=== PATIENT | male | born 1935 | race Caucasian/White ===

== ENCOUNTER 2019-05-07 11:00 | Outpatient (RCR) | payer SELFPAY | END 2019-06-06 00:01 | LOC: CR 11:00 | PROVIDERS: Family Provider Family Medicine; Referring Provider Internal Medicine Cardiovascular Disease; Visit Provider Internal Medicine Cardiovascular Disease | DX: Z98.61 Coronary angioplasty status (principal) ==

== ENCOUNTER 2019-06-14 11:20 | Outpatient (RCR) | payer SELFPAY | END 2019-07-07 23:59 | disposition home or self-care (01) | LOC: CR 11:20 | PROVIDERS: Family Provider Family Medicine; PCP Family Medicine; Referring Provider Internal Medicine Cardiovascular Disease; Visit Provider Internal Medicine Cardiovascular Disease | DX: Z95.5 Presence of coronary angioplasty implant and graft (principal) ==

== ENCOUNTER 2019-06-20 14:39 | Outpatient (CLI) | payer MEDICARE, OTHER, SELFPAY ==
--- NOTE | 2019-06-20 15:00 | USCV_ITS ---
Rigo Dejesus Age: 83 Gender: M : 1935 Exam Date: 06/20/2019 15:02 Ordering Phys: Johnna Estrada MD ([email or web address]) Technologist: Jamel Preston [place] [facility] [place]: BP: 130 / 65 HR: 72 Rhythm: Sinus Technical Quality: Fair MEASUREMENTS (Male / Female) Normal Values 2D ECHO LVOT Diameter 2.0 cm LA Diameter 3.8 cm LA Width 3.8 cm LA Height 4.8 cm RA Width 4.0 cm RA Height 4.4 cm Aorta at Sinotubular Diameter 2.5 cm M-MODE LV Diastolic Diameter MM 4.6 cm 4.2 - 5.9 / 3.9 - 5.3 cm LV Systolic Diameter MM 2.5 cm LV Ejection Fraction MM Teich 77.6 % IVS Diastolic Thickness MM 1.2 cm 0.6 - 1.0 / 0.6 - 0.9 cm IVS Systolic Thickness MM 1.2 cm LVPW Diastolic Thickness MM 1.4 cm 0.6 - 1.0 / 0.6 - 0.9 cm LVPW Systolic Thickness MM 1.6 cm RV Diastolic Diameter MM 1.4 cm Aortic Annulus Diameter 3.7 cm LA Ao Ratio MM 1.0 MV E Point Septal Separation 1.3 cm DOPPLER AV Peak Velocity 313.0 cm/s LVOT Peak Velocity 97.0 cm/s AV Area Cont Eq vti 0.9 cm squared AV Area Cont Eq pk 1.0 cm squared MV Area PHT 5.0 cm squared Mitral E to A Ratio 1.1 MV E' Velocity 7.0 cm/s Mitral E to MV E' Ratio 14.8 Mitral E to LV E' Lateral Ratio 16.5 Mitral E to LV E' Septal Ratio 13.5 TR Peak Velocity 249.0 cm/s TR Peak Gradient 24.9 mmHg TV Peak E Velocity 92.0 cm/s Right Atrial Pressure 3.0 mmHg Pulmonary Artery Systolic Pressu 27.8 mmHg FINDINGS Left Ventricle Normal left ventricular cavity size. Normal left ventricular systolic function. No regional wall motion abnormalities. Left ventricular ejection fraction is estimated at 65 %. Grade I/IV diastolic dysfunction (abnormal relaxation filling pattern), normal to mildly elevated filling pressures. Right Ventricle The right ventricle is normal in size and function. Right Atrium The right atrium is normal in size. Left Atrium The left atrium is normal in size. Mitral Valve Moderately thickened mitral valve. No mitral valve stenosis. Mild mitral valve regurgitation. Aortic Valve Severe aortic valve calcification. Moderate aortic valve stenosis, mean gradient 21 mmHg, SEVEN 0.91 cm squared. No aortic valve regurgitation. Tricuspid Valve Structurally normal tricuspid valve without significant stenosis or regurgitation. Pulmonary artery systolic pressure is normal. Pulmonic Valve Structurally normal pulmonic valve without significant stenosis. There is no pulmonic regurgitation. Pericardium Normal pericardium without effusion. Aorta Normal ascending aorta dimension. CONCLUSIONS 1-Normal left ventricular cavity size. Normal left ventricular systolic function. No regional wall motion abnormalities. Left ventricular ejection fraction is estimated at 65 %. Grade I/IV diastolic dysfunction (abnormal relaxation filling pattern), normal to mildly elevated filling pressures. 2-Severe aortic valve calcification. Moderate aortic valve stenosis, mean gradient 21 mmHg, SEVEN 0.91 cm squared. No aortic valve regurgitation. 3-Moderately thickened mitral valve. No mitral valve stenosis. Mild mitral valve regurgitation. 4-There is no pericardial effusion. 5-Pulmonary artery systolic pressure is within normal limits. 6-Right atrial pressure is around 5 mm of mercury. 7-when compared to the prior echocardiogram dated 01/29/2014 there is a moderate to severe aortic stenosis now calculated aortic valve area is 0.94 cm squared with mean gradient across the aortic valve is 21 mmHg. Johnna Estrada MD (Electronically Signed) Final Date: 20 June 2019 17:37 S
== END 2019-06-20 14:40 | disposition home or self-care (01) ==
PROVIDERS: Family Provider Family Medicine; PCP Family Medicine; Visit Provider Internal Medicine Cardiovascular Disease
DX: I35.0 Nonrheumatic aortic (valve) stenosis (principal)
CPT/HCPCS: 93306

== ENCOUNTER 2019-08-07 12:41 | Outpatient (RCR) | payer SELFPAY | END 2019-09-05 23:59 | disposition home or self-care (01) | LOC: CR 12:41 | PROVIDERS: Family Provider Family Medicine; PCP Family Medicine; Referring Provider Internal Medicine Cardiovascular Disease; Visit Provider Internal Medicine Cardiovascular Disease | DX: Z95.5 Presence of coronary angioplasty implant and graft (principal) ==

== ENCOUNTER 2019-11-06 14:13 | Outpatient (RCR) | payer SELFPAY | END 2019-12-05 23:59 | disposition home or self-care (01) | LOC: CR 14:13 | PROVIDERS: Family Provider Family Medicine; PCP Family Medicine; Referring Provider Internal Medicine Cardiovascular Disease; Visit Provider Internal Medicine Cardiovascular Disease | DX: Z95.5 Presence of coronary angioplasty implant and graft (principal) ==

== ENCOUNTER 2019-12-06 | Outpatient (RCR) | payer SELFPAY | END 2020-01-05 23:00 | disposition home or self-care (01) | LOC: CR | PROVIDERS: Family Provider Family Medicine; PCP Family Medicine; Referring Provider Internal Medicine Cardiovascular Disease; Visit Provider Internal Medicine Cardiovascular Disease | DX: Z95.5 Presence of coronary angioplasty implant and graft (principal) ==

== ENCOUNTER 2020-01-09 13:17 | Outpatient (RCR) | payer SELFPAY | END 2020-02-05 23:59 | disposition home or self-care (01) | LOC: CR 13:17 | PROVIDERS: Family Provider Family Medicine; PCP Family Medicine; Referring Provider Internal Medicine Cardiovascular Disease; Visit Provider Internal Medicine Cardiovascular Disease | DX: Z95.5 Presence of coronary angioplasty implant and graft (principal) ==

== ENCOUNTER 2020-02-06 14:36 | Outpatient (RCR) | payer SELFPAY | END 2020-03-06 23:59 | disposition home or self-care (01) | LOC: CR 14:36 | PROVIDERS: Family Provider Family Medicine; PCP Family Medicine; Referring Provider Internal Medicine Cardiovascular Disease; Visit Provider Internal Medicine Cardiovascular Disease | DX: Z95.5 Presence of coronary angioplasty implant and graft (principal) ==

== ENCOUNTER 2020-03-08 10:40 | Outpatient (RCR) | payer SELFPAY | END 2020-04-06 23:59 | disposition home or self-care (01) | LOC: CR 10:40 | PROVIDERS: Family Provider Family Medicine; PCP Family Medicine; Referring Provider Internal Medicine Cardiovascular Disease; Visit Provider Internal Medicine Cardiovascular Disease | DX: Z95.5 Presence of coronary angioplasty implant and graft (principal) ==

== ENCOUNTER 2020-04-07 15:04 | Outpatient (RCR) | payer SELFPAY | END 2020-05-06 23:59 | disposition home or self-care (01) | LOC: CR 15:04 | PROVIDERS: Family Provider Family Medicine; PCP Family Medicine; Referring Provider Internal Medicine Cardiovascular Disease; Visit Provider Internal Medicine Cardiovascular Disease | DX: Z95.5 Presence of coronary angioplasty implant and graft (principal) ==

== ENCOUNTER 2020-05-09 11:17 | Outpatient (RCR) | payer SELFPAY | END 2020-06-06 23:59 | disposition home or self-care (01) | LOC: CR 11:17 | PROVIDERS: Family Provider Family Medicine; PCP Family Medicine; Referring Provider Internal Medicine Cardiovascular Disease; Visit Provider Internal Medicine Cardiovascular Disease | DX: Z95.5 Presence of coronary angioplasty implant and graft (principal) ==

== ENCOUNTER 2020-05-28 09:29 | Outpatient (CLI) | payer MEDICARE, OTHER, SELFPAY ==
[2020-05-28 10:21] LABS: Basophils # 0.1 10^3/uL (0.0-0.1); Basophils % 0.8 %; Eosinophils # 0.5 10^3/uL (0.0-0.8); Eosinophils % 4.8 %; Hematocrit 27.4 % (42.0-52.0); Hemoglobin 8.3 g/dL (11.7-16.6); Lymphocytes # 1.6 10^3/uL (0.8-4.8); Lymphocytes % 15.8 %; Mean Corpuscular HGB Conc 30.3 g/dL (30.0-36.0); Mean Corpuscular Hemoglobin 29.6 pg (28.0-34.0); Mean Corpuscular Volume 97.9 fL (80-94); Mean Platelet Volume 10.2 fL (7.4-10.4); Monocytes # 1.1 10^3/uL (0.2-0.9); Monocytes % 10.5 %; Neutrophils # 6.92 10^3/uL (1.8-7.7); Neutrophils % 66.8 %; Nucleated Red Blood Cells % 0 %; Platelet Count 306 10^3/cmm (130-400); Red Cell Distribution Width 14.7 % (12.1-15.1); White Blood Count 10.4 10^3/uL (4.0-10.0)
[2020-05-28 10:33] LABS: Alanine Aminotransferase 9 U/L (0-41); Albumin Level 3.7 g/dL (3.5-5.2); Alkaline Phosphatase 83 IU/L (40-130); Anion Gap 13.6 (5-19); Aspartate Amino Transferase 11 U/L (0-40); Blood Urea Nitrogen 47 mg/dL (8-23); Calcium 8.8 mg/dL (8.5-10.5); Carbon Dioxide 28 mmol/L (22-29); Chloride 99 mmol/L (98-107); Glucose 162 mg/dL (65-115); Osmolality Calculated 298 mOsm/kg (285-295); Potassium 4.6 mmol/L (3.5-5.1); Sodium 136 mmol/L (136-145); Total Bilirubin 0.2 mg/dL (0.15-1.2); Total Protein 6.7 g/dL (6.6-8.7)
[2020-05-28 13:57] LABS: Immunoglobulin IGA 310 mg/dL (70-400); Immunoglobulin IGG 1122 mg/dL (700-1600); Immunoglobulin IGM 52 mg/dL (40-230)
== END 2020-05-28 09:30 | disposition home or self-care (01) ==
PROVIDERS: PCP Family Medicine; Visit Provider Internal Medicine Critical Care Medicine
DX: J47.9 Bronchiectasis, uncomplicated (principal)
CPT/HCPCS: 36415; 80053; 82784; 85025; 87015; 87070; 87116; 87205; 87206; 87801

== ENCOUNTER 2020-06-07 13:09 | Outpatient (RCR) | payer SELFPAY | END 2020-07-07 23:59 | disposition home or self-care (01) | LOC: CR 13:09 | PROVIDERS: Family Provider Family Medicine; PCP Family Medicine; Referring Provider Internal Medicine Cardiovascular Disease; Visit Provider Internal Medicine Cardiovascular Disease | DX: Z95.5 Presence of coronary angioplasty implant and graft (principal) ==

== ENCOUNTER 2020-06-14 08:23 | Outpatient (CLI) | payer MEDICARE, OTHER, SELFPAY ==
--- NOTE | 2020-06-14 08:33 | USCV_ITS ---
Rigo Dejesus Age: 84 Gender: M : 1935 Exam Date: 06/14/2020 09:19 Ordering Phys: Johnna Estrada MD ([email or web address]) Technologist: Ashley Grove Exam Location: [facility] – [place] Indication: BP: 120 / 68 HR: 65 Rhythm: Sinus Technical Quality: Adequate MEASUREMENTS (Male / Female) Normal Values 2D ECHO LV Diastolic Diameter PLAX 5.0 cm 4.2 - 5.9 / 3.9 - 5.3 cm LV Systolic Diameter PLAX 2.7 cm LV Chamber Size 4.6 cm IVS Diastolic Thickness 1.6 cm 0.6 - 1.0 / 0.6 - 0.9 cm IVS Systolic Thickness 1.5 cm LVPW Diastolic Thickness 1.1 cm 0.6 - 1.0 / 0.6 - 0.9 cm LVPW Systolic Thickness 1.5 cm RV Chamber Size 3.3 cm LVOT Diameter 2.1 cm LV Ejection Fraction 2D Teich 76.2 % LV Ejection Fraction MOD 2C 72.2 % LV Ejection Fraction 2C AL 72.5 % LA Diameter 3.7 cm LA Width 3.2 cm LA Height 3.9 cm RA Width 4.1 cm RA Height 4.5 cm Aorta at Sinotubular Diameter 3.4 cm M-MODE LV Diastolic Diameter MM 6.1 cm 4.2 - 5.9 / 3.9 - 5.3 cm LV Systolic Diameter MM 4.2 cm LV Ejection Fraction MM Teich 58.3 % IVS Diastolic Thickness MM 1.0 cm 0.6 - 1.0 / 0.6 - 0.9 cm IVS Systolic Thickness MM 1.4 cm LVPW Diastolic Thickness MM 1.2 cm 0.6 - 1.0 / 0.6 - 0.9 cm LVPW Systolic Thickness MM 1.2 cm RV Diastolic Diameter MM 1.1 cm Aortic Annulus Diameter 3.3 cm LA Ao Ratio MM 1.3 MV E Point Septal Separation 0.5 cm DOPPLER AV Peak Velocity 351.0 cm/s LVOT Peak Velocity 93.0 cm/s AV Area Cont Eq vti 0.8 cm squared AV Area Cont Eq pk 0.9 cm squared MV Area PHT 4.0 cm squared Mitral E to A Ratio 0.8 MV E' Velocity 53.0 cm/s Mitral E to MV E' Ratio 13.1 Mitral E to LV E' Lateral Ratio 14.3 Mitral E to LV E' Septal Ratio 12.3 TR Peak Velocity 191.9 cm/s TR Peak Gradient 14.7 mmHg TR Mean Velocity 140.0 cm/s TR Mean Gradient 8.8 mmHg TR Velocity Time Integral 54.3 cm TV Peak E Velocity 68.0 cm/s Right Atrial Pressure 3.0 mmHg Pulmonary Artery Systolic Pressu 17.7 mmHg FINDINGS Left Ventricle Normal left ventricular cavity size. Increased left ventricular wall thickness. Moderate concentric left ventricular hypertrophy. Normal left ventricular systolic function. Left ventricular ejection fraction is estimated at 65 %. No diagnostic regional wall motion abnormality. Normal diastolic function. Right Ventricle Normal right ventricular size and systolic function. Right ventricular systolic pressure 17.7 mmHg. Right Atrium Normal right atrial size. Left Atrium Mildly increased left atrial size. Mitral Valve Moderate mitral annular calcification. Structurally normal mitral valve. No mitral valve stenosis. Trace to mild mitral valve regurgitation. Aortic Valve Markedly thickened and calcified calcified aortic valve. Possibly moderate aortic valve stenosis, peak velocity 3.5 m/s, peak gradient 49 mmHg, mean gradient 26 mmHg, SEVEN 0.82 cm squared. Dimensionless valve index of 0.27. Tricuspid Valve Structurally normal tricuspid valve. Trace tricuspid valve regurgitation. Pulmonic Valve Pulmonic valve not well visualized. Pericardium No pericardial effusion. Aorta Aorta not well visualized. CONCLUSIONS 1. Normal left ventricular cavity size and systolic function. Moderate concentric left ventricular hypertrophy. Left ventricular ejection fraction is estimated at 65 %. No diagnostic regional wall motion abnormality. Normal diastolic function. 2. Normal right ventricular size and systolic function. 3. Mildly increased left atrial size. 4. Possibly moderate aortic valve stenosis, peak velocity 3.5 m/s, peak gradient 49 mmHg, mean gradient 26 mmHg, SEVEN 0.82 cm squared. Dimensionless valve index of 0.27. 5. Normal pulmonary artery pressure. 6. When compared to previous echocardiogram dated 06/20/2019, mean gradient through aortic valve has increased but remains in moderate range. Katherine Dior MD (Electronically Signed) Final Date: 21 June 2020 14:56 S
== END 2020-06-14 08:24 | disposition home or self-care (01) ==
PROVIDERS: PCP Family Medicine; Visit Provider Internal Medicine Cardiovascular Disease
DX: I35.0 Nonrheumatic aortic (valve) stenosis (principal); R06.02 Shortness of breath
CPT/HCPCS: 93306

== ENCOUNTER 2020-07-09 10:41 | Outpatient (RCR) | payer SELFPAY | END 2020-08-04 23:59 | disposition home or self-care (01) | LOC: CR 10:41 | PROVIDERS: Family Provider Family Medicine; PCP Family Medicine; Referring Provider Internal Medicine Cardiovascular Disease; Visit Provider Internal Medicine Cardiovascular Disease | DX: Z95.5 Presence of coronary angioplasty implant and graft (principal) ==

== ENCOUNTER 2020-08-05 10:39 | Outpatient (RCR) | payer SELFPAY | END 2020-09-04 23:59 | disposition home or self-care (01) | LOC: CR 10:39 | PROVIDERS: PCP Family Medicine; Referring Provider Internal Medicine Cardiovascular Disease; Visit Provider Internal Medicine Cardiovascular Disease | DX: Z95.5 Presence of coronary angioplasty implant and graft (principal) ==

== ENCOUNTER 2020-08-28 09:47 | Outpatient (CLI) | payer MEDICARE, OTHER, SELFPAY ==
--- NOTE | 2020-08-28 10:15 | CT_ITS ---
WS: [id number] HIGH-RESOLUTION CHEST CT TECHNIQUE: Noncontrast high-resolution CT of the chest with coronal and sagittal reformatted images. Inspiratory, expiratory, and prone imaging CLINICAL INFORMATION: Shortness of breath COMPARISON: CT 3 14,019 DLP: 1215.[address] scans at [facility] use at least one of these dose optimization techniques: automat ed exposure control; mA and/or kV adjustment per patient size (includes targeted exams where dose is matched to clinical indication); or iterative reconstruction. FINDINGS: Again seen are moderate chronic emphysematous changes with hyperinflation. Bronchiectasis with patchy opacities in the right middle lobe and both lower lobes. No acute pulmonary infiltrates. No consolid ation or pleural fluid. High-resolution images demonstrate slight tree-in-bud nodularity in both lowe r lobes likely inflammatory. Vascular calcification including coronary. No significant air trapping on the expiratory imaging. Mil d thoracic kyphosis. Hypertrophic changes and ankylosis thoracic spine. No acute appearing compressio n fractures. Partially visualized renal cortical atrophy. Adrenal glands are normal. Splenic artery calcification. Normal GE junction. CT/CT chest wo con [id number] IMPRESSION: 1. Moderate chronic emphysematous changes with hyperinflation similar to previ ous. 2. Bibasilar subsegmental atelectasis with bronchiectasis is similar in appear ance to the prior examination. 3. Bronchiectasis within the lingula and right middle lobe is unchanged. No baldwin bpleural honeycombing. 4. Slight tree-in-bud nodularity in both lower lobes likely inflammatory. 5. No mediastinal or hilar lymphadenopathy. No axillary lymphadenopathy. 6. Vascular calcification including coronary. 7. No other significant changes from previous.
== END 2020-08-28 09:48 | disposition home or self-care (01) ==
LOC: RADWPI 09:53
PROVIDERS: PCP Family Medicine; Visit Provider Internal Medicine Critical Care Medicine
DX: R06.02 Shortness of breath (principal); I25.10 Atherosclerotic heart disease of native coronary artery without angina pectoris; R91.8 Other nonspecific abnormal finding of lung field; J47.9 Bronchiectasis, uncomplicated; J98.11 Atelectasis
CPT/HCPCS: 71250

== ENCOUNTER 2020-09-05 14:34 | Outpatient (RCR) | payer SELFPAY | END 2020-10-04 23:59 | disposition home or self-care (01) | LOC: CR 14:34 | PROVIDERS: PCP Family Medicine; Referring Provider Internal Medicine Cardiovascular Disease; Visit Provider Internal Medicine Cardiovascular Disease | DX: Z95.5 Presence of coronary angioplasty implant and graft (principal) ==

== ENCOUNTER 2020-10-07 10:44 | Outpatient (RCR) | payer SELFPAY | END 2020-11-04 23:59 | disposition home or self-care (01) | LOC: CR 10:44 | PROVIDERS: PCP Family Medicine; Referring Provider Internal Medicine Cardiovascular Disease; Visit Provider Internal Medicine Cardiovascular Disease | DX: Z95.5 Presence of coronary angioplasty implant and graft (principal) ==

== ENCOUNTER 2020-11-05 14:21 | Outpatient (RCR) | payer SELFPAY | END 2020-12-04 23:59 | disposition home or self-care (01) | LOC: CR 14:21 | PROVIDERS: PCP Family Medicine; Referring Provider Internal Medicine Cardiovascular Disease; Visit Provider Internal Medicine Cardiovascular Disease | DX: Z95.5 Presence of coronary angioplasty implant and graft (principal) ==

== ENCOUNTER 2020-12-05 14:02 | Outpatient (RCR) | payer SELFPAY | END 2021-01-04 23:59 | disposition home or self-care (01) | LOC: CR 14:02 | PROVIDERS: PCP Family Medicine; Referring Provider Internal Medicine Cardiovascular Disease; Visit Provider Internal Medicine Cardiovascular Disease | DX: Z95.5 Presence of coronary angioplasty implant and graft (principal) ==

== ENCOUNTER 2021-01-06 14:38 | Outpatient (RCR) | payer SELFPAY | END 2021-02-04 23:59 | disposition home or self-care (01) | LOC: CR 14:38 | PROVIDERS: PCP Family Medicine; Referring Provider Internal Medicine Cardiovascular Disease; Visit Provider Internal Medicine Cardiovascular Disease | DX: Z95.5 Presence of coronary angioplasty implant and graft (principal) ==

== ENCOUNTER 2021-01-29 03:30 | Inpatient (IN) | payer MEDICARE, OTHER, SELFPAY ==
[2021-01-29] VITALS (8 sets, daily range): BP systolic 128–164; BP diastolic 77–78; PULSE 91–107; RESP 22–32; TEMP 36; O2SAT 74–100; BMI 22.8
--- NOTE | 2021-01-29 03:53 | XRR_ITS ---
PROCEDURE INFORMATION: Exam: XR Chest Exam date and time: 01/29/2021 3:53 AM Age: 85 years old Clinical indication: Cough and shortness of breath; Prior surgery; Surgery type: Coronary stents; Patient HX: Cough, SOB, and congestion. TECHNIQUE: Imaging protocol: XR of the chest. Views: 1 view. COMPARISON: CT chest con [id number] 08/28/2020 10:12 AM FINDINGS: Lungs: No definite CHF/pulmonary edema. Prominent right lower lung opacities, compatible with pneumonia. Please correlate clinically. There are less prominent, relatively mild left lower lung opacities. Pleural spaces: No visible pneumothorax. There may be a small amount of right pleural fluid. Heart/Mediastinum: Heart size is within normal limits. Bones/joints: No significant acute finding. XR/XR chest 1V portable [id number] IMPRESSION: 1. Findings compatible with bilateral lower lung pneumonia, more prominent on the right. 2. Suspect a small right pleural effusion. 3. Other findings discussed above.
--- NOTE | 2021-01-29 03:54 | ECG_ITS ---
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1935 Requested By: Enoc Rodriguez Order Number: [id number] Reading MD: NILSA MISHRA Measurements Intervals [place] Rate: 106 P: 67 HI: 237 QRS: 46 QRSD: 93 T: 46 QT: 306 QTc: 407 Interpretive Statements SINUS TACHYCARDIA WITH FIRST DEGREE AV BLOCK WITH OCCASIONAL VENTRICULAR PREMATURE COMPLEXES NONSPECIFIC T-WAVE ABNORMALITY Compared to ECG 08/31/2018 01:05:22 T-wave abnormality now present Sinus rhythm no longer present Electronically Signed On 01-29-2021 21:08:05 CDT by NILSA MISHRA [email or web address], [email or web address] [email or web address] [id number]
--- NOTE | 2021-01-29 03:55 | W.ED.SOB ---
HPI - SOB/Dyspnea General: Chief Complaint: Shortness of Breath/Dyspnea Stated Complaint: fell few day ago hurting all over, sob Time Seen by Provider: 01/29/21 03:33 Source: patient Mode of arrival: ambulatory Limitations: no limitations History of Present Illness: HPI Narrative: 85-year-old male states he has a history of COPD states that he had a fall 10 days ago where he injured his back and chest. States he been feeling really well and then mowed yard yesterday and started having increasing shortness of breath and cough. Patient here has hypoxia and is on 4 L here currently and does not require oxygen at home. He does have wheezing and rales here that is audible as well. He denies any fever. He has no known sick contacts. Denies any vomiting. He denies any chest pain currently. Associated symptoms: Deny abdominal pain, chest pain, fever(s), nausea or vomiting Review of Systems Const: Denies: fever(s), chills, body aches or change in appetite Eyes: Denies: blurry vision or eye discomfort ENMT: Denies: throat pain or dental pain Card: Denies: chest pain Resp: Reports: dyspnea and productive cough GI: Denies: abdominal pain, nausea, vomiting or diarrhea : Denies: dysuria Musc: Denies: neck pain or back pain Skin/Breast: Denies: rash Neuro: Denies: headache(s) Psych: Denies: depression Leander/Lymph: Denies: easy bruising All/Imm: Denies: urticaria PFSH ED PFSH: Medical History Aortic stenosis Hypercholesteremia Hypertension Surgical History History of heart artery stent Social History Smoking and tobacco status: former smoker Quit status (tobacco): has quit using tobacco Year quit tobacco: 1965 - 1.5 PPD x 5 Years Second hand smoke exposure: No Smoking risk assessment/counseling performed?: No Alcohol intake: never Desire information about alcohol rehabilitation?: No Counseling given: No Desire information about substance/drug rehabilitation?: No Counseling given: No Lives independently: Yes Household members: spouse Marital status: service: Yes Current occupational status: retired History of recent travel: No Current gender identity: Male Physical Exam Const: COMMON NORMALS: patient oriented x3 GENERAL APPEARANCE: in distress and ill appearing HENMT: COMMON NORMALS: normocephalic and atraumatic HEAD & SCALP: normocephalic and atraumatic Eye: COMMON NORMALS: Equal, round and reactive pupils present and EOMs intact bilaterally PUPIL: Yes Equal, round and reactive pupils present Neck/C-Spine: COMMON NORMALS: full ROM and supple Chest: COMMONS NORMALS: normal inspection of the chest and normal palpation of entire chest wall Resp: COMMON NORMALS: No retractions and No use of accessory muscles EFFORT & INSPECTION: Yes tachypneic AUSCULTATION: rales Cardio: COMMON NORMALS: regular rate, regular rhythm and No murmurs present (Cardio) RATE: regular rate RHYTHM: regular rhythm GI: COMMON NORMALS: Normal to inspection, nondistended, normoactive bowel sounds present, Soft to palpation, non-tender and no masses PALPATION: Yes Soft to palpation Extremity: COMMON NORMALS: normal to inspection and full ROM Neuro: COMMON NORMALS: patient oriented x3, moves all extremities and no focal motor deficits Psych: COMMON NORMALS: mental status grossly normal, Normal thought process present and cooperative THOUGHT PROCESS: Normal thought process present Skin: COMMON NORMALS: no rashes or lesions noted and no wounds GENERAL SKIN EXAM: no rashes or lesions noted Course Vital Signs: Vital signs: Vital Signs Temperature 96.8 F L 01/29/21 03:38 Pulse Rate 106 H 01/29/21 03:38 Respiratory Rate 24 H 01/29/21 03:38 Blood Pressure 164/77 01/29/21 03:38 Pulse Oximetry 74 L 01/29/21 03:38 MDM - SOB/Dyspnea EKG Data^: EKG 1: Attestation: I personally reviewed and interpreted this EKG as follows: EKG Interpretation Date: 01/29/21 EKG interpretation time: 03:57 Interpretation: sinus tach hr [address] or t wave abnormalities qrs 93 qtc 368 Discharge Plan Discharge Prescriptions: No Action ipratropium-albuterol 0.5 mg-3 mg(2.5 mg base)/3 mL solution for nebulization 3 ml INHALATION Q6H PRNRF: 0 carvedilol 12.5 mg tablet 12.5 mg PO Q12H RF: 0 finasteride 5 mg tablet 5 mg PO ONCE RF: 0 [id number] Tablet 1 tab PO ONCE RF: 0 albuterol sulfate 5 mg/mL solution for nebulization 2.5 mg INHALATION Q4H PRNRF: 0 Januvia 100 mg tablet 100 mg PO ONCE RF: 0 alprazolam 0.25 mg tablet 0.25 mg PO TID PRNRF: 0 ezetimibe [Zetia] 10 mg tablet 10 mg PO ONCE RF: 0 arginine (L-arginine) 500 mg tablet 500 mg PO DAILY RF: 0 glyburide 5 mg tablet 5 mg PO DIRECTED RF: 0 vitamin B complex [B Complex-Vitamin B12] Tablet 1 tab PO ONCE RF: 0 amlodipine 5 mg tablet 5 mg PO DAILY RF: 0 cholecalciferol (vitamin D3) 1,000 unit capsule 1,000 unit PO ONCE RF: 0 Trulicity 1.5 mg/0.5 mL pen injector 1.5 mg SUBCUT ONCE RF: 0 isosorbide mononitrate 30 mg tablet extended release 24 hr 30 mg PO QAM RF: 0 aspirin [Aspirin Childrens] 81 mg tablet,chewable 81 mg PO BID RF: 0 ferrous sulfate 325 mg (65 mg iron) tablet,delayed release (DR/EC) 325 mg PO DAILY RF: 0 furosemide 40 mg tablet 40 mg PO DAILY RF: 0 ascorbic acid (vitamin C) 500 mg capsule 1,000 mg PO DAILY RF: 0 garlic 1,000 mg capsule 1,000 mg PO DAILY RF: 0 montelukast 10 mg tablet 10 mg PO DAILY RF: 0 potassium gluconate 600 mg (99 mg) tablet 600 mg PO DAILY RF: 0 magnesium oxide 400 mg magnesium capsule 400 mg PO DAILY RF: 0 budesonide-formoterol [Symbicort] 160-4.5 mcg/actuation HFA aerosol inhaler 2 puff inhalation BID RF: 0 albuterol sulfate [Ventolin HFA] 90 mcg/actuation HFA aerosol inhaler 2 puff inhalation Q6H PRNRF: 0 nitroglycerin [Nitrostat] 0.4 mg tablet, sublingual 0.4 mg sublingual Q5M PRN (Reason: chest pain) Qty: 25 RF: 3 Coding Level of Care Code 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
[2021-01-29 04:05] LABS: Basophils # 0.1 10^3/uL (0.0-0.1); Basophils % 0.5 %; Eosinophils # 0.3 10^3/uL (0.0-0.8); Eosinophils % 1.6 %; Hematocrit 29.8 % (42.0-52.0); Hemoglobin 9.2 g/dL (11.7-16.6); Lymphocytes % 5.5 %; Mean Corpuscular HGB Conc 30.9 g/dL (30.0-36.0); Mean Corpuscular Hemoglobin 28.1 pg (28.0-34.0); Mean Corpuscular Volume 91.1 fl (80-94); Mean Platelet Volume 10.5 fL (7.4-10.4); Monocytes # 1.3 10^3/uL (0.2-0.9); Monocytes % 7.5 %; Neutrophils # 14.61 10^3/uL (1.8-7.7); Neutrophils % 82.2 %; Nucleated Red Blood Cells % 0 %; Platelet Count 354 10^3/cmm (130-400); Red Blood Count 3.27 10^6/uL (4.1-5.3); Red Cell Distribution Width 16.1 % (12.1-15.1); White Blood Count 17.8 10^3/uL (4.0-10.0)
[2021-01-29 04:19] LABS: D Dimer 2.62 ug/mIFEU (0-0.59)
[2021-01-29] MEDS: dexamethasone 4 mg/mL INJ 6 MG IVP (04:21)
[2021-01-29 04:29] LABS: Troponin(5th) Baseline 65 ng/L (0-15)
[2021-01-29 04:29] LABS: SARS Covid-2 Antigen Negative (Negative)
[2021-01-29] MEDS: albuterol 8 gm MDI 2 PUFF INHALATION (04:30)
[2021-01-29] MEDS: cefTRIAXone 1,000 MG in sodium chloride 0.9% (plus) 50 ML 100 MG IV (04:33)
[2021-01-29 04:36] LABS: NT Pro B Type Natriuretic Pept 6881 pg/mL (0-450); Procalcitonin 0.23 ng/mL (0-0.5)
[2021-01-29 04:44] LABS: Lactic Sepsis W/Reflex 0.8 mmol/L (0.5-2.2)
[2021-01-29] MEDS: azithromycin 500 MG in sodium chloride 0.9% 250 ML 250 MG IV (04:50)
[2021-01-29] MEDS: FUROsemide 10 mg/mL SDV 4mL 40 MG IVP (04:50)
[2021-01-29 04:58] LABS: ABG PH Result 7.24 (7.35-7.45); Arterial Blood Gas Hematocrit 44.9 % (42-52); Base Excess ABG -3.6 mmol/L (-2.0-2.0); Blood Gas Allen Test Pos; Blood Gas Sample Site Radial, left; Blood Gas Sample Type Arterial; HCO3 ABG 24.8 mmol/L (22-26); Oxygen Device NC; PO2 ABG 61.6 mmHg (80.0-100.0)
[2021-01-29 05:03] LABS: Alanine Aminotransferase 10 U/L (0-41); Albumin Level 3.5 g/dL (3.5-5.2); Alkaline Phosphatase 87 IU/L (40-130); Anion Gap 21.1 (5-19); Aspartate Amino Transferase 13 U/L (0-40); Blood Urea Nitrogen 47 mg/dL (8-23); C Reactive Protein 50.6 mg/L (0.0-4.9); Calcium 8.6 mg/dL (8.5-10.5); Carbon Dioxide 22 mmol/L (22-29); Chloride 97 mmol/L (98-107); Globulin 3.2 g/dL (1.3-4.6); Glucose 171 mg/dL (65-115); Osmolality Calculated 298 mOsm/kg (285-295); Potassium 4.1 mmol/L (3.5-5.1); Sodium 136 mmol/L (136-145); Total Bilirubin 0.2 mg/dL (0.15-1.2); Total Protein 6.7 g/dL (6.6-8.7)
--- NOTE | 2021-01-29 05:24 | PC.NURSE ---
Pt placed on Bipap per Dr. Rodriguez due to low O2 sats while on 6L via nasal cannula
[2021-01-29 06:00] LABS: ABG PCO2 47.2 mmHg (35-45); ABG PH Result 7.33 (7.35-7.45); Arterial Blood Gas Hematocrit 26.7 % (42-52); Base Excess ABG -1.4 mmol/L (-2.0-2.0); Blood Gas Sample Site Brachial, right; Blood Gas Sample Type Arterial; HCO3 ABG 24.6 mmol/L (22-26); Oxygen Device BIPAP; PO2 ABG 76.7 mmHg (80.0-100.0)
[2021-01-29 06:46] LABS: Troponin 5 2HR 67.99 ng/L (0-15); Troponin 5 2HR Delta 2.99 ABS# (0-10)
--- NOTE | 2021-01-29 06:47 | PM.HP ---
Providers/Chief Complaint Admitting Physician: Chrystal Mitchell MD Primary Care Provider: Elizabeth Houston MD Chief Complaint: fell few day ago hurting all over, sob History of Present Illness Rigo Dejesus is a 85 year old male with COPD, worsening bronchiectasis, , Presenting with 2 days of worsening cough shortness of breath at home. Upon presentation to the ER he was noted to be hypoxic initially requiring 4 L/min of supplemental oxygen, then needing BiPAP because of hypoxic hypercapnic respiratory failure. ABG is improving after about an hour on the BiPAP. Chest x-ray showing bilateral infiltrates. Rapid Covid antigen is negative, PCR is pending. Denies any fever. Review of Systems General: Reports: 10 or more systems reviewed and unremarkable except in HPI and below Const: Denies: fever(s), chills or body aches Eyes: Denies: change in vision, blurry vision or photophobia ENMT: Reports: hoarseness; Denies: throat pain, enlarged tonsils, odynophagia or nasal congestion Card: Denies: chest pain, palpitations, irregular heart rhythm, edema, swelling of feet/ankles, lightheadedness, pre-syncope, dyspnea on exertion or orthopnea Resp: Denies: dyspnea, productive cough, non-productive cough, wheezing, stridor, pain on inspiration, change in phlegm color, hemoptysis or chest congestion GI: Denies: abdominal pain, nausea, vomiting, hematemesis, coffee ground emesis, dysphagia, heartburn, diarrhea, constipation, GI cramping, change in stool character, hematochezia or melena : Denies: flank pain, dysuria, urinary frequency, urinary urgency, urinary hesitancy or hematuria Musc: Denies: neck pain, back pain, extremity pain, joint swelling, joint warmth or deformity Neuro: Denies: headache(s), numbness in extremities, weakness in extremities, sensory changes, difficulty walking, frequent falls, dizziness, vertigo, behavioral changes, Slurred speech present or seizure-like activity Psych: Denies: anxiety, depression, suicidal ideation or homicidal ideation Endo: Denies: polyuria, polydipsia, tired all the time, cold intolerance or hot flashes Leander/Lymph: Denies: easy bruising or easy bleeding Medications/Allergies Home Medications Medication Instructions Recorded Confirmed Last Taken Type albuterol sulfate 5 mg/mL(0.5 %) 2.5 mg INHALATION Q4H PRN 06/12/19 12/25/20 Unknown History solution for nebulization alprazolam 0.25 mg tablet 0.25 mg PO TID PRN 06/12/19 12/25/20 Unknown History amlodipine 5 mg tablet 5 mg PO DAILY tab 06/12/19 12/25/20 Unknown History arginine (L-arginine) 500 mg tablet 500 mg PO DAILY tab 06/12/19 12/25/20 Unknown History carvedilol 12.5 mg tablet 12.5 mg PO Q12H 06/12/19 12/25/20 Unknown History cholecalciferol (vitamin D3) 25 1,000 unit PO ONCE 06/12/19 12/25/20 Unknown History mcg (1,000 unit) capsule dulaglutide 1.5 mg/0.5 mL 1.5 mg SUBCUT ONCE 06/12/19 12/25/20 Unknown History subcutaneous pen injector ezetimibe 10 mg tablet 10 mg PO ONCE 06/12/19 12/25/20 Unknown History finasteride 5 mg tablet 5 mg PO ONCE 06/12/19 12/25/20 Unknown History glyburide 5 mg tablet 5 mg PO DIRECTED tab 06/12/19 12/25/20 Unknown History ipratropium 0.5 mg-albuterol 3 mg 3 ml INHALATION Q6H PRN 06/12/19 12/25/20 Unknown History (2.5 mg base)/3 mL nebulization soln isosorbide mononitrate 30 mg 30 mg PO QAM 06/12/19 12/25/20 Unknown History tablet,extended release 24 hr [id number] tablet 1 tab PO ONCE 06/12/19 12/25/20 Unknown History sitagliptin 100 mg tablet 100 mg PO ONCE 06/12/19 12/25/20 Unknown History vitamin B complex 1 tab PO ONCE 06/12/19 12/25/20 Unknown History ascorbic acid (vitamin C) 500 mg 1,000 mg PO DAILY cap 05/14/20 12/25/20 Unknown History capsule aspirin 81 mg chewable tablet 81 mg PO BID tab 05/14/20 12/25/20 Unknown History ferrous sulfate 325 mg (65 mg 325 mg PO DAILY 05/14/20 12/25/20 Unknown History iron) tablet,delayed release furosemide 40 mg tablet 40 mg PO DAILY 05/14/20 12/25/20 Unknown History garlic 1,000 mg capsule 1,000 mg PO DAILY 05/14/20 12/25/20 Unknown History magnesium oxide 400 mg PO DAILY 05/14/20 12/25/20 Unknown History montelukast 10 mg tablet 10 mg PO DAILY 05/14/20 12/25/20 Unknown History potassium gluconate 600 mg (99 mg) 600 mg PO DAILY 05/14/20 12/25/20 Unknown History tablet nitroglycerin 0.4 mg sublingual 0.4 mg SUBLINGUAL Q5M PRN #25 tab 10/23/20 12/25/20 Unknown Rx tablet albuterol sulfate 90 mcg/actuation 2 puff INHALATION Q6H PRN 12/25/20 12/25/20 Unknown History aerosol inhaler budesonide-formoterol HFA 160 2 puff INHALATION BID 12/25/20 12/25/20 Unknown History mcg-4.5 mcg/actuation aerosol inhaler Allergies Allergy/AdvReac Type Severity Reaction Status Date / Time sulfamethoxazole Allergy UNKNOWN Verified 12/25/20 08:58 [From Bactrim] trimethoprim [From Bactrim] Allergy UNKNOWN Verified 12/25/20 08:58 amoxicillin AdvReac ADR-Vomitin Verified 12/25/20 08:58 g PFSH Acute PFSH: Medical History (Updated 01/29/21 @ 06:52 by Chrystal Mitchell MD) Anxiety Aortic stenosis Calcium deficiency Chronic kidney disease, stage 3 unspecified Coagulopathy Dysuria GERD (gastroesophageal reflux disease) Hx pulmonary embolism Hypercholesteremia Hypertension Mild intermittent asthma, uncomplicated Recurrent UTI Renal insufficiency Surgical History (Updated 01/29/21 @ 06:52 by Chrystal Mitchell MD) History of heart artery stent Hx of bilateral cataract extraction Hx of squamous cell carcinoma excision NASAL TIP Social History Smoking and tobacco status: former smoker Quit status (tobacco): has quit using tobacco Year quit tobacco: 1965 - 1.5 PPD x 5 Years Second hand smoke exposure: No Smoking risk assessment/counseling performed?: No Alcohol intake: never Desire information about alcohol rehabilitation?: No Counseling given: No Desire information about substance/drug rehabilitation?: No Counseling given: No Lives independently: Yes Household members: spouse Marital status: service: Yes Current occupational status: retired History of recent travel: No Current gender identity: Male Vitals/I&O/Wt Last Vital Signs Temp 96.8 F L 01/29/21 03:38 Pulse 94 01/29/21 06:09 Resp 29 H 01/29/21 06:09 BP 128/78 01/29/21 05:26 Pulse Ox 96 01/29/21 06:09 01/28/21 01/28/21 01/29/21 14:59 22:59 06:59 Intake Total 300 / 300 Balance 300 / 300 Weight last 48 hrs Weight 78.471 kg Physical Exam Narrative: EXAM NARRATIVE: GEN: Awake, alert and oriented, no acute distress , currently on Bipap CVS: S1S2 N RS: CTA B/L except crackles over RLL Abd: Soft, nt/nd , bs+ 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 Const: COMMON NORMALS: patient oriented x3, no limitations, healthy appearing, alert and well nourished HENMT: COMMON NORMALS: normocephalic and atraumatic HEAD & SCALP: normocephalic and atraumatic Eye: COMMON NORMALS: Equal, round and reactive pupils present, EOMs intact bilaterally, conjunctivae normal and no scleral icterus CONJUNCTIVA: Yes conjunctivae normal PUPIL: Yes Equal, round and reactive pupils present Neck/C-Spine: COMMON NORMALS: no JVD Resp: COMMON NORMALS: normal respiratory effort, No retractions, No use of accessory muscles, clear to auscultation bilaterally and percussion normal AUSCULTATION: clear to auscultation bilaterally PERCUSSION: percussion normal Cardio: COMMON NORMALS: no JVD, regular rate, regular rhythm, S1 normal heart sound present, S2 normal heart sound present, No gallops present (Cardio), No clicks present (Cardio), No murmurs present (Cardio), No rub (Cardio) and Peripheral pulses 2+ throughout RATE: regular rate RHYTHM: regular rhythm HEART SOUNDS: S1 normal heart sound present and S2 normal heart sound present PERIPHERAL PULSES: Peripheral pulses 2+ throughout GI: COMMON NORMALS: Normal to inspection, nondistended, normoactive bowel sounds present, Soft to palpation, non-tender, No hepatosplenomegaly present, no masses and no bruits PALPATION: Yes Soft to palpation and Yes No hepatosplenomegaly present Extremity: COMMON NORMALS: normal to inspection, full ROM, capillary refill normal, no joint enlargement, no clubbing, cyanosis or edema, no calf tenderness and no pedal edema Neuro: COMMON NORMALS: patient oriented x3, CN's II-XII intact bilaterally, moves all extremities, no focal motor deficits, no sensory deficits noted, deep tendon reflexes 2+ bilaterally and gait normal SENSORIUM/ORIENTATION: Yes alert Psych: COMMON NORMALS: mental status grossly normal, Normal thought process present, cooperative, normal affect, speech normal, activity/motor behavior normal, denies hallucinations, denies homicidal ideation and denies suicidal ideation SPEECH: Yes normal speech THOUGHT PROCESS: Normal thought process present Skin: COMMON NORMALS: no rashes or lesions noted, no wounds, turgor normal, no jaundice, no petechiae and no mottling GENERAL SKIN EXAM: no rashes or lesions noted and turgor normal Data : 01/29/21 03:50 01/29/21 03:50 Micro: Microbiology 01/29/21 04:35 Blood Culture - Preliminary Blood SPECIMEN COLLECTED 01/29/21 04:20 Blood Culture - Preliminary Blood SPECIMEN COLLECTED Attestation for Other Data: I personally reviewed and interpreted the following: Other data: Laboratory Results WBC 17.8 10^3/uL (4.0-10.0) H 01/29/21 03:50 RBC 3.27 10^6/uL (4.1-5.3) L 01/29/21 03:50 Hgb 9.2 g/dL (11.7-16.6) L 01/29/21 03:50 Hct 29.8 % (42.0-52.0) L 01/29/21 03:50 MCV 91.1 fl (80-94) 01/29/21 03:50 MCH 28.1 pg (28.0-34.0) 01/29/21 03:50 MCHC 30.9 g/dL (30.0-36.0) 01/29/21 03:50 RDW 16.1 % (12.1-15.1) H 01/29/21 03:50 Plt Count 354 10^3/cmm (130-400) 01/29/21 03:50 MPV 10.5 fL (7.4-10.4) H 01/29/21 03:50 Neut % (Auto) 82.2 % 01/29/21 03:50 Lymph % (Auto) 5.5 % 01/29/21 03:50 Coles % (Auto) 7.5 % 01/29/21 03:50 Eos % (Auto) 1.6 % 01/29/21 03:50 Baso % (Auto) 0.5 % 01/29/21 03:50 Neut # (Auto) 14.61 10^3/uL (1.8-7.7) H 01/29/21 03:50 Lymph # (Auto) 1.0 10^3/uL (0.8-4.8) 01/29/21 03:50 Coles # (Auto) 1.3 10^3/uL (0.2-0.9) H 01/29/21 03:50 Eos # (Auto) 0.3 10^3/uL (0.0-0.8) 01/29/21 03:50 Baso # (Auto) 0.1 10^3/uL (0.0-0.1) 01/29/21 03:50 Nucleated RBC % (auto) 0 % 01/29/21 03:50 Nucleated RBCs # 0.0 /100WBC 01/29/21 03:50 D-Dimer 2.62 ug/mIFEU (0-0.59) H 01/29/21 03:50 Specimen Type Arterial 01/29/21 05:45 Sample Site Brachial, right 01/29/21 05:45 ABG pH 7.33 (7.35-7.45) L 01/29/21 05:45 ABG pCO2 47.2 mmHg (35-45) H 01/29/21 05:45 ABG pO2 76.7 mmHg (80.0-100.0) L 01/29/21 05:45 ABG HCO3 24.6 mmol/L (22-26) 01/29/21 05:45 ABG Base Excess -1.4 mmol/L (-2.0-2.0) 01/29/21 05:45 Nico Test N/a 01/29/21 05:45 Hematocrit 26.7 % (42-52) L 01/29/21 05:45 O2 Delivery Device Bipap 01/29/21 05:45 O2 Liters/Min 66.0 % 01/29/21 04:45 FiO2 50.0 % 01/29/21 05:45 [employer] ID Doni 01/29/21 05:45 Sodium 136 mmol/L (136-145) 01/29/21 03:50 Potassium 4.1 mmol/L (3.5-5.1) 01/29/21 03:50 Chloride 97 mmol/L (98-107) L 01/29/21 03:50 Carbon Dioxide 22 mmol/L (22-29) 01/29/21 03:50 Anion Gap 21.1 (5-19) H 01/29/21 03:50 BUN 47 mg/dL (8-23) H 01/29/21 03:50 Creatinine 2.7 mg/dL (0.7-1.2) H 01/29/21 03:50 GFR Calculation Not Reportable 01/29/21 03:50 Glucose 171 mg/dL (65-115) H 01/29/21 03:50 Calculated Osmolality 298 mOsm/kg (285-295) H 01/29/21 03:50 Lactic Acid 0.8 mmol/L (0.5-2.2) 01/29/21 04:20 Calcium 8.6 mg/dL (8.5-10.5) 01/29/21 03:50 Total Bilirubin 0.2 mg/dL (0.15-1.2) 01/29/21 03:50 AST 13 U/L (0-40) 01/29/21 03:50 ALT 10 U/L (0-41) 01/29/21 03:50 Alkaline Phosphatase 87 IU/L (40-130) 01/29/21 03:50 Troponin T Baseline 65 ng/L (0-15) H 01/29/21 03:50 Delta Troponin T 2.99 ABS# (0-10) 01/29/21 06:03 C-Reactive Protein 50.6 mg/L (0.0-4.9) H 01/29/21 03:50 NT-Pro-B Natriuret Pep 6881 pg/mL (0-450) H 01/29/21 03:50 Total Protein 6.7 g/dL (6.6-8.7) 01/29/21 03:50 Albumin 3.5 g/dL (3.5-5.2) 01/29/21 03:50 Globulin 3.2 g/dL (1.3-4.6) 01/29/21 03:50 Procalcitonin 0.23 ng/mL (0-0.5) 01/29/21 03:50 SARS-CoV-2 Ag (Rapid) Negative (Negative) 01/29/21 04:00 Impressions Chest X-Ray 01/29/21 03:53 IMPRESSION: 1. Findings compatible with bilateral lower lung pneumonia, more prominent on the right. 2. Suspect a small right pleural effusion. 3. Other findings discussed above. A&P Assessment and plan (1) Pneumonia: Chest x-ray with bilateral infiltrates Likely to represent pneumonia, suspected small right pleural effusion. CHF may be contributing to the clinical picture. Empiric antibiotics with ceftriaxone azithromycin Sputum Gram stain and culture Urine bacterial and Legionella antigens. Lasix 40mg iv q24h , monitor I/O rapid covid negative, PCR pending Status: Acute Qualifiers: Laterality: bilateral Lung location: lower lobe of lung Pneumonia type: due to unspecified organism Qualified Code(s): J18.9 - Pneumonia, unspecified organism (2) COPD (chronic obstructive pulmonary disease): Hypercapneic hypoxic resp failure likely from COPD exacerbation methylpred 40mg iv q8h Bipap prn, keep sat 90-92% Status: Acute (3) CHF (congestive heart failure): lasix as above baseline trop 65, get EKG, awaiting 2 hr trend Status: Acute Additional A&P Information CKD, cr at baseline currently Attestations Medical Necessity Statement*: >2midnight anticipated for above care Coding Level of Care Code 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
--- NOTE | 2021-01-29 07:26 | CT_ITS ---
WS: [id number] CT CHEST WITHOUT INTRAVENOUS CONTRAST HISTORY: Hypoxia, pneumonia. Coughing and short of breath. TECHNIQUE: Contiguous 5 mm axial imaging performed on the thorax. Coronal and sagittal reformats are submitted. All CT scans at [facility] use at least one of these dose optimization techniq ues: automated exposure control; mA and/or kV adjustment per patient size (includes targeted exams wh ere dose is matched to clinical indication); or iterative reconstruction. CONTRAST: None DLP: 582.55 mGy.cm COMPARISON: 08/28/2020. Chest radiograph 01/29/2021 Lungs and central airway: Moderate pulmonary hyperexpansion. Dense areas of opacification with air br onchograms and consolidation bilaterally at the lung bases, RIGHT greater than LEFT. Additional patch y areas of groundglass and consolidation throughout the upper lobes and RIGHT middle lobe. No pneumot horax. Pleura: Small bilateral layering pleural effusions. Heart and pericardium: Mild enlargement of the heart. There is also small pericardial effusion which has increased since 08/28/2020. Mediastinum and lawrence: Numerous mediastinal and hilar lymph nodes. Lymph nodes are less than 1 cm but there are numerous lymph nodes. There is also mild thickening of the esophagus at the level of the ca scout. Vessels: Moderate atherosclerosis within the aorta. Normal size pulmonary artery. Chest wall and lower neck: No soft tissue masses. Mild diffuse soft tissue edema and anasarca. Upper abdomen: Extensive atherosclerotic changes within the splenic artery. Dense appearance of the l iver. No adrenal mass. Osseous structures: Increase in the thoracic kyphosis. Mild osteopenia. No destructive bone lesions. CT/CT chest wo con [id number] IMPRESSION: 1. Significant change in appearance of the lungs since 08/28/2020. 2. Development of dense consolidations at the lung bases and small effusions c onsistent with pneumonia. Also consider aspiration pneumonia. 3. Additional patchy areas of consolidation and groundglass attenuation throug hout the remaining lungs. Consider Covid 19, pulmonary edema and pneumonitis. 4. Mild anasarca. 5. Numerous but subcentimeter mediastinal and hilar lymph nodes. 6. Small pericardial effusion but slightly increased since 08/28/2020. 7. Mild thickening of the esophagus at the level of the corine. Esophageal maddy plasm not excluded. Endoscopy may be necessary.
[2021-01-29] MEDS: heparin 5,000 unit/mL INJ 1 mL 5000 UNIT SUBCUT (08:37)
[2021-01-29] MEDS: predniSONE 20 mg Tablet 40 MG PO (08:38)
[2021-01-29] MEDS: pantoprazole DR 40 mg Tablet PO (08:39)
[2021-01-29 08:52] LABS: Glucose Point of Care 170 mg/dL (70-110)
[2021-01-29] MEDS: ipratropium-albuterol 3 mL Neb INHALATION (09:16)
[2021-01-29] MEDS: budesonide 0.5 mg/2 mL Neb INHALATION (09:16)
--- NOTE | 2021-01-29 09:54 | ECG_ITS ---
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
[2021-01-29 11:02] LABS: Troponin 5 6HR 127.5 ng/L (0-15); Troponin 5 6HR Delta 62.5 ng/L (0-12)
--- NOTE | 2021-01-29 12:24 | PM.TDS ---
Transfer Summary Providers Date of Admission: 01/29/21 05:29 Date of Discharge: 01/29/21 Attending Provider at Admission: Chrystal Mitchell MD Attending Provider at Transfer: Johnna Kenney MD Primary Care Provider: Elizabeth Houston MD Anticipated Date of Transfer: Anticipated date of transfer: 01/29/21 Receiving Facility & Provider: Receiving Provider: [] Receiving facility: [] Diagnoses at Discharge Discharge Diagnosis (1) Pneumonia: Status: Acute Qualifiers: Laterality: bilateral Lung location: lower lobe of lung Pneumonia type: due to unspecified organism Qualified Code(s): J18.9 - Pneumonia, unspecified organism (2) COPD (chronic obstructive pulmonary disease): Status: Acute (3) CHF (congestive heart failure): Status: Acute Reason for Visit Reason for Visit: fell few day ago hurting all over, sob Hospital Course Hospital Course I was called by the ER physician that patient is being transferred to [facility] Dr. Dial came to evaluate the patient who is planning to talk with Dr. Maldonado, accepting physician at [facility]. He is being transferred before my evaluation Reason of Transfer: no hospital beds available TS Data Data Completed and Pending: Completed Studies During Hospitalization Category Date Time Status CT chest wo con 7 1250 Stat Cat Scan 01/29/21 07:26 Completed XR chest 1V brie ble [id number] Stat Exams 01/29/21 03:53 Completed Pending at discharge Category Date Time Status Bacterial Antigen Routine Lab 01/29/21 06:59 Uncollected Blood Culture Sta t Lab 01/29/21 04:35 Results C Reactive Protei n AM LABS Lab 01/30/21 04:00 Ordered Complete Blood Co unt w/Auto AM LABS Lab 01/30/21 04:00 Ordered Comprehensive Met abolic Panel AM LA BS Lab 01/30/21 04:00 Ordered Coronavirus Test [facility] ne Lab 01/29/21 04:40 Received Legionella Antige n STAT Routine Lab 01/29/21 06:59 Uncollected Labs from last 24 hours 01/29/21 01/29/21 01/29/21 10:29 08:49 06:03 WBC RBC Hgb Hct MCV MCH MCHC RDW Plt Count MPV Neut % (Auto) Lymph % (Auto) [place] % (Auto) Eos % (Auto) Baso % (Auto) Neut # (Auto) Lymph # (Auto) [place] # (Auto) Eos # (Auto) Baso # (Auto) Nucleated RBC % (a uto) Nucleated RBCs # D-Dimer Specimen Type Sample Site ABG pH ABG pCO2 ABG pO2 ABG HCO3 ABG Base Excess Nico Test Hematocrit O2 Delivery Device O2 Liters/Min FiO2 Supervisor [employer] ID Sodium Potassium Chloride Carbon Dioxide Anion Gap BUN Creatinine GFR Calculation Glucose POC Glucose 170 H Calculated Osmolal ity Lactic Acid Calcium Total Bilirubin AST ALT Alkaline Phosphata se Troponin T Baselin e Troponin T 120 Min [place] 67.99 H Delta Troponin T 2.99 Troponin T Hi Sens 6Hr 127.5 H Troponin T Hi Sens 6Hr Delta 62.5 H* C-Reactive Protein NT-Pro-B Natriuret Pep Total Protein Albumin Globulin Procalcitonin Nasal/Oral COVID-1 9 PCR SARS-CoV-2 Ag (Rap id) 01/29/21 01/29/21 01/29/21 05:45 04:45 04:40 WBC RBC Hgb Hct MCV MCH MCHC RDW Plt Count MPV Neut % (Auto) Lymph % (Auto) [place] % (Auto) Eos % (Auto) Baso % (Auto) Neut # (Auto) Lymph # (Auto) [place] # (Auto) Eos # (Auto) Baso # (Auto) Nucleated RBC % (a uto) Nucleated RBCs # D-Dimer Specimen Type Arterial Arterial Sample Site Brachial, right Radial, left ABG pH 7.33 L 7.24 L ABG pCO2 47.2 H 58.0 H ABG pO2 76.7 L 61.6 L ABG HCO3 24.6 24.8 ABG Base Excess -1.4 -3.6 L Nico Test N/a Pos Hematocrit 26.7 L 44.9 O2 Delivery Device Bipap Nc O2 Liters/Min 66.0 FiO2 50.0 44.0 Supervisor [employer] Education ID Rieri Rieri Sodium Potassium Chloride Carbon Dioxide Anion Gap BUN Creatinine GFR Calculation Glucose POC Glucose Calculated Osmolal ity Lactic Acid Calcium Total Bilirubin AST ALT Alkaline Phosphata se Troponin T Baselin e Troponin T 120 Min [place] Delta Troponin T Troponin T Hi Sens 6Hr Troponin T Hi Sens 6Hr Delta C-Reactive Protein NT-Pro-B Natriuret Pep Total Protein Albumin Globulin Procalcitonin Nasal/Oral COVID-1 9 PCR Pending SARS-CoV-2 Ag (Rap id) 01/29/21 01/29/2101/29/21 04:20 04:00 03:50 WBC RBC Hgb Hct MCV MCH MCHC RDW Plt Count MPV Neut % (Auto) Lymph % (Auto) [place] % (Auto) Eos % (Auto) Baso % (Auto) Neut # (Auto) Lymph # (Auto) [place] # (Auto) Eos # (Auto) Baso # (Auto) Nucleated RBC % (a uto) Nucleated RBCs # D-Dimer Specimen Type Sample Site ABG pH ABG pCO2 ABG pO2 ABG HCO3 ABG Base Excess Nico Test Hematocrit O2 Delivery Device O2 Liters/Min FiO2 Supervisor [employer] Education ID Sodium Potassium Chloride Carbon Dioxide Anion Gap BUN Creatinine GFR Calculation Glucose POC Glucose Calculated Osmolal ity Lactic Acid 0.8 Calcium Total Bilirubin AST ALT Alkaline Phosphata se Troponin T Baselin e 65 H Troponin T 120 Min [place] Delta Troponin T Troponin T Hi Sens 6Hr Troponin T Hi Sens 6Hr Delta C-Reactive Protein NT-Pro-B Natriuret Pep Total Protein Albumin Globulin Procalcitonin Nasal/Oral COVID-1 9 PCR SARS-CoV-2 Ag (Rap id) Negative 01/29/21 01/29/21 01/29/21 03:50 03:50 03:50 WBC 17.8 H RBC 3.27 L Hgb 9.2 L Hct 29.8 L MCV 91.1 MCH 28.1 MCHC 30.9 RDW 16.1 H Plt Count 354 MPV 10.5 H Neut % (Auto) 82.2 Lymph % (Auto) 5.5 [place] % (Auto) 7.5 Eos % (Auto) 1.6 Baso % (Auto) 0.5 Neut # (Auto) 14.61 H Lymph # (Auto) 1.0 [place] # (Auto) 1.3 H Eos # (Auto) 0.3 Baso # (Auto) 0.1 Nucleated RBC % (a uto) 0 Nucleated RBCs # 0.0 D-Dimer 2.62 H Specimen Type Sample Site ABG pH ABG pCO2 ABG pO2 ABG HCO3 ABG Base Excess Nico Test Hematocrit O2 Delivery Device O2 Liters/Min FiO2 Supervisor [employer] Education ID Sodium 136 Potassium 4.1 Chloride 97 L Carbon Dioxide 22 Anion Gap 21.1 H BUN 47 H Creatinine 2.7 H GFR Calculation Not Reportable Glucose 171 H POC Glucose Calculated Osmolal ity 298 H Lactic Acid Calcium 8.6 Total Bilirubin 0.2 AST 13 ALT 10 Alkaline Phosphata se 87 Troponin T Baselin e Troponin T 120 Min [place] Delta Troponin T Troponin T Hi Sens 6Hr Troponin T Hi Sens 6Hr Delta C-Reactive Protein 50.6 H NT-Pro-B Natriuret Pep 6881 H Total Protein 6.7 Albumin 3.5 Globulin 3.2 Procalcitonin 0.23 Nasal/Oral COVID-1 9 PCR SARS-CoV-2 Ag (Rap id) Vitals: Last Vital Signs Temp 96.8 F L 01/29/21 03:38 Pulse 102 H 01/29/21 09:16 Resp 26 H 01/29/21 09:16 BP 146/77 01/29/21 07:46 Pulse Ox 95 01/29/21 09:16 TS Medications Medications Home Medications alprazolam 0.25 mg tablet 0.125 mg PO Q6H PRN 06/12/19 [History Confirmed 01/29/21] amlodipine 5 mg tablet 5 mg PO BID tab 06/12/19 [History Confirmed 01/29/21] dulaglutide 1.5 mg/0.5 mL subcutaneous pen injector 1.5 mg SUBCUT Q7D 06/12/19 [History Confirmed 01/29/21] ezetimibe 10 mg tablet 10 mg PO QAM 06/12/19 [History Confirmed 01/29/21] finasteride 5 mg tablet 5 mg PO QPM 06/12/19 [History Confirmed 01/29/21] glyburide 5 mg tablet See Rx Instructions .ROUTE .COMPLEX tab 06/12/19 [History Confirmed 01/29/21] ipratropium 0.5 mg-albuterol 3 mg (2.5 mg base)/3 mL nebulization soln 3 ml INHALATION BID 06/12/19 [History Confirmed 01/29/21] isosorbide mononitrate 30 mg tablet,extended release 24 hr 30 mg PO QPM 06/12/19 [History Confirmed 01/29/21] sitagliptin 100 mg tablet 100 mg PO QAM 06/12/19 [History Confirmed 01/29/21] ascorbic acid (vitamin C) 500 mg capsule 1,000 mg PO QAM cap 05/14/20 [History Confirmed 01/29/21] aspirin 81 mg chewable tablet 81 mg PO BID tab 05/14/20 [History Confirmed 01/29/21] ferrous sulfate 325 mg (65 mg iron) tablet,delayed release 325 mg PO TID 05/14/20 [History Confirmed 01/29/21] garlic 1,000 mg capsule 1,000 mg PO QAM 05/14/20 [History Confirmed 01/29/21] magnesium oxide 400 mg PO QPM 05/14/20 [History Confirmed 01/29/21] montelukast 10 mg tablet 10 mg PO QPM 05/14/20 [History Confirmed 01/29/21] nitroglycerin 0.4 mg sublingual tablet 0.4 mg SUBLINGUAL Q5M PRN #25 tab 10/23/20 [Rx Confirmed 01/29/21] albuterol sulfate 90 mcg/actuation aerosol inhaler 2 puff INHALATION Q4H PRN 12/25/20 [History Confirmed 01/29/21] budesonide-formoterol HFA 160 mcg-4.5 mcg/actuation aerosol inhaler 2 puff INHALATION BID 12/25/20 [History Confirmed 01/29/21] Fish Oil 1 cap PO DAILY 01/29/21 [History Confirmed 01/29/21] budesonide 0.5 mg INHALATION BID 01/29/21 [History Confirmed 01/29/21] carvedilol 25 mg PO BID 01/29/21 [History Confirmed 01/29/21] chlorzoxazone 500 mg PO TID PRN 01/29/21 [History Confirmed 01/29/21] cholecalciferol (vitamin D3) [Vitamin D3] 125 mcg PO QAM 01/29/21 [History Confirmed 01/29/21] clonidine HCl 0.1 mg PO .IF BP OVER 165/90 01/29/21 [History Confirmed 01/29/21] cyanocobalamin (vitamin B-12) [Vitamin B-12] 5,000 mcg SUBLINGUAL DAILY 01/29/21 [History Confirmed 01/29/21] furosemide 80 mg PO QAM 01/29/21 [History Confirmed 01/29/21] [id number]-gjwsap [Centrum Silver] 1 tab PO DAILY 01/29/21 [History Confirmed 01/29/21] omeprazole 20 mg PO QAM 01/29/21 [History Confirmed 01/29/21] zinc 50 mg PO QPM 01/29/21 [History Confirmed 01/29/21] Active Medications Acetaminophen (Acetaminophen 325 Mg Tablet) 650 mg PO Q6H PRN PRN Reason: Mild/Mod Pain Or Temp >/= 101 Albuterol/Ipratropium (Ipratropium-Albuterol 3 Ml Neb) 3 ml INHALATION Q6H.RESPIRATORY HAYDEN Last Admin: 01/29/21 09:16 Dose: 3 ml Documented by: Benzonatate (Benzonatate 100 Mg Capsule) 100 mg PO TID PRN PRN Reason: COUGH Budesonide (Budesonide 0.5 Mg/2 Ml Neb) 0.5 mg INHALATION BID.RESPIRATORY HAYDEN Last Admin: 01/29/21 09:16 Dose: 0.5 mg Documented by: Dextrose (Dextrose 50% Syringe 50 Ml) 25 ml IVP ONCE PRN; Protocol PRN Reason: hypoglycemia protocol Dextrose (Dextrose 50% Syringe 50 Ml) 50 ml IVP PRN PRN; Protocol PRN Reason: hypoglycemia protocol Glucagon (Glucagon 1 Mg/Ml Inj 1 Ml) 1 mg IM ONCE PRN; Protocol PRN Reason: Adult Acute Hypoglycemia Prot. Heparin Sodium (Beef Lung) (Heparin 5,000 Unit/Ml Inj 1 Ml) 5,000 unit SUBCUT Q12H HAYDEN Last Admin: 01/29/21 08:37 Dose: 5,000 unit Documented by: Dextrose (D5w) 500 mls @ 100 mls/hr IV ONCE PRN; Protocol PRN Reason: Adult Acute Hypoglycemia Prot Ceftriaxone Sodium 1,000 mg/ (Sodium Chloride) 50 mls @ 100 mls/hr IV Q24H HAYDEN; Protocol Azithromycin 500 mg/ Sodium (Chloride) 250 mls @ 250 mls/hr IV Q24H [facility]; Protocol Stop: 02/01/21 04:59 Insulin Aspart (Insulin Aspart 100 Unit/1 Ml) 0 unit SUBCUT WM&BEDTIME [facility]; Protocol Last Admin: 01/29/21 08:53 Dose: 4 unit Documented by: Morphine Sulfate (Morphine 4 Mg/Ml Sdv 1 Ml) 2 mg IVP Q4H PRN PRN Reason: SEVERE PAIN Naloxone HCl (Naloxone 0.4 Mg/Ml Sdv) 0.1 mg IVP Q2M PRN PRN Reason: OPIATERV Ondansetron HCl (Ondansetron 2 Mg/Ml Sdv 2 Ml) 4 mg IVP Q8H PRN PRN Reason: vomiting, or N/V if npo Pantoprazole Sodium (Pantoprazole Dr 40 Mg Tablet) 40 mg PO DAILY [facility] Last Admin: 01/29/21 08:39 Dose: 40 mg Documented by: Prednisone (Prednisone 20 Mg Tablet) 40 mg PO DAILY [facility] Last Admin: 01/29/21 08:38 Dose: 40 mg Documented by: Discharge Plan Discharge Patient Disposition: Xfer Other Condition: Stable Prescriptions: Continued ipratropium-albuterol 0.5 mg-3 mg(2.5 mg base)/3 mL solution for nebulization 3 ml INHALATION BID RF: 0 finasteride 5 mg tablet 5 mg PO QPM RF: 0 Januvia 100 mg tablet 100 mg PO QAM RF: 0 alprazolam 0.25 mg tablet 0.125 mg PO Q6H PRN (Reason: Anxiety) RF: 0 ezetimibe [Zetia] 10 mg tablet 10 mg PO QAM RF: 0 glyburide 5 mg tablet See Rx Instructions .ROUTE .COMPLEX RF: 0 amlodipine 5 mg tablet 5 mg PO BID RF: 0 Trulicity 1.5 mg/0.5 mL pen injector 1.5 mg SUBCUT Q7D RF: 0 isosorbide mononitrate 30 mg tablet extended release 24 hr 30 mg PO QPM RF: 0 aspirin [Aspirin Childrens] 81 mg tablet,chewable 81 mg PO BID RF: 0 ferrous sulfate 325 mg (65 mg iron) tablet,delayed release (DR/EC) 325 mg PO TID RF: 0 ascorbic acid (vitamin C) 500 mg capsule 1,000 mg PO QAM RF: 0 garlic 1,000 mg capsule 1,000 mg PO QAM RF: 0 montelukast 10 mg tablet 10 mg PO QPM RF: 0 magnesium oxide 400 mg magnesium capsule 400 mg PO QPM RF: 0 budesonide-formoterol [Symbicort] 160-4.5 mcg/actuation HFA aerosol inhaler 2 puff inhalation BID RF: 0 albuterol sulfate [Ventolin HFA] 90 mcg/actuation HFA aerosol inhaler 2 puff inhalation Q4H PRN (Reason: Shortness Of Breath) RF: 0 nitroglycerin [Nitrostat] 0.4 mg tablet, sublingual 0.4 mg sublingual Q5M PRN (Reason: chest pain) Qty: 25 RF: 3 carvedilol 25 mg tablet 25 mg PO BID RF: 0 chlorzoxazone 500 mg Tablet 500 mg PO TID PRN (Reason: Muscle Spasm) RF: 0 furosemide 80 mg tablet 80 mg PO QAM RF: 0 omeprazole 20 mg capsule,delayed release(DR/EC) 20 mg PO QAM RF: 0 budesonide 0.5 mg/2 mL suspension for nebulization 0.5 mg inhalation BID RF: 0 zinc 50 mg Tablet 50 mg PO QPM RF: 0 Centrum Silver Tablet 1 tab PO DAILY RF: 0 Vitamin D3 125 mcg (5,000 unit) Tablet 125 mcg PO QAM RF: 0 Vitamin B-12 5,000 mcg Tablet, Sublingual 5,000 mcg SUBLINGUAL DAILY RF: 0 Fish Oil 1 cap PO DAILY RF: 0 clonidine HCl 0.1 mg Tablet 0.1 mg PO .IF BP OVER 165/90 RF: 0 Discharge Orders: Discharge Order (Routine); Ordered 01/29/21 Ordered By: Johnna Kenney Referrals: Elizabeth Houston MD [Primary Care Provider] - Transfer Attestations Time Spent in Transfer Care*: less than 30 min Quality Metrics Clinical Quality Measures: During this hospital stay, did patient experience: None Coding Level of Care Code Acute Sample Finisher for [facility] 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
[2021-01-29 15:44] LABS: Coronavirus Test Green County Detected
--- NOTE | 2021-01-29 16:51 | PC.RESP ---
PULMONARY REHAB INFORMATION SENT TO PATIENT.
== END 2021-01-29 12:25 | disposition skilled nursing facility (03) | DRG 193 ==
LOC: ER 05:30 → ER IP 05:56
PROVIDERS: Admitting Provider Student in an Organized Health Care Education/Training Program; Emergency Provider Emergency Medicine; PCP Family Medicine; Visit Provider Internal Medicine
DX: J18.9 Pneumonia, unspecified organism (principal); J96.02 Acute respiratory failure with hypercapnia; J96.01 Acute respiratory failure with hypoxia; J47.1 Bronchiectasis with (acute) exacerbation; I13.0 Hypertensive heart and chronic kidney disease with heart failure and stage 1 through stage 4 chronic kidney disease, or unspecified chronic kidney disease; I50.22 Chronic systolic (congestive) heart failure; N18.30 Chronic kidney disease, stage 3 unspecified; I35.0 Nonrheumatic aortic (valve) stenosis; K21.9 Gastro-esophageal reflux disease without esophagitis; E78.00 Pure hypercholesterolemia, unspecified; Z91.81 History of falling; Z87.891 Personal history of nicotine dependence; Z95.5 Presence of coronary angioplasty implant and graft; Z86.711 Personal history of pulmonary embolism; Z79.82 Long term (current) use of aspirin; Z87.440 Personal history of urinary (tract) infections
CPT/HCPCS: 36415; 36416; 36600; 71045; 71250; 80053; 82803; 82962; 83605; 83880; 84145; 84484; 85025; 85378; 86140; 87040; 87426; 87635; 93005; 94640; 94660; 96365; 96367; 96372; 96375; 99291; J0456; J0696; J1100; J1644; J1815; J1940; J3535; J7050; J7512; J7626

== ENCOUNTER 2021-01-31 12:40 | Inpatient (IN) | payer MEDICARE, OTHER, SELFPAY ==
[2021-01-31] VITALS (7 sets, daily range): BP systolic 110–130; BP diastolic 51–70; PULSE 61–93; RESP 18–30; TEMP 36.4–36.9; O2SAT 88–98
--- NOTE | 2021-01-31 12:52 | XR_ITS ---
WS: [id number] Exam: XR chest 1V portable [id number] Date/Time of Exam: 01/31/2021 12:52 PM Reason For Exam: COVID Comparison October 29, 2020. Increasing consolidating infiltrates in the bilateral lower lung zone since prior study. This is more severe on the right than the left. Heart size is normal. No pneumothorax. Bilateral pleural effusion s noted. The mediastinum and bony thorax are unremarkable. XR/XR chest 1V portable [id number] IMPRESSION: 1. Increasing consolidating infiltrates in the lower lung zones worse on the ri ght than the left. 2. Bibasal pleural effusions.
[2021-01-31 13:48] LABS: Alveolar-Arterial Oxygen Gradi 48.8 mmHg (5-10); Arterial Blood Gas Hematocrit 28.5 % (42-52); Blood Gas Allen Test Pos; Blood Gas Operator Identificat ED; Blood Gas Sample Site Brachial, right; Blood Gas Sample Type Arterial; Blood Gas Tidal Volume 0.45; Carboxyhemoglobin 0.8 %THgb (0.4-20.1); HCO3 ABG 25.4 mmol/L (22-26); HGB O2 Sat 93.3 % (95-100); Ionized Calcium Level - ABG 1.2 mmol/L (1.1-1.4); Methemoglobin 0.9 % (0.4-1.5); Oxygen Device BIPAP; Oxygen Saturation ABG 94.8; PO2 ABG 89.4 mmHg (80.0-100.0); Potassium Level - ABG 5.5 mmol/L (3.5-5.0); Total Hemoglobin 9.3 g/dL (14-18)
[2021-01-31 14:20] LABS: Hematocrit 30.6 % (42.0-52.0); Mean Corpuscular HGB Conc 29.4 g/dL (30.0-36.0); Mean Corpuscular Hemoglobin 28.5 pg (28.0-34.0); Mean Corpuscular Volume 96.8 fl (80-94); Mean Platelet Volume 10.1 fL (7.4-10.4); Platelet Count 334 10^3/cmm (130-400); Red Blood Count 3.16 10^6/uL (4.1-5.3); Red Cell Distribution Width 16.1 % (12.1-15.1); White Blood Count 19.3 10^3/uL (4.0-10.0)
[2021-01-31] MEDS: heparin 5,000 unit/mL INJ 1 mL 5000 UNIT SUBCUT ×2 (14:54→22:08)
[2021-01-31] MEDS: dexamethasone 10 mg/mL INJ 6 MG IVP (14:54)
[2021-01-31 14:56] LABS: Alanine Aminotransferase 12 U/L (0-41); Albumin Level 2.7 g/dL (3.5-5.2); Alkaline Phosphatase 55 IU/L (40-130); Anion Gap 20.8 (5-19); Aspartate Amino Transferase 16 U/L (0-40); Blood Urea Nitrogen 71 mg/dL (8-23); Calcium 8.5 mg/dL (8.5-10.5); Carbon Dioxide 23 mmol/L (22-29); Chloride 100 mmol/L (98-107); Glucose 158 mg/dL (65-115); Magnesium 2.2 mg/dL (1.7-2.3); Osmolality Calculated 310 mOsm/kg (285-295); Potassium 5.8 mmol/L (3.5-5.1); Sodium 138 mmol/L (136-145); Total Bilirubin 0.2 mg/dL (0.15-1.2); Total Protein 6.7 g/dL (6.6-8.7)
[2021-01-31 15:01] LABS: Procalcitonin 9.38 ng/mL (0-0.5)
[2021-01-31 15:31] LABS: Slide Review Slide Review Perform
[2021-01-31 15:33] LABS: Absolute Neutrophil 16.6 10^3/cmm (1.4-6.5); Absolute Segmented Neutrophil 14.7 10/cmm (1.6-7.1); Band Neutrophils Absolute 1.9 10^3/cmm (0.0-1.2); Lymphocytes 5 %; Lymphocytes Absolute 1.2 10^3/cmm (1.2-3.4); Monocytes Absolute 1.2 10^3/cmm (0.1-0.6); Platelet Estimate Normal (Normal); Segmented Neutrophils 76 %; Total Cells Counted 100 (0-100)
[2021-01-31 15:34] LABS: Anisocytosis Trace; Tear Drop Cells Trace
[2021-01-31 15:35] LABS: Ovalocytes Trace
[2021-01-31] MEDS: piperacillin-tazobactam 3.375 GM in sodium chloride 0.9% (plus) 50 ML IV (15:42)
--- NOTE | 2021-01-31 15:42 | ECG_ITS ---
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 Measurements Intervals Superior Rate: 88 P: 71 HI: 209 QRS: 46 QRSD: 103 T: 87 QT: 341 QTc: 413 Interpretive Statements SINUS RHYTHM NONSPECIFIC ST & T-WAVE ABNORMALITY Compared to ECG 01/29/2021 09:24:35 First degree AV block no longer present T-wave abnormality still present Electronically Signed On 01-31-2021 18:02:50 CDT by Baldomero Durant M.D. [id number]
[2021-01-31] MEDS: sodium bicarbonate 8.4% 1 mEq/mL 50mL Syr 25 MEQ IVP (15:44)
[2021-01-31 15:59] LABS: ABG PH Result 7.24 (7.35-7.45); Alveolar-Arterial Oxygen Gradi 29.4 mmHg (5-10); Arterial Blood Gas Hematocrit 29.3 % (42-52); Base Excess ABG -0.4 mmol/L (-2.0-2.0); Blood Gas Allen Test Pos; Blood Gas Sample Site Radial, left; Blood Gas Sample Type Arterial; HCO3 ABG 27.8 mmol/L (22-26); HGB O2 Sat 86.2 % (95-100); Ionized Calcium Level - ABG 1.2 mmol/L (1.1-1.4); Methemoglobin 0.4 % (0.4-1.5); Oxygen Device BIPAP; Oxygen Saturation ABG 87.4; Potassium Level - ABG 5.3 mmol/L (3.5-5.0); Total Hemoglobin 9.6 g/dL (14-18)
[2021-01-31 16:04] LABS: ABG PCO2 93.4 mmHg (35-45); ABG PH Result 7.04 (7.35-7.45)
[2021-01-31] MEDS: remdesivir 200 MG in sodium chloride 0.9% (100 ml) 100 ML 100 MG IV (16:05)
[2021-01-31] MEDS: calcium gluconate 0.1 gm/mL 10% SDV 10mL 1 GM IVP (16:05)
[2021-01-31] MEDS: dextrose 50% syringe 50 mL 25 ML IVP (16:05)
[2021-01-31] MEDS: insulin regular-human 10 UNIT in SYRINGE 1 EACH IVP (16:06)
--- NOTE | 2021-01-31 16:21 | PM.HP ---
Providers/Chief Complaint Admitting Physician: Ted Bojorquez MD Primary Care Provider: Elizabeth Houston MD Chief Complaint: Covid-19 History of Present Illness Rigo Dejesus is a 85 year old male who has history of moderate aortic valve stenosis, preserved ejection fraction heart failure, stage III chronic kidney disease follows up with nephrology, history of pulmonary embolism presented today from [facility] with chief complaint of worsening shortness of breath he was diagnosed with COVID-19. He was actually transferred from the ER because of lack of bed availability, PCR for Covid was sent at that time which returned as positive. Patient was put on BiPAP for respiratory acidosis at the outside facility, creatinine 2.7 his D-dimer was elevated for which he went for a VQ scan which was unremarkable, he was started as NSTEMI for rise in troponin. At the facility he was started on normal saline fluids for rise in creatinine. He was started on ceftriaxone and azithromycin for right lower lobe infiltrate. Sodium 141, potassium 5.2 BNP 4200, creatinine 3.4 BUN 71 glucose 177 ABG showed PCO2 around 80s, pH 7.06 Documentation reviewed from the outside facility Patient on arrival was not arousable, stat ABG showed PCO2 of 93 which improved after 2 hours being onAVAps I did increase his respiratory rate to 18, increase his FiO2 to 60% from 50% after second blood gas, his tidal volume was around 550 I started him on broad-spectrum antibiotics requested MRSA nares and nephro consult I did speak with his who was told about current clinical status, treatment plan, indication for dialysis, and potential risk of worsening, her questions were answered to her satisfaction, patient will remain full code, she is agreeable for dialysis if needed, Dr. Matos notified Review of Systems General: Reports: ROS unobtainable due to medical condition (Obtunded due to hypercapnia ) Medications/Allergies Home Medications Medication Instructions Recorded Confirmed Last Taken Type alprazolam 0.25 mg tablet 0.125 mg PO Q6H PRN 06/12/19 01/29/21 01/29/21 02:45 History amlodipine 5 mg tablet 5 mg PO BID tab 06/12/19 01/29/21 01/28/21 History dulaglutide 1.5 mg/0.5 mL 1.5 mg SUBCUT Q7D 06/12/19 01/29/21 Unknown History subcutaneous pen injector ezetimibe 10 mg tablet 10 mg PO QAM 06/12/19 01/29/21 01/28/21 History finasteride 5 mg tablet 5 mg PO QPM 06/12/19 01/29/21 01/28/21 History glyburide 5 mg tablet See Rx Instructions .ROUTE 06/12/19 01/29/21 Unknown History .COMPLEX tab ipratropium 0.5 mg-albuterol 3 mg 3 ml INHALATION BID 06/12/19 01/29/21 Unknown History (2.5 mg base)/3 mL nebulization soln isosorbide mononitrate 30 mg 30 mg PO QPM 06/12/19 01/29/21 01/28/21 History tablet,extended release 24 hr sitagliptin 100 mg tablet 100 mg PO QAM 06/12/19 01/29/21 01/28/21 History ascorbic acid (vitamin C) 500 mg 1,000 mg PO QAM cap 05/14/20 01/29/21 01/28/21 History capsule aspirin 81 mg chewable tablet 81 mg PO BID tab 05/14/20 01/29/21 01/28/21 History ferrous sulfate 325 mg (65 mg 325 mg PO TID 05/14/20 01/29/21 01/28/21 History iron) tablet,delayed release garlic 1,000 mg capsule 1,000 mg PO QAM 05/14/20 01/29/21 01/28/21 History magnesium oxide 400 mg PO QPM 05/14/20 01/29/21 01/28/21 History montelukast 10 mg tablet 10 mg PO QPM 05/14/20 01/29/21 01/28/21 History nitroglycerin 0.4 mg sublingual 0.4 mg SUBLINGUAL Q5M PRN #25 tab 10/23/20 01/29/21 Unknown Rx tablet albuterol sulfate 90 mcg/actuation 2 puff INHALATION Q4H PRN 12/25/20 01/29/21 Unknown History aerosol inhaler budesonide-formoterol HFA 160 2 puff INHALATION BID 12/25/20 01/29/21 01/28/21 History mcg-4.5 mcg/actuation aerosol inhaler Fish Oil 1 cap PO DAILY 01/29/21 01/29/21 Unknown History budesonide 0.5 mg INHALATION BID 01/29/21 01/29/21 01/28/21 History carvedilol 25 mg PO BID 01/29/21 01/29/21 01/28/21 History chlorzoxazone 500 mg PO TID PRN 01/29/21 01/29/21 01/28/21 History cholecalciferol (vitamin D3) 125 mcg PO QAM 01/29/21 01/29/21 01/28/21 History [Vitamin D3] clonidine HCl 0.1 mg PO .IF BP OVER 165/90 01/29/21 01/29/21 Unknown History cyanocobalamin (vitamin B-12) 5,000 mcg SUBLINGUAL DAILY 01/29/21 01/29/21 Unknown History [Vitamin B-12] furosemide 80 mg PO QAM 01/29/21 01/29/21 01/28/21 History zmlmtxxdwtkw-aciqhzet-rwtzio 1 tab PO DAILY 01/29/21 01/29/21 Unknown History [Centrum Silver] omeprazole 20 mg PO QAM 01/29/21 01/29/21 01/28/21 History zinc 50 mg PO QPM 01/29/21 01/29/21 01/28/21 History Allergies Allergy/AdvReac Type Severity Reaction Status Date / Time sulfamethoxazole Allergy UNKNOWN Verified 01/29/21 08:44 [From Bactrim] trimethoprim [From Bactrim] Allergy UNKNOWN Verified 01/29/21 08:44 amoxicillin AdvReac ADR-Vomitin Verified 01/29/21 08:44 g PFSH Acute PFSH: Medical History Anxiety Aortic stenosis Calcium deficiency Chronic kidney disease, stage 3 unspecified Coagulopathy Dysuria GERD (gastroesophageal reflux disease) Hx pulmonary embolism Hypercholesteremia Hypertension Mild intermittent asthma, uncomplicated Recurrent UTI Renal insufficiency Surgical History History of heart artery stent Hx of bilateral cataract extraction Hx of squamous cell carcinoma excision NASAL TIP Social History Smoking and tobacco status: former smoker Quit status (tobacco): has quit using tobacco Year quit tobacco: 1965 - 1.5 PPD x 5 Years Second hand smoke exposure: No Smoking risk assessment/counseling performed?: No Alcohol intake: never Desire information about alcohol rehabilitation?: No Counseling given: No Desire information about substance/drug rehabilitation?: No Counseling given: No Lives independently: Yes Household members: spouse Marital status: service: Yes Current occupational status: retired History of recent travel: No Current gender identity: Male Vitals/I&O/Wt Last Vital Signs Temp 98.5 F 01/31/21 16:13 Pulse 85 01/31/21 16:13 Resp 18 01/31/21 16:13 BP 110/51 01/31/21 16:13 Pulse Ox 93 01/31/21 16:13 01/31/21 01/31/21 01/31/21 06:59 14:59 22:59 Intake Total 0.1 / 0.1 Balance 0.1 / 0.1 Weight last 48 hrs Weight 79.124 kg Physical Exam Narrative: EXAM NARRATIVE: Patient is obtunded, opens his eyes to noxious stimuli however this has improved and now he is waking up to verbal command he did squeeze my fingers when I asked him to however still very lethargic and fatigued AVAPS at the bedside FiO2 increased to 60% tidal volume 550 respiratory rate 18 Looks euvolemic clinically S1, S2 systolic murmur Lower extremity trace edema Venous stasis dermatitis Abdomen soft nondistended Neuro exam limited, opening his eyes and squeezing my fingers on verbal command Data : 01/31/21 13:48 01/31/21 13:48 A&P Assessment and plan (1) Acute respiratory failure with hypoxia and hypercapnia: Status: Acute (2) COVID-19: Status: Acute (3) Aortic stenosis: Status: Acute Qualifiers: Cardiac valve disease etiology: nonrheumatic Qualified Code(s): I35.0 - Nonrheumatic aortic (valve) stenosis (4) Acute kidney injury superimposed on chronic kidney disease: Status: Acute (5) Pneumonia: Status: Acute Qualifiers: Laterality: bilateral Lung location: lower lobe of lung Pneumonia type: due to unspecified organism Qualified Code(s): J18.9 - Pneumonia, unspecified organism (6) Sepsis: Status: Acute (7) Hyperkalemia: Status: Acute Additional A&P Information Sepsis Criteria met Tachypnea RR 25 when patient was evaluated at the bedside, leukocytosis, high procalcitonin Blood pressure stable Requested lactic acid started him on broad-spectrum antibiotics, not a candidate of IV fluids because of congestive heart failure history and moderate aortic valve stenosis Currently AVAps dependent High risk for deterioration Requested sputum MRSA, blood culture CRP Acute hypoxia, hypercapnia with underlying bronchiectasis Worsening bilateral infiltrates COVID-19 Currently on AVAPS PCO2 improved would like to obtain another blood gas at 5 PM Started remdesivir and Decadron, continue multivitamins Acute on chronic kidney disease stage III Patient did get some normal saline at the outside facility I would wait on nephro recommendations Hyperkalemia with worsening creatinine Nephro consulted For hyperkalemia he was given insulin, Kayexalate, calcium gluconate, repeat BMP at 8 PM Pneumonia Worsening infiltrate right greater than left currently on broad-spectrum antibiotics cefepime and Zosyn to be renally dosed, Poor prognosis updated she gave us consent for dialysis if needed, chest compressions and intubation in case of decline in clinical status Dr. Matos also notified N.p.o., advance diet once he is more awake and alert Accu-Cheks every 6 hours Full code DVT prophylaxis Heparin Attestations Medical Necessity Statement*: Anticipating greater than 2 midnight stay in the hospital Time Spent in Patient Care: Greater than 35 minutes Coding Level of Care Code Acute Trouble Locater for g Fwd Diagnoses Acute respiratory failure with hypoxia and hypercapnia J96.01; J96.02 COVID-19 U07.1 Aortic stenosis I35.0 Cardiac valve disease etiology: nonrheumatic Acute kidney injury superimposed on chronic kidney disease N17.9; N18.9 Pneumonia J18.9 Laterality: bilateral Lung location: lower lobe of lung Pneumonia type: due to unspecified organism Sepsis A41.9 Hyperkalemia E87.5
[2021-01-31 17:06] LABS: Glucose Point of Care 273 mg/dL (70-110)
[2021-01-31 17:06] LABS: Glucose Point of Care 185 mg/dL (70-110)
--- NOTE | 2021-01-31 17:23 | PM.CONSULT ---
Providers/Reason For Consult Consulting Physician/Specialty*: Nephrology Reason for Consult*: Eval for AMBER Attending Physician: Ted Bojorquez MD Primary Care Provider: Elizabeth Houston MD History of Present Illness History of Present Illness Thank you for consultation, today at the pleasure reviewing this 85-year-old gentleman for evaluation of acute kidney injury. His symptoms started with increasing shortness of breath earlier in the week. He is known to have COPD, however, his breathing is significantly worse. He subsequently presented on 01/29, rapid Covid antigen was negative, PCR was pending it was subsequently transferred to an outside facility due to bed shortages. His PCR subsequently returned positive and he was sent back to our facility for definitive management of his Covid. He is now on BiPAP with high settings, FiO2 100% and 60 L of oxygen. Hemodynamically he is stable, no more fevers or chills noted. So far he received combination antibiotic therapy, remdesivir and dexamethasone. From my own perspective, he does have chronic kidney disease, he follows with Dr. Allison as an outpatient. He is known to have stage IV chronic kidney disease with a GFR between 17 and 20%. His creatinine is currently 3.5 mg/dL, equating to GFR 15 mL/min. His potassium is also elevated at 5.8. Barajas catheter is in place, roughly 200 mL of urine over the last 5 hours, no residual urine after the Barajas catheter was placed. No extremity edema, other features of hypervolemia. No recent exposure to potentially nephrotoxic agents including IV contrast, anti-inflammatory medication etc. As he is unable to give any history, the history is taken from his Mikki on telephone number [phone]. He is currently full code with a desire from his to provide hemodialysis therapy should it be required. Review of Systems General: Reports: ROS unobtainable due to medical condition Meds/Allergies Home Medications and Allergies Home Medications Medication Instructions Recorded Confirmed Last Taken Type alprazolam 0.25 mg tablet 0.125 mg PO Q6H PRN 06/12/19 01/29/21 01/29/21 02:45 History amlodipine 5 mg tablet 5 mg PO BID tab 06/12/19 01/29/21 01/28/21 History dulaglutide 1.5 mg/0.5 mL 1.5 mg SUBCUT Q7D 06/12/19 01/29/21 Unknown History subcutaneous pen injector ezetimibe 10 mg tablet 10 mg PO QAM 06/12/19 01/29/21 01/28/21 History finasteride 5 mg tablet 5 mg PO QPM 06/12/19 01/29/21 01/28/21 History glyburide 5 mg tablet See Rx Instructions .ROUTE 06/12/19 01/29/21 Unknown History .COMPLEX tab ipratropium 0.5 mg-albuterol 3 mg 3 ml INHALATION BID 06/12/19 01/29/21 Unknown History (2.5 mg base)/3 mL nebulization soln isosorbide mononitrate 30 mg 30 mg PO QPM 06/12/19 01/29/21 01/28/21 History tablet,extended release 24 hr sitagliptin 100 mg tablet 100 mg PO QAM 06/12/19 01/29/21 01/28/21 History ascorbic acid (vitamin C) 500 mg 1,000 mg PO QAM cap 05/14/20 01/29/21 01/28/21 History capsule aspirin 81 mg chewable tablet 81 mg PO BID tab 05/14/20 01/29/21 01/28/21 History ferrous sulfate 325 mg (65 mg 325 mg PO TID 05/14/20 01/29/21 01/28/21 History iron) tablet,delayed release garlic 1,000 mg capsule 1,000 mg PO QAM 05/14/20 01/29/21 01/28/21 History magnesium oxide 400 mg PO QPM 05/14/20 01/29/21 01/28/21 History montelukast 10 mg tablet 10 mg PO QPM 05/14/20 01/29/21 01/28/21 History nitroglycerin 0.4 mg sublingual 0.4 mg SUBLINGUAL Q5M PRN #25 tab 10/23/20 01/29/21 Unknown Rx tablet albuterol sulfate 90 mcg/actuation 2 puff INHALATION Q4H PRN 12/25/20 01/29/21 Unknown History aerosol inhaler budesonide-formoterol HFA 160 2 puff INHALATION BID 12/25/20 01/29/21 01/28/21 History mcg-4.5 mcg/actuation aerosol inhaler Fish Oil 1 cap PO DAILY 01/29/21 01/29/21 Unknown History budesonide 0.5 mg INHALATION BID 01/29/21 01/29/21 01/28/21 History carvedilol 25 mg PO BID 01/29/21 01/29/21 01/28/21 History chlorzoxazone 500 mg PO TID PRN 01/29/21 01/29/21 01/28/21 History cholecalciferol (vitamin D3) 125 mcg PO QAM 01/29/21 01/29/21 01/28/21 History [Vitamin D3] clonidine HCl 0.1 mg PO .IF BP OVER 165/90 01/29/21 01/29/21 Unknown History cyanocobalamin (vitamin B-12) 5,000 mcg SUBLINGUAL DAILY 01/29/21 01/29/21 Unknown History [Vitamin B-12] furosemide 80 mg PO QAM 01/29/21 01/29/21 01/28/21 History pgehwomnayuw-qgzskega-rjgffy 1 tab PO DAILY 01/29/21 01/29/21 Unknown History [Centrum Silver] omeprazole 20 mg PO QAM 01/29/21 01/29/21 01/28/21 History zinc 50 mg PO QPM 01/29/21 01/29/21 01/28/21 History Allergies Allergy/AdvReac Type Severity Reaction Status Date / Time sulfamethoxazole Allergy UNKNOWN Verified 01/29/21 08:44 [From Bactrim] trimethoprim [From Bactrim] Allergy UNKNOWN Verified 01/29/21 08:44 amoxicillin AdvReac ADR-Vomitin Verified 01/29/21 08:44 g Current Medications Current Medications Generic Name Dose Route Start Last Admin Trade Name Freq PRN Reason Stop Dose Admin Dexamethasone 6 mg 01/31/21 13:45 01/31/21 14:54 Dexamethasone 10 Mg/Ml Inj IVP 6 mg Q24H HAYDEN Administration Heparin Sodium (Beef Lung) 5,000 unit 01/31/21 15:00 01/31/21 14:54 Heparin 5,000 Unit/Ml Inj 1 Ml SUBCUT 5,000 unit Q8H HAYDEN Administration Piperacillin Sod/Tazobactam 50 mls @ 12.5 mls/hr 01/31/21 16:00 01/31/21 15:42 Sod 3.375 gm/ Sodium Chloride IV 12.5 mls/hr Q12H HAYDEN Administration PFSH Acute PFSH: Medical History Anxiety Aortic stenosis Calcium deficiency Chronic kidney disease, stage 3 unspecified Coagulopathy Dysuria GERD (gastroesophageal reflux disease) Hx pulmonary embolism Hypercholesteremia Hypertension Mild intermittent asthma, uncomplicated Recurrent UTI Renal insufficiency Surgical History History of heart artery stent Hx of bilateral cataract extraction Hx of squamous cell carcinoma excision NASAL TIP Social History Smoking and tobacco status: former smoker Quit status (tobacco): has quit using tobacco Year quit tobacco: 1965 - 1.5 PPD x 5 Years Second hand smoke exposure: No Smoking risk assessment/counseling performed?: No Alcohol intake: never Desire information about alcohol rehabilitation?: No Counseling given: No Desire information about substance/drug rehabilitation?: No Counseling given: No Lives independently: Yes Household members: spouse Marital status: service: Yes Current occupational status: retired History of recent travel: No Current gender identity: Male Vitals/I&O/Wt Last Vital Signs Temp 98.5 F 01/31/21 16:13 Pulse 88 01/31/21 16:57 Resp 18 01/31/21 16:13 BP 110/51 01/31/21 16:13 Pulse Ox 92 01/31/21 16:57 01/31/21 01/31/21 01/31/21 06:59 14:59 22:59 Intake Total 0.1 / 0.1 Balance 0.1 / 0.1 Weight last 48 hrs Weight 79.124 kg Physical Exam Narrative: EXAM NARRATIVE: Constitutional: On bipap, comfortable HEENT: Wet mucosa, no jvp, non icteric Lungs: Bilaterally wheeze or rales and diminished in the bases CVS: S1 S2, no murmurs Abdo: Soft, BS ok Ext 4: Minimal edema, peripheral perfusion with no cyanosis Neurological: Grossly non-focal A&P Additional A&P Information 1. 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 As always with this situation it is very challenging, we are unable to give him intravenous volume given the high risk of tipping into overt respiratory failure, at the same time, high-dose diuretics are also to be deferred given the high risk of renal failure. No acute indication for dialysis today if the potassium can be temporized however he is a very high risk of requiring this over the next 24-48 hours. On discussion with his plan she wants everything done including hemodialysis should it be required. We will do a limited evaluation to include renal sonogram, urinalysis, urine sodium, creatinine, urea, protein, TSH, CPK, uric acid. Daily renal panel Strict I's and O's Dose medication for GFR less than 15 Avoid usual nephrotoxic agents 2. Covid pneumonitis BiPAP with high flow settings, at high risk for intubation over the next 24-48 hours Currently being treated with remdesivir and dexamethasone as well as antibiotic coverage. Management per ICU and Dr. Kenney 3 hyperkalemia He is receiving temporizing therapy. We will recheck potassium levels later this afternoon to ensure they are improving. Other chemistry currently well-balanced. We will continue to follow his chemistry closely Case discussed with Mikki on telephone number [phone]. Case discussed with Dr. Kenney and bedside RN to orchestrate care. 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
[2021-01-31 17:34] LABS: ABG PH Result 7.23 (7.35-7.45); Arterial Blood Gas Hematocrit 36.3 % (42-52); Base Excess ABG -2.3 mmol/L (-2.0-2.0); Blood Gas Allen Test Pos; Blood Gas Sample Site Radial, right; Blood Gas Sample Type Arterial; HCO3 ABG 26.2 mmol/L (22-26); Oxygen Device BIPAP; PO2 ABG 64.1 mmHg (80.0-100.0)
[2021-01-31 17:38] LABS: ABG PCO2 62.7 mmHg (35-45)
[2021-01-31] MEDS: cefepime 2,000 MG in sodium chloride 0.9% (plus) 50 ML 100 MG IV (17:38)
[2021-01-31 17:48] LABS: C Reactive Protein 159.4 mg/L (0.0-4.9)
--- NOTE | 2021-01-31 18:21 | PC.RESP ---
RT Shift Note Frequent safety and respiratory rounds continue. Orders completed as indicated. Patient monitored pre and post treatments throughout shift. Patient tolerated treatments appropriately. Condition did not change. Patient and/or food products sales representative educated on respiratory treatment and medications. Patient and/or food products sales representative verbalized understanding. Will continue to monitor patient progress.
[2021-01-31 18:26] LABS: Troponin(5th) Baseline 223 ng/L (0-15)
[2021-01-31 19:05] LABS: Lactate (Lactic Acid level) 1.1 mmol/L (0.5-2.2)
[2021-01-31 19:14] LABS: Troponin 5 2HR 241.9 ng/L (0-15); Troponin 5 2HR Delta 18.9 ABS# (0-10)
[2021-01-31 19:32] LABS: Urine Creatinine 122 mg/dL (39-259); Urine Random Sodium 22 mmol/L
[2021-01-31 19:41] LABS: Urine Color Yellow (Yellow)
[2021-01-31 19:42] LABS: Bacteria Urine 2+ /hpf; Bilirubin Urine Neg (Negative); Blood Urine 2+ (Negative); Glucose Urine UA Norm (Normal); Ketones Urine Negative (Negative); Leukocyte Esterase Urine 2+ (Negative); Nitrate Urine Negative (Negative); Protein Urine 1+ (Negative); RBC Urine 0-4 /hpf (0-2); Specific Gravity, Urine 1.025 (1.005-1.030); Squamous Epithelial Cell Urine 0-4 /hpf (0-5); Urine Appearance Cloudy (CLEAR); Urobilinogen Urine Norm (Negative); WBC Urine 15-25 /hpf (0-5); pH Urine 5 (5-7)
--- NOTE | 2021-01-31 19:42 | ECG_ITS ---
[facility] Test Date: 2021-01-31 Pat Name: Rigo Dejesus Department: Room: 204 Gender: Male Health Care Sanitary Technician: : 1935 Requested By: Johnna Kenney Order Number: [id number] Juan A MD: Baldomero Durant M.D. Measurements Intervals [place] Rate: 83 P: 17 ME: 168 QRS: 46 QRSD: 107 T: 66 QT: 362 QTc: 427 Interpretive Statements SINUS RHYTHM NONSPECIFIC ST & T-WAVE ABNORMALITY Compared to ECG 01/31/2021 15:47:07 No significant changes Electronically Signed On 02-01-2021 22:10:08 CDT by Baldomero Durant M.D. [id number]
[2021-01-31 19:43] LABS: Add Urine Culture? Yes; Amorphous Sediment Urine 1+ /hpf
[2021-01-31] MEDS: budesonide 0.5 mg/2 mL Neb INHALATION (20:00)
[2021-01-31] MEDS: ipratropium-albuterol 3 mL Neb INHALATION (20:00)
--- NOTE | 2021-01-31 20:59 | PC.NURSE ---
i reported low o2 to nurse 88 will recheck
[2021-01-31 21:13] LABS: Creatine Phosphokinase 56 U/L (39-308); Thyroid Stimulating Hormone 0.46 uIU/mL (0.27-4.20); Uric Acid 9.4 mg/dL (3.4-7.0)
[2021-01-31] MEDS: atorvastatin 40 mg Tablet PO (22:08)
[2021-01-31 22:10] LABS: ABG PCO2 52.2 mmHg (35-45); ABG PH Result 7.28 (7.35-7.45); Arterial Blood Gas Hematocrit 28.5 % (42-52); Base Excess ABG -2.6 mmol/L (-2.0-2.0); Blood Gas Sample Site Brachial, right; Blood Gas Sample Type Arterial; HCO3 ABG 24.3 mmol/L (22-26); Oxygen Device BIPAP; PO2 ABG 82.9 mmHg (80.0-100.0)
[2021-01-31 23:09] LABS: Calcium 8.1 mg/dL (8.5-10.5); Carbon Dioxide 23 mmol/L (22-29); Chloride 99 mmol/L (98-107); Glucose 161 mg/dL (65-115); Osmolality Calculated 316 mOsm/kg (285-295); Sodium 139 mmol/L (136-145)
[2021-01-31 23:15] LABS: Blood Urea Nitrogen 82 mg/dL (8-23); Troponin 5 6HR 240.8 ng/L (0-15); Troponin 5 6HR Delta 17.8 ng/L (0-12)
[2021-02-01] VITALS (18 sets, daily range): BP systolic 118–157; BP diastolic 67–80; PULSE 72–240; RESP 16–27; TEMP 36.6–37.1; O2SAT 26–98
[2021-02-01] MEDS: piperacillin-tazobactam 3.375 GM in sodium chloride 0.9% (plus) 50 ML IV (03:31)
--- NOTE | 2021-02-01 04:08 | PC.NURSE ---
i reported high pulse 101 and low 02 86 to nurse
[2021-02-01 05:38] LABS: Basophils % 0.1 %; Hematocrit 29.8 % (42.0-52.0); Hemoglobin 9.1 g/dL (11.7-16.6); Lymphocytes # 0.5 10^3/uL (0.8-4.8); Lymphocytes % 3.2 %; Mean Corpuscular HGB Conc 30.5 g/dL (30.0-36.0); Mean Corpuscular Hemoglobin 28.1 pg (28.0-34.0); Mean Platelet Volume 10.9 fL (7.4-10.4); Monocytes # 0.5 10^3/uL (0.2-0.9); Monocytes % 3.5 %; Neutrophils # 13.28 10^3/uL (1.8-7.7); Neutrophils % 88.3 %; Nucleated Red Blood Cells % 0.1 %; Platelet Count 364 10^3/cmm (130-400); Red Blood Count 3.24 10^6/uL (4.1-5.3); Red Cell Distribution Width 16.1 % (12.1-15.1)
[2021-02-01 05:56] LABS: ABG PCO2 43.6 mmHg (35-45); ABG PH Result 7.31 (7.35-7.45); Arterial Blood Gas Hematocrit 22.3 % (42-52); Base Excess ABG -4.2 mmol/L (-2.0-2.0); Blood Gas Sample Site Brachial, right; Blood Gas Sample Type Arterial; HCO3 ABG 21.8 mmol/L (22-26); PO2 ABG 71.2 mmHg (80.0-100.0)
[2021-02-01 05:57] LABS: Oxygen Device BIPAP
[2021-02-01 06:10] LABS: C Reactive Protein 182.2 mg/L (0.0-4.9); Calcium 8.8 mg/dL (8.5-10.5); Carbon Dioxide 22 mmol/L (22-29); Chloride 98 mmol/L (98-107); Glucose 158 mg/dL (65-115); Lactate Dehydrogenase 240 U/L (135-225); Magnesium 2.2 mg/dL (1.7-2.3); Osmolality Calculated 316 mOsm/kg (285-295); Sodium 139 mmol/L (136-145)
[2021-02-01 06:26] LABS: Glucose Point of Care 219 mg/dL (70-110)
[2021-02-01 06:28] LABS: Blood Urea Nitrogen 83 mg/dL (8-23)
[2021-02-01] MEDS: cefepime 2,000 MG in sodium chloride 0.9% (plus) 50 ML 100 MG IV (06:29)
[2021-02-01] MEDS: ascorbic acid 500 mg Tablet 1000 MG PO (06:30)
[2021-02-01] MEDS: cholecalciferol (vitamin D3) 5,000 unit Tablet 5000 UNIT PO (06:31)
[2021-02-01] MEDS: heparin 5,000 unit/mL INJ 1 mL 5000 UNIT SUBCUT (06:31)
[2021-02-01] MEDS: pantoprazole DR 40 mg Tablet PO (06:33)
[2021-02-01] MEDS: budesonide 0.5 mg/2 mL Neb INHALATION ×2 (08:33→20:00)
[2021-02-01] MEDS: ipratropium-albuterol 3 mL Neb INHALATION ×2 (08:33→14:54)
[2021-02-01] MEDS: carvedilol 25 mg Tablet PO ×2 (08:33→17:54)
[2021-02-01] MEDS: clopidogrel 75 mg Tablet PO (08:33)
[2021-02-01] MEDS: aspirin 81 mg Chew Tablet PO (08:33)
[2021-02-01] MEDS: LORazepam 2 mg/mL INJ 1 mL 0.25 MG IVP (09:23)
--- NOTE | 2021-02-01 10:11 | P.PN_ITS ---
Subjective Subjective: Interval history: Doing a little better today. Taking a break off BIPAP, with O2 dropping to 80s, about to return to BIPAP. No edema. No other hypervolemic sx. No uremic Sx UO 600mL ovre last 24hrs Vitals/I&O/Wt Last Vital Signs Temp 98.1 F 02/01/21 07:54 Pulse 95 02/01/21 08:47 Resp 22 H 02/01/21 08:37 BP 143/74 02/01/21 07:54 Pulse Ox 88 L 02/01/21 08:37 01/31/21 02/01/21 02/01/21 22:59 06:59 14:59 Intake Total 210.100 / 210.100 490 / 700.100 460 / 460 Output Total 200 / 200 460 / 660 Balance 10.100 / 10.100 30 / 40.100 460 / 460 Weight last 48 hrs Weight 79.124 kg Physical Exam Narrative: EXAM NARRATIVE: Constitutional: On bipap, comfortable HEENT: Wet mucosa, no jvp, non icteric Lungs: Bilaterally wheeze or rales and diminished in the bases CVS: S1 S2, no murmurs Abdo: Soft, BS ok Ext 4: Minimal edema, peripheral perfusion with no cyanosis Neurological: Grossly non-focal Urinary Catheter Management^: Barajas: Cath Placed During This Visit: yes Reason for Continuing Indwelling Catheter: Other Urinary Catheter Date of Insertion: 01/31/21 Urinary Catheter Time of Insertion: 13:30 Data : 02/01/21 04:43 02/01/21 04:43 Micro: Microbiology 01/31/21 06:32 Blood Culture - Preliminary Blood SPECIMEN COLLECTED 01/31/21 06:29 Blood Culture - Preliminary Blood SPECIMEN COLLECTED A&P Additional A&P Information 1. 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 As always with this situation it is very challenging, we are unable to give him intravenous volume given the high risk of tipping into overt respiratory failure, at the same time, high-dose diuretics are also to be deferred given the high risk of renal failure. No acute indication for dialysis today if the potassium can be temporized howeve r he is a very high risk of requiring this over the next 24-48 hours. On discussion with his plan she wants everything done including hemodialysis should it be required. Renal function remains marginal today Defer ivf/diuretics for now Daily renal panel Strict I's and O's Dose medication for GFR less than 15 Avoid usual nephrotoxic agents 2. Covid pneumonitis BiPAP/NC Currently being treated with remdesivir and dexamethasone as well as antibiotic coverage. Management per ICU and Dr. Kenney 3 hyperkalemia Levels improved with medical therapy Case discussed with Mikki on telephone number [phone]. Case discussed with Dr. Kenney and bedside RN to orchestrate care. 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
[2021-02-01 12:08] LABS: Glucose Point of Care 240 mg/dL (70-110)
--- NOTE | 2021-02-01 12:11 | P.PN_ITS ---
Subjective Subjective: Interval history: Patient was seen multiple times yesterday and today he is alert, was able to tell me that he ate his breakfast and wanted to try coffee, this is a remarkable recovery within the last 12 hours on avaps I would give him BiPAP breaks to nasal cannula let him eat and change his diet to renal, potassium improved, no plan for dialysis Creatinine stable at 3.7, as per nephrology defer IV fluids and diuretics for now and monitor his creatinine I have reduced his tidal volume to 500 and FiO2 to 50% on AVAPS, Can remove Barajas catheter, he can use bedside commode Nurse notified me that heparin which was ordered yesterday has not been initiated overnight, patient is not complaining of any chest pain he is attributing his back pain to his recent fall at home, he is hemodynamically stable EKG without any ischemic or infarctive changes other than nonspecific T wave changes in the lateral leads Vitals/I&O/Wt Last Vital Signs Temp 98.6 F 02/01/21 12:00 Pulse 240 H 02/01/21 12:00 Resp 18 02/01/21 12:00 BP 118/69 02/01/21 12:00 Pulse Ox 95 02/01/21 12:00 01/31/21 02/01/21 02/01/21 22:59 06:59 14:59 Intake Total 210.100 / 210.100 490 / 700.100 460 / 460 Output Total 200 / 200 460 / 660 Balance 10.100 / 10.100 30 / 40.100 460 / 460 Weight last 48 hrs Weight 79.124 kg Physical Exam Narrative: EXAM NARRATIVE: Patient was seen in the Covid unit He was awake and alert oriented x3 GCS 15 No neurological deficit S1, S2 systolic murmur Clinically looks euvolemic to me Currently on AVAPS tidal volume 500 FiO2 50% Soft abdomen Legs without edema Multiple petechia noted on his extremities Assisted bilateral breath sounds with rhonchi Urinary Catheter Management^: Barajas: Cath Placed During This Visit: yes Reason for Continuing Indwelling Catheter: Other Urinary Catheter Date of Insertion: 01/31/21 Urinary Catheter Time of Insertion: 13:30 Data : 02/01/21 04:43 02/01/21 04:43 Micro: Microbiology 01/31/21 06:32 Blood Culture - Preliminary Blood SPECIMEN COLLECTED 01/31/21 06:29 Blood Culture - Preliminary Blood SPECIMEN COLLECTED A&P Assessment and plan (1) Hyperkalemia: Status: Acute (2) Sepsis: Status: Acute (3) Acute kidney injury superimposed on chronic kidney disease: Status: Acute (4) COVID-19: Status: Acute (5) Acute respiratory failure with hypoxia and hypercapnia: Status: Acute (6) CHF (congestive heart failure): Status: Acute (7) Aortic stenosis, moderate: Status: Acute (8) NSTEMI (non-ST elevated myocardial infarction): Status: Acute Additional A&P Information NSTEMI heparin drip Aspirin Plavix, atorvastatin Requested echo No active chest pain Hyperkalemia: Improved Sepsis with acute hypercapnic hypoxia related to COVID-19 Underlying bronchiectasis, high risk for recurrent infections Currently on AVAPS, Improved, no need of intubation for now, Today I would like to keep him on AVAPS and give him breaks to eat his meals and de-escalate AVAPS to facemask or nasal cannula tomorrow High procalcitonin level Dense consolidation as per the CT chest I would keep him on cefepime and discontinue Zosyn because of his AMBER, would use Augmentin as he is able to tolerate p.o. Requested MRSA nares, Continue steroids and remdesivir Might use interleukin-6 inhibitor in case his oxygen requirement increases Moderate aortic valve stenosis with preserved action fraction heart failure Clinically currently looks euvolemic We are holding off IV fluids and diuretics for now Acute kidney injury with underlying Chronic kidney disease Creatinine plateaued at 3.7 Nephro recommendations appreciated No acidosis, hyperkalemia improved no acute indication for dialysis Zosyn discontinued today Advance diet to renal DVT prophylaxis not indicated currently on heparin GTT Attestations Medical Necessity Statement*: Continue current management Time Spent in Patient Care: 16 - 35 minutes Coding Level of Care Code Acute Cat And Dog Bather for [facility] Fwd Diagnoses Hyperkalemia E87.5 Sepsis A41.9 Acute kidney injury superimposed on chronic kidney disease N17.9; N18.9 COVID-19 U07.1 Acute respiratory failure with hypoxia and hypercapnia J96.01; J96.02 CHF (congestive heart failure) I50.9 Aortic stenosis, moderate I35.0 NSTEMI (non-ST elevated myocardial infarction) I21.4
[2021-02-01] MEDS: dexamethasone 10 mg/mL INJ 6 MG IVP (13:16)
[2021-02-01 15:27] LABS: Partial Thromboplastin Time 36.7 SECONDS (23.9-36.7)
[2021-02-01] MEDS: heparin drip 25,000 UNIT/500 ML PREMIX 22 UNIT IV (16:21)
[2021-02-01] MEDS: heparin 5,000 unit/mL INJ 1 mL IV (16:26)
--- NOTE | 2021-02-01 17:25 | USR_ITS ---
PROCEDURE INFORMATION: Exam: US Retroperitoneal; Complete; Kidneys and Bladder Exam date and time: 02/01/2021 5:25 PM Age: 85 years old Clinical indication: Abnormal findings; Abnormal lab test; Abnormal kidney function lab tests; Additional info: Renal failure TECHNIQUE: Imaging protocol: Real-time ultrasound of the retroperitoneum with image documentation. Complete exam focused on the kidneys and bladder. Total images: 31 COMPARISON: US Bladder wwo Post Void [id number] 09/12/2018 2:01 PM FINDINGS: Right kidney: 11.4 cm length of right kidney. 4.1 cm incidental right renal cyst, requiring no further evaluation. Right kidney with normal echogenicity and no hydronephrosis, calculi, solid masses, nor perinephric fluid collection. Left kidney: Left kidney difficult to visualize due to body habitus. Left kidney with normal echogenicity and no hydronephrosis, calculi, solid masses, nor perinephric fluid collection. 10.7 cm length of left kidney. Urinary bladder: A Barajas catheter decompresses urinary bladder. Barajas catheter in decompressed urinary bladder Other findings: Study limited due to bowel gas. US/US renal BI* [id number] IMPRESSION: 1. Right kidney with mid right simple renal cyst but is otherwise unremarkable. 2. Left kidney difficult to visualize due to body habitus and gas but is grossly unremarkable.
[2021-02-01 17:30] LABS: Glucose Point of Care 230 mg/dL (70-110)
[2021-02-01] MEDS: zinc gluconate 50 mg Tablet PO (17:54)
[2021-02-01] MEDS: montelukast sodium 10 mg Tablet PO (17:54)
[2021-02-01] MEDS: finasteride 5 mg Tablet PO (17:54)
[2021-02-01] MEDS: remdesivir 100 MG in sodium chloride 0.9% (100 ml) 100 ML IV (17:54)
[2021-02-01] MEDS: amoxicillin-clav 875-125 mg Tablet 1 TAB PO (17:54)
--- NOTE | 2021-02-01 19:25 | USCV_ITS ---
Rigo Dejesus Age: 85 Gender: M : 1935 Exam Date: 02/01/2021 10:56 Ordering Phys: Johnna Kenney MD Technologist: Rosalina Broderick Exam Location: [facility] Indication: NSTEMI BP: 143 / 74 HR: 76 Rhythm: Sinus Technical Quality: Suboptimal MEASUREMENTS (Male / Female) Normal Values 2D ECHO LV Diastolic Diameter PLAX 4.9 cm 4.2 - 5.9 / 3.9 - 5.3 cm LV Systolic Diameter PLAX 4.0 cm LV Chamber Size 5.7 cm IVS Diastolic Thickness 2.6 cm 0.6 - 1.0 / 0.6 - 0.9 cm IVS Systolic Thickness 2.3 cm LVPW Diastolic Thickness 1.0 cm 0.6 - 1.0 / 0.6 - 0.9 cm LVPW Systolic Thickness 1.7 cm RV Chamber Size 3.5 cm LVOT Diameter 2.0 cm LV Ejection Fraction 2D Teich 39.5 % LV Ejection Fraction MOD 2C 39.1 % LV Ejection Fraction 2C AL 39.6 % LA Diameter 3.6 cm LA Width 3.0 cm LA Height 5.9 cm RA Width 2.3 cm RA Height 4.2 cm Aorta at Sinotubular Diameter 2.2 cm M-MODE LV Diastolic Diameter MM 8.1 cm 4.2 - 5.9 / 3.9 - 5.3 cm LV Systolic Diameter MM 6.5 cm LV Ejection Fraction MM Teich 39.3 % IVS Diastolic Thickness MM 0.7 cm 0.6 - 1.0 / 0.6 - 0.9 cm IVS Systolic Thickness MM 1.2 cm LVPW Diastolic Thickness MM 1.4 cm 0.6 - 1.0 / 0.6 - 0.9 cm LVPW Systolic Thickness MM 2.2 cm Aortic Annulus Diameter 3.4 cm LA Ao Ratio MM 1.2 DOPPLER AV Peak Velocity 333.8 cm/s LVOT Peak Velocity 91.0 cm/s AV Area Cont Eq vti 0.7 cm squared AV Area Cont Eq pk 0.8 cm squared MV Area PHT 4.1 cm squared Mitral E to A Ratio 0.9 MV E' Velocity 65.2 cm/s Mitral E to MV E' Ratio 17.4 Mitral E to LV E' Lateral Ratio 15.1 Mitral E to LV E' Septal Ratio 20.9 TR Peak Velocity 260.0 cm/s TR Peak Gradient 27.0 mmHg TV Peak E Velocity 55.0 cm/s Right Atrial Pressure 3.0 mmHg Pulmonary Artery Systolic Pressu 30.0 mmHg PV Peak Velocity 119.0 cm/s RV Acceleration Time 0.1 s RV Ejection Time 0.2 s RV AcT/ET 0.3 FINDINGS Left Ventricle Normal left ventricular size. LV systolic function is mildly reduced with EF of 45-50%. Mild global hypokinesis is noted. Diastolic function is abnormal. Right Ventricle The right ventricle is normal in size and function. Right Atrium The right atrium is normal in size. Left Atrium The left atrium is normal in size. Mitral Valve Moderate mitral annular calcification is noted without significant stenosis or prolapse. There is trace mitral regurgitation. Aortic Valve Aortic valve is thickened and calcified. Moderate to severe aortic stenosis is noted with aortic valve area of 0.69cm2 and mean gradient across the aortic valve of 32mmHg. There is no aortic regurgitation. Tricuspid Valve Structurally normal tricuspid valve without significant stenosis. Mild tricuspid regurgitation is noted. Insufficient TR jet to calculate RVSP Pulmonic Valve Structurally normal pulmonic valve without significant stenosis. There is no pulmonic regurgitation. Pericardium Normal pericardium without effusion. Aorta Normal ascending aorta dimension. CONCLUSIONS LV systolic function is mildly reduced with EF of 45-50%. Mild global hypokinesis is noted Diastolic function is abnormal Aortic valve is thickened and calcified. Moderate to severe aortic stenosis is noted with aortic valve area of 0.69cm2 and mean gradient across the aortic valve of 32mmHg. Mild tricuspid regurgitation Compared to prior echocardiogram from 06/2020, LV systolic function has decreased midly and aortic stenosis has progressed further. Baldomero Durant MD (Electronically Signed) Final Date: 02 February 2021 12:35 S
[2021-02-01] MEDS: atorvastatin 40 mg Tablet PO (20:40)
[2021-02-01 20:55] LABS: Glucose Point of Care 282 mg/dL (70-110)
[2021-02-01 22:12] LABS: Partial Thromboplastin Time 141.7 SECONDS (23.9-36.7)
[2021-02-01 22:49] LABS: Glucose Point of Care 233 mg/dL (70-110)
[2021-02-02] VITALS (15 sets, daily range): BP systolic 129–164; BP diastolic 70–96; PULSE 58–95; RESP 18–27; TEMP 36.4–36.9; O2SAT 91–96
[2021-02-02 03:17] LABS: Basophils % 0.1 %; Hematocrit 26.2 % (42.0-52.0); Hemoglobin 8.3 g/dL (11.7-16.6); Lymphocytes # 0.3 10^3/uL (0.8-4.8); Lymphocytes % 2.9 %; Mean Corpuscular HGB Conc 31.7 g/dL (30.0-36.0); Mean Corpuscular Hemoglobin 28.1 pg (28.0-34.0); Mean Corpuscular Volume 88.8 fl (80-94); Mean Platelet Volume 10.5 fL (7.4-10.4); Monocytes # 0.6 10^3/uL (0.2-0.9); Monocytes % 5.4 %; Neutrophils # 10.43 10^3/uL (1.8-7.7); Neutrophils % 88.9 %; Nucleated Red Blood Cells % 0.3 %; Platelet Count 299 10^3/cmm (130-400); Red Blood Count 2.95 10^6/uL (4.1-5.3); Red Cell Distribution Width 15.9 % (12.1-15.1); White Blood Count 11.7 10^3/uL (4.0-10.0)
[2021-02-02 03:31] LABS: C Reactive Protein 108.4 mg/L (0.0-4.9)
[2021-02-02 03:36] LABS: Procalcitonin 7.39 ng/mL (0-0.5)
[2021-02-02 03:40] LABS: Partial Thromboplastin Time 174.5 SECONDS (23.9-36.7)
--- NOTE | 2021-02-02 04:01 | PC.NURSE ---
Critical PTT Called and spoke with Dr Mitchell per critical PTT at 174.5. Orders to stop drip for 2 hours and redraw PTT and restart according to protocol.
[2021-02-02 05:43] LABS: Glucose Point of Care 213 mg/dL (70-110)
[2021-02-02] MEDS: ascorbic acid 500 mg Tablet 1000 MG PO (06:19)
[2021-02-02] MEDS: pantoprazole DR 40 mg Tablet PO (06:19)
[2021-02-02] MEDS: cholecalciferol (vitamin D3) 5,000 unit Tablet 5000 UNIT PO (06:19)
[2021-02-02] MEDS: cefepime 1,000 MG in sodium chloride 0.9% (plus) 50 ML 100 MG IV (06:19)
[2021-02-02 06:40] LABS: Glucose Point of Care 224 mg/dL (70-110)
[2021-02-02 07:08] LABS: Partial Thromboplastin Time 56.2 SECONDS (23.9-36.7)
[2021-02-02] MEDS: clopidogrel 75 mg Tablet PO (08:22)
[2021-02-02] MEDS: aspirin 81 mg Chew Tablet PO (08:22)
[2021-02-02] MEDS: amoxicillin-clav 875-125 mg Tablet 1 TAB PO ×2 (08:22→17:12)
[2021-02-02] MEDS: carvedilol 25 mg Tablet PO ×2 (08:22→17:12)
[2021-02-02] MEDS: ipratropium-albuterol 3 mL Neb INHALATION ×2 (09:46→15:27)
[2021-02-02] MEDS: budesonide 0.5 mg/2 mL Neb INHALATION ×2 (09:47→20:20)
--- NOTE | 2021-02-02 09:58 | PM.PN ---
Subjective Subjective: Interval history: Mr. Pedroza looks like he is making good progress. He is now off BiPAP and comfortable on nasal cannula at 5 L. His creatinine is still pending. He is making good urine. His Barajas catheter was removed. Eating and drinking well. No extremity edema. No uremic symptoms. Vitals/I&O/Wt Last Vital Signs Temp 97.6 F 02/02/21 07:54 Pulse 95 02/02/21 09:56 Resp 22 H 02/02/21 09:48 BP 159/77 02/02/21 07:54 Pulse Ox 92 02/02/21 09:48 02/01/21 02/02/21 02/02/21 22:59 06:59 14:59 Intake Total 220 / 920 240 / 240 Output Total 285 / 285 150 / 435 Balance -65 / 635 -150 / 485 240 / 240 Weight last 48 hrs Weight 79.124 kg Physical Exam Narrative: EXAM NARRATIVE: Constitutional: Awake, comfortable HEENT: Wet mucosa, no jvp, non icteric Lungs: Bilaterally wheeze or rales and diminished in the bases CVS: S1 S2, no murmurs Abdo: Soft, BS ok Ext 4: Minimal edema, peripheral perfusion with no cyanosis Neurological: Grossly non-focal Urinary Catheter Management^: Barajas: Cath Placed During This Visit: yes, but has since been removed by the nurse Reason for Continuing Indwelling Catheter: Decision to DC Catheter Urinary Catheter Date of Insertion: 01/31/21 Urinary Catheter Time of Insertion: 13:30 Date Urinary Catheter Removed: 02/01/21 Time Urinary Catheter Discontinued: 13:06 Data : 02/02/21 03:00 02/01/21 04:43 Micro: Microbiology 02/01/21 20:30 Gram Stain - Final Sputum - Expectorated Sputum 02/01/21 21:06 Bacterial Antigens - Final Urine,Voided 02/01/21 21:06 Legionella Urinary Antigen - Final Urine,Voided 01/31/21 06:32 Blood Culture - Preliminary Blood NEGATIVE TO DATE 01/31/21 06:29 Blood Culture - Preliminary Blood NEGATIVE TO DATE 01/31/21 14:26 Gram Stain - Final Sputum - Expectorated Sputum A&P Additional A&P Information 1. 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 Creatinine pending for today Defer ivf/diuretics for now Daily renal panel Strict I's and O's Dose medication for GFR less than 15 Avoid usual nephrotoxic agents 2. Covid pneumonitis Making excellent progress, likely due to the fact that he received his vaccination BiPAP/NC Currently being treated with remdesivir and dexamethasone as well as antibiotic coverage. Management per ICU and Dr. Kenney 3 Chemistry pending Case discussed with Mikki on telephone number [phone]. Case discussed with Dr. Kenney and bedside RN to orchestrate care. 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
[2021-02-02 12:27] LABS: Glucose Point of Care 250 mg/dL (70-110)
--- NOTE | 2021-02-02 13:08 | PM.PN ---
Subjective Subjective: Interval history: Patient was seen and examined this morning, he is awake and alert, on BiPAP which was discontinued and he was put on 5 L nasal cannula Patient was saturating 92 to 94%, he used BiPAP overnight I have asked his nurse to give him a break from the BiPAP as his mentation is improved, BMP is pending from today CBC shows stable hemoglobin Improvement in leukocytosis, he has been afebrile 1 bowel movement No active chest pain, shortness of breath Vitals/I&O/Wt Last Vital Signs Temp 97.7 F 02/02/21 12:00 Pulse 76 02/02/21 12:00 Resp 20 H 02/02/21 12:00 BP 129/73 02/02/21 12:00 Pulse Ox 91 02/02/21 12:00 02/01/21 02/02/21 02/02/21 22:59 06:59 14:59 Intake Total 220 / 920 290 / 290 Output Total 285 / 285 150 / 435 Balance -65 / 635 -150 / 485 290 / 290 Physical Exam Narrative: EXAM NARRATIVE: Patient was awake and alert sitting comfortably in his bed with BiPAP mask which was discontinued to 6 L nasal cannula which was further titrated down to 5 L Awake and alert no neurological deficits Clinically looks euvolemic Bilateral breath sounds diminished with rhonchi at the bases Abdomen is soft No acute respiratory distress Appropriate mood and affect Patient seems very happy with his progress Urinary Catheter Management^: Barajas: Cath Placed During This Visit: yes, but has since been removed by the nurse Reason for Continuing Indwelling Catheter: Decision to DC Catheter Urinary Catheter Date of Insertion: 01/31/21 Urinary Catheter Time of Insertion: 13:30 Date Urinary Catheter Removed: 02/01/21 Time Urinary Catheter Discontinued: 13:06 Data : 02/02/21 03:00 02/01/21 04:43 Micro: Microbiology 02/01/21 13:24 MRSA Culture - Final Nose 01/31/21 14:26 Gram Stain - Final Sputum - Expectorated Sputum Sputum Culture - Preliminary 01/31/21 18:50 Urine Culture - Preliminary Urine,Clean Catch 02/01/21 20:30 Gram Stain - Final Sputum - Expectorated Sputum 02/01/21 21:06 Bacterial Antigens - Final Urine,Voided 02/01/21 21:06 Legionella Urinary Antigen - Final Urine,Voided 01/31/21 06:32 Blood Culture - Preliminary Blood NEGATIVE TO DATE 01/31/21 06:29 Blood Culture - Preliminary Blood NEGATIVE TO DATE A&P Assessment and plan (1) NSTEMI (non-ST elevated myocardial infarction): Status: Acute (2) Aortic stenosis, moderate: Status: Acute (3) Hyperkalemia: Status: Acute (4) Sepsis: Status: Acute (5) Acute kidney injury superimposed on chronic kidney disease: Status: Acute (6) COVID-19: Status: Acute (7) Acute respiratory failure with hypoxia and hypercapnia: Status: Acute (8) CHF (congestive heart failure): Status: Acute Additional A&P Information Non-STEMI To continue 48 hours on heparin which he will finish tomorrow No active chest pain EKG without ischemic or infarct changes Hyperkalemia: Improved Moderate aortic valve stenosis: Currently euvolemic, holding off on IV fluids/diuretics for now we will follow up with nephro recommendations after his today's BMP Acute on chronic kidney disease BMP is pending, Is making good amount of urine, Barajas catheter has been removed He had 1 bowel movement as well No need of dialysis for now Hypoxia related to COVID-19 pneumonia currently doing well on 6 L nasal cannula, BiPAP not indicated at this time Sepsis without shock: Improving Acute hypoxia hypercapnia: Hypercapnia resolved I would continue him on cefepime because of underlying history of bronchiectasis, cefepime 1 g every 24 hours because of his underlying chronic kidney disease and acute worsening of creatinine Nares MRSA negative. 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
[2021-02-02 13:14] LABS: Partial Thromboplastin Time 41.7 SECONDS (23.9-36.7)
[2021-02-02 13:15] LABS: Anion Gap 17.9 (5-19); Calcium 8.1 mg/dL (8.5-10.5); Carbon Dioxide 24 mmol/L (22-29); Chloride 100 mmol/L (98-107); Glucose 226 mg/dL (65-115); Osmolality Calculated 324 mOsm/kg (285-295); Potassium 4.9 mmol/L (3.5-5.1); Sodium 137 mmol/L (136-145)
[2021-02-02 13:46] LABS: Blood Urea Nitrogen 106 mg/dL (8-23)
[2021-02-02] MEDS: dexamethasone 10 mg/mL INJ 6 MG IVP (13:57)
[2021-02-02 16:49] LABS: Glucose Point of Care 194 mg/dL (70-110)
[2021-02-02] MEDS: zinc gluconate 50 mg Tablet PO (17:12)
[2021-02-02] MEDS: finasteride 5 mg Tablet PO (17:12)
[2021-02-02] MEDS: montelukast sodium 10 mg Tablet PO (17:12)
[2021-02-02] MEDS: lactated ringers 1,000 ML 30 ML IV (17:58)
[2021-02-02] MEDS: remdesivir 100 MG in sodium chloride 0.9% (100 ml) 100 ML IV (17:59)
[2021-02-02 20:18] LABS: Glucose Point of Care 211 mg/dL (70-110)
[2021-02-02 20:39] LABS: Partial Thromboplastin Time > 250.0 SECONDS (23.9-36.7)
[2021-02-02] MEDS: atorvastatin 40 mg Tablet PO (20:51)
[2021-02-03] VITALS (10 sets, daily range): BP systolic 140–162; BP diastolic 65–81; PULSE 71–87; RESP 18–22; TEMP 36.3–36.9; O2SAT 93–98
[2021-02-03 00:21] LABS: Glucose Point of Care 149 mg/dL (70-110)
[2021-02-03 04:23] LABS: ABG PCO2 41.8 mmHg (35-45); ABG PH Result 7.34 (7.35-7.45); Arterial Blood Gas Hematocrit 16.3 % (42-52); Blood Gas Sample Site Brachial, right; Blood Gas Sample Type Arterial; HCO3 ABG 22.5 mmol/L (22-26); Oxygen Device NC; PO2 ABG 74.4 mmHg (80.0-100.0)
[2021-02-03] MEDS: cefepime 1,000 MG in sodium chloride 0.9% (plus) 50 ML 100 MG IV (04:39)
[2021-02-03 04:43] LABS: Basophils % 0.1 %; Hemoglobin 8.6 g/dL (11.7-16.6); Lymphocytes # 0.3 10^3/uL (0.8-4.8); Lymphocytes % 3.1 %; Mean Corpuscular HGB Conc 31.9 g/dL (30.0-36.0); Mean Corpuscular Hemoglobin 28.3 pg (28.0-34.0); Mean Corpuscular Volume 88.8 fl (80-94); Monocytes # 0.4 10^3/uL (0.2-0.9); Monocytes % 4.5 %; Neutrophils # 8.24 10^3/uL (1.8-7.7); Neutrophils % 89.3 %; Nucleated Red Blood Cells % 0.2 %; Platelet Count 275 10^3/cmm (130-400); Red Blood Count 3.04 10^6/uL (4.1-5.3); Red Cell Distribution Width 15.9 % (12.1-15.1); White Blood Count 9.2 10^3/uL (4.0-10.0)
[2021-02-03 05:18] LABS: Anion Gap 20.1 (5-19); Carbon Dioxide 22 mmol/L (22-29); Chloride 100 mmol/L (98-107); Glucose 172 mg/dL (65-115); Potassium 5.1 mmol/L (3.5-5.1); Sodium 137 mmol/L (136-145)
[2021-02-03] MEDS: cholecalciferol (vitamin D3) 5,000 unit Tablet 5000 UNIT PO (05:26)
[2021-02-03] MEDS: pantoprazole DR 40 mg Tablet PO (05:26)
[2021-02-03] MEDS: ascorbic acid 500 mg Tablet 1000 MG PO (05:26)
[2021-02-03 05:37] LABS: Osmolality Calculated 323 mOsm/kg (285-295)
--- NOTE | 2021-02-03 06:00 | XRR_ITS ---
PROCEDURE INFORMATION: Exam: XR Chest Exam date and time: 02/03/2021 6:00 AM Age: 85 years old Clinical indication: Condition or disease; Lung condition and disease; Pneumonia; Other: Covid TECHNIQUE: Imaging protocol: XR of the chest. Views: 1 view. COMPARISON: CR XR chest 1V portable [id number] 01/31/2021 1:08 PM FINDINGS: Lungs: Bilateral perihilar and lower lung pulmonary consolidation. Pleural spaces: Suspect small bilateral pleural effusions. Heart/Mediastinum: Cardiac enlargement. Bones/joints: Osteopenia. Degenerative change of the spine. XR/XR chest 1V portable [id number] IMPRESSION: 1. Bilateral perihilar and bilateral lower lung pulmonary consolidations are persistent similar on the left and similar or mildly reduced on the right. 2. Blunting of the costophrenic angles could not entirely exclude small effusions.
[2021-02-03 06:03] LABS: Partial Thromboplastin Time 36.9 SECONDS (23.9-36.7)
[2021-02-03 06:08] LABS: Blood Urea Nitrogen 110 mg/dL (8-23)
--- NOTE | 2021-02-03 06:15 | PC.NURSE ---
shift note patient rested in bed without event, heparin drip held due to 1957 PTT was greater than 250, order received from Dr. Mitchell to re-draw PTT with morning labs and resume heparin drip if morning PTT falls in protocol range. awaken around 0200 and had difficulty going back to sleep. pleasant and cooperative
--- NOTE | 2021-02-03 06:18 | PC.NURSE ---
BUN 110 this am, Dr. Mitchell notified, no new orders at this time.
[2021-02-03 06:52] LABS: Glucose Point of Care 217 mg/dL (70-110)
[2021-02-03] MEDS: carvedilol 25 mg Tablet PO ×2 (08:18→17:54)
[2021-02-03] MEDS: amoxicillin-clav 875-125 mg Tablet 1 TAB PO ×2 (08:18→17:54)
[2021-02-03] MEDS: aspirin 81 mg Chew Tablet PO (08:18)
[2021-02-03] MEDS: clopidogrel 75 mg Tablet PO (08:18)
[2021-02-03] MEDS: budesonide 0.5 mg/2 mL Neb INHALATION ×2 (08:30→20:22)
[2021-02-03] MEDS: ipratropium-albuterol 3 mL Neb INHALATION ×2 (08:30→20:22)
--- NOTE | 2021-02-03 08:43 | PC.CHAP ---
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 [] Patient/Family/Request visit [] Outpatient visit [] Follow-up visit [] Physician referral [] Code/Alert [x] Routine visit [] Staff referral [] Actively dying [] Patient sleeping [] Family support [] [] Out of room [] Palliative care [] [] Receiving care in room [] Pre-surgical visit [] Trauma [] Long length of stay [] ICU visit [x] Other: 2 a served breakfast Relational/Emotional Strength [] Patient feels connected with others/family/visitors/staff [] Distress [] Loneliness/isolation [] Abandonment Spirituality of Patient [] Person of Vanesa [] Attends Caodaism of their Vanesa [] Believes in Prayer [] Reads Bible or Islam materials [] There are Spiritual issues to be addressed Curbstone Setter Interventions [x] Prayer [] Active listening [] Non-anxious presence [] Spiritual/emotional support [] Crisis/trauma care [] Spiritual counseling [] Bereavement support [] Provided bereavement packet [] Provided Bible/devotional materials [] Provided toy/stuffed animal, coloring book to patient or family member [] Provided Communion [] Anointing/[place] [] Salvation [x] Completed spiritual assessment [] Other: Impact on Illness or Injury [] Angry [] Fearful [] Anxious [] Often cries [] Exhaustion [] Unable to work [] Unable to attend sikhism [] Unable to walk/stand [] Unable to read [] Unable to drive [] Unable to eat/drink [] Unable to sleep [] Unable to be with family [] Patient intubated [] Other: Summary Time spent with patient
--- NOTE | 2021-02-03 10:19 | P.PN_ITS ---
Subjective Subjective: Interval history: Feels better today, more energy, eating and drinking well. Maintaining O2 sats on 5L NC. On ivf at 30mL/hr since yesterday, tolerating this well. No edema globally. Passing urine without obstruction, urine appears to be clear and no bloody or cloudy. Vitals reviewed and remain stable. Vitals/I&O/Wt Last Vital Signs Temp 97.6 F 02/03/21 08:00 Pulse 77 02/03/21 08:30 Resp 18 02/03/21 08:30 BP 162/81 02/03/21 08:00 Pulse Ox 95 02/03/21 08:30 02/02/21 02/03/21 02/03/21 22:59 06:59 14:59 Intake Total 500 / 1030 310 / 1340 280 / 280 Output Total 350 / 550 375 / 925 Balance 150 / 480 -65 / 415 280 / 280 Physical Exam Narrative: EXAM NARRATIVE: Constitutional: Awake, comfortable HEENT: Wet mucosa, no jvp, non icteric Lungs: Bilaterally wheeze or rales and diminished in the bases CVS: S1 S2, no murmurs Abdo: Soft, BS ok Ext 4: Minimal edema, peripheral perfusion with no cyanosis Neurological: Grossly non-focal Urinary Catheter Management^: Barajas: Cath Placed During This Visit: yes, but has since been removed by the nurse Reason for Continuing Indwelling Catheter: Decision to DC Catheter Urinary Catheter Date of Insertion: 01/31/21 Urinary Catheter Time of Insertion: 13:30 Date Urinary Catheter Removed: 02/01/21 Time Urinary Catheter Discontinued: 13:06 Data : 02/03/21 03:55 02/03/21 03:55 Micro: Microbiology 01/31/21 18:50 Urine Culture - Final Urine,Clean Catch 02/01/21 13:24 MRSA Culture - Final Nose 01/31/21 14:26 Gram Stain - Final Sputum - Expectorated Sputum Sputum Culture - Preliminary 02/01/21 20:30 Gram Stain - Final Sputum - Expectorated Sputum 02/01/21 21:06 Bacterial Antigens - Final Urine,Voided A&P Additional A&P Information 1. 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 Creatinine remains above baseline but remains stable On ivf since yesterday, will bump rate to 75mL/min x 1L. Daily renal panel Strict I's and O's Dose medication for GFR less than 15 Avoid usual nephrotoxic agents 2. Covid pneumonitis Making excellent progress, likely due to the fact that he received his vaccination NC Currently being treated with remdesivir and dexamethasone as well as antibiotic coverage. Management per ICU and Dr. Kenney 3 Chemistry well balanced Case discussed with Mikki on telephone number [phone]. Case discussed with Dr. Kenney and bedside RN to orchestrate care. 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
[2021-02-03] MEDS: lactated ringers 1,000 ML 75 ML IV (10:25)
[2021-02-03 10:47] LABS: Glucose Point of Care 235 mg/dL (70-110)
--- NOTE | 2021-02-03 12:39 | PC.SOCIAL ---
IMM Update Pg. 2 of IMM updated and reviewed with patient's over the phone. Verbalized understanding. Initialed, dated, and timed copy in chart.
[2021-02-03] MEDS: heparin drip 25,000 UNIT/500 ML PREMIX 36.4 UNIT IV (13:06)
[2021-02-03] MEDS: dexamethasone 10 mg/mL INJ 6 MG IVP (13:09)
[2021-02-03 14:14] LABS: Partial Thromboplastin Time > 250.0 SECONDS (23.9-36.7)
--- NOTE | 2021-02-03 16:50 | PM.PN ---
Subjective Subjective: Interval history: Finish 48 hours on heparin at 3:00 today No chest pain shortness of breath Patient is doing well on 4 L nasal cannula No active chest pain, shortness of breath abdominal pain. To finish 1 L normal saline resuscitation Creatinine same as yesterday 4.3 Change his diet to nondialysis renal, recommendation appreciated by dietitian Patient is happy with his progress, bringing up dark yellow sputum, requested sputum culture he has been afebrile, cultures negative to date, Previous sputum culture growing gram-negative rods, doing well on Bactrim and cefepime In 2019 sputum culture positive for Haemophilus influenza He has history of bronchiectasis follows up with Dr. Dial has severe aortic stenosis, chronic kidney disease stage IV Procalcitonin 7.3 Blood cultures negative to date urine antigens negative MRSA nares negative Vitals/I&O/Wt Last Vital Signs Temp 97.4 F L 02/03/21 12:00 Pulse 73 02/03/21 14:00 Resp 18 02/03/21 12:00 BP 147/72 02/03/21 12:00 Pulse Ox 96 02/03/21 12:00 02/03/21 02/03/21 02/03/21 06:59 14:59 22:59 Intake Total 410 / 1440 939.5 / 939.5 Output Total 375 / 925 Balance 35 / 515 939.5 / 939.5 Physical Exam Narrative: EXAM NARRATIVE: Patient on nasal cannula 4 L doing well watching television Productive sputum S1, S2 with murmur Clinically looks dry EOMI, PERRLA No neurological deficits Bilateral breath sounds with rhonchi at the bases No active wheezing Very pleasant and cooperative during my evaluation Urinary Catheter Management^: Barajas: Cath Placed During This Visit: yes, but has since been removed by the nurse Reason for Continuing Indwelling Catheter: Decision to DC Catheter Urinary Catheter Date of Insertion: 01/31/21 Urinary Catheter Time of Insertion: 13:30 Date Urinary Catheter Removed: 02/01/21 Time Urinary Catheter Discontinued: 13:06 Data : 02/03/21 03:55 02/03/21 03:55 Micro: Microbiology 01/31/21 14:26 Gram Stain - Final Sputum - Expectorated Sputum Sputum Culture - Preliminary Gram Negative Rods 02/01/21 20:30 Gram Stain - Final Sputum - Expectorated Sputum Sputum Culture - Preliminary 01/31/21 18:50 Urine Culture - Final Urine,Clean Catch 02/01/21 13:24 MRSA Culture - Final Nose A&P Assessment and plan (1) NSTEMI (non-ST elevated myocardial infarction): Status: Acute (2) Aortic stenosis: Status: Acute Qualifiers: Cardiac valve disease etiology: nonrheumatic Qualified Code(s): I35.0 - Nonrheumatic aortic (valve) stenosis (3) Hyperkalemia: Status: Acute (4) Sepsis: Status: Acute (5) Acute kidney injury superimposed on chronic kidney disease: Status: Acute (6) COVID-19: Status: Acute (7) Acute respiratory failure with hypoxia and hypercapnia: Status: Acute (8) Pneumonia: Status: Acute Qualifiers: Laterality: bilateral Lung location: lower lobe of lung Pneumonia type: due to unspecified organism Qualified Code(s): J18.9 - Pneumonia, unspecified organism (9) Bronchiectasis: Status: Acute Additional A&P Information Acute hypoxic hypercapnic restaurant failure with underlying bronchiectasis COVID-19 pneumonia Currently doing well on 4 L nasal cannula Patient to work with physical therapy on daily basis, Out of bed to chair Continue remdesivir and Decadron Not a candidate of interleukin-6 inhibitor considering significant recovery with BiPAP Continue cefepime and Augmentin sputum culture positive for gram-negative rods, MRSA nares negative Afebrile Requested sputum sample Cefepime can be deescalated if his cultures remain negative in next 48 hours NSTEMI no active chest pain or shortness of breath Finished heparin today at 3 PM Echo showing global hypokinesia EF slightly reduced 45% Will request cardiology consult, Dr. Estrada notified EKG without ischemic or infarctive change Hyperkalemia: Improved Acute on chronic kidney disease stage IV Creatinine 4.3, nephro recommended edition 1 L fluid anticoagulated creatinine tomorrow morning, adequate urine output, clinically he does look dry Judicious use of fluids with close monitoring for any worsening of heart failure, monitor for signs of primary edema Appreciate nephro recommendations Severe aortic stenosis No active chest pain no recent syncopal event Patient is stating that he was lawnmowing 2 days ago and probably overdid it and fell on his back He has been having back pain Full code Renal nondialysis diet appreciate dietitians recommendations Continue multivitamins Disposition to home with home health services DVT prophylaxis Heparin Attestations Medical Necessity Statement*: Continue Covid unit management Time Spent in Patient Care: 16 - 35 minutes Coding Level of Care Code 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
[2021-02-03] MEDS: remdesivir 100 MG in sodium chloride 0.9% (100 ml) 100 ML IV (17:53)
[2021-02-03] MEDS: finasteride 5 mg Tablet PO (17:54)
[2021-02-03] MEDS: montelukast sodium 10 mg Tablet PO (17:54)
[2021-02-03 18:15] LABS: Glucose Point of Care 416 mg/dL (70-110)
[2021-02-03] MEDS: zinc gluconate 50 mg Tablet PO (18:39)
--- NOTE | 2021-02-03 18:46 | P.CONIM_ITS ---
Providers/Reason For Consult Consulting Physician/Specialty*: Cardiology Reason for Consult*: Non-ST relation [place], severe aortic stenosis, mildly reduced LV function Attending Physician: Johnna Kenney MD Primary Care Provider: Elizabeth Houston MD History of Present Illness History of Present Illness Rigo Dejesus is a 85 year old male past medical history significant for chronic kidney disease, moderate aortic stenosis with normal ejection fraction, hypertension, hyperlipidemia was admitted with Covid pneumonia respiratory failure and heart failure managed with BiPAP antibiotic diuresis and usual Covid care protocols. Cardiac troponin Gen5 was noted to be elevated as 240 . Echocardiogram noted to have mildly reduced ejection fraction 45 to 50% from normal mild aortic stenosis has progressed from moderate category to moderate to severe now. We have been asked to assist in his care. Currently patient is steadily recovering. He denies any chest pain PND orthopnea. He has been managed with 4 L nasal cannula and diuretics. Review of Systems General: Reports: ROS unobtainable due to medical condition (Obtunded due to hypercapnia ) Eyes: Denies: photophobia ENMT: Denies: enlarged tonsils Musc: Denies: joint warmth Meds/Allergies Home Medications and Allergies Home Medications Medication Instructions Recorded Confirmed Last Taken Type alprazolam 0.25 mg tablet 0.125 mg PO Q6H PRN 06/12/19 02/01/21 01/29/21 02:45 History amlodipine 5 mg tablet 5 mg PO BID tab 06/12/19 02/01/21 01/28/21 History dulaglutide 1.5 mg/0.5 mL 1.5 mg SUBCUT Q7D 06/12/19 02/01/21 Unknown History subcutaneous pen injector ezetimibe 10 mg tablet 10 mg PO QAM 06/12/19 02/01/21 01/28/21 History finasteride 5 mg tablet 5 mg PO QPM 06/12/19 02/01/21 01/28/21 History glyburide 5 mg tablet See Rx Instructions .ROUTE 06/12/19 02/01/21 Unknown History .COMPLEX tab ipratropium 0.5 mg-albuterol 3 mg 3 ml INHALATION BID PRN 06/12/19 02/01/21 Unknown History (2.5 mg base)/3 mL nebulization soln isosorbide mononitrate 30 mg 30 mg PO QPM 06/12/19 02/01/21 01/28/21 History tablet,extended release 24 hr sitagliptin 100 mg tablet 100 mg PO QAM 06/12/19 02/01/21 01/28/21 History ascorbic acid (vitamin C) 500 mg 1,000 mg PO QAM cap 05/14/20 02/01/21 01/28/21 History capsule aspirin 81 mg chewable tablet 81 mg PO BID tab 05/14/20 02/01/21 01/28/21 History ferrous sulfate 325 mg (65 mg 325 mg PO TID 05/14/20 02/01/21 01/28/21 History iron) tablet,delayed release garlic 1,000 mg capsule 1,000 mg PO QAM 05/14/20 02/01/21 01/28/21 History magnesium oxide 400 mg PO QPM 05/14/20 02/01/21 01/28/21 History montelukast 10 mg tablet 10 mg PO QPM 05/14/20 02/01/21 01/28/21 History nitroglycerin 0.4 mg sublingual 0.4 mg SUBLINGUAL Q5M PRN #25 tab 10/23/20 02/01/21 Unknown Rx tablet albuterol sulfate 90 mcg/actuation 2 puff INHALATION Q4H PRN 12/25/20 02/01/21 Unknown History aerosol inhaler budesonide-formoterol HFA 160 2 puff INHALATION BID 12/25/20 02/01/21 01/28/21 History mcg-4.5 mcg/actuation aerosol inhaler budesonide 0.5 mg INHALATION BID 01/29/21 02/01/21 01/28/21 History carvedilol 25 mg PO BID 01/29/21 02/01/21 01/28/21 History chlorzoxazone 500 mg PO TID PRN 01/29/21 02/01/21 01/28/21 History cholecalciferol (vitamin D3) 125 mcg PO QAM 01/29/21 02/01/21 01/28/21 History [Vitamin D3] clonidine HCl 0.1 mg PO .IF BP OVER 165/90 01/29/21 02/01/21 Unknown History cyanocobalamin (vitamin B-12) 5,000 mcg SUBLINGUAL DAILY 01/29/21 02/01/21 Unknown History [Vitamin B-12] furosemide 80 mg PO QAM 01/29/21 02/01/21 01/28/21 History zozttaafrapn-ipvixuno-sbxnye 1 tab PO DAILY 01/29/21 02/01/21 Unknown History [Centrum Silver] omega 2-qvj-nnj-fish oil [Fish Oil] 1 cap PO DAILY 01/29/21 02/01/21 Unknown History omeprazole 20 mg PO QAM 01/29/21 02/01/21 01/28/21 History zinc 50 mg PO QPM 01/29/21 02/01/21 01/28/21 History Allergies Allergy/AdvReac Type Severity Reaction Status Date / Time sulfamethoxazole Allergy UNKNOWN Verified 01/29/21 08:44 [From Bactrim] trimethoprim [From Bactrim] Allergy UNKNOWN Verified 01/29/21 08:44 amoxicillin AdvReac ADR-Vomitin Verified 01/29/21 08:44 g Current Medications Current Medications Generic Name Dose Route Start Last Admin Trade Name Freq PRN Reason Stop Dose Admin Albuterol/Ipratropium 3 ml 01/31/21 13:32 02/03/21 08:30 Ipratropium-Albuterol 3 Ml Neb INHALATION 3 ml Q6H PRN Administration SHORTNESS OF BREATH Amoxicillin/Clavulanate Potassium 1 tab 02/01/21 18:00 02/03/21 17:54 Amoxicillin-Clav 875-125 Mg Tablet PO 1 tab BID HAYDEN Administration Protocol Ascorbic Acid 1,000 mg 02/01/21 06:00 02/03/21 05:26 Ascorbic Acid 500 Mg Tablet PO 1,000 mg QAM HAYDEN Administration Aspirin 81 mg 02/01/21 09:00 02/03/21 08:18 Aspirin 81 Mg Chew Tablet PO 81 mg DAILY HAYDEN Administration Atorvastatin Calcium 40 mg 01/31/21 21:00 02/02/21 20:51 Atorvastatin 40 Mg Tablet PO 40 mg BEDTIME HAYDEN Administration Budesonide 0.5 mg 01/31/21 20:00 02/03/21 08:30 Budesonide 0.5 Mg/2 Ml Neb INHALATION 0.5 mg BID.RESPIRATORY HAYDEN Administration Carvedilol 25 mg 01/31/21 18:00 02/03/21 17:54 Carvedilol 25 Mg Tablet PO 25 mg BID HAYDEN Administration Clopidogrel Bisulfate 75 mg 02/01/21 09:00 02/03/21 08:18 Clopidogrel 75 Mg Tablet PO 75 mg DAILY HAYDEN Administration Dexamethasone 6 mg 01/31/21 13:45 02/03/21 13:09 Dexamethasone 10 Mg/Ml Inj IVP 6 mg Q24H HAYDEN Administration Finasteride 5 mg 01/31/21 18:00 02/03/21 17:54 Finasteride 5 Mg Tablet PO 5 mg QPM HAYDEN Administration Heparin Sodium (Beef Lung) 0 unit 01/31/21 19:22 02/01/21 16:26 Heparin 5,000 Unit/Ml Inj 1 Ml IV 1,100 unit PRN PRN Administration Heparin weight-base protocol Protocol Remdesivir 100 mg/ Sodium 100 mls @ 100 mls/hr 02/01/21 18:00 02/03/21 17:53 Chloride IV 02/04/21 18:59 100 mls/hr Q24H HAYDEN Administration Heparin Sodium/Sodium Chloride 25,000 unit in 500 mls @ 0 mls/hr 01/31/21 19:30 02/03/21 14:21 Heparin Drip IV 0 unit/kg/hr .Q0M HAYDEN 0 mls/hr Titration Protocol Per Protocol Cefepime HCl 1,000 mg/ Sodium 50 mls @ 100 mls/hr 02/02/21 05:00 02/03/21 05:23 Chloride IV Infused Q24H HAYDEN Infusion Lactated Ringer's 1,000 mls @ 75 mls/hr 02/03/21 10:30 02/03/21 18:31 Lactated Ringers IV Infused .[id number] HAYDEN Infusion Insulin Aspart 0 unit 02/01/21 18:00 02/03/21 18:39 Insulin Aspart 100 Unit/1 Ml SUBCUT 14 unit WM&BEDTIME HAYDEN Administration Protocol Isosorbide Mononitrate 30 mg 01/31/21 18:00 01/31/21 17:39 Isosorbide Mononitrate Er 30 Mg Tablet PO Not Given QPM HAYDEN Lorazepam 0.25 mg 02/01/21 08:53 02/01/21 09:23 Lorazepam 2 Mg/Ml Inj 1 Ml IVP 0.25 mg Q8H PRN Administration ANXIETY Montelukast Sodium 10 mg 01/31/21 18:00 02/03/21 17:54 Montelukast Sodium 10 Mg Tablet PO 10 mg QPM HAYDEN Administration Pantoprazole Sodium 40 mg 02/01/21 06:00 02/03/21 05:[address] 40 Mg Tablet PO 40 mg QAM HAYDEN Administration Vitamin D 5,000 unit 02/01/21 06:00 02/03/21 05:26 Cholecalciferol (Vitamin D3) 5,000 Unit Tablet PO 5,000 unit QAM HAYDEN Administration Zinc Gluconate 50 mg 01/31/21 18:00 02/03/21 18:39 Zinc Gluconate 50 Mg Tablet PO 50 mg QPM HAYDEN Administration PFSH Acute PFSH: Medical History (Updated 02/03/21 @ 19:32 by Johnna Estrada MD) Anxiety Aortic stenosis Aortic stenosis, severe Calcium deficiency Chronic kidney disease, stage 3 unspecified Coagulopathy Dysuria GERD (gastroesophageal reflux disease) Hx pulmonary embolism Hypercholesteremia Hypertension Mild intermittent asthma, uncomplicated Recurrent UTI Renal insufficiency Surgical History History of heart artery stent Hx of bilateral cataract extraction Hx of squamous cell carcinoma excision NASAL TIP Social History Smoking and tobacco status: former smoker Quit status (tobacco): has quit using tobacco Year quit tobacco: 1965 - 1.5 PPD x 5 Years Second hand smoke exposure: No Smoking risk assessment/counseling performed?: No Alcohol intake: never Desire information about alcohol rehabilitation?: No Counseling given: No Desire information about substance/drug rehabilitation?: No Counseling given: No Lives independently: Yes Household members: spouse Marital status: service: Yes Current occupational status: retired History of recent travel: No Current gender identity: Male Dietary Habits: Current diet type/program: regular Caffeine: Yes Vitals/I&O/Wt Last Vital Signs Temp 98.3 F 02/03/21 16:00 Pulse 84 02/03/21 16:00 Resp 18 02/03/21 16:00 BP 155/76 02/03/21 16:00 Pulse Ox 93 02/03/21 16:00 02/03/21 02/03/21 02/03/21 06:59 14:59 22:59 Intake Total 410 / 1440 939.5 / 939.5 1506 / 2445.5 Output Total 375 / 925 Balance 35 / 515 939.5 / 939.5 1506 / 2445.5 Physical Exam Narrative: EXAM NARRATIVE: Please note that I have not examined the patient due to Covid restriction history physical examination as per medicine clinic notes. Urinary Catheter Management^: Barajas: Cath Placed During This Visit: yes, but has since been removed by the nurse Reason for Continuing Indwelling Catheter: Decision to DC Catheter Urinary Catheter Date of Insertion: 01/31/21 Urinary Catheter Time of Insertion: 13:30 Date Urinary Catheter Removed: 02/01/21 Time Urinary Catheter Discontinued: 13:06 Data Labs: Other Labs: SINUS RHYTHM NONSPECIFIC ST & T-WAVE ABNORMALITY Compared to ECG 01/31/2021 15:47:07 No significant changes Electronically Signed On 02-01-2021 22:10:08 CDT by Baldomero Durant M.D. Micro: Micro: Microbiology 01/31/21 14:26 Gram Stain - Final Sputum - Expector ated Sputum Sputum Culture - P reliminary Gram Negative R ods 02/01/21 20:30 Gram Stain - Final Sputum - Expector ated Sputum Sputum Culture - P reliminary 01/31/21 18:50 Urine Culture - Fi nal Urine,Clean Catch A&P Assessment and plan (1) NSTEMI (non-ST elevated myocardial infarction): Most likely secondary to demand ischemia in the presence of fixed stenosis due to severe aortic stenosis, hypoxia with element of myocarditis which cannot be ruled out rather be on the higher list of differential diagnosis. Global hypokinesis may hint towards it, we therefore continue conservative medical management including beta-shree isosorbide mononitrate aspirin statin and regular anticoagulation receiving during Covid. At this point no intervention suggested for Status: Acute (2) CHF (congestive heart failure): Continue diuresis when indicated Status: Acute (3) COVID-19: As per pulmonary medicine Status: Acute (4) Acute respiratory failure with hypoxia and hypercapnia: As per pulmonary medicine Status: Acute (5) Aortic stenosis, severe: Once recovered from Covid as an outpatient may need further work-up for TAVR Status: Acute (6) Chronic kidney disease, stage 3 unspecified: As per nephrology Status: Acute Qualifiers: Chronic kidney disease stage 3 subtype: stage 3b (GFR 30-44) Qualified Code(s): N18.32 - Chronic kidney disease, stage 3b Consult Attestations Medical Necessity Statement: Patient require continuation of hospitalization for above defined care. Coding Level of Care Code New Pt Acute Insurance Attorney for Chg Fwd Patient Type New History Detailed Exam Detailed Medical Decision Making Moderate Complexity Diagnoses NSTEMI (non-ST elevated myocardial infarction) I21.4 CHF (congestive heart failure) I50.9 COVID-19 U07.1 Acute respiratory failure with hypoxia and hypercapnia J96.01; J96.02 Aortic stenosis, severe I35.0 Chronic kidney disease, stage 3 unspecified N18.32 Chronic kidney disease stage 3 subtype: stage 3b (GFR 30-44)
[2021-02-03 20:38] LABS: Glucose Point of Care 423 mg/dL (70-110)
[2021-02-03] MEDS: atorvastatin 40 mg Tablet PO (20:42)
[2021-02-04] VITALS (11 sets, daily range): BP systolic 129–156; BP diastolic 64–75; PULSE 66–88; RESP 16–20; TEMP 36.4–36.8; O2SAT 93–97
[2021-02-04] MEDS: ascorbic acid 500 mg Tablet 1000 MG PO (05:17)
[2021-02-04] MEDS: cholecalciferol (vitamin D3) 5,000 unit Tablet 5000 UNIT PO (05:17)
[2021-02-04] MEDS: pantoprazole DR 40 mg Tablet PO (05:17)
[2021-02-04] MEDS: cefepime 1,000 MG in sodium chloride 0.9% (plus) 50 ML 100 MG IV (05:17)
[2021-02-04 06:27] LABS: Basophils % 0.1 %; Hematocrit 27.9 % (42.0-52.0); Hemoglobin 8.7 g/dL (11.7-16.6); Lymphocytes # 0.4 10^3/uL (0.8-4.8); Lymphocytes % 4.4 %; Mean Corpuscular HGB Conc 31.2 g/dL (30.0-36.0); Mean Corpuscular Hemoglobin 27.6 pg (28.0-34.0); Mean Corpuscular Volume 88.6 fl (80-94); Mean Platelet Volume 10.6 fL (7.4-10.4); Monocytes # 0.6 10^3/uL (0.2-0.9); Monocytes % 6.6 %; Neutrophils # 7.19 10^3/uL (1.8-7.7); Neutrophils % 85.9 %; Nucleated Red Blood Cells % 0 %; Platelet Count 273 10^3/cmm (130-400); Red Blood Count 3.15 10^6/uL (4.1-5.3); Red Cell Distribution Width 15.7 % (12.1-15.1); White Blood Count 8.4 10^3/uL (4.0-10.0)
--- NOTE | 2021-02-04 06:41 | P.PN_ITS ---
Subjective Subjective: Interval history: diarrhea, weak. less sob. no n/v/jonhson/ cp. stable sob. afebrile Medications: Reviewed: Yes Medication Review Details: Current Medications Albuterol/Ipratropium (Ipratropium-Albuterol 3 Ml Neb) 3 ml INHALATION Q6H PRN PRN Reason: SHORTNESS OF BREATH Last Admin: 02/03/21 20:22 Dose: 3 ml Documented by: Amoxicillin/Clavulanate Potassium (Amoxicillin-Clav 875-125 Mg Tablet) 1 tab PO BID HAYDEN; Protocol Last Admin: 02/03/21 17:54 Dose: 1 tab Documented by: Ascorbic Acid (Ascorbic Acid 500 Mg Tablet) 1,000 mg PO QAM [facility] Last Admin: 02/04/21 05:17 Dose: 1,000 mg Documented by: Aspirin (Aspirin 81 Mg Chew Tablet) 81 mg PO DAILY [facility] Last Admin: 02/03/21 08:18 Dose: 81 mg Documented by: Atorvastatin Calcium (Atorvastatin 40 Mg Tablet) 40 mg PO BEDTIME HAYDEN Last Admin: 02/03/21 20:42 Dose: 40 mg Documented by: Budesonide (Budesonide 0.5 Mg/2 Ml Neb) 0.5 mg INHALATION BID.RESPIRATORY [facility] Last Admin: 02/03/21 20:22 Dose: 0.5 mg Documented by: Carvedilol (Carvedilol 25 Mg Tablet) 25 mg PO BID [facility] Last Admin: 02/03/21 17:54 Dose: 25 mg Documented by: Clopidogrel Bisulfate (Clopidogrel 75 Mg Tablet) 75 mg PO DAILY [facility] Last Admin: 02/03/21 08:18 Dose: 75 mg Documented by: Dexamethasone (Dexamethasone 10 Mg/Ml Inj) 6 mg IVP Q24H [facility]AYDEN Last Admin: 02/03/21 13:09 Dose: 6 mg Documented by: Dextrose (Dextrose 50% Syringe 50 Ml) 25 ml IVP ONCE PRN; Protocol PRN Reason: hypoglycemia protocol Dextrose (Dextrose 50% Syringe 50 Ml) 50 ml IVP PRN PRN; Protocol PRN Reason: hypoglycemia protocol Finasteride (Finasteride 5 Mg Tablet) 5 mg PO QPM [facility] Last Admin: 02/03/21 17:54 Dose: 5 mg Documented by: Glucagon (Glucagon 1 Mg/Ml Inj 1 Ml) 1 mg IM ONCE PRN; Protocol PRN Reason: Adult Acute Hypoglycemia Prot. Heparin Sodium (Beef Lung) (Heparin 5,000 Unit/Ml Inj 1 Ml) 0 unit IV PRN PRN; Protocol PRN Reason: Heparin weight-base protocol Last Admin: 02/01/21 16:26 Dose: 1,100 unit Documented by: Remdesivir 100 mg/ Sodium (Chloride) 100 mls @ 100 mls/hr IV Q24H [facility] Stop: 02/04/21 18:59 Last Infusion: 02/03/21 19:01 Dose: Infused Documented by: Heparin Sodium/Sodium Chloride (Heparin Drip) 25,000 unit in 500 mls @ 0 mls/hr IV .Q0M [facility]; Protocol Last Titration: 02/03/21 14:21 Dose: 0 unit/kg/hr, 0 mls/hr Documented by: Dextrose (D5w) 500 mls @ 100 mls/hr IV ONCE PRN; Protocol PRN Reason: Adult Acute Hypoglycemia Prot Cefepime HCl 1,000 mg/ Sodium (Chloride) 50 mls @ 100 mls/hr IV Q24H [facility] Last Infusion: 02/04/21 06:12 Dose: Infused Documented by: Insulin Aspart (Insulin Aspart 100 Unit/1 Ml) 0 unit SUBCUT WM&BEDTIME [facility]; Protocol Last Admin: 02/03/21 20:42 Dose: 14 unit Documented by: Isosorbide Mononitrate (Isosorbide Mononitrate Er 30 Mg Tablet) 30 mg PO QPM [facility] Last Admin: 01/31/21 17:39 Dose: Not Given Documented by: Lorazepam (Lorazepam 2 Mg/Ml Inj 1 Ml) 0.25 mg IVP Q8H PRN PRN Reason: ANXIETY Last Admin: 02/01/21 09:23 Dose: 0.25 mg Documented by: Montelukast Sodium (Montelukast Sodium 10 Mg Tablet) 10 mg PO QPM [facility] Last Admin: 02/03/21 17:54 Dose: 10 mg Documented by: Ondansetron HCl (Ondansetron 2 Mg/Ml Sdv 2 Ml) 4 mg IVP Q6H PRN PRN Reason: NAUSEA AND VOMITING Pantoprazole Sodium (Pantoprazole Dr 40 Mg Tablet) 40 mg PO QAM [facility] Last Admin: 02/04/21 05:17 Dose: 40 mg Documented by: Vitamin D (Cholecalciferol (Vitamin D3) 5,000 Unit Tablet) 5,000 unit PO QAM [facility] Last Admin: 02/04/21 05:17 Dose: 5,000 unit Documented by: Zinc Gluconate (Zinc Gluconate 50 Mg Tablet) 50 mg PO QPM [facility] Last Admin: 02/03/21 18:39 Dose: 50 mg Documented by: Vitals/I&O/Wt Last Vital Signs Temp 97.6 F 02/04/21 04:00 Pulse 71 02/04/21 06:00 Resp 18 02/04/21 04:00 BP 150/71 02/04/21 04:00 Pulse Ox 97 02/04/21 04:00 02/03/21 02/03/21 02/04/21 14:59 22:59 06:59 Intake Total 939.5 / 939.5 2326 / 3265.5 170 / 3435.5 Output Total 200 / 200 600 / 800 Balance 939.5 / 939.5 2126 / 3065.5 -430 / 2635.5 Physical Exam Narrative: EXAM NARRATIVE: Constitutional: Awake, comfortable, elderly man in bed HEENT: nc/at, eomi, an icteric Lungs: scattered wheezes,diminished in the bases CVS: S1 S2, +AMY Abdo: Soft, BS ok Ext 4: Minimal edema, peripheral perfusion with no cyanosis Neurological: a,a, o x 3, moves all ext Urinary Catheter Management^: Barajas: Cath Placed During This Visit: yes, but has since been removed by the nurse Reason for Continuing Indwelling Catheter: Decision to DC Catheter Urinary Catheter Date of Insertion: 01/31/21 Urinary Catheter Time of Insertion: 13:30 Date Urinary Catheter Removed: 02/01/21 Time Urinary Catheter Discontinued: 13:06 Data : 02/04/21 06:08 02/03/21 03:55 Micro: Microbiology 01/31/21 14:26 Gram Stain - Final Sputum - Expectorated Sputum Sputum Culture - Preliminary Gram Negative Rods 02/01/21 20:30 Gram Stain - Final Sputum - Expectorated Sputum Sputum Culture - Preliminary 01/31/21 18:50 Urine Culture - Final Urine,Clean Catch A&P Additional A&P Information 1. 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 -monitor renal fxn- hopefully creatinine will start improving -bp stable, hold ivf. Daily renal panel Strict I's and O's Dose medication for GFR less than 15 Avoid usual nephrotoxic agents -poor renal us- repeat when stable 2. Covid pneumonitis Currently being treated with remdesivir and dexamethasone as well as antibiotic coverage. Management per ICU and Dr. Kenney 3 EF 45-50%, moderate to severe -per vocational education professional 4. anemia eval- no iv iron w/ covid-19 pna 5. 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
[2021-02-04 06:53] LABS: Anion Gap 20.9 (5-19); C Reactive Protein 40.9 mg/L (0.0-4.9); Calcium 8.3 mg/dL (8.5-10.5); Carbon Dioxide 20 mmol/L (22-29); Chloride 102 mmol/L (98-107); Glucose 198 mg/dL (65-115); Magnesium 2.5 mg/dL (1.7-2.3); Osmolality Calculated 324 mOsm/kg (285-295); Potassium 4.9 mmol/L (3.5-5.1); Sodium 138 mmol/L (136-145)
[2021-02-04 06:55] LABS: Procalcitonin 3.07 ng/mL (0-0.5)
[2021-02-04 07:24] LABS: Blood Urea Nitrogen 103 mg/dL (8-23)
[2021-02-04 07:24] LABS: Glucose Point of Care 217 mg/dL (70-110)
[2021-02-04 08:20] LABS: Uric Acid 10.7 mg/dL (3.4-7.0)
[2021-02-04] MEDS: aspirin 81 mg Chew Tablet PO (08:29)
[2021-02-04] MEDS: amoxicillin-clav 875-125 mg Tablet 1 TAB PO ×2 (08:29→18:12)
[2021-02-04] MEDS: clopidogrel 75 mg Tablet PO (08:29)
[2021-02-04] MEDS: carvedilol 25 mg Tablet PO ×2 (08:29→18:12)
--- NOTE | 2021-02-04 08:33 | PC.CHAP ---
Pastoral Care Encounter/Spiritual Assessment Type of Contact [] Declined neckties painter visit [] Patient/Family/Request visit [] Outpatient visit [] Follow-up visit [] Physician referral [] Code/Alert [x] Routine visit [] Staff referral [] Actively dying [] Patient sleeping [] Family support [] [] Out of room [] Palliative care [] [] Receiving care in room [] Pre-surgical visit [] Trauma [] Long length of stay [] ICU visit [x] Other: 2a served breakfast... patient setting up to eat Relational/Emotional Strength [] Patient feels connected with others/family/visitors/staff [] Distress [] Loneliness/isolation [] Abandonment Spirituality of Patient [] Person of Vanesa [] Attends Mandaeism of their Vanesa [] Believes in Prayer [] Reads Bible or Sabianist materials [] There are Spiritual issues to be addressed Level Glass Vial Filler Interventions [x] Prayer [] Active listening [] Non-anxious presence [] Spiritual/emotional support [] Crisis/trauma care [] Spiritual counseling [] Bereavement support [] Provided bereavement packet [] Provided Bible/devotional materials [] Provided toy/stuffed animal, coloring book to patient or family member [] Provided Communion [] Anointing/[place] [] Salvation [x] Completed spiritual assessment [] Other: Impact on Illness or Injury [] Angry [] Fearful [] Anxious [] Often cries [] Exhaustion [] Unable to work [] Unable to attend lutheran [] Unable to walk/stand [] Unable to read [] Unable to drive [] Unable to eat/drink [] Unable to sleep [] Unable to be with family [] Patient intubated [] Other: Summary Time spent with patient
[2021-02-04] MEDS: ipratropium-albuterol 3 mL Neb INHALATION ×2 (08:45→20:45)
[2021-02-04] MEDS: budesonide 0.5 mg/2 mL Neb INHALATION ×2 (08:45→20:45)
[2021-02-04 09:53] LABS: Vitamin B12 > 2000 pg/mL (232-1245)
[2021-02-04 11:29] LABS: Glucose Point of Care 379 mg/dL (70-110)
[2021-02-04] MEDS: dexamethasone 10 mg/mL INJ 6 MG IVP (13:09)
--- NOTE | 2021-02-04 13:10 | PM.PN ---
Subjective Subjective: Interval history: Patient was seen and examined this morning, overall he is doing better, shortness of breath is improved a lot, supplemental oxygen requirement has gone down, BUN and serum creatinine is slowly improving. Medications: Reviewed: Yes Medication Review Details: Current Medications Albuterol/Ipratropium (Ipratropium-Albuterol 3 Ml Neb) 3 ml INHALATION Q6H PRN PRN Reason: SHORTNESS OF BREATH Last Admin: 02/03/21 20:22 Dose: 3 ml Documented by: Amoxicillin/Clavulanate Potassium (Amoxicillin-Clav 875-125 Mg Tablet) 1 tab PO BID [facility]; Protocol Last Admin: 02/03/21 17:54 Dose: 1 tab Documented by: Ascorbic Acid (Ascorbic Acid 500 Mg Tablet) 1,000 mg PO QAM [facility] Last Admin: 02/04/21 05:17 Dose: 1,000 mg Documented by: Aspirin (Aspirin 81 Mg Chew Tablet) 81 mg PO DAILY [facility] Last Admin: 02/03/21 08:18 Dose: 81 mg Documented by: Atorvastatin Calcium (Atorvastatin 40 Mg Tablet) 40 mg PO BEDTIME [facility] Last Admin: 02/03/21 20:42 Dose: 40 mg Documented by: Budesonide (Budesonide 0.5 Mg/2 Ml Neb) 0.5 mg INHALATION BID.RESPIRATORY [facility] Last Admin: 02/03/21 20:22 Dose: 0.5 mg Documented by: Carvedilol (Carvedilol 25 Mg Tablet) 25 mg PO BID [facility] Last Admin: 02/03/21 17:54 Dose: 25 mg Documented by: Clopidogrel Bisulfate (Clopidogrel 75 Mg Tablet) 75 mg PO DAILY [facility] Last Admin: 02/03/21 08:18 Dose: 75 mg Documented by: Dexamethasone (Dexamethasone 10 Mg/Ml Inj) 6 mg IVP Q24H [facility] Last Admin: 02/03/21 13:09 Dose: 6 mg Documented by: Dextrose (Dextrose 50% Syringe 50 Ml) 25 ml IVP ONCE PRN; Protocol PRN Reason: hypoglycemia protocol Dextrose (Dextrose 50% Syringe 50 Ml) 50 ml IVP PRN PRN; Protocol PRN Reason: hypoglycemia protocol Finasteride (Finasteride 5 Mg Tablet) 5 mg PO QPM [facility] Last Admin: 02/03/21 17:54 Dose: 5 mg Documented by: Glucagon (Glucagon 1 Mg/Ml Inj 1 Ml) 1 mg IM ONCE PRN; Protocol PRN Reason: Adult Acute Hypoglycemia Prot. Heparin Sodium (Beef Lung) (Heparin 5,000 Unit/Ml Inj 1 Ml) 0 unit IV PRN PRN; Protocol PRN Reason: Heparin weight-base protocol Last Admin: 02/01/21 16:26 Dose: 1,100 unit Documented by: Remdesivir 100 mg/ Sodium (Chloride) 100 mls @ 100 mls/hr IV Q24H [facility] Stop: 02/04/21 18:59 Last Infusion: 02/03/21 19:01 Dose: Infused Documented by: Heparin Sodium/Sodium Chloride (Heparin Drip) 25,000 unit in 500 mls @ 0 mls/hr IV .Q0M [facility]; Protocol Last Titration: 02/03/21 14:21 Dose: 0 unit/kg/hr, 0 mls/hr Documented by: Dextrose (D5w) 500 mls @ 100 mls/hr IV ONCE PRN; Protocol PRN Reason: Adult Acute Hypoglycemia Prot Cefepime HCl 1,000 mg/ Sodium (Chloride) 50 mls @ 100 mls/hr IV Q24H [facility] Last Infusion: 02/04/21 06:12 Dose: Infused Documented by: Insulin Aspart (Insulin Aspart 100 Unit/1 Ml) 0 unit SUBCUT WM&BEDTIME [facility]; Protocol Last Admin: 02/03/21 20:42 Dose: 14 unit Documented by: Isosorbide Mononitrate (Isosorbide Mononitrate Er 30 Mg Tablet) 30 mg PO QPM [facility] Last Admin: 01/31/21 17:39 Dose: Not Given Documented by: Lorazepam (Lorazepam 2 Mg/Ml Inj 1 Ml) 0.25 mg IVP Q8H PRN PRN Reason: ANXIETY Last Admin: 02/01/21 09:23 Dose: 0.25 mg Documented by: Montelukast Sodium (Montelukast Sodium 10 Mg Tablet) 10 mg PO QPM [facility] Last Admin: 02/03/21 17:54 Dose: 10 mg Documented by: Ondansetron HCl (Ondansetron 2 Mg/Ml Sdv 2 Ml) 4 mg IVP Q6H PRN PRN Reason: NAUSEA AND VOMITING Pantoprazole Sodium (Pantoprazole Dr 40 Mg Tablet) 40 mg PO QAM [facility] Last Admin: 02/04/21 05:17 Dose: 40 mg Documented by: Vitamin D (Cholecalciferol (Vitamin D3) 5,000 Unit Tablet) 5,000 unit PO QAM [facility] Last Admin: 02/04/21 05:17 Dose: 5,000 unit Documented by: Zinc Gluconate (Zinc Gluconate 50 Mg Tablet) 50 mg PO QPM [facility] Last Admin: 02/03/21 18:39 Dose: 50 mg Documented by: Vitals/I&O/Wt Last Vital Signs Temp 97.8 F 02/04/21 08:27 Pulse 75 02/04/21 12:26 Resp 17 02/04/21 12:26 BP 129/64 02/04/21 12:26 Pulse Ox 95 02/04/21 12:26 02/03/21 02/04/21 02/04/21 22:59 06:59 14:59 Intake Total 2326 / 3265.5 170 / 3435.5 720 / 720 Output Total 200 / 200 600 / 800 Balance 2126 / 3065.5 -430 / 2635.5 720 / 720 Physical Exam Const: COMMON NORMALS: patient oriented x3 HENMT: COMMON NORMALS: normocephalic and atraumatic HEAD & SCALP: normocephalic and atraumatic Resp: OTHER: Diminished air entry bilaterally, no wheezing no rhonchi no rales Cardio: COMMON NORMALS: regular rate, regular rhythm, S1 normal heart sound present, S2 normal heart sound present, No gallops present (Cardio), No murmurs present (Cardio), No rub (Cardio) and Peripheral pulses 2+ throughout RATE: regular rate RHYTHM: regular rhythm HEART SOUNDS: S1 normal heart sound present and S2 normal heart sound present PERIPHERAL PULSES: Peripheral pulses 2+ throughout GI: COMMON NORMALS: Normal to inspection, nondistended, normoactive bowel sounds present, Soft to palpation, non-tender, No hepatosplenomegaly present and no masses AUSCULTATION: Yes normoactive bowel sounds PALPATION: Yes Soft to palpation and Yes No hepatosplenomegaly present RECTAL EXAM: Yes deferred Extremity: COMMON NORMALS: no clubbing, cyanosis or edema and no pedal edema Neuro: COMMON NORMALS: patient oriented x3 Urinary Catheter Management^: Barajas: Cath Placed During This Visit: yes, but has since been removed by the nurse Reason for Continuing Indwelling Catheter: Decision to DC Catheter Urinary Catheter Date of Insertion: 01/31/21 Urinary Catheter Time of Insertion: 13:30 Date Urinary Catheter Removed: 02/01/21 Time Urinary Catheter Discontinued: 13:06 Data : 02/04/21 06:08 02/04/21 06:08 Micro: Microbiology 02/01/21 20:30 Gram Stain - Final Sputum - Expectorated Sputum Sputum Culture - Final 01/31/21 14:26 Gram Stain - Final Sputum - Expectorated Sputum Sputum Culture - Preliminary Gram Negative Rods 01/31/21 18:50 Urine Culture - Final Urine,Clean Catch A&P Assessment and plan (1) NSTEMI (non-ST elevated myocardial infarction): Status: Acute (2) Aortic stenosis: Status: Acute Qualifiers: Cardiac valve disease etiology: nonrheumatic Qualified Code(s): I35.0 - Nonrheumatic aortic (valve) stenosis (3) Hyperkalemia: Status: Acute (4) Sepsis: Status: Acute (5) Acute kidney injury superimposed on chronic kidney disease: Status: Acute (6) COVID-19: Status: Acute (7) Acute respiratory failure with hypoxia and hypercapnia: Status: Acute (8) Pneumonia: Status: Acute Qualifiers: Laterality: bilateral Lung location: lower lobe of lung Pneumonia type: due to unspecified organism Qualified Code(s): J18.9 - Pneumonia, unspecified organism (9) Bronchiectasis: Status: Acute Additional A&P Information Acute hypoxic hypercapnic restaurant failure with underlying bronchiectasis COVID-19 pneumonia Currently doing well on 4 L nasal cannula Patient to work with physical therapy on daily basis, Out of bed to chair Continue remdesivir and Decadron Not a candidate of interleukin-6 inhibitor considering significant recovery with BiPAP Continue cefepime and Augmentin sputum culture positive for gram-negative rods, MRSA nares negative Afebrile Requested sputum sample Cefepime can be deescalated if his cultures remain negative in next 48 hours NSTEMI no active chest pain or shortness of breath Finished heparin today at 3 PM Echo showing global hypokinesia EF slightly reduced 45% Will request cardiology consult, Dr. Estrada notified EKG without ischemic or infarctive change Hyperkalemia: Improved Acute on chronic kidney disease stage IV Creatinine 4.3, nephro recommended edition 1 L fluid anticoagulated creatinine tomorrow morning, adequate urine output, clinically he does look dry Judicious use of fluids with close monitoring for any worsening of heart failure, monitor for signs of primary edema Appreciate nephro recommendations Severe aortic stenosis No active chest pain no recent syncopal event Patient is stating that he was lawnmowing 2 days ago and probably overdid it and fell on his back He has been having back pain Full code Renal nondialysis diet appreciate dietitians recommendations Continue multivitamins Disposition to home with home health services DVT prophylaxis Heparin Attestations Medical Necessity Statement*: Patient needs to be in hospital for management of Covid pneumonia, AMBER on CKD stage III, type II NSTEMI. Coding Level of Care Code Acute Supervisor Stone for [facility] Diagnoses NSTEMI (non-ST elevated myocardial infarction) I21.4 Aortic stenosis I35.0 Cardiac valve disease etiology: nonrheumatic Hyperkalemia E87.5 Sepsis A41.9 Acute kidney injury superimposed on chronic kidney disease N17.9; N18.9 COVID-19 U07.1 Acute respiratory failure with hypoxia and hypercapnia J96.01; J96.02 Pneumonia J18.9 Laterality: bilateral Lung location: lower lobe of lung Pneumonia type: due to unspecified organism Bronchiectasis J47.9
--- NOTE | 2021-02-04 14:56 | PC.RESP ---
RT Shift Note Frequent safety and respiratory rounds continue. Orders completed as indicated. Patient monitored pre and post treatments throughout shift. Patient tolerated treatments appropriately. Condition improved. Patient and/or digital media representative educated on respiratory treatment and medications. Patient and/or digital media representative verbalized understanding of teaching. Will continue to monitor patient progress.
[2021-02-04 17:20] LABS: Glucose Point of Care 316 mg/dL (70-110)
[2021-02-04] MEDS: zinc gluconate 50 mg Tablet PO (18:12)
[2021-02-04] MEDS: finasteride 5 mg Tablet PO (18:12)
[2021-02-04] MEDS: montelukast sodium 10 mg Tablet PO (18:12)
[2021-02-04] MEDS: remdesivir 100 MG in sodium chloride 0.9% (100 ml) 100 ML IV (18:51)
[2021-02-04 19:18] LABS: Folate Level 17.3 ng/mL (4.5-32.2)
--- NOTE | 2021-02-04 19:34 | PC.NURSE ---
Shift Note Frequent safety and comfort rounds continue. Orders and/or nursing care completed as indicated. Patient monitored for response to intervention and treatment(s). Education provided includes accurate monitoring of intake and output and side effects to watch for with insulin. Patient verbalized understanding. Patient done well sitting up on side of the bed and walking to bathroom with oxygen saturations remaining in the 90s. Patient is currently resting comfortably in bed. Will continue to monitor.
--- NOTE | 2021-02-04 20:24 | P.PN_ITS ---
Subjective Subjective: Interval history: Continues to improve Medications: Reviewed: Yes Medication Review Details: Current Medications Albuterol/Ipratropium (Ipratropium-Albuterol 3 Ml Neb) 3 ml INHALATION Q6H PRN PRN Reason: SHORTNESS OF BREATH Last Admin: 02/03/21 20:22 Dose: 3 ml Documented by: Amoxicillin/Clavulanate Potassium (Amoxicillin-Clav 875-125 Mg Tablet) 1 tab PO BID [facility]; Protocol Last Admin: 02/03/21 17:54 Dose: 1 tab Documented by: Ascorbic Acid (Ascorbic Acid 500 Mg Tablet) 1,000 mg PO QAM [facility] Last Admin: 02/04/21 05:17 Dose: 1,000 mg Documented by: Aspirin (Aspirin 81 Mg Chew Tablet) 81 mg PO DAILY [facility] Last Admin: 02/03/21 08:18 Dose: 81 mg Documented by: Atorvastatin Calcium (Atorvastatin 40 Mg Tablet) 40 mg PO BEDTIME [facility] Last Admin: 02/03/21 20:42 Dose: 40 mg Documented by: Budesonide (Budesonide 0.5 Mg/2 Ml Neb) 0.5 mg INHALATION BID.RESPIRATORY [facility] Last Admin: 02/03/21 20:22 Dose: 0.5 mg Documented by: Carvedilol (Carvedilol 25 Mg Tablet) 25 mg PO BID [facility] Last Admin: 02/03/21 17:54 Dose: 25 mg Documented by: Clopidogrel Bisulfate (Clopidogrel 75 Mg Tablet) 75 mg PO DAILY [facility] Last Admin: 02/03/21 08:18 Dose: 75 mg Documented by: Dexamethasone (Dexamethasone 10 Mg/Ml Inj) 6 mg IVP Q24H [facility] Last Admin: 02/03/21 13:09 Dose: 6 mg Documented by: Dextrose (Dextrose 50% Syringe 50 Ml) 25 ml IVP ONCE PRN; Protocol PRN Reason: hypoglycemia protocol Dextrose (Dextrose 50% Syringe 50 Ml) 50 ml IVP PRN PRN; Protocol PRN Reason: hypoglycemia protocol Finasteride (Finasteride 5 Mg Tablet) 5 mg PO QPM [facility] Last Admin: 02/03/21 17:54 Dose: 5 mg Documented by: Glucagon (Glucagon 1 Mg/Ml Inj 1 Ml) 1 mg IM ONCE PRN; Protocol PRN Reason: Adult Acute Hypoglycemia Prot. Heparin Sodium (Beef Lung) (Heparin 5,000 Unit/Ml Inj 1 Ml) 0 unit IV PRN PRN; Protocol PRN Reason: Heparin weight-base protocol Last Admin: 02/01/21 16:26 Dose: 1,100 unit Documented by: Remdesivir 100 mg/ Sodium (Chloride) 100 mls @ 100 mls/hr IV Q24H [facility] Stop: 02/04/21 18:59 Last Infusion: 02/03/21 19:01 Dose: Infused Documented by: Heparin Sodium/Sodium Chloride (Heparin Drip) 25,000 unit in 500 mls @ 0 mls/hr IV .Q0M [facility]; Protocol Last Titration: 02/03/21 14:21 Dose: 0 unit/kg/hr, 0 mls/hr Documented by: Dextrose (D5w) 500 mls @ 100 mls/hr IV ONCE PRN; Protocol PRN Reason: Adult Acute Hypoglycemia Prot Cefepime HCl 1,000 mg/ Sodium (Chloride) 50 mls @ 100 mls/hr IV Q24H [facility] Last Infusion: 02/04/21 06:12 Dose: Infused Documented by: Insulin Aspart (Insulin Aspart 100 Unit/1 Ml) 0 unit SUBCUT WM&BEDTIME [facility]; Protocol Last Admin: 02/03/21 20:42 Dose: 14 unit Documented by: Isosorbide Mononitrate (Isosorbide Mononitrate Er 30 Mg Tablet) 30 mg PO QPM [facility] Last Admin: 01/31/21 17:39 Dose: Not Given Documented by: Lorazepam (Lorazepam 2 Mg/Ml Inj 1 Ml) 0.25 mg IVP Q8H PRN PRN Reason: ANXIETY Last Admin: 02/01/21 09:23 Dose: 0.25 mg Documented by: Montelukast Sodium (Montelukast Sodium 10 Mg Tablet) 10 mg PO QPM [facility] Last Admin: 02/03/21 17:54 Dose: 10 mg Documented by: Ondansetron HCl (Ondansetron 2 Mg/Ml Sdv 2 Ml) 4 mg IVP Q6H PRN PRN Reason: NAUSEA AND VOMITING Pantoprazole Sodium (Pantoprazole Dr 40 Mg Tablet) 40 mg PO QAM [facility] Last Admin: 02/04/21 05:17 Dose: 40 mg Documented by: Vitamin D (Cholecalciferol (Vitamin D3) 5,000 Unit Tablet) 5,000 unit PO QAM [facility] Last Admin: 02/04/21 05:17 Dose: 5,000 unit Documented by: Zinc Gluconate (Zinc Gluconate 50 Mg Tablet) 50 mg PO QPM [facility] Last Admin: 02/03/21 18:39 Dose: 50 mg Documented by: Vitals/I&O/Wt Last Vital Signs Temp 98.2 F 02/04/21 20:00 Pulse 80 02/04/21 20:00 Resp 18 02/04/21 20:00 BP 156/69 02/04/21 20:00 Pulse Ox 95 02/04/21 20:00 02/04/21 02/04/21 02/04/21 06:59 14:59 22:59 Intake Total 170 / 3435.5 720 / 720 340 / 1060 Output Total 600 / 800 350 / 350 Balance -430 / 2635.5 720 / 720 -10 / 710 Physical Exam Narrative: EXAM NARRATIVE: Please note that I have not examined the patient due to Covid restriction history physical examination as per medicine clinic notes. Urinary Catheter Management^: Barajas: Cath Placed During This Visit: yes, but has since been removed by the nurse Reason for Continuing Indwelling Catheter: Decision to DC Catheter Urinary Catheter Date of Insertion: 01/31/21 Urinary Catheter Time of Insertion: 13:30 Date Urinary Catheter Removed: 02/01/21 Time Urinary Catheter Discontinued: 13:06 Data : 02/04/21 06:08 02/04/21 06:08 Micro: Microbiology 02/01/21 20:30 Gram Stain - Final Sputum - Expectorated Sputum Sputum Culture - Final A&P Assessment and plan (1) NSTEMI (non-ST elevated myocardial infarction): Most likely demand ischemia/myocarditis in the presence of fixed stenosis of aortic stenosis. Continue to manage conservatively Status: Acute (2) CHF (congestive heart failure): Continue current regimen continues to improve. Status: Acute (3) COVID-19: As per med Status: Acute (4) Acute respiratory failure with hypoxia and hypercapnia: As per pulmonary medicine Status: Acute (5) Aortic stenosis, severe: Once recovered from Covid as an outpatient may need further work-up for TAVR Status: Acute (6) Chronic kidney disease, stage 3 unspecified: Slowly improving Status: Acute Qualifiers: Chronic kidney disease stage 3 subtype: stage 3b (GFR 30-44) Qualified Code(s): N18.32 - Chronic kidney disease, stage 3b Attestations Medical Necessity Statement*: As per medicine and pulmonary Coding Level of Care Code Established Pt Acute General Supervisor for [facility] Patient Type Established History Detailed Exam Detailed Medical Decision Making Moderate Complexity Diagnoses NSTEMI (non-ST elevated myocardial infarction) I21.4 CHF (congestive heart failure) I50.9 COVID-19 U07.1 Acute respiratory failure with hypoxia and hypercapnia J96.01; J96.02 Aortic stenosis, severe I35.0 Chronic kidney disease, stage 3 unspecified N18.32 Chronic kidney disease stage 3 subtype: stage 3b (GFR 30-44)
[2021-02-04 20:51] LABS: Glucose Point of Care 347 mg/dL (70-110)
[2021-02-04] MEDS: atorvastatin 40 mg Tablet PO (21:08)
[2021-02-05] VITALS (13 sets, daily range): BP systolic 142–161; BP diastolic 64–78; PULSE 64–85; RESP 16–28; TEMP 36.5–37.1; O2SAT 89–100
[2021-02-05] MEDS: pantoprazole DR 40 mg Tablet PO (05:25)
[2021-02-05] MEDS: cefepime 1,000 MG in sodium chloride 0.9% (plus) 50 ML 100 MG IV (05:25)
[2021-02-05] MEDS: ascorbic acid 500 mg Tablet 1000 MG PO (05:25)
[2021-02-05] MEDS: cholecalciferol (vitamin D3) 5,000 unit Tablet 5000 UNIT PO (05:25)
[2021-02-05 06:45] LABS: Glucose Point of Care 224 mg/dL (70-110)
[2021-02-05 06:46] LABS: Ferritin 220 ng/mL (30-400); Iron 26 ug/dL (59-158); Percent Saturation 18.7 % (20-50); Phosphorus 4.4 mg/dL (2.5-4.5); Total Iron Binding Capacity 139 mcg/dl; Unsaturated Iron Binding 113 ug/dL (112-347)
[2021-02-05 06:57] LABS: Parathyroid Hormone 64.3 pg/mL (15-65)
[2021-02-05 06:58] LABS: 25 Hydroxy Vitamin D 53 ng/mL (30-100)
[2021-02-05] MEDS: amoxicillin-clav 875-125 mg Tablet 1 TAB PO ×2 (07:28→17:29)
[2021-02-05] MEDS: clopidogrel 75 mg Tablet PO (07:29)
[2021-02-05] MEDS: aspirin 81 mg Chew Tablet PO (07:29)
[2021-02-05] MEDS: carvedilol 25 mg Tablet PO ×2 (07:29→17:29)
--- NOTE | 2021-02-05 07:32 | PM.PN ---
Subjective Subjective: Interval history: feels better. dec sob. not always using nc02. no n/v/f/c/johnson/d. looking forward to going home. Medications: Reviewed: Yes Medication Review Details: Current Medications Albuterol/Ipratropium (Ipratropium-Albuterol 3 Ml Neb) 3 ml INHALATION Q6H PRN PRN Reason: SHORTNESS OF BREATH Last Admin: 02/04/21 20:45 Dose: 3 ml Documented by: Amoxicillin/Clavulanate Potassium (Amoxicillin-Clav 875-125 Mg Tablet) 1 tab PO BID [facility]; Protocol Last Admin: 02/05/21 07:28 Dose: 1 tab Documented by: Ascorbic Acid (Ascorbic Acid 500 Mg Tablet) 1,000 mg PO QAM [facility] Last Admin: 02/05/21 05:25 Dose: 1,000 mg Documented by: Aspirin (Aspirin 81 Mg Chew Tablet) 81 mg PO DAILY [facility] Last Admin: 02/05/21 07:29 Dose: 81 mg Documented by: Atorvastatin Calcium (Atorvastatin 40 Mg Tablet) 40 mg PO BEDTIME [facility] Last Admin: 02/04/21 21:08 Dose: 40 mg Documented by: Budesonide (Budesonide 0.5 Mg/2 Ml Neb) 0.5 mg INHALATION BID.RESPIRATORY [facility] Last Admin: 02/04/21 20:45 Dose: 0.5 mg Documented by: Carvedilol (Carvedilol 25 Mg Tablet) 25 mg PO BID [facility] Last Admin: 02/05/21 07:29 Dose: 25 mg Documented by: Clopidogrel Bisulfate (Clopidogrel 75 Mg Tablet) 75 mg PO DAILY [facility] Last Admin: 02/05/21 07:29 Dose: 75 mg Documented by: Dexamethasone (Dexamethasone 10 Mg/Ml Inj) 6 mg IVP Q24H [facility] Last Admin: 02/04/21 13:09 Dose: 6 mg Documented by: Dextrose (Dextrose 50% Syringe 50 Ml) 25 ml IVP ONCE PRN; Protocol PRN Reason: hypoglycemia protocol Dextrose (Dextrose 50% Syringe 50 Ml) 50 ml IVP PRN PRN; Protocol PRN Reason: hypoglycemia protocol Finasteride (Finasteride 5 Mg Tablet) 5 mg PO QPM [facility] Last Admin: 02/04/21 18:12 Dose: 5 mg Documented by: Glucagon (Glucagon 1 Mg/Ml Inj 1 Ml) 1 mg IM ONCE PRN; Protocol PRN Reason: Adult Acute Hypoglycemia Prot. Heparin Sodium (Beef Lung) (Heparin 5,000 Unit/Ml Inj 1 Ml) 0 unit IV PRN PRN; Protocol PRN Reason: Heparin weight-base protocol Last Admin: 02/01/21 16:26 Dose: 1,100 unit Documented by: Heparin Sodium/Sodium Chloride (Heparin Drip) 25,000 unit in 500 mls @ 0 mls/hr IV .Q0M [facility]; Protocol Last Titration: 02/03/21 14:21 Dose: 0 unit/kg/hr, 0 mls/hr Documented by: Dextrose (D5w) 500 mls @ 100 mls/hr IV ONCE PRN; Protocol PRN Reason: Adult Acute Hypoglycemia Prot Cefepime HCl 1,000 mg/ Sodium (Chloride) 50 mls @ 100 mls/hr IV Q24H [facility] Last Infusion: 02/05/21 06:23 Dose: Infused Documented by: Insulin Aspart (Insulin Aspart 100 Unit/1 Ml) 0 unit SUBCUT WM&BEDTIME [facility]; Protocol Last Admin: 02/05/21 07:30 Dose: 6 unit Documented by: Isosorbide Mononitrate (Isosorbide Mononitrate Er 30 Mg Tablet) 30 mg PO QPM [facility] Last Admin: 01/31/21 17:39 Dose: Not Given Documented by: Lorazepam (Lorazepam 2 Mg/Ml Inj 1 Ml) 0.25 mg IVP Q8H PRN PRN Reason: ANXIETY Last Admin: 02/01/21 09:23 Dose: 0.25 mg Documented by: Montelukast Sodium (Montelukast Sodium 10 Mg Tablet) 10 mg PO QPM [facility] Last Admin: 02/04/21 18:12 Dose: 10 mg Documented by: Ondansetron HCl (Ondansetron 2 Mg/Ml Sdv 2 Ml) 4 mg IVP Q6H PRN PRN Reason: NAUSEA AND VOMITING Pantoprazole Sodium (Pantoprazole Dr 40 Mg Tablet) [facility] Admin: 02/05/21 05:25 Dose: 40 mg Documented by: Vitamin D (Cholecalciferol (Vitamin D3) 5,000 Unit Tablet) 5,000 unit PO QAM [facility] Last Admin: 02/05/21 05:25 Dose: 5,000 unit Documented by: Zinc Gluconate (Zinc Gluconate 50 Mg Tablet) 50 mg PO QPM [facility] Last Admin: 02/04/21 18:12 Dose: 50 mg Documented by: Vitals/I&O/Wt Last Vital Signs Temp 97.9 F 02/05/21 04:00 Pulse 75 02/05/21 06:00 Resp 18 02/05/21 04:00 BP 152/73 02/05/21 04:00 Pulse Ox 90 02/05/21 04:00 02/04/21 02/05/21 02/05/21 22:59 06:59 14:59 Intake Total 340 / 1060 530 / 1590 Output Total 600 / 600 300 / 900 Balance -260 / 460 230 / 690 Physical Exam Narrative: EXAM NARRATIVE: Constitutional: Awake, comfortable, elderly man sitting up in bed HEENT: nc/at, eomi, an icteric Lungs: improved air movement b/l ,dull bases CVS: S1 S2, +AMY Abdo: Soft, BS ok Ext 4: Minimal edema, peripheral perfusion with no cyanosis Neurological: a,a, o x 3, moves all ext Urinary Catheter Management^: Barajas: Cath Placed During This Visit: yes, but has since been removed by the nurse Reason for Continuing Indwelling Catheter: Decision to DC Catheter Urinary Catheter Date of Insertion: 01/31/21 Urinary Catheter Time of Insertion: 13:30 Date Urinary Catheter Removed: 02/01/21 Time Urinary Catheter Discontinued: 13:06 Data : 02/04/21 06:08 02/04/21 06:08 Micro: Microbiology 02/01/21 20:30 Gram Stain - Final Sputum - Expectorated Sputum Sputum Culture - Final A&P Additional A&P Information 1. 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 -monitor renal fxn- creatinine slowly improving -bp stable, hold ivf. Daily renal panel Strict I's and O's Dose medication for GFR less than 15 Avoid usual nephrotoxic agents -poor renal us- repeat when stable -as outpt 2. Covid pneumonitis Currently being treated with remdesivir and dexamethasone as well as antibiotic coverage. Management per ICU and Dr. 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 anemia eval- has covid-19 pna -iron sat 18% ferritin 220 -start po iron 5. bone- mineral-metabolism of CKD- normal vit d, pth, phos -low ca Exam and interview performed with aid of bedside RN using telemedicine Time spent 25 min inc > 50% of time in face to face counseling Attestations Medical Necessity Statement*: per medicine Time Spent in Patient Care: 16 - 35 minutes Coding Level of Care Code Acute Acquisition Consultant for [facility]
[2021-02-05] MEDS: ipratropium-albuterol 3 mL Neb INHALATION ×2 (07:55→08:20)
[2021-02-05] MEDS: budesonide 0.5 mg/2 mL Neb INHALATION ×2 (07:55→08:20)
[2021-02-05 08:21] LABS: Anion Gap 20.8 (5-19); Calcium 8.2 mg/dL (8.5-10.5); Carbon Dioxide 18 mmol/L (22-29); Chloride 100 mmol/L (98-107); Glucose 191 mg/dL (65-115); Osmolality Calculated 316 mOsm/kg (285-295); Potassium 4.8 mmol/L (3.5-5.1); Sodium 134 mmol/L (136-145)
--- NOTE | 2021-02-05 08:30 | PC.CHAP ---
Pastoral Care Encounter/Spiritual Assessment Type of Contact [] Declined fox raiser visit [] Patient/Family/Request visit [] Outpatient visit [] Follow-up visit [] Physician referral [] Code/Alert [x] Routine visit [] Staff referral [] Actively dying [] Patient sleeping [] Family support [] [] Out of room [] Palliative care [] [] Receiving care in room [] Pre-surgical visit [] Trauma [] Long length of stay [] ICU visit [xOther: 2a Relational/Emotional Strength [] Patient feels connected with others/family/visitors/staff [] Distress [] Loneliness/isolation [] Abandonment Spirituality of Patient [] Person of Vanesa [] Attends Taoism of their Vanesa [] Believes in Prayer [] Reads Bible or Voodoo materials [] There are Spiritual issues to be addressed Silk Screen Cutter Interventions [x] Prayer [] Active listening [] Non-anxious presence [] Spiritual/emotional support [] Crisis/trauma care [] Spiritual counseling [] Bereavement support [] Provided bereavement packet [] Provided Bible/devotional materials [] Provided toy/stuffed animal, coloring book to patient or family member [] Provided Communion [] Anointing/[place] [] Salvation [x] Completed spiritual assessment [] Other: Impact on Illness or Injury [] Angry [] Fearful [] Anxious [] Often cries [] Exhaustion [] Unable to work [] Unable to attend mandaeism [] Unable to walk/stand [] Unable to read [] Unable to drive [] Unable to eat/drink [] Unable to sleep [] Unable to be with family [] Patient intubated [] Other: Summary served breakfast... sat up side of bed to eat.... Time spent with patient
[2021-02-05 09:06] LABS: Blood Urea Nitrogen 106 mg/dL (8-23)
[2021-02-05 11:36] LABS: Glucose Point of Care 340 mg/dL (70-110)
--- NOTE | 2021-02-05 12:08 | PC.SOCIAL ---
IMM Update Page 2 of [facility] updated. Updated patient and copy left in chart. Initialed, dated and timed.
[2021-02-05] MEDS: dexamethasone 10 mg/mL INJ 6 MG IVP (14:13)
[2021-02-05 16:46] LABS: Glucose Point of Care 288 mg/dL (70-110)
[2021-02-05] MEDS: zinc gluconate 50 mg Tablet PO (17:29)
[2021-02-05] MEDS: finasteride 5 mg Tablet PO (17:29)
[2021-02-05] MEDS: montelukast sodium 10 mg Tablet PO (17:29)
--- NOTE | 2021-02-05 19:09 | PC.NURSE ---
Report to Dianelys NOEL at this time.
--- NOTE | 2021-02-05 19:50 | PM.PN ---
Subjective Subjective: Interval history: Patient was seen and examined this morning, overall he is doing better, shortness of breath is improved a lot, supplemental oxygen requirement has gone down, BUN and serum creatinine is slowly improving. Medications: Reviewed: Yes Medication Review Details: Current Medications Albuterol/Ipratropium (Ipratropium-Albuterol 3 Ml Neb) 3 ml INHALATION Q6H PRN PRN Reason: SHORTNESS OF BREATH Last Admin: 02/03/21 20:22 Dose: 3 ml Documented by: Amoxicillin/Clavulanate Potassium (Amoxicillin-Clav 875-125 Mg Tablet) 1 tab PO BID [facility]; Protocol Last Admin: 02/03/21 17:54 Dose: 1 tab Documented by: Ascorbic Acid (Ascorbic Acid 500 Mg Tablet) 1,000 mg PO QAM [facility] Last Admin: 02/04/21 05:17 Dose: 1,000 mg Documented by: Aspirin (Aspirin 81 Mg Chew Tablet) 81 mg PO DAILY [facility] Last Admin: 02/03/21 08:18 Dose: 81 mg Documented by: Atorvastatin Calcium (Atorvastatin 40 Mg Tablet) 40 mg PO BEDTIME [facility] Last Admin: 02/03/21 20:42 Dose: 40 mg Documented by: Budesonide (Budesonide 0.5 Mg/2 Ml Neb) 0.5 mg INHALATION BID.RESPIRATORY [facility] Last Admin: 02/03/21 20:22 Dose: 0.5 mg Documented by: Carvedilol (Carvedilol 25 Mg Tablet) 25 mg PO BID [facility] Last Admin: 02/03/21 17:54 Dose: 25 mg Documented by: Clopidogrel Bisulfate (Clopidogrel 75 Mg Tablet) 75 mg PO DAILY [facility] Last Admin: 02/03/21 08:18 Dose: 75 mg Documented by: Dexamethasone (Dexamethasone 10 Mg/Ml Inj) 6 mg IVP Q24H [facility] Last Admin: 02/03/21 13:09 Dose: 6 mg Documented by: Dextrose (Dextrose 50% Syringe 50 Ml) 25 ml IVP ONCE PRN; Protocol PRN Reason: hypoglycemia protocol Dextrose (Dextrose 50% Syringe 50 Ml) 50 ml IVP PRN PRN; Protocol PRN Reason: hypoglycemia protocol Finasteride (Finasteride 5 Mg Tablet) 5 mg PO QPM [facility] Last Admin: 02/03/21 17:54 Dose: 5 mg Documented by: Glucagon (Glucagon 1 Mg/Ml Inj 1 Ml) 1 mg IM ONCE PRN; Protocol PRN Reason: Adult Acute Hypoglycemia Prot. Heparin Sodium (Beef Lung) (Heparin 5,000 Unit/Ml Inj 1 Ml) 0 unit IV PRN PRN; Protocol PRN Reason: Heparin weight-base protocol Last Admin: 02/01/21 16:26 Dose: 1,100 unit Documented by: Remdesivir 100 mg/ Sodium (Chloride) 100 mls @ 100 mls/hr IV Q24H [facility] Stop: 02/04/21 18:59 Last Infusion: 02/03/21 19:01 Dose: Infused Documented by: Heparin Sodium/Sodium Chloride (Heparin Drip) 25,000 unit in 500 mls @ 0 mls/hr IV .Q0M [facility]; Protocol Last Titration: 02/03/21 14:21 Dose: 0 unit/kg/hr, 0 mls/hr Documented by: Dextrose (D5w) 500 mls @ 100 mls/hr IV ONCE PRN; Protocol PRN Reason: Adult Acute Hypoglycemia Prot Cefepime HCl 1,000 mg/ Sodium (Chloride) 50 mls @ 100 mls/hr IV Q24H [facility] Last Infusion: 02/04/21 06:12 Dose: Infused Documented by: Insulin Aspart (Insulin Aspart 100 Unit/1 Ml) 0 unit SUBCUT WM&BEDTIME [facility]; Protocol Last Admin: 02/03/21 20:42 Dose: 14 unit Documented by: Isosorbide Mononitrate (Isosorbide Mononitrate Er 30 Mg Tablet) 30 mg PO QPM [facility] Last Admin: 01/31/21 17:39 Dose: Not Given Documented by: Lorazepam (Lorazepam 2 Mg/Ml Inj 1 Ml) 0.25 mg IVP Q8H PRN PRN Reason: ANXIETY Last Admin: 02/01/21 09:23 Dose: 0.25 mg Documented by: Montelukast Sodium (Montelukast Sodium 10 Mg Tablet) 10 mg PO QPM [facility] Last Admin: 02/03/21 17:54 Dose: 10 mg Documented by: Ondansetron HCl (Ondansetron 2 Mg/Ml Sdv 2 Ml) 4 mg IVP Q6H PRN PRN Reason: NAUSEA AND VOMITING Pantoprazole Sodium (Pantoprazole Dr 40 Mg Tablet) 40 mg PO QAM [facility] Last Admin: 02/04/21 05:17 Dose: 40 mg Documented by: Vitamin D (Cholecalciferol (Vitamin D3) 5,000 Unit Tablet) 5,000 unit PO QAM [facility] Last Admin: 02/04/21 05:17 Dose: 5,000 unit Documented by: Zinc Gluconate (Zinc Gluconate 50 Mg Tablet) 50 mg PO QPM [facility] Last Admin: 02/03/21 18:39 Dose: 50 mg Documented by: Vitals/I&O/Wt Last Vital Signs Temp 98.3 F 02/05/21 15:55 Pulse 80 02/05/21 15:55 Resp 22 H 02/05/21 15:55 BP 148/76 02/05/21 15:55 Pulse Ox 89 L 02/05/21 15:55 02/05/21 02/05/21 02/05/21 06:59 14:59 22:59 Intake Total 530 / 1590 240 / 240 300 / 540 Output Total 300 / 900 500 / 500 Balance 230 / 690 240 / 240 -200 / 40 Physical Exam Const: COMMON NORMALS: patient oriented x3 HENMT: COMMON NORMALS: normocephalic and atraumatic HEAD & SCALP: normocephalic and atraumatic Resp: OTHER: Diminished air entry bilaterally, no wheezing no rhonchi no rales Cardio: COMMON NORMALS: regular rate, regular rhythm, S1 normal heart sound present, S2 normal heart sound present, No gallops present (Cardio), No murmurs present (Cardio), No rub (Cardio) and Peripheral pulses 2+ throughout RATE: regular rate RHYTHM: regular rhythm HEART SOUNDS: S1 normal heart sound present and S2 normal heart sound present PERIPHERAL PULSES: Peripheral pulses 2+ throughout GI: COMMON NORMALS: Normal to inspection, nondistended, normoactive bowel sounds present, Soft to palpation, non-tender, No hepatosplenomegaly present and no masses AUSCULTATION: Yes normoactive bowel sounds PALPATION: Yes Soft to palpation and Yes No hepatosplenomegaly present RECTAL EXAM: Yes deferred Extremity: COMMON NORMALS: no clubbing, cyanosis or edema and no pedal edema Neuro: COMMON NORMALS: patient oriented x3 Urinary Catheter Management^: Barajas: Cath Placed During This Visit: yes, but has since been removed by the nurse Reason for Continuing Indwelling Catheter: Decision to DC Catheter Urinary Catheter Date of Insertion: 01/31/21 Urinary Catheter Time of Insertion: 13:30 Date Urinary Catheter Removed: 02/01/21 Time Urinary Catheter Discontinued: 13:06 Data : 02/04/21 06:08 02/05/21 06:00 Micro: Microbiology 01/31/21 06:32 Blood Culture - Final Blood NO GROWTH AFTER 5 DAYS 01/31/21 06:29 Blood Culture - Final Blood NO GROWTH AFTER 5 DAYS 01/31/21 14:26 Gram Stain - Final Sputum - Expectorated Sputum Sputum Culture - Final Pseudomonas aeruginosa A&P Assessment and plan (1) NSTEMI (non-ST elevated myocardial infarction): Status: Acute (2) Aortic stenosis: Status: Acute Qualifiers: Cardiac valve disease etiology: nonrheumatic Qualified Code(s): I35.0 - Nonrheumatic aortic (valve) stenosis (3) Hyperkalemia: Status: Acute (4) Sepsis: Status: Acute (5) Acute kidney injury superimposed on chronic kidney disease: Status: Acute (6) COVID-19: Status: Acute (7) Acute respiratory failure with hypoxia and hypercapnia: Status: Acute (8) Pneumonia: Status: Acute Qualifiers: Laterality: bilateral Lung location: lower lobe of lung Pneumonia type: due to unspecified organism Qualified Code(s): J18.9 - Pneumonia, unspecified organism (9) Bronchiectasis: Status: Acute Additional A&P Information Acute hypoxic hypercapnic restaurant failure with underlying bronchiectasis COVID-19 pneumonia Currently doing well on 4 L nasal cannula Patient to work with physical therapy on daily basis, Out of bed to chair Continue remdesivir and Decadron Not a candidate of interleukin-6 inhibitor considering significant recovery with BiPAP Continue cefepime and Augmentin sputum culture positive for gram-negative rods, MRSA nares negative Afebrile Requested sputum sample Cefepime can be deescalated if his cultures remain negative in next 48 hours Type II NSTEMI no active chest pain or shortness of breath Finished heparin Echo showing global hypokinesia EF slightly reduced 45% Cardiology recommended conservative management. Hyperkalemia: Improved Acute on chronic kidney disease stage IV Creatinine 4.3, nephro recommended edition 1 L fluid anticoagulated creatinine tomorrow morning, adequate urine output, clinically he does look dry Judicious use of fluids with close monitoring for any worsening of heart failure, monitor for signs of primary edema Appreciate nephro recommendations Severe aortic stenosis No active chest pain no recent syncopal event Patient is stating that he was lawnmowing 2 days ago and probably overdid it and fell on his back He has been having back pain Full code Renal nondialysis diet appreciate dietitians recommendations Continue multivitamins Disposition to home with home health services DVT prophylaxis Heparin Attestations Medical Necessity Statement*: Patient needs to be in hospital for management of Covid pneumonia Coding Level of Care Code Acute 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
[2021-02-05] MEDS: atorvastatin 40 mg Tablet PO (21:33)
[2021-02-06] VITALS (7 sets, daily range): BP systolic 161; BP diastolic 68–73; PULSE 69–74; RESP 18–24; TEMP 36.5–36.7; O2SAT 86–97
[2021-02-06] MEDS: ascorbic acid 500 mg Tablet 1000 MG PO (05:16)
[2021-02-06] MEDS: cholecalciferol (vitamin D3) 5,000 unit Tablet 5000 UNIT PO (05:17)
[2021-02-06] MEDS: cefepime 1,000 MG in sodium chloride 0.9% (plus) 50 ML 100 MG IV (05:17)
[2021-02-06] MEDS: pantoprazole DR 40 mg Tablet PO (05:17)
[2021-02-06 06:12] LABS: Basophils % 0.1 %; Hematocrit 25.4 % (42.0-52.0); Hemoglobin 8.2 g/dL (11.7-16.6); Lymphocytes # 0.5 10^3/uL (0.8-4.8); Lymphocytes % 4.5 %; Mean Corpuscular HGB Conc 32.3 g/dL (30.0-36.0); Mean Corpuscular Hemoglobin 27.6 pg (28.0-34.0); Mean Corpuscular Volume 85.5 fl (80-94); Mean Platelet Volume 11.2 fL (7.4-10.4); Monocytes # 0.7 10^3/uL (0.2-0.9); Monocytes % 6.9 %; Neutrophils # 8.63 10^3/uL (1.8-7.7); Neutrophils % 84.9 %; Nucleated Red Blood Cells % 0 %; Platelet Count 271 10^3/cmm (130-400); Red Blood Count 2.97 10^6/uL (4.1-5.3); Red Cell Distribution Width 15.7 % (12.1-15.1); White Blood Count 10.2 10^3/uL (4.0-10.0)
[2021-02-06 06:17] LABS: Glucose Point of Care 253 mg/dL (70-110)
[2021-02-06 06:32] LABS: Alanine Aminotransferase 17 U/L (0-41); Albumin Level 2.3 g/dL (3.5-5.2); Alkaline Phosphatase 62 IU/L (40-130); Anion Gap 18.7 (5-19); Aspartate Amino Transferase 16 U/L (0-40); Calcium 8.4 mg/dL (8.5-10.5); Carbon Dioxide 20 mmol/L (22-29); Chloride 102 mmol/L (98-107); Glucose 236 mg/dL (65-115); Magnesium 2.4 mg/dL (1.7-2.3); Osmolality Calculated 322 mOsm/kg (285-295); Phosphorus 4.1 mg/dL (2.5-4.5); Potassium 4.7 mmol/L (3.5-5.1); Sodium 136 mmol/L (136-145); Total Bilirubin 0.3 mg/dL (0.15-1.2); Total Protein 5.3 g/dL (6.6-8.7)
--- NOTE | 2021-02-06 06:55 | PC.NURSE ---
Shift Note Frequent safety and comfort rounds continue. Orders and/or nursing care completed as indicated. Patient monitored for response to intervention and treatment(s).Education provided about medications, activity, and reportable signs and symptoms. Patient and/or pharmaceutical specialty representative verbalized understanding of all teaching.
[2021-02-06 07:01] LABS: Blood Urea Nitrogen 103 mg/dL (8-23)
--- NOTE | 2021-02-06 07:22 | PM.PN ---
Subjective Subjective: Interval history: feels well. wants to go home. no n/v/f/c/johnson/d Medications: Reviewed: Yes Medication Review Details: Current Medications Albuterol/Ipratropium (Ipratropium-Albuterol 3 Ml Neb) 3 ml INHALATION Q6H PRN PRN Reason: SHORTNESS OF BREATH Last Admin: 02/05/21 08:20 Dose: 3 ml Documented by: Amoxicillin/Clavulanate Potassium (Amoxicillin-Clav 875-125 Mg Tablet) 1 tab PO BID [facility]; Protocol Last Admin: 02/05/21 17:29 Dose: 1 tab Documented by: Ascorbic Acid (Ascorbic Acid 500 Mg Tablet) 1,000 mg PO QAM [facility] Last Admin: 02/06/21 05:16 Dose: 1,000 mg Documented by: Aspirin (Aspirin 81 Mg Chew Tablet) 81 mg PO DAILY [facility] Last Admin: 02/05/21 07:29 Dose: 81 mg Documented by: Atorvastatin Calcium (Atorvastatin 40 Mg Tablet) 40 mg PO BEDTIME [facility] Last Admin: 02/05/21 21:33 Dose: 40 mg Documented by: Budesonide (Budesonide 0.5 Mg/2 Ml Neb) 0.5 mg INHALATION BID.RESPIRATORY [facility] Last Admin: 02/05/21 08:20 Dose: 0.5 mg Documented by: Carvedilol (Carvedilol 25 Mg Tablet) 25 mg PO BID [facility] Last Admin: 02/05/21 17:29 Dose: 25 mg Documented by: Clopidogrel Bisulfate (Clopidogrel 75 Mg Tablet) 75 mg PO DAILY [facility] Last Admin: 02/05/21 07:29 Dose: 75 mg Documented by: Dexamethasone (Dexamethasone 10 Mg/Ml Inj) 6 mg IVP Q24H [facility] Last Admin: 02/05/21 14:13 Dose: 6 mg Documented by: Dextrose (Dextrose 50% Syringe 50 Ml) 25 ml IVP ONCE PRN; Protocol PRN Reason: hypoglycemia protocol Dextrose (Dextrose 50% Syringe 50 Ml) 50 ml IVP PRN PRN; Protocol PRN Reason: hypoglycemia protocol Ferrous Sulfate (Ferrous Sulfate 300 Mg/5 Ml Udc) 300 mg PO BIDWM [facility] Last Admin: 02/05/21 17:30 Dose: 300 mg Documented by: Finasteride (Finasteride 5 Mg Tablet) 5 mg PO QPM [facility] Last Admin: 02/05/21 17:29 Dose: 5 mg Documented by: Glucagon (Glucagon 1 Mg/Ml Inj 1 Ml) 1 mg IM ONCE PRN; Protocol PRN Reason: Adult Acute Hypoglycemia Prot. Heparin Sodium (Beef Lung) (Heparin 5,000 Unit/Ml Inj 1 Ml) 0 unit IV PRN PRN; Protocol PRN Reason: Heparin weight-base protocol Last Admin: 02/01/21 16:26 Dose: 1,100 unit Documented by: Heparin Sodium/Sodium Chloride (Heparin Drip) 25,000 unit in 500 mls @ 0 mls/hr IV .Q0M [facility]; Protocol Last Titration: 02/03/21 14:21 Dose: 0 unit/kg/hr, 0 mls/hr Documented by: Dextrose (D5w) 500 mls @ 100 mls/hr IV ONCE PRN; Protocol PRN Reason: Adult Acute Hypoglycemia Prot Cefepime HCl 1,000 mg/ Sodium (Chloride) 50 mls @ 100 mls/hr IV Q24H [facility] Last Admin: 02/06/21 05:17 Dose: 100 mls/hr Documented by: Insulin Aspart (Insulin Aspart 100 Unit/1 Ml) 0 unit SUBCUT WM&BEDTIME [facility]; Protocol Last Admin: 02/05/21 21:33 Dose: 10 unit Documented by: Isosorbide Mononitrate (Isosorbide Mononitrate Er 30 Mg Tablet) 30 mg PO QPM [facility] Last Admin: 01/31/21 17:39 Dose: Not Given Documented by: Montelukast Sodium (Montelukast Sodium 10 Mg Tablet) 10 mg PO QPM [facility] Last Admin: 02/05/21 17:29 Dose: 10 mg Documented by: Ondansetron HCl (Ondansetron 2 Mg/Ml Sdv 2 Ml) 4 mg IVP Q6H PRN PRN Reason: NAUSEA AND VOMITING Pantoprazole Sodium (Pantoprazole Dr 40 Mg Tablet) [facility] Last Admin: 02/06/21 05:17 Dose: 40 mg Documented by: Vitamin D (Cholecalciferol (Vitamin D3) 5,000 Unit Tablet) [facility] [place] Last Admin: 02/06/21 05:17 Dose: 5,000 unit Documented by: Zinc Gluconate (Zinc Gluconate 50 Mg Tablet) 50 mg PO QPM [facility] Last Admin: 02/05/21 17:29 Dose: 50 mg Documented by: Vitals/I&O/Wt Last Vital Signs Temp 97.7 F 02/06/21 04:00 Pulse 70 02/06/21 04:00 Resp 24 H 02/06/21 04:00 BP 161/68 02/06/21 04:00 Pulse Ox 95 02/06/21 04:00 02/05/21 02/06/21 02/06/21 22:59 06:59 14:59 Intake Total 540 / 780 720 / 1500 Output Total 700 / 700 800 / 1500 Balance -160 / 80 -80 / 0 Physical Exam Narrative: EXAM NARRATIVE: Constitutional: Awake, comfortable, elderly man sitting up in bed - no nc 02 HEENT: nc/at, eomi, an icteric Lungs: good air movement b/l CVS: S1 S2, +AMY Abdo: Soft, BS ok Ext 4: Minimal edema, peripheral perfusion with no cyanosis Neurological: a,a, o x 3, moves all ext Urinary Catheter Management^: Barajas: Cath Placed During This Visit: yes, but has since been removed by the nurse Reason for Continuing Indwelling Catheter: Decision to DC Catheter Urinary Catheter Date of Insertion: 01/31/21 Urinary Catheter Time of Insertion: 13:30 Date Urinary Catheter Removed: 02/01/21 Time Urinary Catheter Discontinued: 13:06 Data : 02/06/21 05:26 02/06/21 05:26 Micro: Microbiology 01/31/21 06:32 Blood Culture - Final Blood NO GROWTH AFTER 5 DAYS 01/31/21 06:29 Blood Culture - Final Blood NO GROWTH AFTER 5 DAYS 01/31/21 14:26 Gram Stain - Final Sputum - Expectorated Sputum Sputum Culture - Final Pseudomonas aeruginosa A&P Additional A&P Information 1. 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 -monitor renal fxn- creatinine slowly improving -bp stable, hold ivf. Daily renal panel Strict I's and O's Dose medication for GFR less than 15 Avoid usual nephrotoxic agents -poor renal us- repeat when stable -as outpt 2. Covid pneumonitis Currently being treated with remdesivir and dexamethasone as well as antibiotic coverage. Management per ICU and Dr. 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 anemia eval- has covid-19 pna -iron sat 18% ferritin 220 -start po iron 5. bone- mineral-metabolism of CKD- normal vit d, pth, phos -low ca renal okay w/ d/c and outpt renal f/u w/ Dr. 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
[2021-02-06] MEDS: amoxicillin-clav 875-125 mg Tablet 1 TAB PO (08:21)
[2021-02-06] MEDS: aspirin 81 mg Chew Tablet PO (08:21)
[2021-02-06] MEDS: carvedilol 25 mg Tablet PO (08:21)
[2021-02-06] MEDS: clopidogrel 75 mg Tablet PO (08:21)
[2021-02-06 09:07] LABS: PROTEIN, TOTAL 4.9 g/dL (6.1-8.1)
[2021-02-06] MEDS: ipratropium-albuterol 3 mL Neb INHALATION (09:14)
[2021-02-06] MEDS: budesonide 0.5 mg/2 mL Neb INHALATION (09:14)
--- NOTE | 2021-02-06 11:43 | PM.DCS ---
Discharge Providers Date of Admission: 01/31/21 12:40 Date of Discharge: February 06, 2021 Attending Provider at Admission: Ted Bojorquez MD Attending Provider at Discharge: Harris Bejarano MD Primary Care Provider: Elizabeth Houston MD Diagnoses at Discharge Discharge Diagnosis (1) NSTEMI (non-ST elevated myocardial infarction): Status: Acute (2) Aortic stenosis: Status: Acute Qualifiers: Cardiac valve disease etiology: nonrheumatic Qualified Code(s): I35.0 - Nonrheumatic aortic (valve) stenosis (3) Hyperkalemia: Status: Acute (4) Sepsis: Status: Acute (5) Acute kidney injury superimposed on chronic kidney disease: Status: Acute (6) COVID-19: Status: Acute (7) Acute respiratory failure with hypoxia and hypercapnia: Status: Acute (8) Pneumonia: Status: Acute Qualifiers: Laterality: bilateral Lung location: lower lobe of lung Pneumonia type: due to unspecified organism Qualified Code(s): J18.9 - Pneumonia, unspecified organism (9) Bronchiectasis: Status: Acute Reason for Visit Reason for Visit: Covid-19 Hospital Course Hospital Course 85 year old male with PMH of moderate aortic valve stenosis, HFpEF, stage III chronic kidney, pulmonary embolism presented with chief complaint of worsening shortness of breath.He was admitted for the management of Covid pneumonia. During the hospital stay he was kept on Covid protocol, to which he responded well, at the time of discharge he was requiring 2 L of oxygen with ambulation. Hospital course was also complicated by development of NSTEMI type II likely secondary demand ischemia, initially was kept on ACS protocol, which was later discontinued. 2D echo done: Showed LV systolic function is mildly reduced with EF of 45-50%. Mild global hypokinesis is noted Diastolic function is abnormal. Aortic valve is thickened and calcified. Moderate to severe aortic stenosis is noted with aortic valve area of 0.69cm2 and mean gradient across the aortic valve of 32mmHg. Mild tricuspid regurgitation. Cardiology was on board conservative management was recommended. 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 He has been asked to do repeat BMP in 1 week time , and follow-up with his primary care with the BMP results regarding initiation of Lasix. At the time of discharge Lasix has been kept on hold. Patient responded well to the above medical management and is being discharged in stable condition. 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 Physical Exam Const: COMMON NORMALS: patient oriented x3 HENMT: COMMON NORMALS: normocephalic and atraumatic HEAD & SCALP: normocephalic and atraumatic Resp: OTHER: Diminished air entry bilaterally, no wheezing no rhonchi no rales Cardio: COMMON NORMALS: regular rate, regular rhythm, S1 normal heart sound present, S2 normal heart sound present, No gallops present (Cardio), No murmurs present (Cardio), No rub (Cardio) and Peripheral pulses 2+ throughout RATE: regular rate RHYTHM: regular rhythm HEART SOUNDS: S1 normal heart sound present and S2 normal heart sound present PERIPHERAL PULSES: Peripheral pulses 2+ throughout GI: COMMON NORMALS: Normal to inspection, nondistended, normoactive bowel sounds present, Soft to palpation, non-tender, No hepatosplenomegaly present and no masses AUSCULTATION: Yes normoactive bowel sounds PALPATION: Yes Soft to palpation and Yes No hepatosplenomegaly present RECTAL EXAM: Yes deferred Extremity: COMMON NORMALS: no clubbing, cyanosis or edema and no pedal edema Neuro: COMMON NORMALS: patient oriented x3 Urinary Catheter Management^: [place]: Cath Placed During This Visit: yes, but has since been removed by the nurse Reason for Continuing Indwelling Catheter: Decision to DC Catheter Urinary Catheter Date of Insertion: 01/31/21 Urinary Catheter Time of Insertion: 13:30 Date Urinary Catheter Removed: 02/01/21 Time Urinary Catheter Discontinued: 13:06 Discharge Data Data Completed and Pending: Completed Studies During Hospitalization Category Date Time Status XR chest 1V brie ble [id number] AM LABS Exams 02/03/21 06:00 Completed XR chest 1V brie ble [id number] Stat Exams 01/31/21 12:52 Completed CV. echo complete * [id number] Routine Ultrasound 02/01/21 19:25 Completed US renal BI* [id number] Routine Ultrasound 02/01/21 17:25 Completed Pending at discharge Category Date Time Status Complete Blood Co unt w/Auto AM LABS Lab 02/07/21 04:00 Ordered Complete Blood Co unt w/Auto AM LABS Lab 02/08/21 04:00 Ordered Comprehensive Met abolic Panel AM LA BS Lab 02/07/21 04:00 Ordered Comprehensive Met abolic Panel AM LA BS Lab 02/08/21 04:00 Ordered Magnesium AM LABS Lab 02/07/21 04:00 Ordered Magnesium AM LABS Lab 02/08/21 04:00 Ordered Phosphorus AM LAB S Lab 02/07/21 04:00 Ordered Protein Electroph oresis, 24 HR Rout ine Lab 02/05/21 06:28 Ordered Sputum Culture Ro utine Lab 02/03/21 10:10 Results Total Protein Radha ctrophoresis Routi ne Lab 02/04/21 18:10 Results Urine Protein Radha ctrop Random Routi ne Lab 02/05/21 06:17 Received Vitamin D 1,25 Di hydroxy Routine Lab 02/04/21 18:10 Received Labs from last 24 hours 02/06/21 02/06/21 02/06/21 06:08 05:26 05:26 WBC 10.2 H RBC 2.97 L Hgb 8.2 L Hct 25.4 L MCV 85.5 MCH 27.6 L MCHC 32.3 RDW 15.7 H Plt Count 271 MPV 11.2 H Neut % (Auto) 84.9 Lymph % (Auto) 4.5 [place] % (Auto) 6.9 Eos % (Auto) 0.0 Baso % (Auto) 0.1 Neut # (Auto) 8.63 H Lymph # (Auto) 0.5 L [place] # (Auto) 0.7 Eos # (Auto) 0.0 Baso # (Auto) 0.0 Nucleated RBC % (a uto) 0 Nucleated RBCs # 0.0 Sodium 136 Potassium 4.7 Chloride 102 Carbon Dioxide 20 L Anion Gap 18.7 BUN 103 H* Creatinine 3.6 H GFR Calculation Not Reportable Glucose 236 H POC Glucose 253 H Calculated Osmolal ity 322 H Calcium 8.4 L Phosphorus 4.1 Magnesium 2.4 H Total Bilirubin 0.3 AST 16 ALT 17 Alkaline Phosphata se 62 Total Protein 5.3 L Albumin 2.3 L Globulin 3.0 02/05/21 02/04/21 16:43 18:10 WBC RBC Hgb Hct MCV MCH MCHC RDW Plt Count MPV Neut % (Auto) Lymph % (Auto) [place] % (Auto) Eos % (Auto) Baso % (Auto) Neut # (Auto) Lymph # (Auto) [place] # (Auto) Eos # (Auto) Baso # (Auto) Nucleated RBC % (a uto) Nucleated RBCs # Sodium Potassium Chloride Carbon Dioxide Anion Gap BUN Creatinine GFR Calculation Glucose POC Glucose 288 H Calculated Osmolal ity Calcium Phosphorus Magnesium Total Bilirubin AST ALT Alkaline Phosphata se Total Protein 4.9 L Albumin Globulin Vitals: Last Vital Signs Temp 98.0 F 02/06/21 08:00 Pulse 74 02/06/21 08:42 Resp 18 02/06/21 08:35 BP 161/73 02/06/21 08:00 Pulse Ox 94 02/06/21 08:35 Discharge Plan Discharge Patient Disposition: Home Condition: Stable Prescriptions: Continued ipratropium-albuterol 0.5 mg-3 mg(2.5 mg base)/3 mL solution for nebulization 3 ml INHALATION BID PRN (Reason: Shortness Of Breath) RF: 0 finasteride 5 mg tablet 5 mg PO QPM RF: 0 Januvia 100 mg tablet 100 mg PO QAM RF: 0 alprazolam 0.25 mg tablet 0.125 mg PO Q6H PRN (Reason: Anxiety) RF: 0 ezetimibe [Zetia] 10 mg tablet 10 mg PO QAM RF: 0 glyburide 5 mg tablet See Rx Instructions .ROUTE .COMPLEX RF: 0 amlodipine 5 mg tablet 5 mg PO BID RF: 0 Trulicity 1.5 mg/0.5 mL pen injector 1.5 mg SUBCUT Q7D RF: 0 aspirin [Aspirin Childrens] 81 mg tablet,chewable 81 mg PO BID RF: 0 ferrous sulfate 325 mg (65 mg iron) tablet,delayed release (DR/EC) 325 mg PO TID RF: 0 ascorbic acid (vitamin C) 500 mg capsule 1,000 mg PO QAM RF: 0 garlic 1,000 mg capsule 1,000 mg PO QAM RF: 0 montelukast 10 mg tablet 10 mg PO QPM RF: 0 magnesium oxide 400 mg magnesium capsule 400 mg PO QPM RF: 0 budesonide-formoterol [Symbicort] 160-4.5 mcg/actuation HFA aerosol inhaler 2 puff inhalation BID RF: 0 albuterol sulfate [Ventolin HFA] 90 mcg/actuation HFA aerosol inhaler 2 puff inhalation Q4H PRN (Reason: Shortness Of Breath) RF: 0 nitroglycerin [Nitrostat] 0.4 mg tablet, sublingual 0.4 mg sublingual Q5M PRN (Reason: chest pain) Qty: 25 RF: 3 carvedilol 25 mg tablet 25 mg PO BID RF: 0 chlorzoxazone 500 mg Tablet 500 mg PO TID PRN (Reason: Muscle Spasm) RF: 0 omeprazole 20 mg capsule,delayed release(DR/EC) 20 mg PO QAM RF: 0 zinc 50 mg Tablet 50 mg PO QPM RF: 0 ltnipcpvkgfq-qbvdfcon-etitef Tablet 1 tab PO DAILY RF: 0 cholecalciferol (vitamin D3) [Vitamin D3] 125 mcg (5,000 unit) Tablet 125 mcg PO QAM RF: 0 omega [id number]-izw-fish oil [Fish Oil] 1,200 (144-216) mg Capsule 1 cap PO DAILY RF: 0 cyanocobalamin (vitamin B-12) [Vitamin B-12] 5,000 mcg Tablet, Sublingual 5,000 mcg SUBLINGUAL DAILY RF: 0 clonidine HCl 0.1 mg Tablet 0.1 mg PO .IF BP OVER 165/90 RF: 0 Held furosemide 80 mg tablet 80 mg PO QAM RF: 0 Hold Instructions: Resume on 02/13/21. Discontinued isosorbide mononitrate 30 mg tablet extended release 24 hr 30 mg PO QPM RF: 0 budesonide 0.5 mg/2 mL suspension for nebulization 0.5 mg inhalation BID RF: 0 Discharge Orders: Discharge Order (Routine); Ordered 02/06/21 Ordered By: Harris Bejarano Other Ambulatory Orders: Basic Metabolic Panel (Routine) Timeframe: 1 Week Facility: [facility] - Location: Lab - Main Lab Ordered By: Harris Bejarano DME: Oxygen (Order) Location: None Selected Ordered By: Harris Bejarano Referrals: Elizabeth Houston MD [Primary Care Provider] - 02/13/21 11:00 am Vic Allison MD [Referring] - 2 weeks (Dr. Allison's office will call you with an appointment.) Edmundo Dial MD [Physician] - 03/10/21 10:15 am Discharge Diet: Diabetic and Low Salt Discharge Activity: Increase activity as tolerated Patient Instructions: Myocardial Infarction (GEN), Heart Failure (DC), Viral Pneumonia (GEN), CHF Stoplight, Opioid Safety, Pneumonia Stoplight, Using Oxygen at Home Discharge Attestations Time Spent in Discharge Care*: less than 30 min Specific Discharge Activities: educating patient, educating and/or supporting family/caregiver, discussing with pcp/other providers, discussing with watch caser/social workers/dc planners, documenting/other paperwork and evaluating patient/reviewing data Status at Discharge: Cognitive status at discharge: cognitively intact, Behavioral status at discharge: cooperative, Functional status at discharge: independent ambulation Overall status at discharge: patient is back to baseline Quality Metrics Clinical Quality Measures During this hospital stay, did patient experience: None Coding Level of Care Code Acute Chg FW DC note Diagnoses NSTEMI (non-ST elevated myocardial infarction) I21.4 Aortic stenosis I35.0 Cardiac valve disease etiology: nonrheumatic Hyperkalemia E87.5 Sepsis A41.9 Acute kidney injury superimposed on chronic kidney disease N17.9; N18.9 COVID-19 U07.1 Acute respiratory failure with hypoxia and hypercapnia J96.01; J96.02 Pneumonia J18.9 Laterality: bilateral Lung location: lower lobe of lung Pneumonia type: due to unspecified organism Bronchiectasis J47.9
[2021-02-06 12:02] LABS: Glucose Point of Care 441 mg/dL (70-110)
[2021-02-06 12:02] LABS: Glucose Point of Care 435 mg/dL (70-110)
[2021-02-06 15:04] LABS: ALBUMIN 2.2 g/dL (3.8-4.8); ALPHA 1 GLOBULIN 0.4 g/dL (0.2-0.3); ALPHA 2 GLOBULIN 0.8 g/dL (0.5-0.9); BETA 1 GLOBULIN 0.3 g/dL (0.4-0.6); BETA 2 GLOBULIN 0.3 g/dL (0.2-0.5); GAMMA GLOBULIN 0.9 g/dL (0.8-1.7)
[2021-02-06 15:53] LABS: Creatinine, Random Urine 62 mg/dL (20-320); Protein, Total, Random 57 mg/dL (5-25); Protein/Creatinine Ratio 0.919 (0.022-0.128); Protein/Creatinine Ratio 919 mg/g creat (22-128)
--- NOTE | 2021-02-06 16:00 | PC.NURSE ---
IV's removed at this time and patient tolerated well. Reviewed discharge with patient at this time. Patient verbalized understanding of follow up appointments and changes to medications. Patient is A&Ox3. Respirations are even and non-labored on 2 liters of NC. Patient wheel chaired to private car.
--- NOTE | 2021-02-07 10:05 | PC.SOCIAL ---
discharge follow up call made, spoke with patient. patient reports weakness , not having to use his oxygen. Sats staying 93%-95%. I faxed lab work and discharge summary to Dr. Allison's office and they will call patient with appointment date and time. patient made aware.
[2021-02-07 13:26] LABS: Albumin,Urine Random 55 %; Alpha-1-Globulins Urine Random 0 %; Alpha-2-Globulins Urine Random 4 %; Beta-Globulin,Urine Random 17 %; Gamma Globulin,Urine Random 24 %
[2021-02-12 01:07] LABS: Vit D 1,25 (Oh)2, Total 13 pg/mL (18-72); Vit D2 1,25 (Oh)2 <8 pg/mL; Vit D3 1,25 (Oh)2 13 pg/mL
--- NOTE | 2021-02-19 11:01 | PC.SOCIAL ---
with follow up call pts was concerned about having home o2 dc'd because pt wasn't discharged on home o2. i spoke with Dr. Bejarano who discharged pt on home o2 with last admission and he wants pt to keep home o2 in the home at this time, incase he might need the o2. patient can follow up with pcp and they can determine if patient needs o2 dc'd. will let pts know this info.
== END 2021-02-06 16:00 | disposition home or self-care (01) | DRG 871 ==
LOC: MS 2A 02-04 07:51 → MEDSURG 02-05 12:44
PROVIDERS: Internal Medicine; Internal Medicine Nephrology; Student in an Organized Health Care Education/Training Program; Admitting Provider Internal Medicine; PCP Family Medicine; Visit Provider Internal Medicine
DX: A41.9 Sepsis, unspecified organism (principal); U07.1 COVID-19; J12.82 Pneumonia due to coronavirus disease 2019; I21.A1 Myocardial infarction type 2; J96.02 Acute respiratory failure with hypercapnia; J96.01 Acute respiratory failure with hypoxia; J18.9 Pneumonia, unspecified organism; I13.0 Hypertensive heart and chronic kidney disease with heart failure and stage 1 through stage 4 chronic kidney disease, or unspecified chronic kidney disease; I50.30 Unspecified diastolic (congestive) heart failure; N18.4 Chronic kidney disease, stage 4 (severe); E87.2 Acidosis; N17.9 Acute kidney failure, unspecified; I35.0 Nonrheumatic aortic (valve) stenosis; Z86.711 Personal history of pulmonary embolism; F41.9 Anxiety disorder, unspecified; K21.9 Gastro-esophageal reflux disease without esophagitis; E78.00 Pure hypercholesterolemia, unspecified; J45.20 Mild intermittent asthma, uncomplicated; Z87.440 Personal history of urinary (tract) infections; I25.10 Atherosclerotic heart disease of native coronary artery without angina pectoris; Z95.5 Presence of coronary angioplasty implant and graft; Z85.828 Personal history of other malignant neoplasm of skin; Z87.891 Personal history of nicotine dependence; Z79.51 Long term (current) use of inhaled steroids; Z79.82 Long term (current) use of aspirin; Z79.84 Long term (current) use of oral hypoglycemic drugs; N28.9 Disorder of kidney and ureter, unspecified; D63.1 Anemia in chronic kidney disease; I51.4 Myocarditis, unspecified; J47.9 Bronchiectasis, uncomplicated; E87.5 Hyperkalemia
CPT/HCPCS: 36415; 36416; 36600; 51702; 71045; 71250; 76770; 80048; 80051; 80053; 81001; 82306; 82310; 82330; 82550; 82570; 82607; 82652; 82728; 82746; 82803; 82805; 82962; 83540; 83550; 83605; 83615; 83735; 83880; 83970; 84100; 84145; 84155; 84165; 84300; 84443; 84484; 84550; 85007; 85025; 85378; 85730; 86140; 86403; 87040; 87070; 87077; 87086; 87186; 87205; 87426; 87449; 87635; 87641; 93005; 93306; 94640; 94660; 96365; 96367; 96372; 96375; 97110; 97116; 97162; 97530; 99291; J0456; J0610; J0692; J0696; J1100; J1644; J1815; J1940; J2060; J2543; J3535; J7050; J7512; J7626; Q3014

== ENCOUNTER 2021-02-10 16:32 | Emergency (ER) | payer MEDICARE, OTHER, SELFPAY ==
--- NOTE | 2021-02-10 16:35 | XRR_ITS ---
PROCEDURE INFORMATION: Exam: XR Chest Exam date and time: 02/10/2021 4:35 PM Age: 85 years old Clinical indication: Wheezing; Additional info: Cough and weakness TECHNIQUE: Imaging protocol: XR of the chest. Views: 1 view. COMPARISON: CR XR chest 1V portable [id number] 02/03/2021 7:35 AM FINDINGS: Lungs: There is bilateral lower lung consolidation, decreased since 02/03/2021. Pleural spaces: Small bilateral pleural effusions are decreased since 02/03/2021. No pneumothorax. Heart/Mediastinum: Cardiomediastinal contours are partially obscured. Bones/joints: Bones are unremarkable. XR/XR chest 1V portable [id number] IMPRESSION: Decreased bilateral lower lung consolidation and pleural effusions since 02/03/2021.
[2021-02-10 17:04] VITALS: BP 110/63; PULSE 79; RESP 20; TEMP 37.1; O2SAT 97; BMI 22.4
[2021-02-10 19:49] LABS: Basophils % 0.1 %; Eosinophils # 0.2 10^3/uL (0.0-0.8); Eosinophils % 0.7 %; Hematocrit 23.2 % (42.0-52.0); Hemoglobin 7.1 g/dL (11.7-16.6); Lymphocytes # 0.7 10^3/uL (0.8-4.8); Lymphocytes % 3.6 %; Mean Corpuscular HGB Conc 30.6 g/dL (30.0-36.0); Mean Corpuscular Hemoglobin 27.5 pg (28.0-34.0); Mean Corpuscular Volume 89.9 fl (80-94); Mean Platelet Volume 11.5 fL (7.4-10.4); Monocytes # 1.7 10^3/uL (0.2-0.9); Monocytes % 8.5 %; Neutrophils # 17.25 10^3/uL (1.8-7.7); Neutrophils % 85.3 %; Nucleated Red Blood Cells % 0 %; Platelet Count 236 10^3/cmm (130-400); Red Blood Count 2.58 10^6/uL (4.1-5.3); Red Cell Distribution Width 16.6 % (12.1-15.1); White Blood Count 20.2 10^3/uL (4.0-10.0)
[2021-02-10 20:07] LABS: Lactic Sepsis W/Reflex 0.6 mmol/L (0.5-2.2)
--- NOTE | 2021-02-10 20:07 | ED_ITS ---
HPI - SOB/Dyspnea General: Chief Complaint: Shortness of Breath/Dyspnea Stated Complaint: Cough, congestion, weakness Time Seen by Provider: 02/10/21 19:47 Source: patient Mode of arrival: ambulatory Limitations: no limitations History of Present Illness: HPI Narrative: 85-year-old man who was recently admitted and discharged here with Covid. He states that over the last 2 to 3 days has been having some weakness along with shortness of breath. He states he is also concerned as he did ran out of his nitro at home actually his caregiver did wash his nitro in his pocket he underwent it. He denies any chest pain or fevers. Associated symptoms: Deny abdominal pain, chest pain, fever(s), nausea or vomiting Review of Systems Const: Denies: fever(s), chills, body aches or change in appetite Eyes: Denies: blurry vision or eye discomfort ENMT: Denies: throat pain or dental pain Card: Denies: chest pain Resp: Reports: dyspnea GI: Denies: abdominal pain, nausea, vomiting or diarrhea : Denies: dysuria Musc: Denies: neck pain or back pain Skin/Breast: Denies: rash Neuro: Denies: headache(s) Psych: Denies: depression Leander/Lymph: Denies: easy bruising All/Imm: Denies: urticaria PFSH ED PFSH: Medical History (Updated 02/10/21 @ 21:50 by Enoc Rodriguez MD) Acute kidney injury superimposed on chronic kidney disease Acute respiratory failure with hypoxia and hypercapnia Anxiety Aortic stenosis Aortic stenosis, moderate Aortic stenosis, severe Bronchiectasis Calcium deficiency CHF (congestive heart failure) Chronic kidney disease, stage 3 unspecified Coagulopathy COVID-19 Dysuria GERD (gastroesophageal reflux disease) Hx pulmonary embolism Hypercholesteremia Hyperkalemia Hypertension Mild intermittent asthma, uncomplicated NSTEMI (non-ST elevated myocardial infarction) Pneumonia Recurrent UTI Renal insufficiency Sepsis Surgical History History of heart artery stent Hx of bilateral cataract extraction Hx of squamous cell carcinoma excision NASAL TIP Social History Smoking and tobacco status: former smoker Quit status (tobacco): has quit using tobacco Year quit tobacco: 1965 - 1.5 PPD x 5 Years Second hand smoke exposure: No Smoking risk assessment/counseling performed?: No Alcohol intake: never Desire information about alcohol rehabilitation?: No Counseling given: No Desire information about substance/drug rehabilitation?: No Counseling given: No Lives independently: Yes Household members: spouse Marital status: service: Yes Current occupational status: retired History of recent travel: No Current gender identity: Male Physical Exam Const: COMMON NORMALS: no acute distress and patient oriented x3 GENERAL APPEARANCE: ill appearing HENMT: COMMON NORMALS: normocephalic and atraumatic HEAD & SCALP: normocephalic and atraumatic Eye: COMMON NORMALS: Equal, round and reactive pupils present and EOMs intact bilaterally PUPIL: Yes Equal, round and reactive pupils present Neck/C-Spine: COMMON NORMALS: full ROM and supple Chest: COMMONS NORMALS: normal inspection of the chest and normal palpation of entire chest wall Resp: COMMON NORMALS: normal respiratory effort, No retractions and No use of accessory muscles AUSCULTATION: rales Cardio: COMMON NORMALS: regular rate, regular rhythm and No murmurs present (Cardio) RATE: regular rate RHYTHM: regular rhythm GI: COMMON NORMALS: Normal to inspection, nondistended, normoactive bowel sounds present, Soft to palpation, non-tender and no masses PALPATION: Yes Soft to palpation Extremity: COMMON NORMALS: normal to inspection and full ROM Neuro: COMMON NORMALS: patient oriented x3, moves all extremities and no focal motor deficits Psych: COMMON NORMALS: mental status grossly normal, Normal thought process present and cooperative THOUGHT PROCESS: Normal thought process present Skin: COMMON NORMALS: no rashes or lesions noted and no wounds GENERAL SKIN EXAM: no rashes or lesions noted Course Vital Signs: Vital signs: Vital Signs Temperature 98.2 F 02/11/21 02:17 Pulse Rate 82 02/11/21 02:17 Respiratory Rate 18 02/11/21 02:17 Blood Pressure 136/69 02/11/21 02:17 Pulse Oximetry 96 02/11/21 02:17 MDM - SOB/Dyspnea MDM Narrative: Medical decision making narrative: Patient presents here with cough dyspnea along with some weakness. He was found to be anemic and he states he has chronic anemia. He has no signs of significant blood loss. We will transfuse him. He also has an elevated white count but his x-ray here is improving. He had been on steroids when he is in the hospital. I strongly recommended admission but he states that he was in the hospital for long time he does not want to come back in. I spoke to him and his daughter at length and he came to the decision that we will transfuse him here in the ER and place him on doxycycline at home and he is to follow-up his PCP. He is return to ER if w orsening. He has chronic kidney disease as well that is unchanged here. Lab Data: Labs: Lab Results 02/10/21 02/10/21 02/10/21 Range/Units 19:34 19:34 19:34 WBC 20.2 H (4.0-10.0) 10^3/ uL RBC 2.58 L (4.1-5.3) 10^6/u L Hgb 7.1 L (11.7-16.6) g/dL Hct 23.2 L (42.0-52.0) % MCV 89.9 (80-94) fl MCH 27.5 L (28.0-34.0) pg MCHC 30.6 (30.0-36.0) g/dL RDW 16.6 H (12.1-15.1) % Plt Count 236 (130-400) 10^3/c mm MPV 11.5 H (7.4-10.4) fL Neut % (Auto) 85.3 % Lymph % (Auto) 3.6 % [place] % (Auto) 8.5 % Eos % (Auto) 0.7 % Baso % (Auto) 0.1 % Neut # (Auto) 17.25 H (1.8-7.7) 10^3/u L Lymph # (Auto) 0.7 L (0.8-4.8) 10^3/u L [place] # (Auto) 1.7 H (0.2-0.9) 10^3/u L Eos # (Auto) 0.2 (0.0-0.8) 10^3/u L Baso # (Auto) 0.0 (0.0-0.1) 10^3/u L Nucleated RBC % (a uto) 0 % Nucleated RBCs # 0.0 /100WBC D-Dimer Cancelled Sodium 139 (136-145) mmol/L Potassium 4.5 (3.5-5.1) mmol/L Chloride 103 (98-107) mmol/L Carbon Dioxide 21 L (22-29) mmol/L Anion Gap 19.5 H (5-19) BUN 75 H (8-23) mg/dL Creatinine 4.0 H (0.7-1.2) mg/dL GFR Calculation Not Reportable Glucose 163 H (65-115) mg/dL Calculated Osmolal ity 314 H (285-295) mOsm/k g Lactic Acid (0.5-2.2) mmol/L Calcium 8.1 L (8.5-10.5) mg/dL Total Bilirubin 0.3 (0.15-1.2) mg/dL AST 14 (0-40) U/L ALT 15 (0-41) U/L Alkaline Phosphata se 78 (40-130) IU/L Troponin T Baselin e (0-15) ng/L Troponin T 120 Min [place] (0-15) ng/L Delta Troponin T (0-10) ABS# Total Protein 6.1 L (6.6-8.7) g/dL Albumin 2.8 L (3.5-5.2) g/dL Globulin 3.3 (1.3-4.6) g/dL Lipase 19 (13-60) U/L Procalcitonin 0.33 (0-0.5) ng/mL Urine Color (Yellow) Urine Appearance (CLEAR) Urine pH (5-7) Ur Specific Gravit y (1.005-1.030) Urine Protein (Negative) Urine Glucose (UA) (Normal) Urine Ketones (Negative) Urine Blood (Negative) Urine Nitrate (Negative) Urine Bilirubin (Negative) Urine Urobilinogen (Negative) mg/dL Ur Leukocyte Mere ase (Negative) Urine RBC (0-2) /hpf Urine WBC (0-5) /hpf Ur Squamous Epith Cells (0-5) /hpf Amorphous Sediment /hpf Urine Bacteria (NONE) /hpf Blood Type Rho(D) Type Antibody Screen Crossmatch 02/10/21 02/10/21 02/10/21 Range/Units 19:34 19:34 21:05 WBC (4.0-10.0) 10^3/ uL RBC (4.1-5.3) 10^6/u L Hgb (11.7-16.6) g/dL Hct (42.0-52.0) % MCV (80-94) fl MCH (28.0-34.0) pg MCHC (30.0-36.0) g/dL RDW (12.1-15.1) % Plt Count (130-400) 10^3/c mm MPV (7.4-10.4) fL Neut % (Auto) % Lymph % (Auto) % [place] % (Auto) % Eos % (Auto) % Baso % (Auto) % Neut # (Auto) (1.8-7.7) 10^3/u L Lymph # (Auto) (0.8-4.8) 10^3/u L [place] # (Auto) (0.2-0.9) 10^3/u L Eos # (Auto) (0.0-0.8) 10^3/u L Baso # (Auto) (0.0-0.1) 10^3/u L Nucleated RBC % (a uto) % Nucleated RBCs # /100WBC D-Dimer Sodium (136-145) mmol/L Potassium (3.5-5.1) mmol/L Chloride (98-107) mmol/L Carbon Dioxide (22-29) mmol/L Anion Gap (5-19) BUN (8-23) mg/dL Creatinine (0.7-1.2) mg/dL GFR Calculation Glucose (65-115) mg/dL Calculated Osmolal ity (285-295) mOsm/k g Lactic Acid 0.6 (0.5-2.2) mmol/L Calcium (8.5-10.5) mg/dL Total Bilirubin (0.15-1.2) mg/dL AST (0-40) U/L ALT (0-41) U/L Alkaline Phosphata se (40-130) IU/L Troponin T Baselin e 159 H* (0-15) ng/L Troponin T 120 Min [place] 154.1 H (0-15) ng/L Delta Troponin T -4.9 L (0-10) ABS# Total Protein (6.6-8.7) g/dL Albumin (3.5-5.2) g/dL Globulin (1.3-4.6) g/dL Lipase (13-60) U/L Procalcitonin (0-0.5) ng/mL Urine Color (Yellow) Urine Appearance (CLEAR) Urine pH (5-7) Ur Specific Gravit y (1.005-1.030) Urine Protein (Negative) Urine Glucose (UA) (Normal) Urine Ketones (Negative) Urine Blood (Negative) Urine Nitrate (Negative) Urine Bilirubin (Negative) Urine Urobilinogen (Negative) mg/dL Ur Leukocyte Mere ase (Negative) Urine RBC (0-2) /hpf Urine WBC (0-5) /hpf Ur Squamous Epith Cells (0-5) /hpf Amorphous Sediment /hpf Urine Bacteria (NONE) /hpf Blood Type Rho(D) Type Antibody Screen Crossmatch 02/10/21 02/10/21 Range/Units 21:05 21:21 WBC (4.0-10.0) 10^3/ uL RBC (4.1-5.3) 10^6/u L Hgb (11.7-16.6) g/dL Hct (42.0-52.0) % MCV (80-94) fl MCH (28.0-34.0) pg MCHC (30.0-36.0) g/dL RDW (12.1-15.1) % Plt Count (130-400) 10^3/c mm MPV (7.4-10.4) fL Neut % (Auto) % Lymph % (Auto) % [place] % (Auto) % Eos % (Auto) % Baso % (Auto) % Neut # (Auto) (1.8-7.7) 10^3/u L Lymph # (Auto) (0.8-4.8) 10^3/u L [place] # (Auto) (0.2-0.9) 10^3/u L Eos # (Auto) (0.0-0.8) 10^3/u L Baso # (Auto) (0.0-0.1) 10^3/u L Nucleated RBC % (a uto) % Nucleated RBCs # /100WBC D-Dimer Sodium (136-145) mmol/L Potassium (3.5-5.1) mmol/L Chloride (98-107) mmol/L Carbon Dioxide (22-29) mmol/L Anion Gap (5-19) BUN (8-23) mg/dL Creatinine (0.7-1.2) mg/dL GFR Calculation Glucose (65-115) mg/dL Calculated Osmolal ity (285-295) mOsm/k g Lactic Acid (0.5-2.2) mmol/L Calcium (8.5-10.5) mg/dL Total Bilirubin (0.15-1.2) mg/dL AST (0-40) U/L ALT (0-41) U/L Alkaline Phosphata se (40-130) IU/L Troponin T Baselin e (0-15) ng/L Troponin T 120 Min [place] (0-15) ng/L Delta Troponin T (0-10) ABS# Total Protein (6.6-8.7) g/dL Albumin (3.5-5.2) g/dL Globulin (1.3-4.6) g/dL Lipase (13-60) U/L Procalcitonin (0-0.5) ng/mL Urine Color Yellow (Yellow) Urine Appearance Clear (CLEAR) Urine pH 5 (5-7) Ur Specific Gravit y 1.010 (1.005-1.030) Urine Protein Trace (Negative) Urine Glucose (UA) Norm (Normal) Urine Ketones Negative (Negative) Urine Blood Trace H (Negative) Urine Nitrate Negative (Negative) Urine Bilirubin Neg (Negative) Urine Urobilinogen Norm (Negative) mg/dL Ur Leukocyte Mere ase Negative (Negative) Urine RBC 0-4 H (0-2) /hpf Urine WBC 0-4 H (0-5) /hpf Ur Squamous Epith Cells 0-4 H (0-5) /hpf Amorphous Sediment 1+ /hpf Urine Bacteria Trace (NONE) /hpf Blood Type O Positive Rho(D) Type Positive Antibody Screen Negative Crossmatch See Detail Imaging Data^: CXR: Attestation: I personally reviewed and interpreted this imaging study as follows: My impression: improved infiltrates Discharge Plan Discharge Patient Disposition: Home Clinical Impression: Dyspnea Anemia Qualifiers: Anemia type: unspecified type Qualified Code(s): D64.9 - Anemia, unspecified Leukocytosis Qualifiers: Leukocytosis type: unspecified Qualified Code(s): D72.829 - Elevated white blood cell count, unspecified Condition: Stable Prescriptions: New doxycycline hyclate 100 mg tablet 100 mg PO BID 7 Days Qty: 14 RF: 0 Continued isosorbide mononitrate 30 mg tablet extended release 24 hr 30 mg PO DAILY Qty: 30 RF: 0 No Action finasteride 5 mg tablet 5 mg PO DAILY RF: 0 Januvia 100 mg tablet 100 mg PO DAILY RF: 0 ezetimibe [Zetia] 10 mg tablet 10 mg PO DAILY RF: 0 glyburide 5 mg tablet See Rx Instructions .ROUTE .COMPLEX RF: 0 amlodipine 5 mg tablet 5 mg PO BID RF: 0 Trulicity 1.5 mg/0.5 mL pen injector 1.5 mg SUBCUT Q7D RF: 0 aspirin [Aspirin Childrens] 81 mg tablet,chewable 81 mg PO BID RF: 0 ferrous sulfate 325 mg (65 mg iron) tablet,delayed release (DR/EC) 325 mg PO TID RF: 0 ascorbic acid (vitamin C) 500 mg capsule 1,000 mg PO DAILY RF: 0 garlic 1,000 mg capsule 1,000 mg PO DAILY RF: 0 montelukast 10 mg tablet 10 mg PO DAILY RF: 0 magnesium oxide 400 mg magnesium capsule 400 mg PO DAILY RF: 0 albuterol sulfate [Ventolin HFA] 90 mcg/actuation HFA aerosol inhaler 2 puff inhalation Q4H PRN (Reason: Shortness Of Breath) RF: 0 nitroglycerin [Nitrostat] 0.4 mg tablet, sublingual 0.4 mg sublingual Q5M PRN (Reason: chest pain) Qty: 25 RF: 3 carvedilol 25 mg tablet 25 mg PO BID RF: 0 furosemide 80 mg tablet 80 mg PO DAILY RF: 0 Hold Instructions: Resume on 02/13/21. omeprazole 20 mg capsule,delayed release(DR/EC) 20 mg PO DAILY RF: 0 zinc 50 mg Tablet 50 mg PO DAILY RF: 0 raymdyicpkwb-kzrvdfvk-qqekgh Tablet 1 tab PO DAILY RF: 0 cholecalciferol (vitamin D3) [Vitamin D3] 125 mcg (5,000 unit) Tablet 125 mcg PO DAILY RF: 0 omega 2-ovz-iit-fish oil [Fish Oil] 1,200 (144-216) mg Capsule 1 cap PO DAILY RF: 0 cyanocobalamin (vitamin B-12) [Vitamin B-12] 5,000 mcg Tablet, Sublingual 5,000 mcg SUBLINGUAL DAILY RF: 0 clonidine HCl 0.1 mg Tablet 0.1 mg PO .IF BP OVER 165/90 RF: 0 Discharge Orders: Discharge ED (Routine); Ordered 02/10/21 Ordered By: Enoc Rodriguez Referrals: Elizabeth Houston MD [Primary Care Provider] - 1-3 days Discharge Diet: Advance as tolerated Discharge Activity: Resume usual activity Patient Instructions: Anemia (ED) Coding Level of Care Code ED Scientific Research Manager for Chg 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
[2021-02-10 20:17] LABS: Alanine Aminotransferase 15 U/L (0-41); Albumin Level 2.8 g/dL (3.5-5.2); Alkaline Phosphatase 78 IU/L (40-130); Anion Gap 19.5 (5-19); Aspartate Amino Transferase 14 U/L (0-40); Blood Urea Nitrogen 75 mg/dL (8-23); Calcium 8.1 mg/dL (8.5-10.5); Carbon Dioxide 21 mmol/L (22-29); Chloride 103 mmol/L (98-107); Globulin 3.3 g/dL (1.3-4.6); Glucose 163 mg/dL (65-115); Lipase 19 U/L (13-60); Osmolality Calculated 314 mOsm/kg (285-295); Potassium 4.5 mmol/L (3.5-5.1); Sodium 139 mmol/L (136-145); Total Bilirubin 0.3 mg/dL (0.15-1.2); Total Protein 6.1 g/dL (6.6-8.7)
[2021-02-10 20:23] LABS: Procalcitonin 0.33 ng/mL (0-0.5)
[2021-02-10 20:53] LABS: Troponin(5th) Baseline 159 ng/L (0-15)
[2021-02-10 21:38] LABS: Troponin 5 2HR 154.1 ng/L (0-15); Troponin 5 2HR Delta -4.9 ABS# (0-10)
[2021-02-10 21:51] LABS: Add Urine Culture? No; Add Urine Microscopic? YES; Amorphous Sediment Urine 1+ /hpf; Bacteria Urine TRACE /hpf; Bilirubin Urine Neg (Negative); Blood Urine Trace (Negative); Glucose Urine UA Norm (Normal); Ketones Urine Negative (Negative); Leukocyte Esterase Urine Negative (Negative); Nitrate Urine Negative (Negative); Protein Urine Trace (Negative); RBC Urine 0-4 /hpf (0-2); Squamous Epithelial Cell Urine 0-4 /hpf (0-5); Urine Appearance Clear (CLEAR); Urine Color Yellow (Yellow); Urobilinogen Urine Norm (Negative); WBC Urine 0-4 /hpf (0-5); pH Urine 5 (5-7)
[2021-02-10 22:52] VITALS: BP 125/67; PULSE 86; RESP 16; TEMP 36.6; O2SAT 98
[2021-02-10 23:07] VITALS: BP 126/61; PULSE 84; RESP 18; TEMP 36.6; O2SAT 96
[2021-02-10 23:37] VITALS: BP 122/71; PULSE 89; RESP 16; TEMP 36.6
[2021-02-10 23:52] VITALS: BP 132/65; PULSE 88; RESP 16; TEMP 36.6; O2SAT 97
[2021-02-11] MEDS: sodium chloride 0.9% (100 ml) 100 ML 10 ML ×2 (00:33→00:40)
[2021-02-11 01:00] VITALS: BP 132/71; PULSE 87; RESP 16; TEMP 36.9; O2SAT 95
[2021-02-11 01:15] VITALS: BP 135/85; PULSE 89; RESP 18; TEMP 36.7
[2021-02-11 01:30] VITALS: BP 135/70; PULSE 91; RESP 18; TEMP 36.8
[2021-02-11 02:00] VITALS: BP 134/66; PULSE 90; RESP 18; TEMP 36.8
[2021-02-11 02:17] VITALS: BP 136/69; PULSE 82; RESP 18; TEMP 36.8; O2SAT 96
[2021-02-11 02:43] VITALS: BP 136/74; PULSE 90; RESP 16; TEMP 36.7; O2SAT 96
== END 2021-02-11 02:44 | disposition home or self-care (01) ==
PROVIDERS: Physician Assistant; Emergency Provider Emergency Medicine; PCP Family Medicine
DX: D64.9 Anemia, unspecified (principal); R06.00 Dyspnea, unspecified; D72.819 Decreased white blood cell count, unspecified; Z79.82 Long term (current) use of aspirin; I13.0 Hypertensive heart and chronic kidney disease with heart failure and stage 1 through stage 4 chronic kidney disease, or unspecified chronic kidney disease; N18.30 Chronic kidney disease, stage 3 unspecified; I50.9 Heart failure, unspecified; Z86.711 Personal history of pulmonary embolism; I25.2 Old myocardial infarction; Z87.891 Personal history of nicotine dependence
CPT/HCPCS: 36415; 36430; 71045; 80053; 81001; 83605; 83690; 84145; 84484; 85025; 86850; 86900; 86920; 87040; 99284; P9016

== ENCOUNTER 2021-02-11 10:08 | Inpatient (IN) | payer MEDICARE, OTHER, SELFPAY ==
[2021-02-11] VITALS (18 sets, daily range): BP systolic 111–145; BP diastolic 57–73; PULSE 67–90; RESP 19–30; TEMP 36.6; O2SAT 91–99; BMI 25.0
--- NOTE | 2021-02-11 10:11 | XRR_ITS ---
PROCEDURE INFORMATION: Exam: XR Chest Exam date and time: 02/11/2021 10:11 AM Age: 85 years old Clinical indication: Other: Altered mental status; Patient HX: PT unable to provide history; Additional info: AMS TECHNIQUE: Imaging protocol: XR of the chest. Views: 1 view. COMPARISON: CR (CHEST, ) 02/10/2021 4:55 PM FINDINGS: Lungs: There are extensive prominent bilateral pulmonary infiltrates greater in the right lung. This has significantly worsened since the previous radiograph. Pleural spaces: Unremarkable. No pleural effusion. No pneumothorax. Heart/Mediastinum: Stable cardiomegaly. Bones/joints: Unremarkable. XR/XR chest 1V portable [id number] IMPRESSION: There has been significant worsening of extensive bilateral pulmonary infiltrates. The findings may be due to worsening pneumonia and/or pulmonary edema from CHF.
--- NOTE | 2021-02-11 10:11 | CT_ITS ---
WS: [id number] CT HEAD TECHNIQUE: Noncontrast CT of the head obtained from the skullbase to the vertex. CLINICAL INFORMATION: AMS COMPARISON: DLP: 1214.[address] scans at [facility] use at least one of these dose optimization techniques: automated e xposure control; mA and/or kV adjustment per patient size (includes targeted exams where dose is matc hed to clinical indication); or iterative reconstruction. FINDINGS: No evidence of intracranial hemorrhage or mass effect. Ventricular system and basal cisterns are michael nt. Moderate small vessel changes with moderate parenchymal volume loss. No extra-axial fluid collect ions. No evidence of mass or mass effect. Normal alvarado-white differentiation. Intracranial vascular ca lcification. Partial opacification of maxillary sinuses with air-fluid levels. Mild mucosal thickening ethmoid air cells. Mastoid air cells well aerated. CT/CT head wo con* [id number] IMPRESSION: 1. No evidence of intracranial hemorrhage or mass effect. 2. Moderate small vessel changes. Moderate parenchymal volume loss. 3. Maxillary sinusitis.
--- NOTE | 2021-02-11 10:12 | ECG_ITS ---
[facility] Test Date: 2021-02-11 Pat Name: Rigo Dejesus Department: Room: Gender: Male Shelver: : 1935 Requested By: Abdoulaye Wasserman Order Number: [id number] Juan A MD: Katherine Dior M.D. Measurements Intervals [place] Rate: 85 P: 41 NM: 250 QRS: 37 QRSD: 105 T: 119 QT: 356 QTc: 426 Interpretive Statements SINUS RHYTHM WITH FIRST DEGREE AV BLOCK LEFT VENTRICULAR HYPERTROPHY AND ST-T CHANGE [VOLTAGE CRITERIA PLUS ST/T ABNORMALITY] Compared to ECG 01/31/2021 19:37:18 First degree AV block now present Left ventricular hypertrophy now present ST (T wave) deviation now present T-wave abnormality no longer present Electronically Signed On 02-13-2021 9:06:26 CDT by Katherine Dior M.D. [id number]
--- NOTE | 2021-02-11 10:14 | ED_ITS ---
HPI - Altered Mental Status General: Chief Complaint: ER Hold Stated Complaint: HYPOXIC Time Seen by Provider: 02/11/21 10:10 History of Present Illness: HPI narrative: Mr. Pedroza is an 85-year-old gentleman with history of anemia, COPD, hypertension, bronchiectasis, and reported history of pneumonia who presents to the emergency department due to altered mental status. He was reportedly in the emergency department last night and recommended to stay however he received 2 units blood transfusion for symptomatic anemia. He was discharged at approximately 3 AM and since that time possibly decompensated. EMS was called approximately 1 hour prior to arrival and found the patient to be hypoxic, they attempted albuterol treatments without significant relief on scene. His room air oxygen saturation was in the 70s. He is currently on nonrebreather mask. Patient appears encephalopathic but does awake to loud verbal stimuli. History is otherwise limited by patient condition including altered mental status and acuity of condition. Review of Systems Narrative: Unable to obtain due to respiratory distress and altered mental status [facility] ED PFSH: Medical History Acute kidney injury superimposed on chronic kidney disease Acute respiratory failure with hypoxia and hypercapnia Anxiety Aortic stenosis Aortic stenosis, moderate Aortic stenosis, severe Bronchiectasis Calcium deficiency CHF (congestive heart failure) Chronic kidney disease, stage 3 unspecified Coagulopathy COVID-19 Dysuria GERD (gastroesophageal reflux disease) Hx pulmonary embolism Hypercholesteremia Hyperkalemia Hypertension Mild intermittent asthma, uncomplicated NSTEMI (non-ST elevated myocardial infarction) Pneumonia Recurrent UTI Renal insufficiency Sepsis Surgical History History of heart artery stent Hx of bilateral cataract extraction Hx of squamous cell carcinoma excision NASAL TIP Social History Smoking and tobacco status: former smoker Quit status (tobacco): has quit using tobacco Year quit tobacco: 1965 - 1.5 PPD x 5 Years Second hand smoke exposure: No Smoking risk assessment/counseling performed?: No Alcohol intake: never Desire information about alcohol rehabilitation?: No Counseling given: No Desire information about substance/drug rehabilitation?: No Counseling given: No Lives independently: Yes Household members: spouse Marital status: service: Yes Current occupational status: retired History of recent travel: No Current gender identity: Male Physical Exam Narrative: EXAM NARRATIVE: GENERAL/CONSTITUTIONAL -markedly ill appearing. Somnolent. Increased respiratory effort and requiring supplemental oxygen Eyes - PERRL, no conjunctival injection ENMT - Atraumatic external nose and ears. Dry mucous membranes NECK - supple. trachea midline CARDIOVASCULAR - regular rate and rhythm. 2+ pitting edema bilateral lower extremities RESPIRATORY -coarse breath sounds to auscultation bilaterally. Mild accessory muscle use ABDOMEN/GI - Nontender, Nondistended. No tenderness to percussion or evidence of peritonitis MSK - Extremities without obvious deformity or tenderness to palpation SKIN - Warm, Dry NEURO - alert to loud voice, requires frequent stimulation to remain awake. No evidence of dysarthria. Patient moves all extremities equally. Course ED course: - Patient was seen and evaluated by me at bedside - Patient placed on cardiac monitors, IV access obtained - Initial evaluation notable for ill appearance, respiratory distress. Initial blood gas notable for pH 7.1, PCO2 73, PO2 on nonrebreather mask and 91.6. patient placed on BiPAP. -Imaging notable for marked increase in interstitial opacities compared to day prior. Patient is rotated somewhat limiting interpretation and skewing ability to interpret if asymmetry present. - Labs notable for leukocytosis, elevated creatinine, elevated BNP - This is a complex patient with significant comorbidities. Though he does have a leukocytosis the patient's procalcitonin is negative. Additionally BNP is elevated and patient is clinically volume overloaded with history of blood transfusion. Working clinical diagnosis of [place] with inability to rule out small component of TRALI. Repeat blood gas improving with correlating improvement in mental status. - Small dose of Lasix ordered and after discussion with nephrology recommends continued diuresis with 40 mg twice daily and titration in the inpatient setting - Upon serial reexamination after treatment the patient was improved though patient remains critically ill - Hospitalist service contacted and after discussion with the hospitalist se brar antibiotics and antifungals ordered. Vital Signs: Vital signs: Vital Signs Temperature 97.8 F 02/11/21 10:59 Pulse Rate 106 H 02/12/21 11:46 Respiratory Rate 18 02/12/21 11:46 Blood Pressure 107/60 02/12/21 08:03 Pulse Oximetry 94 02/12/21 11:46 MDM - Altered Mental Status Lab Data: Labs: Lab Results 02/11/21 02/11/21 02/11/21 Range/Units 10:10 10:15 10:15 WBC 23.9 H (4.0-10.0) 10^3/ uL RBC 3.81 L (4.1-5.3) 10^6/u L Hgb 11.1 L D (11.7-16.6) g/dL Hct 35.0 L D (42.0-52.0) % MCV 91.9 (80-94) fl MCH 29.1 (28.0-34.0) pg MCHC 31.7 (30.0-36.0) g/dL RDW 15.8 H (12.1-15.1) % Plt Count 248 (130-400) 10^3/c mm MPV 11.1 H (7.4-10.4) fL Neut % (Auto) 88.2 % Lymph % (Auto) 2.4 % Taylor % (Auto) 5.9 % Eos % (Auto) 0.1 % Baso % (Auto) 0.3 % Neut # (Auto) 21.12 H (1.8-7.7) 10^3/u L Lymph # (Auto) 0.6 L (0.8-4.8) 10^3/u L Taylor # (Auto) 1.4 H (0.2-0.9) 10^3/u L Eos # (Auto) 0.0 (0.0-0.8) 10^3/u L Baso # (Auto) 0.1 (0.0-0.1) 10^3/u L Nucleated RBC % (a uto) 0 % Nucleated RBCs # 0.0 /100WBC Specimen Type Arterial Sample Site Brachial, right ABG pH 7.10 L* (7.35-7.45) ABG pCO2 73.0 H* (35-45) mmHg ABG pO2 91.6 (80.0-100.0) mmH g ABG HCO3 22.8 (22-26) mmol/L ABG Base Excess -7.5 L (-2.0-2.0) mmol/ L Nico Test N/a Hematocrit 33.4 L (42-52) % O2 Delivery Device Nrb FiO2 % PEEP cmH20 Radiology Aide ID Amh Sodium 138 (136-145) mmol/L Potassium 5.3 H (3.5-5.1) mmol/L Chloride 103 (98-107) mmol/L Carbon Dioxide 22 (22-29) mmol/L Anion Gap 18.3 (5-19) BUN 87 H* (8-23) mg/dL Creatinine 4.2 H (0.7-1.2) mg/dL GFR Calculation Not Reportable Glucose 198 H (65-115) mg/dL POC Glucose (70-110) mg/dL Calculated Osmolal ity 318 H (285-295) mOsm/k g Lactate (0.5-2.2) mmol/L Calcium 8.1 L (8.5-10.5) mg/dL Magnesium 2.2 (1.7-2.3) mg/dL Total Bilirubin 0.2 (0.15-1.2) mg/dL AST 12 (0-40) U/L ALT 14 (0-41) U/L Alkaline Phosphata se 73 (40-130) IU/L Troponin T Baselin e (0-15) ng/L Troponin T 120 Min [place] (0-15) ng/L Delta Troponin T (0-10) ABS# Troponin T Hi Sens 6Hr (0-15) ng/L Troponin T Hi Sens 6Hr Delta (0-12) ng/L C-Reactive Protein 160.1 H (0.0-4.9) mg/L NT-Pro-B Natriuret Pep (0-450) pg/mL Total Protein 6.7 (6.6-8.7) g/dL Albumin 2.6 L (3.5-5.2) g/dL Globulin 4.1 (1.3-4.6) g/dL Procalcitonin 0.39 (0-0.5) ng/mL TSH 0.67 (0.27-4.20) uIU/ mL Urine Color (Yellow) Urine Appearance (CLEAR) Urine pH (5-7) Ur Specific Gravit y (1.005-1.030) Urine Protein (Negative) Urine Glucose (UA) (Normal) Urine Ketones (Negative) Urine Blood (Negative) Urine Nitrate (Negative) Urine Bilirubin (Negative) Urine Urobilinogen (Negative) mg/dL Ur Leukocyte Mere ase (Negative) Urine RBC (0-2) /hpf Urine WBC (0-5) /hpf Ur Squamous Epith Cells (0-5) /hpf Amorphous Sediment Urine Bacteria (NONE) /hpf 02/11/21 02/11/21 02/11/21 Range/Units 10:15 10:15 10:19 WBC (4.0-10.0) 10^3/ uL RBC (4.1-5.3) 10^6/u L Hgb (11.7-16.6) g/dL Hct (42.0-52.0) % MCV (80-94) fl MCH (28.0-34.0) pg MCHC (30.0-36.0) g/dL RDW (12.1-15.1) % Plt Count (130-400) 10^3/c mm MPV (7.4-10.4) fL Neut % (Auto) % Lymph % (Auto) % Taylor % (Auto) % Eos % (Auto) % Baso % (Auto) % Neut # (Auto) (1.8-7.7) 10^3/u L Lymph # (Auto) (0.8-4.8) 10^3/u L Taylor # (Auto) (0.2-0.9) 10^3/u L Eos # (Auto) (0.0-0.8) 10^3/u L Baso # (Auto) (0.0-0.1) 10^3/u L Nucleated RBC % (a uto) % Nucleated RBCs # /100WBC Specimen Type Sample Site ABG pH (7.35-7.45) ABG pCO2 (35-45) mmHg ABG pO2 (80.0-100.0) mmH g ABG HCO3 (22-26) mmol/L ABG Base Excess (-2.0-2.0) mmol/ L Nico Test Hematocrit (42-52) % O2 Delivery Device FiO2 % PEEP cmH20 Radiology Aide ID Sodium (136-145) mmol/L Potassium (3.5-5.1) mmol/L Chloride (98-107) mmol/L Carbon Dioxide (22-29) mmol/L Anion Gap (5-19) BUN (8-23) mg/dL Creatinine (0.7-1.2) mg/dL GFR Calculation Glucose (65-115) mg/dL POC Glucose (70-110) mg/dL Calculated Osmolal ity (285-295) mOsm/k g Lactate 0.7 (0.5-2.2) mmol/L Calcium (8.5-10.5) mg/dL Magnesium (1.7-2.3) mg/dL Total Bilirubin (0.15-1.2) mg/dL AST (0-40) U/L ALT (0-41) U/L Alkaline Phosphata se (40-130) IU/L Troponin T Baselin e 142 H* (0-15) ng/L Troponin T 120 Min [place] (0-15) ng/L Delta Troponin T (0-10) ABS# Troponin T Hi Sens 6Hr (0-15) ng/L Troponin T Hi Sens 6Hr Delta (0-12) ng/L C-Reactive Protein (0.0-4.9) mg/L NT-Pro-B Natriuret Pep 77224 H (0-450) pg/mL Total Protein (6.6-8.7) g/dL Albumin (3.5-5.2) g/dL Globulin (1.3-4.6) g/dL Procalcitonin (0-0.5) ng/mL TSH (0.27-4.20) uIU/ mL Urine Color (Yellow) Urine Appearance (CLEAR) Urine pH (5-7) Ur Specific Gravit y (1.005-1.030) Urine Protein (Negative) Urine Glucose (UA) (Normal) Urine Ketones (Negative) Urine Blood (Negative) Urine Nitrate (Negative) Urine Bilirubin (Negative) Urine Urobilinogen (Negative) mg/dL Ur Leukocyte Mere ase (Negative) Urine RBC (0-2) /hpf Urine WBC (0-5) /hpf Ur Squamous Epith Cells (0-5) /hpf Amorphous Sediment Urine Bacteria (NONE) /hpf 02/11/21 02/11/21 02/11/21 Range/Units 10:20 10:56 11:55 WBC (4.0-10.0) 10^3/ uL RBC (4.1-5.3) 10^6/u L Hgb (11.7-16.6) g/dL Hct (42.0-52.0) % MCV (80-94) fl MCH (28.0-34.0) pg MCHC (30.0-36.0) g/dL RDW (12.1-15.1) % Plt Count (130-400) 10^3/c mm MPV (7.4-10.4) fL Neut % (Auto) % Lymph % (Auto) % Taylor % (Auto) % Eos % (Auto) % Baso % (Auto) % Neut # (Auto) (1.8-7.7) 10^3/u L Lymph # (Auto) (0.8-4.8) 10^3/u L Taylor # (Auto) (0.2-0.9) 10^3/u L Eos # (Auto) (0.0-0.8) 10^3/u L Baso # (Auto) (0.0-0.1) 10^3/u L Nucleated RBC % (a uto) % Nucleated RBCs # /100WBC Specimen Type Arterial Sample Site Brachial, right ABG pH 7.19 L (7.35-7.45) ABG pCO2 58.2 H (35-45) mmHg ABG pO2 76.2 L (80.0-100.0) mmH g ABG HCO3 22.3 (22-26) mmol/L ABG Base Excess -6.2 L (-2.0-2.0) mmol/ L Nico Test N/a Hematocrit 31.7 L (42-52) % O2 Delivery Device Bipap FiO2 40.0 % PEEP 10.0 cmH20 Radiology Aide ID Amh Sodium (136-145) mmol/L Potassium (3.5-5.1) mmol/L Chloride (98-107) mmol/L Carbon Dioxide (22-29) mmol/L Anion Gap (5-19) BUN (8-23) mg/dL Creatinine (0.7-1.2) mg/dL GFR Calculation Glucose (65-115) mg/dL POC Glucose 213 H (70-110) mg/dL Calculated Osmolal ity (285-295) mOsm/k g Lactate (0.5-2.2) mmol/L Calcium (8.5-10.5) mg/dL Magnesium (1.7-2.3) mg/dL Total Bilirubin (0.15-1.2) mg/dL AST (0-40) U/L ALT (0-41) U/L Alkaline Phosphata se (40-130) IU/L Troponin T Baselin e (0-15) ng/L Troponin T 120 Min [place] (0-15) ng/L Delta Troponin T (0-10) ABS# Troponin T Hi Sens 6Hr (0-15) ng/L Troponin T Hi Sens 6Hr Delta (0-12) ng/L C-Reactive Protein (0.0-4.9) mg/L NT-Pro-B Natriuret Pep (0-450) pg/mL Total Protein (6.6-8.7) g/dL Albumin (3.5-5.2) g/dL Globulin (1.3-4.6) g/dL Procalcitonin (0-0.5) ng/mL TSH (0.27-4.20) uIU/ mL Urine Color Yellow (Yellow) Urine Appearance Sl hazy (CLEAR) Urine pH 5 (5-7) Ur Specific Gravit y 1.015 (1.005-1.030) Urine Protein 1+ H (Negative) Urine Glucose (UA) Norm (Normal) Urine Ketones Negative (Negative) Urine Blood Neg (Negative) Urine Nitrate Negative (Negative) Urine Bilirubin Neg (Negative) Urine Urobilinogen Norm (Negative) mg/dL Ur Leukocyte Mere ase Negative (Negative) Urine RBC None (0-2) /hpf Urine WBC None (0-5) /hpf Ur Squamous Epith Cells 0-4 H (0-5) /hpf Amorphous Sediment Not Reportable Urine Bacteria 2+ H (NONE) /hpf 02/11/21 02/11/21 02/11/21 Range/Units 12:59 14:14 16:11 WBC (4.0-10.0) 10^3/ uL RBC (4.1-5.3) 10^6/u L Hgb (11.7-16.6) g/dL Hct (42.0-52.0) % MCV (80-94) fl MCH (28.0-34.0) pg MCHC (30.0-36.0) g/dL RDW (12.1-15.1) % Plt Count (130-400) 10^3/c mm MPV (7.4-10.4) fL Neut % (Auto) % Lymph % (Auto) % Taylor % (Auto) % Eos % (Auto) % Baso % (Auto) % Neut # (Auto) (1.8-7.7) 10^3/u L Lymph # (Auto) (0.8-4.8) 10^3/u L Taylor # (Auto) (0.2-0.9) 10^3/u L Eos # (Auto) (0.0-0.8) 10^3/u L Baso # (Auto) (0.0-0.1) 10^3/u L Nucleated RBC % (a uto) % Nucleated RBCs # /100WBC Specimen Type Arterial Sample Site Brachial, right ABG pH 7.21 L (7.35-7.45) ABG pCO2 52.6 H (35-45) mmHg ABG pO2 80.5 (80.0-100.0) mmH g ABG HCO3 21.1 L (22-26) mmol/L ABG Base Excess -6.7 L (-2.0-2.0) mmol/ L Nico Test N/a Hematocrit 31.2 L (42-52) % O2 Delivery Device Bipap FiO2 40.0 % PEEP 10.0 cmH20 Radiology Aide ID Amh Sodium (136-145) mmol/L Potassium (3.5-5.1) mmol/L Chloride (98-107) mmol/L Carbon Dioxide (22-29) mmol/L Anion Gap (5-19) BUN (8-23) mg/dL Creatinine (0.7-1.2) mg/dL GFR Calculation Glucose (65-115) mg/dL POC Glucose (70-110) mg/dL Calculated Osmolal ity (285-295) mOsm/k g Lactate (0.5-2.2) mmol/L Calcium (8.5-10.5) mg/dL Magnesium (1.7-2.3) mg/dL Total Bilirubin (0.15-1.2) mg/dL AST (0-40) U/L ALT (0-41) U/L Alkaline Phosphata se (40-130) IU/L Troponin T Baselin e (0-15) ng/L Troponin T 120 Min [place] 145.5 H (0-15) ng/L Delta Troponin T 3.5 (0-10) ABS# Troponin T Hi Sens 6Hr 145.9 H (0-15) ng/L Troponin T Hi Sens 6Hr Delta 3.9 (0-12) ng/L C-Reactive Protein (0.0-4.9) mg/L NT-Pro-B Natriuret Pep (0-450) pg/mL Total Protein (6.6-8.7) g/dL Albumin (3.5-5.2) g/dL Globulin (1.3-4.6) g/dL Procalcitonin (0-0.5) ng/mL TSH (0.27-4.20) uIU/ mL Urine Color (Yellow) Urine Appearance (CLEAR) Urine pH (5-7) Ur Specific Gravit y (1.005-1.030) Urine Protein (Negative) Urine Glucose (UA) (Normal) Urine Ketones (Negative) Urine Blood (Negative) Urine Nitrate (Negative) Urine Bilirubin (Negative) Urine Urobilinogen (Negative) mg/dL Ur Leukocyte Mere ase (Negative) Urine RBC (0-2) /hpf Urine WBC (0-5) /hpf Ur Squamous Epith Cells (0-5) /hpf Amorphous Sediment Urine Bacteria (NONE) /hpf EKG Data^: EKG 1: Attestation: I personally reviewed and interpreted this EKG as follows: EKG interpretation date: 02/11/21 EKG interpretation time: 10:20 Prior EKG tracings: available for review Interpretation: Twelve-lead EKG shows a regular sinus rhythm at a rate of 85. FL interval 250, QRS duration 105, QTc 399. Normal axis. Nonspecific ST segment abnormalities. Interpretation: Sinus rhythm. First-degree AV block. Nonspecific ST segment abnormalities. EKG 2: Attestation: I personally reviewed and interpreted this EKG as follows: EKG interpretation date: 02/11/21 EKG interpretation time: 12:03 Prior EKG tracings: available for review Interpretation: Twelve-lead EKG shows a regular sinus rhythm at a rate of 74. FL interval 264, QRS duration 103, QTc 408. Normal axis. Nonspecific ST segment abnormalities. Interpretation: Sinus rhythm. First-degree AV block. Nonspecific ST segment abnormalities. EKG 3: Attestation: I personally reviewed and interpreted this EKG as follows: EKG interpretation date: 02/11/21 EKG interpretation time: 16:00 Prior EKG tracings: available for review Interpretation: Twelve-lead EKG shows a regular sinus rhythm at a rate of 71. FL interval 216, QRS duration 106, QTc 425. Normal axis. Nonspecific ST segment abnormalities. Interpretation: Sinus rhythm. First-degree AV block. Similar to prior. Critical Care Time Critical Care Time: Critical Care Time: Yes Total Critical Care Time: 75 Attestation: Due to a high probability of clinically significant, possibly life threatening deterioration, the patient required my highest level of attention and preparedness to intervene emergently as needed and I personally spent this critical care time directly and personally managing the patient. This critical care time included obtaining a history; examining the patient; pulse oximetry; ordering and review of laboratory and imaging studies; arranging urgent treatment with development of a management plan; evaluation of patient's response to treatment; frequent reassessment; and, discussions with other providers as applicable. Critical care time was exclusive of separately billable procedures. Discharge Plan Discharge Admit Provider: Johnna Kenney Coding Level of Care Code ED Senior Biostatistician/Group Leader for [facility]
[2021-02-11 10:22] LABS: Arterial Blood Gas Hematocrit 33.4 % (42-52); Base Excess ABG -7.5 mmol/L (-2.0-2.0); Blood Gas Operator Identificat AMH; Blood Gas Sample Site Brachial, right; Blood Gas Sample Type Arterial; HCO3 ABG 22.8 mmol/L (22-26); Oxygen Device NRB; PO2 ABG 91.6 mmHg (80.0-100.0)
[2021-02-11 10:23] LABS: Basophils # 0.1 10^3/uL (0.0-0.1); Basophils % 0.3 %; Eosinophils % 0.1 %; Lymphocytes # 0.6 10^3/uL (0.8-4.8); Lymphocytes % 2.4 %; Mean Corpuscular HGB Conc 31.7 g/dL (30.0-36.0); Mean Corpuscular Hemoglobin 29.1 pg (28.0-34.0); Mean Corpuscular Volume 91.9 fl (80-94); Mean Platelet Volume 11.1 fL (7.4-10.4); Monocytes # 1.4 10^3/uL (0.2-0.9); Monocytes % 5.9 %; Neutrophils # 21.12 10^3/uL (1.8-7.7); Neutrophils % 88.2 %; Nucleated Red Blood Cells % 0 %; Platelet Count 248 10^3/cmm (130-400); Red Blood Count 3.81 10^6/uL (4.1-5.3); Red Cell Distribution Width 15.8 % (12.1-15.1); White Blood Count 23.9 10^3/uL (4.0-10.0)
[2021-02-11 10:24] LABS: Glucose Point of Care 213 mg/dL (70-110)
[2021-02-11] MEDS: naloxone 0.4 mg/ml SDV 0.1 MG IVP ×2 (10:24→10:25)
--- NOTE | 2021-02-11 10:25 | PC.NURSE ---
Narcan administered, no improvement, with repeated stimulation pt able to answer this RN and say he hasn't taken any pain medication today.
[2021-02-11 10:41] LABS: Hemoglobin 11.1 g/dL (11.7-16.6)
[2021-02-11 10:50] LABS: Lactate (Lactic Acid level) 0.7 mmol/L (0.5-2.2)
[2021-02-11 10:53] LABS: Troponin(5th) Baseline 142 ng/L (0-15)
[2021-02-11 11:02] LABS: Alanine Aminotransferase 14 U/L (0-41); Albumin Level 2.6 g/dL (3.5-5.2); Alkaline Phosphatase 73 IU/L (40-130); Anion Gap 18.3 (5-19); Aspartate Amino Transferase 12 U/L (0-40); C Reactive Protein 160.1 mg/L (0.0-4.9); Calcium 8.1 mg/dL (8.5-10.5); Carbon Dioxide 22 mmol/L (22-29); Chloride 103 mmol/L (98-107); Globulin 4.1 g/dL (1.3-4.6); Glucose 198 mg/dL (65-115); Magnesium 2.2 mg/dL (1.7-2.3); Osmolality Calculated 318 mOsm/kg (285-295); Potassium 5.3 mmol/L (3.5-5.1); Procalcitonin 0.39 ng/mL (0-0.5); Sodium 138 mmol/L (136-145); Thyroid Stimulating Hormone 0.67 uIU/mL (0.27-4.20); Total Bilirubin 0.2 mg/dL (0.15-1.2); Total Protein 6.7 g/dL (6.6-8.7)
[2021-02-11 11:17] LABS: Blood Urea Nitrogen 87 mg/dL (8-23)
[2021-02-11 11:23] LABS: NT Pro B Type Natriuretic Pept 29077 pg/mL (0-450)
[2021-02-11 11:27] LABS: Add Urine Microscopic? YES; Bilirubin Urine Neg (Negative); Blood Urine Neg (Negative); Glucose Urine UA Norm (Normal); Ketones Urine Negative (Negative); Leukocyte Esterase Urine Negative (Negative); Nitrate Urine Negative (Negative); Protein Urine 1+ (Negative); Specific Gravity, Urine 1.015 (1.005-1.030); Urine Appearance SL Hazy (CLEAR); Urine Color Yellow (Yellow); Urobilinogen Urine Norm (Negative); pH Urine 5 (5-7)
[2021-02-11 11:28] LABS: Add Urine Culture? Yes; Bacteria Urine 2+ /hpf; Squamous Epithelial Cell Urine 0-4 /hpf (0-5)
[2021-02-11] MEDS: FUROsemide 10 mg/mL SDV 4mL 40 MG IVP ×2 (11:50→18:58)
[2021-02-11 12:07] LABS: ABG PCO2 58.2 mmHg (35-45); ABG PH Result 7.19 (7.35-7.45); Arterial Blood Gas Hematocrit 31.7 % (42-52); Base Excess ABG -6.2 mmol/L (-2.0-2.0); Blood Gas Operator Identificat AMH; Blood Gas Sample Site Brachial, right; Blood Gas Sample Type Arterial; HCO3 ABG 22.3 mmol/L (22-26); Oxygen Device BIPAP; PO2 ABG 76.2 mmHg (80.0-100.0)
--- NOTE | 2021-02-11 12:12 | ECG_ITS ---
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 Measurements Intervals [place] Rate: 74 P: 50 [place]: 264 QRS: 43 QRSD: 103 T: 69 QT: 381 QTc: 424 Interpretive Statements SINUS RHYTHM WITH SINUS ARRHYTHMIA WITH FIRST DEGREE AV BLOCK LEFT VENTRICULAR HYPERTROPHY AND ST-T CHANGE [VOLTAGE CRITERIA PLUS ST/T ABNORMALITY] Compared to ECG 02/11/2021 10:15:47 No significant changes Electronically Signed On 02-13-2021 10:41:53 CDT by Katherine Dior M.D. [id number]
[2021-02-11 13:57] LABS: Troponin 5 2HR Delta 3.5 ABS# (0-10)
[2021-02-11 14:13] LABS: Troponin 5 2HR 145.5 ng/L (0-15)
[2021-02-11 14:25] LABS: ABG PCO2 52.6 mmHg (35-45); ABG PH Result 7.21 (7.35-7.45); Arterial Blood Gas Hematocrit 31.2 % (42-52); Base Excess ABG -6.7 mmol/L (-2.0-2.0); Blood Gas Operator Identificat AMH; Blood Gas Sample Site Brachial, right; Blood Gas Sample Type Arterial; HCO3 ABG 21.1 mmol/L (22-26); Oxygen Device BIPAP; PO2 ABG 80.5 mmHg (80.0-100.0)
--- NOTE | 2021-02-11 15:04 | PC.NURSE ---
No acute distress. Continue to monitor
--- NOTE | 2021-02-11 16:00 | PC.NURSE ---
N acute distress. Respiration even and unlabored. Continue to monitor.
--- NOTE | 2021-02-11 16:12 | ECG_ITS ---
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 Measurements Intervals [place] Rate: 71 P: 42 [place]: 216 QRS: 48 QRSD: 106 T: 182 QT: 402 QTc: 439 Interpretive Statements SINUS RHYTHM WITH FIRST DEGREE AV BLOCK LEFT VENTRICULAR HYPERTROPHY AND ST-T CHANGE [VOLTAGE CRITERIA PLUS ST/T ABNORMALITY] Compared to ECG 02/11/2021 11:59:35 Sinus arrhythmia no longer present ST (T wave) deviation still present Electronically Signed On 02-13-2021 10:41:22 CDT by Katherine Dior M.D. [id number]
--- NOTE | 2021-02-11 16:36 | P.HP_ITS ---
Providers/Chief Complaint Primary Care Provider: Elizabeth Houston MD Chief Complaint: HYPOXIC History of Present Illness This will serve as a consult note if patient is transferred to higher level of care Rigo Dejesus is a 85 year old male with a past medical history of moderate aortic valve stenosis, moderate airflow obstruction COPD, systolic and diastolic CHF, s stage IV chronic kidney disease, history of pulmonary embolism not on anticoagulation, recent hospital admission for COVID-19 pneumonia with sepsis with acute hypoxic hypercapnic respiratory failure with NSTEMI, chronic anemia, who presents to [facility] due to complaints of weakness, fatigue, shortness of breath. Of note patient was discharged on 02/06/2021 from [facility] for acute hypoxic respiratory failure secondary to COVID-19 pneumonia, received remdesivir, Decadron, he was also medically managed for NSTEMI, he also had worsening of kidney function, managed with nephrology. According to patient, he really did not get any better since he got to hospital, continue to feel short of breath, weak, fatigued, persistent cough, no comp laints of chest pain. He was found to be anemic he, presented to the emergency room yesterday, hemoglobin 7.1, was transfused 2 units PRBC, admission to the hospital strongly advised, however patient wanted to be discharged home. Patient continued to feel weak, fatigued, tired, continue to feel short of breath so was brought to back to [facility] for further evaluation. Here in [facility] patient was found to have acute hypoxic hypercapnic respiratory failure, ABG on admission pH 7.1, PCO2 73, PO2 91.6, on 10 L nonrebreather, I was told he was quite somnolent. He was transitioned over to BiPAP, repeat ABG shows a pH of 7.21, PCO2 52.6, PO2 80.5 on 40% BiPAP PEEP of 10. Currently patient is alert to person, to place, not to time, he follows some commands, but has episodes of confusion, he has mild respiratory distress, mild intercostal retractions. Review of patient's chest x-ray shows worsening bilateral interstitial infiltrates, pneumonia versus pulmonary edema. Blood pressure 125/63, pulse 67, respiratory 23, 97.8 temperature. White blood cell count 23.9, hemoglobin 11.1, BUN 87, creatinine 4.2 lactate 0.7, baseline troponin 142, EKG shows ST depressions in lateral leads, BNP 19139, CRP 160. Hospitalist team was called for admission However after reviewing the case, I strongly recommend for patient to be managed in the ICU, currently we do not have ICU beds, so I recommend transfer to facility with open ICU beds Acute hypoxic hypercapnic respiratory failure -Recent history of COVID-19 pneumonia, status post Decadron, remdesivir -Is not a candidate for barctinib or Actemra given concerns for secondary bacterial pneumonia and or possible fungal pneumonia -Secondary to pulmonary edema and/or secondary bacterial pneumonia and or for possible fungal pneumonia -I recommend starting broad-spectrum antibiotic therapy, vancomycin, Zosyn, Leva perla -I recommend starting fungal coverage caspofungin -Repeat CT of the chest without contrast -There is a significant risk for pulmonary emboli, however he is anemic, cannot perform a ventilation/perfusion scan or CT angiogram -Would recommend heparin drip for now, monitor hemoglobins every 4 hours, etiology of anemia likely secondary kidney disease, will Hemoccult stool, Protonix, Carafate, monitor hemodynamics closely -Significant component related to pulmonary edema, given systolic and diastolic CHF as above, would recommend a trial of Lasix 40 mg, monitor urine output, monitor creatinine, if hemodynamics tolerate and creatinine tolerates and urine output is not lackluster, can continue Lasix therapy twice daily -Vitamin C, zinc, vitamin D -Decadron -Bilateral extremity ultrasound -DuoNeb treatments, budesonide -However if urine output is lackluster, I would recommend consideration for CRRT -Protonix for GI prophylaxis -Lovenox for DVT prophylaxis Systolic and diastolic CHF -BNP over 29,000 -Treatment as above NSTEMI -Likely supply demand ischemia given acute respiratory failure as above -However cannot rule out underlying cardiac etiology given risk factors and age -Recommend trending troponins, serial EKGs, serial troponins telemetry monitoring -Aspirin, statin, therapeutic Lovenox as above -Last echocardiogram showed a decline in ejection fraction down to 45 to 50%, m ild global hypokinesis Possible COVID-19 related myocarditis, given elevated troponins, echo findings as above -Recommend cardiology consultation 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 -Recommend a trial of Lasix as above given fluid overload -Discussed with nephrology -Consult nephrology Severe aortic stenosis, in the setting of systolic and diastolic CHF -Treatment as above Acute on chronic anemia, status post units PRBC -Likely secondary to acute kidney injury, chronic kidney disease as above -However cannot rule out underlying GI pathology -Monitor hemoglobin, keep hemoglobin greater than 8 -Protonix, Carafate Recommend ICU level of care Review of Systems Const: Reports: fatigue; Denies: fever(s) or chills Card: Reports: edema and lightheadedness; Denies: chest pain Resp: Reports: dyspnea and productive cough GI: Denies: abdominal pain, nausea or vomiting : Denies: flank pain Skin/Breast: Reports: rash Medications/Allergies Home Medications Medication Instructions Recorded Confirmed Last Taken Type amlodipine 5 mg tablet 5 mg PO BID tab 06/12/19 02/11/21 02/10/21 History dulaglutide 1.5 mg/0.5 mL 1.5 mg SUBCUT Q7D 06/12/19 02/11/21 02/06/21 History subcutaneous pen injector ezetimibe 10 mg tablet 10 mg PO DAILY 06/12/19 02/11/21 02/10/21 History finasteride 5 mg tablet 5 mg PO DAILY 06/12/19 02/11/21 02/09/21 History glyburide 5 mg tablet See Rx Instructions .ROUTE 06/12/19 02/11/21 02/09/21 History .COMPLEX tab sitagliptin 100 mg tablet 100 mg PO DAILY 06/12/19 02/11/21 02/10/21 History ascorbic acid (vitamin C) 500 mg 1,000 mg PO DAILY cap 05/14/20 02/11/21 02/10/21 History capsule aspirin 81 mg chewable tablet 81 mg PO BID tab 05/14/20 02/11/21 02/10/21 History garlic 1,000 mg capsule 1,000 mg PO DAILY 05/14/20 02/11/21 02/10/21 History magnesium oxide 400 mg PO DAILY 05/14/20 02/11/21 02/09/21 History montelukast 10 mg tablet 10 mg PO DAILY 05/14/20 02/11/21 02/09/21 History nitroglycerin 0.4 mg sublingual 0.4 mg SUBLINGUAL Q5M PRN #25 tab 10/23/20 02/11/21 Unknown Rx tablet albuterol sulfate 90 mcg/actuation 2 puff INHALATION Q4H PRN 12/25/20 02/11/21 02/10/21 History aerosol inhaler carvedilol 25 mg PO BID 01/29/21 02/11/21 02/10/21 History cholecalciferol (vitamin D3) 125 mcg PO DAILY 01/29/21 02/11/21 02/10/21 History [Vitamin D3] clonidine HCl 0.1 mg PO .IF BP OVER 165/90 01/29/21 02/11/21 Unknown History cyanocobalamin (vitamin B-12) 5,000 mcg SUBLINGUAL DAILY 01/29/21 02/11/21 02/10/21 History [Vitamin B-12] furosemide 40 mg PO DAILY 01/29/21 02/11/21 02/10/21 History hzobsebjhgpf-aelouwmf-uxbskj 1 tab PO DAILY 01/29/21 02/11/21 02/10/21 History omeprazole 20 mg PO DAILY 01/29/21 02/11/21 02/10/21 History zinc 50 mg PO DAILY 01/29/21 02/11/21 02/09/21 History doxycycline hyclate 100 mg PO BID 7 Days #14 tab 02/10/21 02/11/21 Unknown Rx isosorbide mononitrate 30 mg PO DAILY #30 tab 02/10/21 02/11/21 02/09/21 Rx Kyolic 1 tab PO DAILY 02/11/21 02/11/21 02/09/21 History alprazolam 0.25 mg PO Q8H PRN 02/11/21 02/11/21 02/10/21 History ferrous sulfate See Rx Instructions .ROUTE .COMPLEX 02/11/21 02/11/21 02/08/21 History Allergies Allergy/AdvReac Type Severity Reaction Status Date / Time sulfamethoxazole Allergy UNKNOWN Verified 02/11/21 10:11 [From Bactrim] trimethoprim [From Bactrim] Allergy UNKNOWN Verified 02/11/21 10:11 amoxicillin AdvReac ADR-Vomitin Verified 02/11/21 10:11 g PFSH Acute PFSH: Medical History Acute kidney injury superimposed on chronic kidney disease Acute respiratory failure with hypoxia and hypercapnia Anxiety Aortic stenosis Aortic stenosis, moderate Aortic stenosis, severe Bronchiectasis Calcium deficiency CHF (congestive heart failure) Chronic kidney disease, stage 3 unspecified Coagulopathy COVID-19 Dysuria GERD (gastroesophageal reflux disease) Hx pulmonary embolism Hypercholesteremia Hyperkalemia Hypertension Mild intermittent asthma, uncomplicated NSTEMI (non-ST elevated myocardial infarction) Pneumonia Recurrent UTI Renal insufficiency Sepsis Surgical History History of heart artery stent Hx of bilateral cataract extraction Hx of squamous cell carcinoma excision NASAL TIP Social History Smoking and tobacco status: former smoker Quit status (tobacco): has quit using tobacco Year quit tobacco: 1965 - 1.5 PPD x 5 Years Second hand smoke exposure: No Smoking risk assessment/counseling performed?: No Alcohol intake: never Desire information about alcohol rehabilitation?: No Counseling given: No Desire information about substance/drug rehabilitation?: No Counseling given: No Lives independently: Yes Household members: spouse Marital status: service: Yes Current occupational status: retired History of recent travel: No Current gender identity: Male Vitals/I&O/Wt Last Vital Signs Temp 97.8 F 02/11/21 10:59 Pulse 67 02/11/21 15:59 Resp 23 H 02/11/21 15:59 BP 125/63 02/11/21 15:59 Pulse Ox 95 02/11/21 15:59 Weight last 48 hrs Weight 86.183 kg Physical Exam Const: COMMON NORMALS: no acute distress and patient oriented x3 GENERAL APPEARANCE: cooperative, ill appearing and frail appearing ORIENTATION/CONSCIOUSNESS: Yes awake, Yes oriented to person, Yes oriented to place and Yes confused; not oriented to time HENMT: COMMON NORMALS: normocephalic HEAD & SCALP: normocephalic Eye: COMMON NORMALS: Equal, round and reactive pupils present, EOMs intact bilaterally and no papilledema GENERAL EYE: appearance normal, both eyes and all related structures PUPIL: Yes Equal, round and reactive pupils present DIRECT OPHTHALMOSCOPY: Yes no papilledema Neck/C-Spine: COMMON NORMALS: full ROM, no lymphadenopathy, no JVD and Thyroid normal THYROID: Thyroid normal Lymph: LYMPHATIC: no lymphadenopathy noted Resp: COMMON NORMALS: normal respiratory effort, No retractions and clear to auscultation bilaterally EFFORT & INSPECTION: Yes respiratory distress (MILD) and Yes retractions intercostal AUSCULTATION: crackles OTHER: somnolent at times Cardio: COMMON NORMALS: no JVD, regular rate, regular rhythm, S1 normal heart sound present, S2 normal heart sound present, No gallops present (Cardio), No clicks present (Cardio) and No murmurs present (Cardio) RATE: regular rate RHYTHM: regular rhythm HEART SOUNDS: S1 normal heart sound present and S2 normal heart sound present GI: COMMON NORMALS: Normal to inspection, nondistended, normoactive bowel sounds present, Soft to palpation, non-tender and No hepatosplenomegaly present PALPATION: Yes Soft to palpation and Yes No hepatosplenomegaly present Extremity: COMMON NORMALS: normal to inspection, full ROM and no pedal edema Neuro: COMMON NORMALS: moves all extremities OTHER: Does not follow neurologic testing, currently on BiPAP Psych: COMMON NORMALS: mental status grossly normal, Normal thought process present and cooperative THOUGHT PROCESS: Normal thought process present Data : 02/11/21 10:15 02/11/21 10:15 Micro: Microbiology 02/11/21 12:27 Blood Culture - Preliminary Blood SPECIMEN COLLECTED 02/11/21 10:19 Blood Culture - Preliminary Blood SPECIMEN COLLECTED Attestations Medical Necessity Statement*: Recommend transfer to to hospital that has available ICU beds, Coding Level of Care Code Acute Mine Surveyor for Heath Lei
[2021-02-11 16:58] LABS: Troponin 5 6HR Delta 3.9 ng/L (0-12)
--- NOTE | 2021-02-11 17:04 | PC.NURSE ---
Continue to monitor. No acute distress. Waiting for admission orders
[2021-02-11 17:06] LABS: Troponin 5 6HR 145.9 ng/L (0-15)
--- NOTE | 2021-02-11 17:58 | CTR_ITS ---
PROCEDURE INFORMATION: Exam: CT Chest Without Contrast; Diagnostic Exam date and time: 02/11/2021 5:58 PM Age: 85 years old Clinical indication: Shortness of breath; Prior surgery; Surgery type: Stents; Additional info: Hypoxia TECHNIQUE: Imaging protocol: Diagnostic computed tomography of the chest without contrast. Radiation optimization: All CT scans at this facility use at least one of these dose optimization techniques: automated exposure control; mA and/or kV adjustment per patient size (includes targeted exams where dose is matched to clinical indication); or iterative reconstruction. COMPARISON: CT chest [facility] [id number] 01/29/2021 7:50 AM RADIATION DOSE METRICS: Total DLP (mGy-cm): 870.6 FINDINGS: Lungs: Diffuse bilateral nonspecific pulmonary infiltrates are present, right worse than left. Pleural spaces: Small bilateral pleural effusions. Heart: Mild cardiomegaly is noted. Small pericardial effusion noted. Aorta: Atherosclerosis of the thoracic aorta. No aortic aneurysm. Lymph nodes: Nonspecific mediastinal adenopathy noted. Lymph nodes measure up to 10 mm short axis. Gallbladder and bile ducts: Small calcified gallstones in the dependent portion of the gallbladder. No findings of cholecystitis. Bones/joints: Degenerative spine changes are noted. No fracture or other acute osseous abnormality. Soft tissues: The soft tissues appear unremarkable. CT/CT chest [facility] [id number] IMPRESSION: 1. Diffuse bilateral nonspecific pulmonary infiltrates are present, right worse than left. The right-sided infiltrates have worsened when compared to 01/29/2021. The left-sided infiltrates have improved slightly. 2. Small bilateral pleural effusions. Effusions have increased in size when compared to the prior study. 3. Mild cardiomegaly is noted. Small pericardial effusion noted. This is unchanged. Radiation Dose CTDIVOL = (mGy): DLP = 870.6 (mGy-cm)
[2021-02-11] MEDS: piperacillin-tazobactam 3.375 GM in sodium chloride 0.9% (plus) 50 ML IV (18:58)
[2021-02-11] MEDS: sucralfate 1 gm Tablet PO (19:03)
[2021-02-11] MEDS: dexamethasone 10 mg/mL INJ 6 MG IVP (19:05)
[2021-02-11] MEDS: aspirin 81 mg EC Tablet PO (19:06)
[2021-02-11] MEDS: ascorbic acid 500 mg Tablet PO (19:06)
[2021-02-11] MEDS: pantoprazole 40 mg SDV 80 MG IVP (19:07)
[2021-02-11 19:41] LABS: Procalcitonin 0.99 ng/mL (0-0.5); Thyroid Stimulating Hormone 0.57 uIU/mL (0.27-4.20)
[2021-02-11 19:43] LABS: D Dimer 6.46 ug/mIFEU (0-0.59)
[2021-02-11 19:51] LABS: Creatine Phosphokinase 24 U/L (39-308)
[2021-02-11] MEDS: budesonide 0.5 mg/2 mL Neb INHALATION (20:00)
[2021-02-11] MEDS: ipratropium-albuterol 3 mL Neb INHALATION (20:00)
[2021-02-11 21:11] LABS: ABG PCO2 42.1 mmHg (35-45); ABG PH Result 7.29 (7.35-7.45); Arterial Blood Gas Hematocrit 32.6 % (42-52); Base Excess ABG -5.8 mmol/L (-2.0-2.0); Blood Gas Allen Test Pos; Blood Gas Operator Identificat HARKR; Blood Gas Sample Site Radial, right; Blood Gas Sample Type Arterial; HCO3 ABG 20.4 mmol/L (22-26); Oxygen Device BIPAP; PO2 ABG 60.6 mmHg (80.0-100.0)
[2021-02-11] MEDS: vancomycin 1,500 MG/300 ML PIGGYBACK 200 MG IV (21:14)
[2021-02-11 22:06] LABS: Hemoglobin 10.1 g/dL (11.7-16.6)
[2021-02-11 22:41] LABS: Alanine Aminotransferase 12 U/L (0-41); Albumin Level 2.4 g/dL (3.5-5.2); Alkaline Phosphatase 75 IU/L (40-130); Aspartate Amino Transferase 10 U/L (0-40); Calcium 8.3 mg/dL (8.5-10.5); Carbon Dioxide 20 mmol/L (22-29); Chloride 105 mmol/L (98-107); Glucose 178 mg/dL (65-115); Osmolality Calculated 322 mOsm/kg (285-295); Sodium 141 mmol/L (136-145); Total Bilirubin 0.3 mg/dL (0.15-1.2); Total Protein 6.4 g/dL (6.6-8.7)
[2021-02-11 22:44] LABS: Blood Urea Nitrogen 85 mg/dL (8-23)
[2021-02-11] MEDS: atorvastatin 40 mg Tablet PO (23:06)
[2021-02-12] VITALS (18 sets, daily range): BP systolic 107–133; BP diastolic 53–74; PULSE 66–106; RESP 18–29; TEMP 36.7–36.8; O2SAT 90–98
--- NOTE | 2021-02-12 00:20 | PC.NURSE ---
PT C/O PAIN TO COCCYX AND REQUESTING OINTMENT DUE TO A SORE THAT HAS DEVELOPED APPROXIMATELY 3-4 DAYS AGO. ON EXAMINATION, PT FOUND TO HAVE A PALM-SIZED AREA OF ERYTHEMA AND SKIN BREAKDOWN COVERING HIS COCCYX. NO VISIBLE DRAINAGE. AREA CLEANED WITH NS AND HYDROGEN PEROXIDE, ALLOWED TO DRY, AND COVERED WITH 4X4 POLYMEM NON-ADHESIVE PAD AND CLEAR TEGADERM DRESSING. PT REPORTED AREA FELT MUCH BETTER , FOLLOWING WOUND TREATMENT.
[2021-02-12 02:10] LABS: Hemoglobin 9.4 g/dL (11.7-16.6)
[2021-02-12] MEDS: levofloxacin-dextrose 5 % 750 MG/150 ML PREMIX 100 MG IV (03:57)
[2021-02-12 04:06] LABS: ABG PCO2 39.2 mmHg (35-45); ABG PH Result 7.28 (7.35-7.45); Arterial Blood Gas Hematocrit 31.2 % (42-52); Base Excess ABG -8.1 mmol/L (-2.0-2.0); Blood Gas Sample Type Arterial; HCO3 ABG 18.2 mmol/L (22-26); PO2 ABG 98.9 mmHg (80.0-100.0)
[2021-02-12 04:07] LABS: Blood Gas Sample Site Radial, right; Oxygen Device BIPAP
[2021-02-12 04:18] LABS: Basophils % 0.1 %; Hematocrit 30.9 % (42.0-52.0); Hemoglobin 9.7 g/dL (11.7-16.6); Lymphocytes # 0.2 10^3/uL (0.8-4.8); Lymphocytes % 0.8 %; Mean Corpuscular HGB Conc 31.4 g/dL (30.0-36.0); Mean Corpuscular Hemoglobin 29.2 pg (28.0-34.0); Mean Corpuscular Volume 93.1 fl (80-94); Mean Platelet Volume 11.4 fL (7.4-10.4); Monocytes # 0.2 10^3/uL (0.2-0.9); Monocytes % 0.9 %; Neutrophils # 21.72 10^3/uL (1.8-7.7); Neutrophils % 96.4 %; Nucleated Red Blood Cells % 0 %; Platelet Count 204 10^3/cmm (130-400); Red Blood Count 3.32 10^6/uL (4.1-5.3); White Blood Count 22.5 10^3/uL (4.0-10.0)
[2021-02-12] MEDS: heparin 5,000 unit/mL INJ 1 mL IV (04:27)
[2021-02-12 04:37] LABS: INR 1.21 (0.8-1.2)
[2021-02-12] MEDS: heparin drip 25,000 UNIT/500 ML PREMIX 24.13 UNIT IV (04:45)
[2021-02-12 04:46] LABS: D Dimer 7.45 ug/mIFEU (0-0.59)
[2021-02-12 04:47] LABS: Alanine Aminotransferase 11 U/L (0-41); Albumin Level 2.3 g/dL (3.5-5.2); Alkaline Phosphatase 70 IU/L (40-130); Anion Gap 23.2 (5-19); Aspartate Amino Transferase 9 U/L (0-40); Calcium 8.5 mg/dL (8.5-10.5); Carbon Dioxide 19 mmol/L (22-29); Chloride 104 mmol/L (98-107); Globulin 3.8 g/dL (1.3-4.6); Glucose 186 mg/dL (65-115); Osmolality Calculated 323 mOsm/kg (285-295); Potassium 5.2 mmol/L (3.5-5.1); Sodium 141 mmol/L (136-145); Total Bilirubin 0.3 mg/dL (0.15-1.2); Total Protein 6.1 g/dL (6.6-8.7)
[2021-02-12 04:55] LABS: Blood Urea Nitrogen 87 mg/dL (8-23); Phosphorus 7.6 mg/dL (2.5-4.5)
[2021-02-12 04:56] LABS: Partial Thromboplastin Time 37.9 SECONDS (23.9-36.7)
[2021-02-12 04:58] LABS: Procalcitonin 1.59 ng/mL (0-0.5)
[2021-02-12 05:13] LABS: Creatine Phosphokinase 19 U/L (39-308)
[2021-02-12 05:21] LABS: NT Pro B Type Natriuretic Pept 31767 pg/mL (0-450)
[2021-02-12] MEDS: pantoprazole 40 mg SDV IVP ×2 (05:53→18:04)
[2021-02-12] MEDS: FUROsemide 10 mg/mL SDV 4mL 40 MG IVP (05:54)
[2021-02-12 06:36] LABS: Ferritin 646 ng/mL (30-400)
--- NOTE | 2021-02-12 07:00 | XRR_ITS ---
PROCEDURE INFORMATION: Exam: XR Chest Exam date and time: 02/12/2021 7:00 AM Age: 85 years old Clinical indication: Patient HX: Follow up covid, PT states no complaints; Additional info: SOB TECHNIQUE: Imaging protocol: XR of the chest. Views: 1 view. COMPARISON: CT chest con [id number] 02/11/2021 6:43 PM FINDINGS: Lungs: Continued severe right midlung field pneumonia with mild bibasilar pneumonia. Stable COPD . Pleural spaces: Unremarkable. No pleural effusion. No pneumothorax. Heart/Mediastinum: Unremarkable. No cardiomegaly. Bones/joints: Unremarkable. XR/XR chest 1V portable [id number] IMPRESSION: Continued severe right midlung field pneumonia with mild bibasilar pneumonia.
[2021-02-12] MEDS: budesonide 0.5 mg/2 mL Neb INHALATION ×2 (09:01→21:20)
[2021-02-12] MEDS: ipratropium-albuterol 3 mL Neb INHALATION ×4 (09:01→21:20)
[2021-02-12] MEDS: zinc gluconate 50 mg Tablet PO (10:27)
[2021-02-12] MEDS: aspirin 81 mg EC Tablet PO (10:28)
[2021-02-12] MEDS: ascorbic acid 500 mg Tablet PO ×2 (10:28→18:04)
[2021-02-12] MEDS: metOLazone 5 MG Tablet 10 MG PO (10:29)
[2021-02-12] MEDS: sodium bicarbonate 8.4% 1 mEq/mL 50mL Syr 50 MEQ IVP (10:32)
[2021-02-12] MEDS: montelukast sodium 10 mg Tablet PO (10:33)
--- NOTE | 2021-02-12 11:07 | P.CONIM_ITS ---
Providers/Reason For Consult Consulting Physician/Specialty*: Nephro Reason for Consult*: AMBER on CKD Attending Physician: Khadar Mtz MD Primary Care Provider: Elizabeth Houston MD History of Present Illness History of Present Illness Thank for consultation, today I reviewed this very pleasant 85-year-old gentleman whom I met during his recent hospitalization. He was admitted on 01/31 and subsequently discharged 02/06 with Covid pneumonitis complicated by acute kidney injury on chronic kidney disease stage IV. During the hospitalization he did demonstrate marked improvement in his pulmonary status and acute kidney damage was subsequently discharged in stable condition. He now presents again to our facility yesterday with shortness of breath, weakness fatigue, persistent cough, low-grade fever. He was found to have hypoxic hypercapnic respiratory failure, requiring BiPAP. He received intravenous Lasix as well. With this he did get combination antibiotics to include vancomycin, Zosyn, Levaquin and caspofungin. He looks markedly improved this morning. He is currently maintaining his oxygen levels on nasal cannula. He is awake, alert, feels quite well, keen to eat breakfast. His baseline eGFR is 17-20 mL/min and he follows with outpatient manager of environmental services Dr. Allison. On his recent admission, his serum creatinine was 2.7 increasing to a peak of 4.3 and trending down to 3.6 at the time of his discharge. When he presented his creatinine was 4 mg/dL increasing to 4.6 mg/dL today. He has a Barajas catheter in place, the urine appears clear, nonbloody or cloudy. He received intravenous Lasix over the last 24 hours. The I's and O's are not formally recorded, however, we do see 1200 mL of urine in his Barajas catheter bag today. He denies swelling, edema, or shortness of breath while sitting up however he does have some increased shortness of breath while lying flat i.e. classical orthopnea. He denies chest pain, palpitations. Hemodynamics reviewed, remained stable. Review of Systems Narrative: ROS - 12 point review of systems completed per HPI and subjective assessment, this includes Constitutional: No weakness, fatigue Respiratory: No SOB on exertion, comfortable at rest CardioVasc: No chest pain, palpitations Gastrointestinal: No nausea, no vomiting Neurological: No seizures, no AMS Derm: No new rashes, lesions or wounds Immunological: No seasonal and no food allergies Meds/Allergies Home Medications and Allergies Home Medications Medication Instructions Recorded Confirmed Last Taken Type amlodipine 5 mg tablet 5 mg PO BID tab 06/12/19 02/11/21 02/10/21 History dulaglutide 1.5 mg/0.5 mL 1.5 mg SUBCUT Q7D 06/12/19 02/11/21 02/06/21 History subcutaneous pen injector ezetimibe 10 mg tablet 10 mg PO DAILY 06/12/19 02/11/21 02/10/21 History finasteride 5 mg tablet 5 mg PO DAILY 06/12/19 02/11/21 02/09/21 History glyburide 5 mg tablet See Rx Instructions .ROUTE 06/12/19 02/11/21 02/09/21 History .COMPLEX tab sitagliptin 100 mg tablet 100 mg PO DAILY 06/12/19 02/11/21 02/10/21 History ascorbic acid (vitamin C) 500 mg 1,000 mg PO DAILY cap 05/14/20 02/11/21 02/10/21 History capsule aspirin 81 mg chewable tablet 81 mg PO BID tab 05/14/20 02/11/21 02/10/21 History garlic 1,000 mg capsule 1,000 mg PO DAILY 05/14/20 02/11/21 02/10/21 History magnesium oxide 400 mg PO DAILY 05/14/20 02/11/21 02/09/21 History montelukast 10 mg tablet 10 mg PO DAILY 05/14/20 02/11/21 02/09/21 History nitroglycerin 0.4 mg sublingual 0.4 mg SUBLINGUAL Q5M PRN #25 tab 10/23/20 02/11/21 Unknown Rx tablet albuterol sulfate 90 mcg/actuation 2 puff INHALATION Q4H PRN 12/25/20 02/11/21 02/10/21 History aerosol inhaler carvedilol 25 mg PO BID 01/29/21 02/11/21 02/10/21 History cholecalciferol (vitamin D3) 125 mcg PO DAILY 01/29/21 02/11/21 02/10/21 History [Vitamin D3] clonidine HCl 0.1 mg PO .IF BP OVER 165/90 01/29/21 02/11/21 Unknown History cyanocobalamin (vitamin B-12) 5,000 mcg SUBLINGUAL DAILY 01/29/21 02/11/21 02/10/21 History [Vitamin B-12] furosemide 40 mg PO DAILY 01/29/21 02/11/21 02/10/21 History bkqsoybvkbqs-qcyxyaqt-zfpcot 1 tab PO DAILY 01/29/21 02/11/21 02/10/21 History omeprazole 20 mg PO DAILY 01/29/21 02/11/21 02/10/21 History zinc 50 mg PO DAILY 01/29/21 02/11/21 02/09/21 History doxycycline hyclate 100 mg PO BID 7 Days #14 tab 02/10/21 02/11/21 Unknown Rx isosorbide mononitrate 30 mg PO DAILY #30 tab 02/10/21 02/11/21 02/09/21 Rx Kyolic 1 tab PO DAILY 02/11/21 02/11/21 02/09/21 History alprazolam 0.25 mg PO Q8H PRN 02/11/21 02/11/21 02/10/21 History ferrous sulfate See Rx Instructions .ROUTE .COMPLEX 02/11/21 02/11/21 02/08/21 History Allergies Allergy/AdvReac Type Severity Reaction Status Date / Time sulfamethoxazole Allergy UNKNOWN Verified 02/11/21 10:11 [From Bactrim] trimethoprim [From Bactrim] Allergy UNKNOWN Verified 02/11/21 10:11 amoxicillin AdvReac ADR-Vomitin Verified 02/11/21 10:11 g Current Medications Current Medications Generic Name Dose Route Start Last Admin Trade Name Freq PRN Reason Stop Dose Admin Albuterol/Ipratropium 3 ml 02/11/21 20:00 02/12/21 09:01 Ipratropium-Albuterol 3 Ml Neb INHALATION 3 ml QID.RESPIRATORY HAYDEN Administration Ascorbic Acid 500 mg 02/11/21 18:00 02/12/21 10:28 Ascorbic Acid 500 Mg Tablet PO 500 mg BID HAYDEN Administration Aspirin 81 mg 02/11/21 18:00 02/12/21 10:28 Aspirin 81 Mg Ec Tablet PO 81 mg DAILY HAYDEN Administration Atorvastatin Calcium 40 mg 02/11/21 21:00 02/11/21 23:06 Atorvastatin 40 Mg Tablet PO 40 mg BEDTIME HAYDEN Administration Budesonide 0.5 mg 02/11/21 20:00 02/12/21 09:01 Budesonide 0.5 Mg/2 Ml Neb INHALATION 0.5 mg BID.RESPIRATORY HAYDEN Administration Dexamethasone 6 mg 02/11/21 18:00 02/11/21 19:05 Dexamethasone 10 Mg/Ml Inj IVP 6 mg Q24H HAYDEN Administration Furosemide 40 mg 02/11/21 18:00 02/12/21 05:54 Furosemide 10 Mg/Ml Sdv 4ml IVP 40 mg Q12H HAYDEN Administration Heparin Sodium (Beef Lung) 0 unit 02/11/21 17:23 02/12/21 04:27 Heparin 5,000 Unit/Ml Inj 1 Ml IV 4,300 unit PRN PRN Administration Heparin weight-base protocol Protocol Heparin Sodium/Sodium Chloride 25,000 unit in 500 mls @ 0 mls/hr 02/11/21 17:30 02/12/21 09:30 Heparin Drip IV 0 unit/kg/hr .Q0M HAYDEN 0 mls/hr Titration Protocol Per Protocol Imipenem/Cilastatin Sodium 250 100 mls @ 200 mls/hr 02/12/21 03:00 02/12/21 03:32 mg/ Sodium Chloride IV 200 mls/hr Q12H HAYDEN Administration Montelukast Sodium 10 mg 02/12/21 09:00 02/12/21 10:33 Montelukast Sodium 10 Mg Tablet PO 10 mg DAILY HAYDEN Administration Pantoprazole Sodium 40 mg 02/12/21 06:00 02/12/21 05:53 Pantoprazole 40 Mg Sdv IVP 40 mg Q12H HAYDEN Administration Zinc Gluconate 50 mg 02/12/21 09:00 02/12/21 10:27 Zinc Gluconate 50 Mg Tablet PO 50 mg DAILY HAYDEN Administration PFSH Acute PFSH: Medical History Acute kidney injury superimposed on chronic kidney disease Acute respiratory failure with hypoxia and hypercapnia Anxiety Aortic stenosis Aortic stenosis, moderate Aortic stenosis, severe Bronchiectasis Calcium deficiency CHF (congestive heart failure) Chronic kidney disease, stage 3 unspecified Coagulopathy COVID-19 Dysuria GERD (gastroesophageal reflux disease) Hx pulmonary embolism Hypercholesteremia Hyperkalemia Hypertension Mild intermittent asthma, uncomplicated NSTEMI (non-ST elevated myocardial infarction) Pneumonia Recurrent UTI Renal insufficiency Sepsis Surgical History History of heart artery stent Hx of bilateral cataract extraction Hx of squamous cell carcinoma excision NASAL TIP Social History Smoking and tobacco status: former smoker Quit status (tobacco): has quit using tobacco Year quit tobacco: 1965 - 1.5 PPD x 5 Years Second hand smoke exposure: No Smoking risk assessment/counseling performed?: No Alcohol intake: never Desire information about alcohol rehabilitation?: No Counseling given: No Desire information about substance/drug rehabilitation?: No Counseling given: No Lives independently: Yes Household members: spouse Marital status: service: Yes Current occupational status: retired History of recent travel: No Current gender identity: Male Vitals/I&O/Wt Last Vital Signs Temp 97.8 F 02/11/21 10:59 Pulse 101 H 02/12/21 09:02 Resp 18 02/12/21 09:02 BP 107/60 02/12/21 08:03 Pulse Ox 94 02/12/21 09:02 02/11/21 02/12/21 02/12/21 22:59 06:59 14:59 Intake Total 350 / 350 250 / 600 114.618 / 114.618 Balance 350 / 350 250 / 600 114.618 / 114.618 Weight last 48 hrs Weight 86.183 kg Physical Exam Narrative: EXAM NARRATIVE: Constitutional: Awake, comfortable HEENT: Wet mucosa, no jvp, non icteric Lungs: Bilaterally clear without discernible wheeze, rales in all lung zones CVS: S1 S2, no murmurs Abdo: Soft, BS ok Ext 4: Minimal edema, peripheral perfusion with no cyanosis Neurological: Grossly non-focal Urinary Catheter Management^: Barajas: Cath Placed During This Visit: yes Reason for Continuing Indwelling Catheter: Accurate Measurement of Urinary Output in Critically Ill Patients Urinary Catheter Date of Insertion: 02/11/21 Data Micro: Micro: Microbiology 02/11/21 10:19 Blood Culture - Pr eliminary Blood NEGATIVE TO MICHEAL E 02/11/21 10:56 Urine Culture - Pr eliminary Urine,Clean Catch 02/11/21 12:27 Blood Culture - Pr eliminary Blood SPECIMEN COLLEC SHALONDA A&P Additional A&P Information 1. Acute on chronic kidney disease Baseline serum creatinine roughly 3 mg/dL now up to 4.6 mg/dL although he does have a robust urine output. Acute kidney injury, likely secondary to infection mediated acute tubular injury, possible cardiorenal syndrome physiology as well. Clinically he looks euvolemic at this time, will defer for the Lasix dosing however will make daily evaluation for additional diuretic dosing. No indication for hemodialysis today, however, he is at risk of this of needing this in the next 24-48 hours. We will do a limited evaluation to include bedside bladder scan by RN Urinalysis, fractional excretion of sodium will be requested, will get CPK Dose medication for GFR less than 15 Avoid usual nephrotoxic agents I's and O's 2. Shortness of breath and weakness Chest x-ray demonstrates right middle lobe pneumonia consistent with healthcare acquired pneumonia in the setting of recent Covid pneumonitis. Currently on combination antibiotics per Dr. Mtz Currently receiving nasal cannula to maintain oxygen levels Required BiPAP for the last 24 hours, low threshold for resuming BiPAP if necessary. 3. Chemistry Relatively minor noncritical biochemical aberration to include mild hyperkalemia, acidosis. No need to actively treat these, will continue to monitor closely. Thank you for consultation, as always it is a pleasure for our team to follow these cases with you Albin Strickland MD Nephrology [phone] Patient seen and examined via telemedicine, with the assistance of the bedside RN > 25 min spent in evaluation and mgmt of patient Coding Level of Care Code Acute Paper Twister for [facility] Lei
[2021-02-12 11:23] LABS: Hemoglobin 9.4 g/dL (11.7-16.6)
[2021-02-12 14:49] LABS: Hemoglobin 9.1 g/dL (11.7-16.6)
--- NOTE | 2021-02-12 16:22 | PM.PN ---
Subjective Subjective: Interval history: This morning patient was examined, he sitting up in bed, on 4 L nasal cannula, he is alert oriented x3, he tells me that what brought him to the hospital was worsening shortness of breath, and he felt weak, no fevers, but had a persistent cough, he thinks he has recurrent pneumonia, no flank pain, no dysuria Vitals/I&O/Wt Last Vital Signs Temp 97.8 F 02/11/21 10:59 Pulse 97 02/12/21 15:18 Resp 22 H 02/12/21 15:18 BP 123/67 02/12/21 13:14 Pulse Ox 93 02/12/21 15:18 02/12/21 02/12/21 02/12/21 06:59 14:59 22:59 Intake Total 350 / 700 114.618 / 114.618 Output Total 1200 / 1200 Balance 350 / 700 -1085.382 / -1085.382 Weight last 48 hrs Weight 86.183 kg Physical Exam Const: COMMON NORMALS: no acute distress and patient oriented x3 GENERAL APPEARANCE: frail appearing ORIENTATION/CONSCIOUSNESS: Yes awake, Yes oriented to person, Yes oriented to place and Yes oriented to time HENMT: COMMON NORMALS: normocephalic HEAD & SCALP: normocephalic Resp: COMMON NORMALS: normal respiratory effort, No retractions, No use of accessory muscles and clear to auscultation bilaterally AUSCULTATION: clear to auscultation bilaterally Cardio: COMMON NORMALS: regular rate, regular rhythm, S1 normal heart sound present and S2 normal heart sound present RATE: regular rate RHYTHM: regular rhythm HEART SOUNDS: S1 normal heart sound present and S2 normal heart sound present GI: COMMON NORMALS: Normal to inspection, nondistended, normoactive bowel sounds present, Soft to palpation and non-tender PALPATION: Yes Soft to palpation Extremity: COMMON NORMALS: no pedal edema Neuro: COMMON NORMALS: patient oriented x3 SENSORIUM/ORIENTATION: Yes oriented to person, Yes oriented to place and Yes oriented to time Psych: COMMON NORMALS: mental status grossly normal Urinary Catheter Management^: Barajas: Cath Placed During This Visit: yes Reason for Continuing Indwelling Catheter: Accurate Measurement of Urinary Output in Critically Ill Patients Urinary Catheter Date of Insertion: 02/11/21 Data : 02/12/21 14:25 02/12/21 04:10 Micro: Microbiology 02/11/21 12:27 Blood Culture - Preliminary Blood NEGATIVE TO DATE 02/11/21 10:56 Bacterial Antigens - Final Urine,Voided 02/11/21 10:19 Blood Culture - Preliminary Blood NEGATIVE TO DATE 02/11/21 10:56 Urine Culture - Preliminary Urine,Clean Catch A&P Assessment and plan (1) Acute on chronic respiratory failure with hypoxia and hypercapnia: -Recent history of COVID-19 pneumonia, status post Decadron, remdesivir -Is not a candidate for barctinib or Actemra given concerns for secondary bacterial pneumonia and or possible fungal pneumonia -Secondary to pulmonary edema and/or secondary bacterial pneumonia and or for possible fungal pneumonia -This morning looking significantly better, on 3 to 4 L nasal cannula -CT of the chest shows: 1. Diffuse bilateral nonspecific pulmonary infiltrates are present, right worse than left. The right-sided infiltrates have worsened when compared to 01/29/2021. The left-sided infiltrates have improved slightly. 2. Small bilateral pleural effusions. Effusions have increased in size when compared to the prior study. 3. Mild cardiomegaly is noted. Small pericardial effusion noted. This is unchanged. -Continue broad-spectrum antibiotic therapy, vancomycin, Zosyn, Levaquin -Continue caspofungin -Bilateral venous ultrasound negative for DVT, CT angiogram could not be performed given creatinine, he is anemic, hemoglobin as low as 7.1, he is tolerated heparin drip well, hemoglobin the low-dose of 9.1, but I think currently his risk of pulmonary emboli is fairly low, will discontinue heparin drip -Hemoccult stool, Protonix, Carafate, monitor hemodynamics closely for anemia -Significant component related to pulmonary edema, given systolic and diastolic CHF as above, has responded quite well to Lasix therapy, looks quite euvolemic, hold Lasix therapy -Vitamin C, zinc, vitamin D -Decadron -DuoNeb treatments, budesonide -Protonix for GI prophylaxis -Lovenox for DVT prophylaxis Systolic and diastolic CHF -BNP over 29,000 -Has responded well to Lasix therapy, currently looks euvolemic, hold off on further Lasix therapy NSTEMI -Baseline troponin I 42, 6-hour 145, delta 3.9 -Likely supply demand ischemia given acute respiratory failure as above -However cannot rule out underlying cardiac etiology given risk factors and age -Recommend trending troponins, serial EKGs, serial troponins telemetry monitoring -Aspirin, statin -Last echocardiogram showed a decline in ejection fraction down to 45 to 50%, mild global hypokinesis -Continue to monitor Possible COVID-19 related myocarditis, given elevated troponins, echo findings as above -We'll continue to monitor 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 -Has responded well to Lasix therapy, creatinine 4.6 -Consult nephrology Severe aortic stenosis, in the setting of systolic and diastolic CHF -Treatment as above Acute on chronic anemia, status post units PRBC -Likely secondary to acute kidney injury, chronic kidney disease as above -However cannot rule out underlying GI pathology -Monitor hemoglobin, keep hemoglobin greater than 8 -Protonix, Carafate Plan for today, continue BiPAP during the night, nasal cannula during the day, hold Lasix therapy, continue antibiotic therapy, stop heparin drip, continue inhaler therapy, PT OT Status: Acute (2) Pneumonia: Status: Acute (3) NSTEMI (non-ST elevated myocardial infarction): Status: Acute (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 (5) Acute kidney injury superimposed on CKD: Status: Acute (6) Severe aortic stenosis: Status: Acute (7) Acute on chronic anemia: Status: Acute (8) Leukocytosis: Status: Acute Qualifiers: Leukocytosis type: unspecified Qualified Code(s): D72.829 - Elevated white blood cell count, unspecified (9) COPD (chronic obstructive pulmonary disease): Status: Acute (10) Hypertension: Status: Acute Qualifiers: Hypertension type: essential hypertension Qualified Code(s): I10 - Essential (primary) hypertension Attestations Medical Necessity Statement*: Patient requires hospitalization for acute respiratory failure, CHF, NSTEMI, AMBER, Coding Level of Care Code 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
[2021-02-12] MEDS: dexamethasone 10 mg/mL INJ 6 MG IVP (18:03)
--- NOTE | 2021-02-12 18:03 | USCV_ITS ---
Rigo Dejesus Age: 85 Gender: M : 1935 Exam Date: 02/12/2021 06:20 Ordering Phys: Khadar Mtz MD Technologist: Exam Location: [facility] [place] Indication: EF BP: 110 / 61 HR: 108 Rhythm: Sinus Technical Quality: Adequate MEASUREMENTS (Male / Female) Normal Values 2D ECHO LV Diastolic Diameter PLAX 3.3 cm 4.2 - 5.9 / 3.9 - 5.3 cm LV Systolic Diameter PLAX 3.4 cm IVS Diastolic Thickness 0.9 cm 0.6 - 1.0 / 0.6 - 0.9 cm IVS Systolic Thickness 1.7 cm LVPW Diastolic Thickness 3.1 cm 0.6 - 1.0 / 0.6 - 0.9 cm LVPW Systolic Thickness 1.3 cm LVOT Diameter 2.0 cm LV Ejection Fraction 2D Teich 44.6 % LV Ejection Fraction MOD 2C 64.5 % LV Ejection Fraction 2C AL 63.7 % LA Diameter 3.7 cm FINDINGS Left Ventricle Limited quality echocardiogram because of poor ultrasonic windows. Grossly LV systolic function is normal. Right Ventricle Right Atrium Left Atrium Mitral Valve Aortic Valve Tricuspid Valve Pulmonic Valve Pericardium Aorta CONCLUSIONS Limited quality echocardiogram because of poor ultrasonic windows. Grossly LV systolic function is normal. Baldomero Durant MD (Electronically Signed) Final Date: 12 February 2021 10:21 S
--- NOTE | 2021-02-12 18:03 | USCV_ITS ---
Rigo Dejesus Age: 85 Gender: M : 1935 Exam Date: 02/12/2021 06:31 Ordering Phys: Khadar Mtz MD Technologist: Exam Location: [facility] [place] Indication: BILAT EDEMA PROCEDURES: The venous duplex Doppler examination of both lower extremities was performed in the standard fashion. The following venous structures were evaluated: common femoral vein, profunda vein, proximal portion of the greater saphenous vein, superficial femoral vein, and the popliteal vein. FINDINGS: Normal 2-D Doppler and augmentation and compressibility throughout the lower extremity venous structures. Additional imaging through the proximal calf veins also reveals no thrombus. Limited evaluation of the greater saphenous vein is patent with no thrombus.. THERE IS RT SIDE POP BAKERS CYST CONCLUSIONS No evidence of right lower extremity DVT. No evidence of left lower extremity DVT. Right popliteal cyst measurimg 4.0x1.9cm Davide Encinas MD (Electronically Signed) Final Date: 12 February 2021 09:56 S
[2021-02-12 19:24] LABS: Hemoglobin 9.3 g/dL (11.7-16.6)
[2021-02-12 20:28] LABS: Glucose Point of Care 465 mg/dL (70-110)
[2021-02-12] MEDS: atorvastatin 40 mg Tablet PO (20:38)
[2021-02-12 21:41] LABS: Hemoglobin 9.5 g/dL (11.7-16.6)
[2021-02-12] MEDS: acetaminophen 325 mg Tablet 650 MG PO (23:39)
[2021-02-13] VITALS (14 sets, daily range): BP systolic 112–146; BP diastolic 63–71; PULSE 72–88; RESP 18–22; TEMP 35.9–36.7; O2SAT 95–99
[2021-02-13 02:26] LABS: Basophils % 0.1 %; Hematocrit 27.2 % (42.0-52.0); Hemoglobin 8.8 g/dL (11.7-16.6); Lymphocytes # 0.3 10^3/uL (0.8-4.8); Lymphocytes % 1.4 %; Mean Corpuscular HGB Conc 32.4 g/dL (30.0-36.0); Mean Corpuscular Hemoglobin 28.9 pg (28.0-34.0); Mean Corpuscular Volume 89.2 fl (80-94); Mean Platelet Volume 11.1 fL (7.4-10.4); Monocytes # 0.6 10^3/uL (0.2-0.9); Monocytes % 3.3 %; Neutrophils # 16.89 10^3/uL (1.8-7.7); Neutrophils % 94.2 %; Nucleated Red Blood Cells % 0 %; Platelet Count 222 10^3/cmm (130-400); Red Blood Count 3.05 10^6/uL (4.1-5.3); White Blood Count 17.9 10^3/uL (4.0-10.0)
[2021-02-13 02:40] LABS: INR 1.26 (0.8-1.2)
[2021-02-13 02:42] LABS: Lactate (Lactic Acid level) 1.4 mmol/L (0.5-2.2)
[2021-02-13 02:49] LABS: Alanine Aminotransferase 10 U/L (0-41); Albumin Level 2.3 g/dL (3.5-5.2); Alkaline Phosphatase 78 IU/L (40-130); Anion Gap 21.6 (5-19); Aspartate Amino Transferase 8 U/L (0-40); C Reactive Protein 163.7 mg/L (0.0-4.9); Carbon Dioxide 19 mmol/L (22-29); Chloride 100 mmol/L (98-107); Globulin 3.4 g/dL (1.3-4.6); Glucose 308 mg/dL (65-115); Magnesium 2.3 mg/dL (1.7-2.3); Phosphorus 5.9 mg/dL (2.5-4.5); Potassium 5.6 mmol/L (3.5-5.1); Sodium 135 mmol/L (136-145); Total Bilirubin 0.2 mg/dL (0.15-1.2); Total Protein 5.7 g/dL (6.6-8.7)
[2021-02-13 02:50] LABS: D Dimer 8.99 ug/mIFEU (0-0.59)
[2021-02-13 03:02] LABS: NT Pro B Type Natriuretic Pept 26544 pg/mL (0-450)
[2021-02-13 03:12] LABS: Creatine Phosphokinase 18 U/L (39-308); Ferritin 665 ng/mL (30-400)
[2021-02-13 03:16] LABS: Blood Urea Nitrogen 115 mg/dL (8-23); Osmolality Calculated 328 mOsm/kg (285-295)
--- NOTE | 2021-02-13 05:36 | PC.NURSE ---
Addendum entered by Omayra Pichardo RN 02/13/21 05:38: Patients critical lab results reported to conciliation court judge hospitalists. No orders received. Original Note: Patient AAOx4, resting comfortably throughout shift, BIPAP HS, tolerated well. VSS, patient placed in isolation per protocol. No new events overnight, room clutter free, call light in reach. No needs at this time. WIll report to and handoff patient to oncoming nurse at shift change.
[2021-02-13] MEDS: pantoprazole 40 mg SDV IVP ×2 (05:45→17:10)
[2021-02-13 06:23] LABS: Glucose Point of Care 314 mg/dL (70-110)
--- NOTE | 2021-02-13 07:00 | XR_ITS ---
WS: [id number] Portable AP upright chest, 02/13/2021 Clinical Data: sob Comparison: Portable chest, 02/12/2021. Findings: The dense right upper lobe pulmonary opacity has not changed. There are less dense bilatera l lower lobe pulmonary opacities unchanged. The heart is slightly enlarged. The aortic arch and desce nding aorta show calcification and tortuosity. Monitor leads are on the chest wall. XR/XR chest 1V portable [id number] Impression: 1. No change in bilateral pulmonary opacities consistent with pneumonia. 2. Atherosclerosis and cardiomegaly.
--- NOTE | 2021-02-13 07:34 | P.PN_ITS ---
Subjective Subjective: Interval history: feels better. less sob, still weak. he states that the BiPAP helped. no n/v/f/c/johnson/d Medications: Reviewed: Yes Medication Review Details: Current Medications Acetaminophen (Acetaminophen 325 Mg Tablet) 650 mg PO Q6H PRN PRN Reason: Mild/Mod Pain Or Temp >/= 101 Last Admin: 02/12/21 23:39 Dose: 650 mg Documented by: Albuterol/Ipratropium (Ipratropium-Albuterol 3 Ml Neb) 3 ml INHALATION QID.RESPIRATORY [facility]AYDEN Last Admin: 02/12/21 21:20 Dose: 3 ml Documented by: Ascorbic Acid (Ascorbic Acid 500 Mg Tablet) 500 mg PO BID [facility]DEN Last Admin: 02/12/21 18:04 Dose: 500 mg Documented by: Aspirin (Aspirin 81 Mg Ec Tablet) 81 mg PO DAILY [facility] Last Admin: 02/12/21 10:28 Dose: 81 mg Documented by: Atorvastatin Calcium (Atorvastatin 40 Mg Tablet) 40 mg PO BEDTIME [facility] Last Admin: 02/12/21 20:38 Dose: 40 mg Documented by: Bisacodyl (Bisacodyl 5 Mg Tablet) 10 mg PO DAILY PRN; Protocol PRN Reason: Constipation (see protocol) Budesonide (Budesonide 0.5 Mg/2 Ml Neb) 0.5 mg INHALATION BID.RESPIRATORY [facility]DEN Last Admin: 02/12/21 21:20 Dose: 0.5 mg Documented by: Dexamethasone (Dexamethasone 10 Mg/Ml Inj) 6 mg IVP Q24H [facility] Last Admin: 02/12/21 18:03 Dose: 6 mg Documented by: Dextrose (Dextrose 50% Syringe 50 Ml) 25 ml IVP ONCE PRN; Protocol PRN Reason: hypoglycemia protocol Dextrose (Dextrose 50% Syringe 50 Ml) 50 ml IVP PRN PRN; Protocol PRN Reason: hypoglycemia protocol Furosemide (Furosemide 10 Mg/Ml Sdv 4ml) 40 mg IVP Q12H [facility] Last Admin: 02/12/21 05:54 Dose: 40 mg Documented by: Glucagon (Glucagon 1 Mg/Ml Inj 1 Ml) 1 mg IM ONCE PRN; Protocol PRN Reason: Adult Acute Hypoglycemia Prot. Caspofungin 50 mg/ Sodium (Chloride) 250 mls @ 250 mls/hr IV Q24H [facility] Last Infusion: 02/12/21 22:23 Dose: Infused Documented by: Dextrose (D5w) 500 mls @ 100 mls/hr IV ONCE PRN; Protocol PRN Reason: Adult Acute Hypoglycemia Prot Imipenem/Cilastatin Sodium 250 (mg/ Sodium Chloride) 100 mls @ 200 mls/hr IV Q1 2H [facility] Last Infusion: 02/13/21 02:57 Dose: Infused Documented by: Vancomycin/PEG/NADA/Lysine/Water (Vancocin) 1,250 mg in 250 mls @ 250 mls/hr IV Q48H [facility] Levofloxacin/Dextrose (Levaquin-D5w) 500 mg in 100 mls @ 100 mls/hr IV Q48H [facility] Insulin Aspart (Insulin Aspart 100 Unit/1 Ml) 0 unit SUBCUT TIDWM [facility]; Protocol Insulin Aspart (Insulin Aspart 100 Unit/1 Ml) 0 unit SUBCUT BEDTIME HAYDEN; Prot ocol Last Admin: 02/12/21 21:25 Dose: 8 unit Documented by: Insulin Aspart (Insulin Aspart 100 Unit/1 Ml) 0 unit SUBCUT WM&BEDTIME [facility]; Protocol Last Admin: 02/12/21 20:48 Dose: Not Given Documented by: Lactulose (Lactulose Oral Liq 20 Gm/30 Ml Udc) 10 gm PO DAILY PRN; Protocol PRN Reason: Constipation (see protocol) Montelukast Sodium (Montelukast Sodium 10 Mg Tablet) 10 mg PO DAILY [facility] Last Admin: 02/12/21 10:33 Dose: 10 mg Documented by: Non-Formulary Medication (Cyanocobalamin (Vitamin B-12) [Vitamin B-12]) 5,000 mcg SUBLINGUAL DAILY [facility] Last Admin: 02/12/21 16:04 Dose: Not Given Documented by: Ondansetron HCl (Ondansetron 2 Mg/Ml Sdv 2 Ml) 4 mg IVP Q8H PRN PRN Reason: vomiting, or N/V if npo Pantoprazole Sodium (Pantoprazole 40 Mg Sdv) 40 mg IVP Q12H [facility] Last Admin: 02/13/21 05:45 Dose: 40 mg Documented by: Vitamin D (Cholecalciferol (Vitamin D3) 1,000 Unit Tablet) 1,000 unit PO DAILY [facility] Last Admin: 02/12/21 16:03 Dose: Not Given Documented by: Zinc Gluconate (Zinc Gluconate 50 Mg Tablet) 50 mg PO DAILY [facility] Last Admin: 02/12/21 10:27 Dose: 50 mg Documented by: Vitals/I&O/Wt Last Vital Signs Temp 98.0 F 02/13/21 03:40 Pulse 80 02/13/21 05:12 Resp 18 02/13/21 03:40 BP 112/63 02/13/21 03:40 Pulse Ox 98 02/13/21 05:10 02/12/21 02/13/21 02/13/21 22:59 06:59 14:59 Intake Total 500 / 614.618 100 / 714.618 Output Total 800 / 2000 Balance 500 / -585.382 -700 / -1285.382 Weight last 48 hrs Weight 86.183 kg Physical Exam Narrative: EXAM NARRATIVE: elderly man w/ BIPAP VSS henet- nc/at, eomi, anicteric neck supple lungs ronchi and crackles- poor air movement heart reg abd soft, nt, nd, +BS ext no edema neuro- a,a, o x 3 Urinary Catheter Management^: Barajas: Cath Placed During This Visit: yes Reason for Continuing Indwelling Catheter: Acute Urinary Retention or Obstruction Urinary Catheter Date of Insertion: 02/11/21 Data : 02/13/21 01:55 02/13/21 01:55 Micro: Microbiology 02/12/21 15:20 Gram Stain - Final Sputum - Expectorated Sputum 02/11/21 12:27 Blood Culture - Preliminary Blood NEGATIVE TO DATE 02/11/21 10:56 Bacterial Antigens - Final Urine,Voided 02/11/21 10:19 Blood Culture - Preliminary Blood NEGATIVE TO DATE 02/11/21 10:56 Urine Culture - Preliminary Urine,Clean Catch A&P Additional A&P Information 1. Acute on chronic kidney disease stage 4 Baseline serum creatinine roughly 3 mg/dL now up to 4.6 mg/dL Urinalysis w/ 2+ bact- on abx - await urine electrolytes Dose medication for GFR less than 15 Avoid usual nephrotoxic agents I's and O's - give fluids- if no improvement, may need temp HD- i discussed this w/ pt who understands and consents to hd as needed 2. severe right PNA and recent COVID- wbc improved from 25 to 18, was 10 a week ago on d/c -cont abx - Q bronchospcopy -check vanco levels 3. EF 45- 50% w/ moderate to severe and recent NSTEMI -currently sob from pna, i do not think he is in clinical chf 4. hyperkalemia from AMBER on ckd- give kayexalate 5. anemia- worsened - monitor -no iron w. infection -limit MARLON w/ recent COVID and hypercoaguable state 6. met acidosis from sepsis and renal failure -start bicarb ivf 7. dm control Patient seen and examined via telemedicine, with the assistance of the bedside RN 30 min spent in evaluation and mgmt of patient Attestations Medical Necessity Statement*: amber, ckd stage 4, pna, anemia, hyperkalemia Time Spent in Patient Care: 16 - 35 minutes Coding Level of Care Code Acute Assistive Technology Specialist for Heath Lei
[2021-02-13] MEDS: ipratropium-albuterol 3 mL Neb INHALATION ×4 (08:50→20:40)
[2021-02-13] MEDS: budesonide 0.5 mg/2 mL Neb INHALATION ×2 (08:50→20:40)
[2021-02-13] MEDS: cholecalciferol (vitamin D3) 1,000 unit Tablet 1000 UNIT PO (09:20)
[2021-02-13] MEDS: zinc gluconate 50 mg Tablet PO (09:20)
[2021-02-13] MEDS: aspirin 81 mg EC Tablet PO (09:20)
[2021-02-13] MEDS: montelukast sodium 10 mg Tablet PO (09:20)
[2021-02-13] MEDS: ascorbic acid 500 mg Tablet PO ×2 (09:20→17:10)
[2021-02-13 10:10] LABS: Glucose Point of Care 433 mg/dL (70-110)
[2021-02-13] MEDS: sodium polystyrene sulfonate 15 gm/60 mL Btl 30 GM PO (10:55)
--- NOTE | 2021-02-13 10:56 | PC.NURSE ---
DETEMIR NOT SCANNING-ENETERED MANNUALLY
[2021-02-13 12:30] LABS: Glucose Point of Care 358 mg/dL (70-110)
--- NOTE | 2021-02-13 15:03 | PM.PN ---
Subjective Subjective: Interval history: Patient was seen this morning, he is worried about his elevated blood sugars, he is wondering if he could take his home glyburide, no fevers overnight, no chest pain, his breathing has improved, is on 3 to 4 L nasal cannula Vitals/I&O/Wt Last Vital Signs Temp 96.7 F L 02/13/21 12:00 Pulse 81 02/13/21 12:00 Resp 18 02/13/21 12:00 BP 130/67 02/13/21 12:00 Pulse Ox 97 02/13/21 12:00 02/13/21 02/13/21 02/13/21 06:59 14:59 22:59 Intake Total 100 / 714.618 240 / 240 Output Total 800 / 2000 300 / 300 Balance -700 / -1285.382 -60 / -60 Physical Exam Const: COMMON NORMALS: no acute distress and patient oriented x3 GENERAL APPEARANCE: frail appearing Resp: COMMON NORMALS: normal respiratory effort, No retractions, No use of accessory muscles and clear to auscultation bilaterally AUSCULTATION: clear to auscultation bilaterally Cardio: COMMON NORMALS: regular rate, regular rhythm, S1 normal heart sound present and S2 normal heart sound present RATE: regular rate RHYTHM: regular rhythm HEART SOUNDS: S1 normal heart sound present and S2 normal heart sound present GI: COMMON NORMALS: Normal to inspection, nondistended, normoactive bowel sounds present and Soft to palpation PALPATION: Yes Soft to palpation Extremity: COMMON NORMALS: no pedal edema Neuro: COMMON NORMALS: patient oriented x3 Psych: COMMON NORMALS: mental status grossly normal Urinary Catheter Management^: Barajas: Cath Placed During This Visit: yes Reason for Continuing Indwelling Catheter: Acute Urinary Retention or Obstruction Urinary Catheter Date of Insertion: 02/11/21 Data : 02/13/21 01:55 02/13/21 01:55 Micro: Microbiology 02/11/21 10:56 Urine Culture - Final Urine,Clean Catch 02/12/21 15:20 Gram Stain - Final Sputum - Expectorated Sputum 02/11/21 12:27 Blood Culture - Preliminary Blood NEGATIVE TO DATE 02/11/21 10:56 Bacterial Antigens - Final Urine,Voided 02/11/21 10:19 Blood Culture - Preliminary Blood NEGATIVE TO DATE A&P Assessment and plan (1) Acute on chronic respiratory failure with hypoxia and hypercapnia: -Recent history of COVID-19 pneumonia, status post Decadron, remdesivir -Is not a candidate for barctinib or Actemra given concerns for secondary bacterial pneumonia and or possible fungal pneumonia -Secondary to pulmonary edema and/or secondary bacterial pneumonia and or for possible fungal pneumonia -CT of the chest shows: 1. Diffuse bilateral nonspecific pulmonary infiltrates are present, right worse than left. The right-sided infiltrates have worsened when compared to 01/29/2021. The left-sided infiltrates have improved slightly. 2. Small bilateral pleural effusions. Effusions have increased in size when compared to the prior study. 3. Mild cardiomegaly is noted. Small pericardial effusion noted. This is unchanged. -WBC 17.9, pro-Andrew 1.9, CRP 163 Plan -Continue broad-spectrum antibiotic therapy, vancomycin, Zosyn, Levaquin -Continue caspofungin -Bilateral venous ultrasound negative for DVT, CT angiogram could not be performed given creatinine, he is anemic, hemoglobin as low as 7.1, hemoglobin the low-dose of 9.1, but I think currently his risk of pulmonary emboli is fairly low, heparin drip has been discontinued -Hemoccult stool, Protonix, Carafate, monitor hemodynamics closely for anemia -Significant component related to pulmonary edema, given systolic and diastolic CHF as above, has responded quite well to Lasix therapy, looks quite euvolemic, hold Lasix therapy -Vitamin C, zinc, vitamin D -Decadron -DuoNeb treatments, budesonide -Protonix for GI prophylaxis -Lovenox for DVT prophylaxis Systolic and diastolic CHF -Elevated [place], [address] -Has responded well to Lasix therapy, currently looks euvolemic, hold off on further Lasix therapy NSTEMI -Baseline troponin I 42, 6-hour 145, delta 3.9 -Likely supply demand ischemia given acute respiratory failure as above -However cannot rule out underlying cardiac etiology given risk factors and age -Recommend trending troponins, serial EKGs, serial troponins telemetry monitoring -Aspirin, statin -Last echocardiogram showed a decline in ejection fraction down to 45 to 50%, mild global hypokinesis -Continue to monitor Possible COVID-19 related myocarditis, given elevated troponins, echo findings as above -We'll continue to monitor 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 -Has responded well to Lasix therapy, creatinine 4.9, BUN 115, low bicarb -Currently on bicarb 75 mEq at 100 cc an hour -Consult nephrology Severe aortic stenosis, in the setting of systolic and diastolic CHF -Treatment as above Acute on chronic anemia, status post units PRBC -Likely secondary to acute kidney injury, chronic kidney disease as above -However cannot rule out underlying GI pathology -Monitor hemoglobin, keep hemoglobin greater than 8 -Protonix, Carafate Type 2 diabetes mellitus, elevated blood sugars likely secondary to Decadron -Hold Decadron -Levemir 10 units twice daily -High-dose sliding scale Plan for today, continue BiPAP during the night, nasal cannula during the day, hold Lasix therapy, continue antibiotic therapy, continue inhaler therapy, PT OT, continue bicarb Status: Acute (2) Pneumonia: Status: Acute (3) NSTEMI (non-ST elevated myocardial infarction): Status: Acute (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 (5) Acute kidney injury superimposed on CKD: Status: Acute (6) Severe aortic stenosis: Status: Acute (7) Acute on chronic anemia: Status: Acute (8) Leukocytosis: Status: Acute Qualifiers: Leukocytosis type: unspecified Qualified Code(s): D72.829 - Elevated white blood cell count, unspecified (9) COPD (chronic obstructive pulmonary disease): Status: Acute (10) Hypertension: Status: Acute Qualifiers: Hypertension type: essential hypertension Qualified Code(s): I10 - Essential (primary) hypertension Attestations Medical Necessity Statement*: Patient requires hospitalization for systolic CHF, NSTEMI, AMBER, respiratory failure Coding Level of Care Code Acute Release Manager for [facility] Diagnoses Acute on chronic respiratory failure with hypoxia and hypercapnia J96.21; J96.22 Pneumonia J18.9 NSTEMI (non-ST elevated myocardial infarction) I21.4 Myocarditis due to COVID-19 virus U07.1; I40.0 Acute kidney injury superimposed on CKD N17.9; N18.9 Severe aortic stenosis I35.0 Acute on chronic anemia D64.9 Leukocytosis D72.829 Leukocytosis type: unspecified COPD (chronic obstructive pulmonary disease) J44.9 Hypertension I10 Hypertension type: essential hypertension
--- NOTE | 2021-02-13 15:56 | PC.RESP ---
RT Shift Note Frequent safety and respiratory rounds continue. Orders completed as indicated. Patient monitored pre and post treatments throughout shift. Patient [Did. tolerate treatments appropriately. Condition [.DidNotChange]. Patient and/or patient financial representative educated on respiratory treatment and medications. Patient and/or patient financial representative [VERBALIZED UNDERSTANDING]. Will continue to monitor patient progress.
[2021-02-13] MEDS: heparin 5,000 unit/mL INJ 1 mL 5000 UNIT SUBCUT (17:10)
[2021-02-13 17:33] LABS: Glucose Point of Care 317 mg/dL (70-110)
[2021-02-13 19:27] LABS: Alanine Aminotransferase 12 U/L (0-41); Albumin Level 2.5 g/dL (3.5-5.2); Alkaline Phosphatase 89 IU/L (40-130); Anion Gap 23.9 (5-19); Aspartate Amino Transferase 14 U/L (0-40); Calcium 8.5 mg/dL (8.5-10.5); Carbon Dioxide 18 mmol/L (22-29); Chloride 98 mmol/L (98-107); Glucose 240 mg/dL (65-115); Potassium 4.9 mmol/L (3.5-5.1); Sodium 135 mmol/L (136-145); Total Bilirubin 0.2 mg/dL (0.15-1.2); Total Protein 6.5 g/dL (6.6-8.7)
[2021-02-13 19:45] LABS: Blood Urea Nitrogen 118 mg/dL (8-23); Osmolality Calculated 325 mOsm/kg (285-295)
[2021-02-13] MEDS: atorvastatin 40 mg Tablet PO (20:18)
[2021-02-13] MEDS: vancomycin 1,250 MG/250 ML PIGGYBACK 250 MG IV (20:38)
[2021-02-13 20:58] LABS: Glucose Point of Care 209 mg/dL (70-110)
[2021-02-14] VITALS (14 sets, daily range): BP systolic 123–146; BP diastolic 62–74; PULSE 83–104; RESP 16–20; TEMP 36.2–36.8; O2SAT 94–97
[2021-02-14] MEDS: levofloxacin-dextrose 5 % 500 MG/100 ML PREMIX 100 MG IV (03:07)
[2021-02-14] MEDS: heparin 5,000 unit/mL INJ 1 mL 5000 UNIT SUBCUT ×2 (05:25→18:05)
[2021-02-14] MEDS: pantoprazole 40 mg SDV IVP ×2 (05:25→18:08)
[2021-02-14 06:10] LABS: Basophils % 0.1 %; Hematocrit 28.6 % (42.0-52.0); Hemoglobin 9.3 g/dL (11.7-16.6); Lymphocytes # 0.6 10^3/uL (0.8-4.8); Lymphocytes % 2.8 %; Mean Corpuscular HGB Conc 32.5 g/dL (30.0-36.0); Mean Corpuscular Hemoglobin 28.9 pg (28.0-34.0); Mean Corpuscular Volume 88.8 fl (80-94); Monocytes % 5.2 %; Neutrophils # 18.16 10^3/uL (1.8-7.7); Nucleated Red Blood Cells % 0 %; Platelet Count 235 10^3/cmm (130-400); Red Blood Count 3.22 10^6/uL (4.1-5.3); Red Cell Distribution Width 16.1 % (12.1-15.1)
--- NOTE | 2021-02-14 06:13 | PC.NURSE ---
Patient resting in bed, VSS, no c/o pain throughout shift. Refused repositioning frequently but is requesting to be situated and moved more during the day. No needs at this time. Room clutter free, call light in reach, isolation precautions maintained. Will report and handoff to oncoming nurse at shift change.
[2021-02-14 06:17] LABS: INR 1.14 (0.8-1.2)
[2021-02-14 06:25] LABS: Alanine Aminotransferase 12 U/L (0-41); Albumin Level 2.3 g/dL (3.5-5.2); Alkaline Phosphatase 78 IU/L (40-130); Anion Gap 21.4 (5-19); Aspartate Amino Transferase 12 U/L (0-40); C Reactive Protein 86.9 mg/L (0.0-4.9); Calcium 7.9 mg/dL (8.5-10.5); Carbon Dioxide 20 mmol/L (22-29); Chloride 99 mmol/L (98-107); Globulin 3.6 g/dL (1.3-4.6); Glucose 90 mg/dL (65-115); Osmolality Calculated 314 mOsm/kg (285-295); Phosphorus 6.4 mg/dL (2.5-4.5); Potassium 4.4 mmol/L (3.5-5.1); Sodium 136 mmol/L (136-145); Total Bilirubin 0.2 mg/dL (0.15-1.2); Total Protein 5.9 g/dL (6.6-8.7)
[2021-02-14 06:28] LABS: D Dimer 9.71 ug/mIFEU (0-0.59)
[2021-02-14 06:34] LABS: Glucose Point of Care 93 mg/dL (70-110)
[2021-02-14 06:37] LABS: NT Pro B Type Natriuretic Pept 28792 pg/mL (0-450); Procalcitonin 1.46 ng/mL (0-0.5)
[2021-02-14 06:45] LABS: Blood Urea Nitrogen 104 mg/dL (8-23)
[2021-02-14 06:55] LABS: Creatine Phosphokinase 24 U/L (39-308); Ferritin 511 ng/mL (30-400)
--- NOTE | 2021-02-14 07:00 | XR_ITS ---
WS: [id number] Portable AP upright chest, 02/14/2021 Clinical Data: sob Comparison: Portable chest, 02/13/2021 Findings: The bilateral pulmonary opacities remain the same. Right upper lobe opacity remains dense. The heart is enlarged. The aortic arch and descending thoracic aorta show calcification and tortuosit y. On a true leads are on the chest wall. XR/XR chest 1V portable [id number] Impression: 1. No change in bilateral pulmonary opacities. 2. Atherosclerosis.
[2021-02-14] MEDS: ipratropium-albuterol 3 mL Neb INHALATION ×4 (08:04→20:15)
[2021-02-14] MEDS: budesonide 0.5 mg/2 mL Neb INHALATION ×2 (08:04→20:15)
[2021-02-14] MEDS: cholecalciferol (vitamin D3) 1,000 unit Tablet 1000 UNIT PO (08:44)
[2021-02-14] MEDS: zinc gluconate 50 mg Tablet PO (08:44)
[2021-02-14] MEDS: aspirin 81 mg EC Tablet PO (08:44)
[2021-02-14] MEDS: ascorbic acid 500 mg Tablet PO ×2 (08:44→18:05)
[2021-02-14] MEDS: montelukast sodium 10 mg Tablet PO (08:44)
--- NOTE | 2021-02-14 08:47 | PC.SOCIAL ---
IMM update IMM updated with patient. Verbalized an understanding. Initialled, dated, timed, and placed in chart.
--- NOTE | 2021-02-14 09:26 | PC.SOCIAL ---
IMM update IMM updated with patient. Verbalized an understanding. Initialled, dated, timed, and placed in chart.
[2021-02-14 10:48] LABS: Glucose Point of Care 146 mg/dL (70-110)
--- NOTE | 2021-02-14 12:43 | PM.PN ---
Subjective Subjective: Interval history: Mr. Pedroza feels well today. His breathing is much more comfortable. He is coughing with good sputum production. His energy levels are much better today. He slept well in the night. Passing his urine without obstruction. No extremity edema or other hypervolemic symptoms. No uremic symptoms. Medications: Reviewed: Yes Medication Review Details: Current Medications Acetaminophen (Acetaminophen 325 Mg Tablet) 650 mg PO Q6H PRN PRN Reason: Mild/Mod Pain Or Temp >/= 101 Last Admin: 02/12/21 23:39 Dose: 650 mg Documented by: Albuterol/Ipratropium (Ipratropium-Albuterol 3 Ml Neb) 3 ml INHALATION QID.RESPIRATORY HAYDEN Last Admin: 02/12/21 21:20 Dose: 3 ml Documented by: Ascorbic Acid (Ascorbic Acid 500 Mg Tablet) 500 mg PO BID [facility]DEN Last Admin: 02/12/21 18:04 Dose: 500 mg Documented by: Aspirin (Aspirin 81 Mg Ec Tablet) 81 mg PO DAILY [facility] Last Admin: 02/12/21 10:28 Dose: 81 mg Documented by: Atorvastatin Calcium (Atorvastatin 40 Mg Tablet) 40 mg PO BEDTIME [facility]DEN Last Admin: 02/12/21 20:38 Dose: 40 mg Documented by: Bisacodyl (Bisacodyl 5 Mg Tablet) 10 mg PO DAILY PRN; Protocol PRN Reason: Constipation (see protocol) Budesonide (Budesonide 0.5 Mg/2 Ml Neb) 0.5 mg INHALATION BID.RESPIRATORY HAYDEN Last Admin: 02/12/21 21:20 Dose: 0.5 mg Documented by: Dexamethasone (Dexamethasone 10 Mg/Ml Inj) 6 mg IVP Q24H [facility] Last Admin: 02/12/21 18:03 Dose: 6 mg Documented by: Dextrose (Dextrose 50% Syringe 50 Ml) 25 ml IVP ONCE PRN; Protocol PRN Reason: hypoglycemia protocol Dextrose (Dextrose 50% Syringe 50 Ml) 50 ml IVP PRN PRN; Protocol PRN Reason: hypoglycemia protocol Furosemide (Furosemide 10 Mg/Ml Sdv 4ml) 40 mg IVP Q12H [facility] Last Admin: 02/12/21 05:54 Dose: 40 mg Documented by: Glucagon (Glucagon 1 Mg/Ml Inj 1 Ml) 1 mg IM ONCE PRN; Protocol PRN Reason: Adult Acute Hypoglycemia Prot. Caspofungin 50 mg/ Sodium (Chloride) 250 mls @ 250 mls/hr IV Q24H [facility] Last Infusion: 02/12/21 22:23 Dose: Infused Documented by: Dextrose (D5w) 500 mls @ 100 mls/hr IV ONCE PRN; Protocol PRN Reason: Adult Acute Hypoglycemia Prot Imipenem/Cilastatin Sodium 250 (mg/ Sodium Chloride) 100 mls @ 200 mls/hr IV Q12H [facility] Last Infusion: 02/13/21 02:57 Dose: Infused Documented by: Vancomycin/PEG/NADA/Lysine/Water (Vancocin) 1,250 mg in 250 mls @ 250 mls/hr IV Q48H [facility] Levofloxacin/Dextrose (Levaquin-D5w) 500 mg in 100 mls @ 100 mls/hr IV Q48H [facility] Insulin Aspart (Insulin Aspart 100 Unit/1 Ml) 0 unit SUBCUT TIDWM [facility]DEN; Protocol Insulin Aspart (Insulin Aspart 100 Unit/1 Ml) 0 unit SUBCUT BEDTIME HAYDEN; Protocol Last Admin: 02/12/21 21:25 Dose: 8 unit Documented by: Insulin Aspart (Insulin Aspart 100 Unit/1 Ml) 0 unit SUBCUT WM&BEDTIME [facility]AYDEN; Protocol Last Admin: 02/12/21 20:48 Dose: Not Given Documented by: Lactulose (Lactulose Oral Liq 20 Gm/30 Ml Udc) 10 gm PO DAILY PRN; Protocol PRN Reason: Constipation (see protocol) Montelukast Sodium (Montelukast Sodium 10 Mg Tablet) 10 mg PO DAILY [facility] Last Admin: 02/12/21 10:33 Dose: 10 mg Documented by: Non-Formulary Medication (Cyanocobalamin (Vitamin B-12) [Vitamin B-12]) 5,000 mcg SUBLINGUAL DAILY [facility] Last Admin: 02/12/21 16:04 Dose: Not Given Documented by: Ondansetron HCl (Ondansetron 2 Mg/Ml Sdv 2 Ml) 4 mg IVP Q8H PRN PRN Reason: vomiting, or N/V if npo Pantoprazole Sodium (Pantoprazole 40 Mg Sdv) 40 mg IVP Q12H [facility] Last Admin: 02/13/21 05:45 Dose: 40 mg Documented by: Vitamin D (Cholecalciferol (Vitamin D3) 1,000 Unit Tablet) 1,000 unit PO DAILY [facility] Last Admin: 02/12/21 16:03 Dose: Not Given Documented by: Zinc Gluconate (Zinc Gluconate 50 Mg Tablet) 50 mg PO DAILY [facility] Last Admin: 02/12/21 10:27 Dose: 50 mg Documented by: Vitals/I&O/Wt Last Vital Signs Temp 97.2 F L 02/14/21 11:01 Pulse 91 02/14/21 11:49 Resp 20 H 02/14/21 11:42 BP 125/62 02/14/21 11:01 Pulse Ox 95 02/14/21 11:42 02/13/21 02/14/21 02/14/21 22:59 06:59 14:59 Intake Total 1350 / 1590 1170 / 2760 360 / 360 Output Total 300 / 600 750 / 1350 Balance 1050 / 990 420 / 1410 360 / 360 Physical Exam Narrative: EXAM NARRATIVE: Constitutional: Awake, comfortable HEENT: Wet mucosa, no jvp, non icteric Lungs: Bilaterally clear without discernible wheeze, rales in all lung zones CVS: S1 S2, no murmurs Abdo: Soft, BS ok Ext 4: Minimal edema, peripheral perfusion with no cyanosis Neurological: Grossly non-focal Urinary Catheter Management^: Barajas: Cath Placed During This Visit: yes Reason for Continuing Indwelling Catheter: Acute Urinary Retention or Obstruction Urinary Catheter Date of Insertion: 02/11/21 Data : 02/14/21 05:55 02/14/21 05:55 Micro: Microbiology 02/11/21 10:56 Urine Culture - Final Urine,Clean Catch A&P Additional A&P Information 1. Acute on chronic kidney disease Baseline serum creatinine roughly 3 mg/dL; peaked at 4.6 and now down trending Acute kidney injury, likely secondary to infection mediated acute tubular injury, possible cardiorenal syndrome physiology as well. Clinically he looks euvolemic at this time, will defer for the Lasix dosing however will make daily evaluation for additional diuretic dosing. Dose medication for GFR less than 15 Avoid usual nephrotoxic agents I's and O's 2. Shortness of breath and weakness Chest x-ray demonstrates right middle lobe pneumonia consistent with healthcare acquired pneumonia in the setting of recent Covid pneumonitis. Currently on combination antibiotics per Dr. Mtz 3. Chemistry Relatively minor noncritical biochemical aberration to include mild acidosis. No need to actively treat these, will continue to monitor closely. Thank you for consultation, as always it is a pleasure for our team to follow these cases with you Albin Strickland MD Nephrology [phone] Patient seen and examined via telemedicine, with the assistance of the bedside RN > 25 min spent in evaluation and mgmt of patient Attestations Medical Necessity Statement*: Eval for AMBER Coding Level of Care Code Acute Supervisor Furnace Room for Heath Lei
--- NOTE | 2021-02-14 14:26 | PC.CHAP ---
Pastoral Care Encounter/Spiritual Assessment Type of Contact [] Declined molder operator visit [] Patient/Family/Request visit [] Outpatient visit [xx] Follow-up visit [] Physician referral [] Code/Alert [] Routine visit [] Staff referral [] Actively dying [] Patient sleeping [] Family support [] [] Out of room [] Palliative care [] [] Receiving care in room [] Pre-surgical visit [] Trauma [xx] Long length of stay [] ICU visit [xx] Other: Quarantine precautions in place Relational/Emotional Strength [] Patient feels connected with others/family/visitors/staff [] Distress [] Loneliness/isolation [] Abandonment Spirituality of Patient [] Person of Vanesa [] Attends Moravian of their Vanesa [] Believes in Prayer [] Reads Bible or Buddhism materials [] There are Spiritual issues to be addressed Correctional Supervisor Interventions [] Prayer [] Active listening [] Non-anxious presence [] Spiritual/emotional support [] Crisis/trauma care [] Spiritual counseling [] Bereavement support [] Provided bereavement packet [] Provided Bible/devotional materials [] Provided toy/stuffed animal, coloring book to patient or family member [] Provided Communion [] Anointing/Loris [] Salvation [] Completed spiritual assessment [] Other: Impact on Illness or Injury [] Angry [] Fearful [] Anxious [] Often cries [] Exhaustion [] Unable to work [] Unable to attend sabianism [] Unable to walk/stand [] Unable to read [] Unable to drive [] Unable to eat/drink [] Unable to sleep [] Unable to be with family [] Patient intubated [] Other: Summary Time spent with patient
--- NOTE | 2021-02-14 14:28 | PM.PN ---
Subjective Subjective: Interval history: Patient was seen this morning, he is on 3 L, he work with physical therapy, he tells me he is doing better, no nausea, vomiting, no chest pain, minimal shortness of breath with exertion, afebrile overnight Vitals/I&O/Wt Last Vital Signs Temp 97.2 F L 02/14/21 11:01 Pulse 91 02/14/21 11:49 Resp 20 H 02/14/21 11:42 BP 125/62 02/14/21 11:01 Pulse Ox 95 02/14/21 11:42 02/13/21 02/14/21 02/14/21 22:59 06:59 14:59 Intake Total 1350 / 1590 1170 / 2760 720 / 720 Output Total 300 / 600 750 / 1350 Balance 1050 / 990 420 / 1410 720 / 720 Physical Exam Const: COMMON NORMALS: no acute distress and patient oriented x3 GENERAL APPEARANCE: frail appearing Neck/C-Spine: COMMON NORMALS: no JVD Resp: COMMON NORMALS: normal respiratory effort, No retractions and No use of accessory muscles OTHER: Scattered wheezing Cardio: COMMON NORMALS: no JVD, regular rate, regular rhythm, S1 normal heart sound present and S2 normal heart sound present RATE: regular rate RHYTHM: regular rhythm HEART SOUNDS: S1 normal heart sound present and S2 normal heart sound present GI: COMMON NORMALS: Normal to inspection, nondistended, normoactive bowel sounds present, Soft to palpation and non-tender PALPATION: Yes Soft to palpation Extremity: COMMON NORMALS: no pedal edema Neuro: COMMON NORMALS: patient oriented x3 Psych: COMMON NORMALS: mental status grossly normal Urinary Catheter Management^: Barajas: Cath Placed During This Visit: yes Reason for Continuing Indwelling Catheter: Acute Urinary Retention or Obstruction Urinary Catheter Date of Insertion: 02/11/21 Data : 02/14/21 05:55 02/14/21 05:55 Micro: Microbiology 02/12/21 15:20 Gram Stain - Final Sputum - Expectorated Sputum Sputum Culture - Preliminary Gram Negative Rods 02/11/21 10:56 Urine Culture - Final Urine,Clean Catch A&P Assessment and plan (1) Acute on chronic respiratory failure with hypoxia and hypercapnia: -Recent history of COVID-19 pneumonia, status post Decadron, remdesivir -Is not a candidate for barctinib or Actemra given concerns for secondary bacterial pneumonia and or possible fungal pneumonia -Secondary to pulmonary edema and/or secondary bacterial pneumonia and or for possible fungal pneumonia -CT of the chest shows: 1. Diffuse bilateral nonspecific pulmonary infiltrates are present, right worse than left. The right-sided infiltrates have worsened when compared to 01/29/2021. The left-sided infiltrates have improved slightly. 2. Small bilateral pleural effusions. Effusions have increased in size when compared to the prior study. 3. Mild cardiomegaly is noted. Small pericardial effusion noted. This is unchanged. -White blood cell count has increased to 20, D-dimer 9.71, CRP 86.9, pro-Andrew 1.46, BNP 37076, BUN 104, creatinine 4.8 Plan -Continue broad-spectrum antibiotic therapy, vancomycin, Zosyn, Levaquin -Continue caspofungin -We will consult pulmonary team, possibility of bronchoscopy -Bilateral venous ultrasound negative for DVT, CT angiogram could not be performed given creatinine, he is anemic, hemoglobin as low as 7.1, but I believe currently his risk of pulmonary emboli is fairly low, heparin drip has been discontinued -Hemoccult stool, Protonix, Carafate, monitor hemodynamics closely for anemia -Currently appears euvolemic, although BNP is elevated given systolic and diastolic CHF as above, has responded quite well to Lasix therapy, hold Lasix therapy, +1.5 L -Vitamin C, zinc, vitamin D -Decadron on hold -DuoNeb treatments, budesonide -Protonix for GI prophylaxis -Lovenox for DVT prophylaxis Systolic and diastolic CHF -Elevated BNP, [id number] -Has responded well to Lasix therapy, currently looks euvolemic, hold off on further Lasix therapy NSTEMI -Baseline troponin I 42, 6-hour 145, delta 3.9 -Likely supply demand ischemia given acute respiratory failure as above -However cannot rule out underlying cardiac etiology given risk factors and age -Recommend trending troponins, serial EKGs, serial troponins telemetry monitoring -Aspirin, statin -Last echocardiogram showed a decline in ejection fraction down to 45 to 50%, mild global hypokinesis -Continue to monitor Possible COVID-19 related myocarditis, given elevated troponins, echo findings as above -We'll continue to monitor 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 -Has responded well to Lasix therapy, currently on hold, creatinine 4.8, BUN 104, -Bicarb drip on hold -Consult nephrology Severe aortic stenosis, in the setting of systolic and diastolic CHF -Treatment as above Acute on chronic anemia, status post units PRBC -Likely secondary to acute kidney injury, chronic kidney disease as above -However cannot rule out underlying GI pathology -Monitor hemoglobin, keep hemoglobin greater than 8 -Protonix, Carafate Type 2 diabetes mellitus, elevated blood sugars likely secondary to Decadron -Hold Decadron -Levemir 10 units twice daily -High-dose sliding scale Plan for today, continue BiPAP during the night, nasal cannula during the day, hold Lasix therapy, continue antibiotic therapy, continue inhaler therapy, PT OT, monitor urine output, monitor creatinine, consult pulmonary team Status: Acute (2) Pneumonia: Status: Acute (3) NSTEMI (non-ST elevated myocardial infarction): Status: Acute (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 (5) Acute kidney injury superimposed on CKD: Status: Acute (6) Severe aortic stenosis: Status: Acute (7) Acute on chronic anemia: Status: Acute (8) Leukocytosis: Status: Acute Qualifiers: Leukocytosis type: unspecified Qualified Code(s): D72.829 - Elevated white blood cell count, unspecified (9) COPD (chronic obstructive pulmonary disease): Status: Acute (10) Hypertension: Status: Acute Qualifiers: Hypertension type: essential hypertension Qualified Code(s): I10 - Essential (primary) hypertension Attestations Medical Necessity Statement*: Patient requires hospitalization for acute on chronic respiratory failure with hypoxia and hypercapnia secondary to pneumonia, systolic CHF, with AMBER Coding Level of Care Code Acute Rental Coordinator for [facility] Fwd Diagnoses Acute on chronic respiratory failure with hypoxia and hypercapnia J96.21; J96.22 Pneumonia J18.9 NSTEMI (non-ST elevated myocardial infarction) I21.4 Myocarditis due to COVID-19 virus U07.1; I40.0 Acute kidney injury superimposed on CKD N17.9; N18.9 Severe aortic stenosis I35.0 Acute on chronic anemia D64.9 Leukocytosis D72.829 Leukocytosis type: unspecified COPD (chronic obstructive pulmonary disease) J44.9 Hypertension I10 Hypertension type: essential hypertension
--- NOTE | 2021-02-14 15:10 | PC.NURSE ---
This RN confirms patient received documented care by student nurse.
[2021-02-14 17:12] LABS: Glucose Point of Care 140 mg/dL (70-110)
--- NOTE | 2021-02-14 18:09 | P.CONIM_ITS ---
Providers/Reason For Consult Consulting Physician/Specialty*: Pulmonary and critical care medicine Reason for Consult*: Pneumonia, hypoxic respiratory failure, recent hospitalization with COVID-19 pneumonia, severe aortic stenosis Attending Physician: Khadar Mtz MD Primary Care Provider: Elizabeth Houston MD History of Present Illness History of Present Illness Rigo Dejesus is a 85 year old male who is known to me from his previous office visits. The last time I saw the patient in the office was in December 2020. The patient has moderate airflow obstruction secondary to bronchiectasis. He also has bilateral upper lobe predominant emphysema. There had been recent progression of the bronchiectasis. The etiology of the bronchiectasis was unclear but could have been secondary to smoking. 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 The patient also has severe aortic stenosis. When I last saw him his echocardiogram revealed an aortic valve area of 0.9 cm?. The patient was in the process of undergoing TAVR in [place]. Ejection fraction was 55%. The patient initially presented to the hospital on January 29 with acute hypoxic respiratory failure, bilateral chest infiltrate. The patient was transferred to [facility] from the emergency department. Although the initial SARS-CoV-2 antigen testing was negative, the patient tested positive for COVID- 19 by PCR. The patient was then transferred back to [facility] on January 31 with worsening respiratory status, acute hypoxic and hypercapnic respiratory failure. The patient also developed AMBER on CKD. An echocardiogram obtained on February 01 revealed an ejection fraction of 45 to 50% with mild global hypokinesis. Diastolic dysfunction. The calculated aortic valve area at this time was found to be 0.69 cm?. With a mean aortic valve gradient of 32 mmHg. The patient was treated for COVID-19 with subsequent improvement and the patient was discharged from the hospital on February 06. The patient presented again to the hospital on February 11 with worsening fatigue, weakness and shortness of breath. The patient received 2 unit of blood in the emergency department on February 10 for hemoglobin of 7.1. The patient was again found to be in hypoxic and hypercapnic respiratory failure and was treated with BiPAP. The patient had leukocytosis with a white count of 20,000, chest x-ray revealed bilateral pulmonary infiltrate. With predominant infiltrate on the right upper and midlung zone. There was visible air bronchograms on the right side. There was small right-sided pleural effusion as well. CT scan of the chest on February 11 revealed diffuse bilateral infiltrate, bilateral pleural effusion and small pericardial effusion. His DVT study was negative. The patient had also developed AMBER on CKD with metabolic acidosis. Over the past few days, the patient had been slowly getting better. He is on 3 L oxygen. The patient tells me that he is feeling more comfortable. A bedside ultrasound revealed bilateral B-lines. The patient has small right-sided pleural effusion as well as perihepatic fluid. There is no complexity in the fluid. His IVC diameter is approximately 3 cm with very dilated hepatic veins. When the patient presented to the hospital his creatinine was 4.2 went up to 5.1 on February 13 today it is 4.8. His BUN is more than 100 but downtrending. The patient is broadly covered with imipenem, vancomycin, caspofungin, Levaquin. His sputum culture from February 12 grew gram-negative rods. Review of Systems Narrative: General: No fevers notes Skin: No rash HEENT: No nasal congestion Neck: There is no neck swelling Respiratory: Mild cough with sputum production, no resting shortness of breath Cardiovascular: No chest pain Gastrointestinal: No abdominal pain, nausea, vomiting Musculoskeletal: No joint pain or swelling Neurological: Patient is awake alert and oriented x3, no paralysis, gross motor function is normal. Psychiatric: No anxiety or depression. Meds/Allergies Home Medications and Allergies Home Medications Medication Instructions Recorded Confirmed Last Taken Type amlodipine 5 mg tablet 5 mg PO BID tab 06/12/19 02/11/21 02/10/21 History dulaglutide 1.5 mg/0.5 mL 1.5 mg SUBCUT Q7D 06/12/19 02/11/21 02/06/21 History subcutaneous pen injector ezetimibe 10 mg tablet 10 mg PO DAILY 06/12/19 02/11/21 02/10/21 History finasteride 5 mg tablet 5 mg PO DAILY 06/12/19 02/11/21 02/09/21 History glyburide 5 mg tablet See Rx Instructions .ROUTE 06/12/19 02/11/21 02/09/21 History .COMPLEX tab sitagliptin 100 mg tablet 100 mg PO DAILY 06/12/19 02/11/21 02/10/21 History ascorbic acid (vitamin C) 500 mg 1,000 mg PO DAILY cap 05/14/20 02/11/21 02/10/21 History capsule aspirin 81 mg chewable tablet 81 mg PO BID tab 05/14/20 02/11/21 02/10/21 History garlic 1,000 mg capsule 1,000 mg PO DAILY 05/14/20 02/11/21 02/10/21 History magnesium oxide 400 mg PO DAILY 05/14/20 02/11/21 02/09/21 History montelukast 10 mg tablet 10 mg PO DAILY 05/14/20 02/11/21 02/09/21 History nitroglycerin 0.4 mg sublingual 0.4 mg SUBLINGUAL Q5M PRN #25 tab 10/23/20 02/11/21 Unknown Rx tablet albuterol sulfate 90 mcg/actuation 2 puff INHALATION Q4H PRN 12/25/20 02/11/21 02/10/21 History aerosol inhaler carvedilol 25 mg PO BID 01/29/21 02/11/21 02/10/21 History cholecalciferol (vitamin D3) 125 mcg PO DAILY 01/29/21 02/11/21 02/10/21 History [Vitamin D3] clonidine HCl 0.1 mg PO .IF BP OVER 165/90 01/29/21 02/11/21 Unknown History cyanocobalamin (vitamin B-12) 5,000 mcg SUBLINGUAL DAILY 01/29/21 02/11/21 02/10/21 History [Vitamin B-12] furosemide 40 mg PO DAILY 01/29/21 02/11/21 02/10/21 History yjkqfwkbtlpx-cvgrpgak-gelefj 1 tab PO DAILY 01/29/21 02/11/21 02/10/21 History omeprazole 20 mg PO DAILY 01/29/21 02/11/21 02/10/21 History zinc 50 mg PO DAILY 01/29/21 02/11/21 02/09/21 History doxycycline hyclate 100 mg PO BID 7 Days #14 tab 02/10/21 02/11/21 Unknown Rx isosorbide mononitrate 30 mg PO DAILY #30 tab 02/10/21 02/11/21 02/09/21 Rx Kyolic 1 tab PO DAILY 02/11/21 02/11/21 02/09/21 History alprazolam 0.25 mg PO Q8H PRN 02/11/21 02/11/21 02/10/21 History ferrous sulfate See Rx Instructions .ROUTE .COMPLEX 02/11/21 02/11/21 02/08/21 History Allergies Allergy/AdvReac Type Severity Reaction Status Date / Time sulfamethoxazole Allergy UNKNOWN Verified 02/11/21 10:11 [From Bactrim] trimethoprim [From Bactrim] Allergy UNKNOWN Verified 02/11/21 10:11 amoxicillin AdvReac ADR-Vomitin Verified 02/11/21 10:11 g Current Medications Current Medications Generic Name Dose Route Start Last Admin Trade Name Freq PRN Reason Stop Dose Admin Acetaminophen 650 mg 02/11/21 18:03 02/12/21 23:39 Acetaminophen 325 Mg Tablet PO 650 mg Q6H PRN Administration Mild/Mod Pain Or Temp >/= 101 Albuterol/Ipratropium 3 ml 02/11/21 20:00 02/14/21 16:16 Ipratropium-Albuterol 3 Ml Neb INHALATION 3 ml QID.RESPIRATORY HAYDEN Administration Ascorbic Acid 500 mg 02/11/21 18:00 02/14/21 08:44 Ascorbic Acid 500 Mg Tablet PO 500 mg BID HAYDEN Administration Aspirin 81 mg 02/11/21 18:00 02/14/21 08:44 Aspirin 81 Mg Ec Tablet PO 81 mg DAILY HAYDEN Administration Atorvastatin Calcium 40 mg 02/11/21 21:00 02/13/21 20:18 Atorvastatin 40 Mg Tablet PO 40 mg BEDTIME HAYDEN Administration Budesonide 0.5 mg 02/11/21 20:00 02/14/21 08:04 Budesonide 0.5 Mg/2 Ml Neb INHALATION 0.5 mg BID.RESPIRATORY HAYDEN Administration Heparin Sodium (Beef Lung) 5,000 unit 02/13/21 18:00 02/14/21 05:25 Heparin 5,000 Unit/Ml Inj 1 Ml SUBCUT 5,000 unit Q12H HAYDEN Administration Imipenem/Cilastatin Sodium 250 100 mls @ 200 mls/hr 02/12/21 03:00 02/14/21 15:40 mg/ Sodium Chloride IV 200 mls/hr Q12H HAYDEN Administration Insulin Aspart 0 unit 02/13/21 18:00 02/14/21 18:02 Insulin Aspart 100 Unit/1 Ml SUBCUT Not Given WM&BEDTIME HAYDEN Protocol Insulin Detemir 10 unit 02/13/21 09:45 02/14/21 10:37 Insulin Detemir 100 Units/1 Ml SUBCUT 10 unit Q12H HAYDEN Administration Non-Formulary Medication 5,000 mcg 02/12/21 09:00 02/14/21 08:45 Cyanocobalamin (Vitamin B-12) [Vitamin B-12] SUBLINGUAL Not Given DAILY HAYDEN Pantoprazole Sodium 40 mg 02/12/21 06:00 02/14/21 18:08 Pantoprazole 40 Mg Sdv IVP 40 mg Q12H HAYDEN Administration Vitamin D 1,000 unit 02/12/21 09:00 02/14/21 08:44 Cholecalciferol (Vitamin D3) 1,000 Unit Tablet PO 1,000 unit DAILY HAYDEN Administration Zinc Gluconate 50 mg 02/12/21 09:00 02/14/21 08:44 Zinc Gluconate 50 Mg Tablet PO 50 mg DAILY HAYDEN Administration PFSH Acute PFSH: Medical History Acute kidney injury superimposed on chronic kidney disease Acute respiratory failure with hypoxia and hypercapnia Anxiety Aortic stenosis Aortic stenosis, moderate Aortic stenosis, severe Bronchiectasis Calcium deficiency CHF (congestive heart failure) Chronic kidney disease, stage 3 unspecified Coagulopathy COVID-19 Dysuria GERD (gastroesophageal reflux disease) Hx pulmonary embolism Hypercholesteremia Hyperkalemia Hypertension Mild intermittent asthma, uncomplicated NSTEMI (non-ST elevated myocardial infarction) Pneumonia Recurrent UTI Renal insufficiency Sepsis Surgical History History of heart artery stent Hx of bilateral cataract extraction Hx of squamous cell carcinoma excision NASAL TIP Social History Smoking and tobacco status: former smoker Quit status (tobacco): has quit using tobacco Year quit tobacco: 1965 - 1.5 PPD x 5 Years Second hand smoke exposure: No Smoking risk assessment/counseling performed?: No Alcohol intake: never Desire information about alcohol rehabilitation?: No Counseling given: No Desire information about substance/drug rehabilitation?: No Counseling given: No Lives independently: Yes Household members: spouse Marital status: service: Yes Current occupational status: retired History of recent travel: No Current gender identity: Male Vitals/I&O/Wt Last Vital Signs Temp 97.6 F 02/14/21 15:25 Pulse 104 H 02/14/21 16:15 Resp 18 02/14/21 16:15 BP 123/71 02/14/21 15:25 Pulse Ox 96 02/14/21 16:15 02/14/21 02/14/21 02/14/21 06:59 14:59 22:59 Intake Total 1170 / 2760 720 / 720 Output Total 750 / 1350 Balance 420 / 1410 720 / 720 Physical Exam Narrative: EXAM NARRATIVE: General: Patient is awake alert and oriented, in no acute distress. Neck: Positive jugular venous distention Respiratory: Auscultation: Crackles both anteriorly and posteriorly, primary on the right lung, no wheezing or rhonchi Cardiovascular: Regular rate and rhythm, S1-S2 present, ejection systolic murmur in the aortic area with radiation over the precordium, bilateral mild peripheral edema Abdomen: Soft, nontender, nondistended, positive bowel sound Skin: No rash Neuro: Patient is awake alert and oriented, no focal motor deficit Urinary Catheter Management^: Barajas: Cath Placed During This Visit: yes Reason for Continuing Indwelling Catheter: Acute Urinary Retention or Obstruction Urinary Catheter Date of Insertion: 02/11/21 Data Micro: Micro: Microbiology 02/12/21 15:20 Gram Stain - Final Sputum - Expector ated Sputum Sputum Culture - P reliminary Gram Negative R ods Other Data: Attestation for Other Data: I personally reviewed and interpreted the following: Other data: I have reviewed the patient laboratory, microbiologic and radiologic data. The patient has stable leukocytosis. The inflammatory markers are high. Elevated procalcitonin which is trending down now. Chest x-ray today revealed bilateral infiltrate. The right midlung infiltrate is better than how it was before. A&P Assessment and plan (1) Multifocal pneumonia: The patient has multifocal pneumonia. His sputum culture is positive for gram-negative rods. Given his recent hospital admission, I do have suspicion for this to be resistant gram-negative organism. The patient is currently on imipenem which is adequate. For now, we will continue with linezolid to complete a total of 7-day therapy. The caspofungin and Levaquin can be discontinued. Status: Acute (2) Acute on chronic respiratory failure with hypoxia and hypercapnia: His oxygen requirement is coming down. I expect this to continue to get better. Status: Acute (3) Severe aortic stenosis: The patient has severe aortic stenosis. His calculated aortic valve area is 0.7 cm?. The gradient of 35 is likely much higher and falsely low because of reduced ejection fraction. Bedside ultrasound revealed dilated IVC and dilated hepatic veins. He also has pleural and perihepatic fluid collection. The patient needs to get diuresed. I am going to start the patient on 60 mg of IV Lasix twice daily. The goal is to have him approximately a liter negative in the next 24 hours. Status: Acute (4) COPD (chronic obstructive pulmonary disease): The patient has moderate airflow obstruction on pulmonary function test. Currently he is on nebulized therapy. Status: Acute (5) Bronchiectasis: The patient is on appropriate antibiotic for the pneumonia. Supportive therapy for bronchiectasis. Status: Acute (6) Acute kidney injury superimposed on CKD: The patient has acute kidney injury on CKD. He has metabolic acidosis. The patient likely suffered from acute tubular injury from multiple etiology. We will continue the supportive therapy. I expect the BUN/creatinine to start getting better. Once the patient is approximately a liter negative we will judiciously use the diuretics. Although the patient does not appear to be overtly volume overloaded, the ultrasound findings are suggestive of fluid overload. Status: Acute Coding Level of Care Code Acute Investigation Lieutenant for [facility] Diagnoses Multifocal pneumonia J18.9 Acute on chronic respiratory failure with hypoxia and hypercapnia J96.21; J96.22 Severe aortic stenosis I35.0 COPD (chronic obstructive pulmonary disease) J44.9 Bronchiectasis J47.9 Acute kidney injury superimposed on CKD N17.9; N18.9
[2021-02-14] MEDS: linezolid premix 600 MG/300 ML PREMIX 300 MG IV (18:51)
[2021-02-14] MEDS: FUROsemide 10 mg/mL SDV 10mL 60 MG IVP (19:06)
[2021-02-14] MEDS: sodium bicarbonate 650 mg Tablet 1300 MG PO (20:51)
[2021-02-14] MEDS: atorvastatin 40 mg Tablet PO (20:51)
[2021-02-15] VITALS (18 sets, daily range): BP systolic 136–159; BP diastolic 67–81; PULSE 82–104; RESP 16–18; TEMP 36.7–37.3; O2SAT 94–98
[2021-02-15 05:31] LABS: Basophils % 0.2 %; Eosinophils # 0.1 10^3/uL (0.0-0.8); Eosinophils % 1.1 %; Hematocrit 28.3 % (42.0-52.0); Hemoglobin 9.3 g/dL (11.7-16.6); Lymphocytes # 0.8 10^3/uL (0.8-4.8); Lymphocytes % 5.9 %; Mean Corpuscular HGB Conc 32.9 g/dL (30.0-36.0); Mean Corpuscular Volume 88.2 fl (80-94); Mean Platelet Volume 11.7 fL (7.4-10.4); Monocytes % 7.6 %; Neutrophils % 84.2 %; Nucleated Red Blood Cells % 0 %; Platelet Count 216 10^3/cmm (130-400); Red Blood Count 3.21 10^6/uL (4.1-5.3); Red Cell Distribution Width 16.1 % (12.1-15.1); White Blood Count 12.8 10^3/uL (4.0-10.0)
--- NOTE | 2021-02-15 05:41 | PC.NURSE ---
Patient resting comfortably in bed. Repositioned a few times but wanted to stay in comfortable position refusing some turns. AAOx4, VSS, no new events overnight. No needs at this time. Barajas in place and patent. Room clutter free, call light in reach. Will report and handoff to oncoming nurse at shift change.
[2021-02-15 05:59] LABS: Procalcitonin 1.18 ng/mL (0-0.5)
[2021-02-15] MEDS: pantoprazole 40 mg SDV IVP ×2 (06:01→18:31)
[2021-02-15] MEDS: heparin 5,000 unit/mL INJ 1 mL 5000 UNIT SUBCUT ×2 (06:02→18:18)
[2021-02-15] MEDS: FUROsemide 10 mg/mL SDV 10mL 60 MG IVP (06:02)
[2021-02-15] MEDS: linezolid premix 600 MG/300 ML PREMIX 300 MG IV ×2 (06:04→18:19)
[2021-02-15 06:10] LABS: Glucose Point of Care 65 mg/dL (70-110)
[2021-02-15 06:12] LABS: Alanine Aminotransferase 10 U/L (0-41); Albumin Level 2.4 g/dL (3.5-5.2); Alkaline Phosphatase 75 IU/L (40-130); Anion Gap 21.3 (5-19); Aspartate Amino Transferase 12 U/L (0-40); C Reactive Protein 55.7 mg/L (0.0-4.9); Carbon Dioxide 21 mmol/L (22-29); Chloride 99 mmol/L (98-107); Globulin 3.4 g/dL (1.3-4.6); Glucose 40 mg/dL (65-115); Magnesium 1.8 mg/dL (1.7-2.3); Osmolality Calculated 313 mOsm/kg (285-295); Phosphorus 6.3 mg/dL (2.5-4.5); Potassium 4.3 mmol/L (3.5-5.1); Sodium 137 mmol/L (136-145); Total Bilirubin 0.3 mg/dL (0.15-1.2); Total Protein 5.8 g/dL (6.6-8.7)
--- NOTE | 2021-02-15 06:14 | PC.NURSE ---
Low BG level, patient drinking OJ.
[2021-02-15 06:19] LABS: NT Pro B Type Natriuretic Pept 30610 pg/mL (0-450)
[2021-02-15 07:35] LABS: Blood Urea Nitrogen 104 mg/dL (8-23)
[2021-02-15] MEDS: budesonide 0.5 mg/2 mL Neb INHALATION ×2 (07:56→21:12)
[2021-02-15] MEDS: ipratropium-albuterol 3 mL Neb INHALATION ×4 (07:56→21:12)
--- NOTE | 2021-02-15 08:04 | P.PN_ITS ---
Subjective Subjective: Interval history: Mr. Pedroza feels very well today. No acute issues. Breathing is much more comfortable. Mild sputum production. Mild edema. Input from Dr. Dial is noted, receiving IV Lasix. Passing urine without obstruction. Medications: Reviewed: Yes Medication Review Details: Current Medications Acetaminophen (Acetaminophen 325 Mg Tablet) 650 mg PO Q6H PRN PRN Reason: Mild/Mod Pain Or Temp >/= 101 Last Admin: 02/12/21 23:39 Dose: 650 mg Documented by: Albuterol/Ipratropium (Ipratropium-Albuterol 3 Ml Neb) 3 ml INHALATION QID.RESPIRATORY HAYDEN Last Admin: 02/12/21 21:20 Dose: 3 ml Documented by: Ascorbic Acid (Ascorbic Acid 500 Mg Tablet) 500 mg PO BID HAYDEN Last Admin: 02/12/21 18:04 Dose: 500 mg Documented by: Aspirin (Aspirin 81 Mg Ec Tablet) 81 mg PO DAILY HAYDEN Last Admin: 02/12/21 10:28 Dose: 81 mg Documented by: Atorvastatin Calcium (Atorvastatin 40 Mg Tablet) 40 mg PO BEDTIME HAYDEN Last Admin: 02/12/21 20:38 Dose: 40 mg Documented by: Bisacodyl (Bisacodyl 5 Mg Tablet) 10 mg PO DAILY PRN; Protocol PRN Reason: Constipation (see protocol) Budesonide (Budesonide 0.5 Mg/2 Ml Neb) 0.5 mg INHALATION BID.RESPIRATORY HAYDEN Last Admin: 02/12/21 21:20 Dose: 0.5 mg Documented by: Dexamethasone (Dexamethasone 10 Mg/Ml Inj) 6 mg IVP Q24H [facility]AYDEN Last Admin: 02/12/21 18:03 Dose: 6 mg Documented by: Dextrose (Dextrose 50% Syringe 50 Ml) 25 ml IVP ONCE PRN; Protocol PRN Reason: hypoglycemia protocol Dextrose (Dextrose 50% Syringe 50 Ml) 50 ml IVP PRN PRN; Protocol PRN Reason: hypoglycemia protocol Furosemide (Furosemide 10 Mg/Ml Sdv 4ml) 40 mg IVP Q12H [facility] Last Admin: 02/12/21 05:54 Dose: 40 mg Documented by: Glucagon (Glucagon 1 Mg/Ml Inj 1 Ml) 1 mg IM ONCE PRN; Protocol PRN Reason: Adult Acute Hypoglycemia Prot. Caspofungin 50 mg/ Sodium (Chloride) 250 mls @ 250 mls/hr IV Q24H [facility] Last Infusion: 02/12/21 22:23 Dose: Infused Documented by: Dextrose (D5w) 500 mls @ 100 mls/hr IV ONCE PRN; Protocol PRN Reason: Adult Acute Hypoglycemia Prot Imipenem/Cilastatin Sodium 250 (mg/ Sodium Chloride) 100 mls @ 200 mls/hr IV Q12H [facility] Last Infusion: 02/13/21 02:57 Dose: Infused Documented by: Vancomycin/PEG/NADA/Lysine/Water (Vancocin) 1,250 mg in 250 mls @ 250 mls/hr IV Q48H [facility] Levofloxacin/Dextrose (Levaquin-D5w) 500 mg in 100 mls @ 100 mls/hr IV Q48H [facility] Insulin Aspart (Insulin Aspart 100 Unit/1 Ml) 0 unit SUBCUT TIDWM HAYDEN; Protocol Insulin Aspart (Insulin Aspart 100 Unit/1 Ml) 0 unit SUBCUT BEDTIME HAYDEN; Protocol Last Admin: 02/12/21 21:25 Dose: 8 unit Documented by: Insulin Aspart (Insulin Aspart 100 Unit/1 Ml) 0 unit SUBCUT WM&BEDTIME HAYDEN; Protocol Last Admin: 02/12/21 20:48 Dose: Not Given Documented by: Lactulose (Lactulose Oral Liq 20 Gm/30 Ml Udc) 10 gm PO DAILY PRN; Protocol PRN Reason: Constipation (see protocol) Montelukast Sodium (Montelukast Sodium 10 Mg Tablet) 10 mg PO DAILY [facility] Last Admin: 02/12/21 10:33 Dose: 10 mg Documented by: Non-Formulary Medication (Cyanocobalamin (Vitamin B-12) [Vitamin B-12]) 5,000 mcg SUBLINGUAL DAILY H[facility]DEN Last Admin: 02/12/21 16:04 Dose: Not Given Documented by: Ondansetron HCl (Ondansetron 2 Mg/Ml Sdv 2 Ml) 4 mg IVP Q8H PRN PRN Reason: vomiting, or N/V if npo Pantoprazole Sodium (Pantoprazole 40 Mg Sdv) 40 mg IVP Q12H [facility] Last Admin: 02/13/21 05:45 Dose: 40 mg Documented by: Vitamin D (Cholecalciferol (Vitamin D3) 1,000 Unit Tablet) 1,000 unit PO DAILY [facility] Last Admin: 02/12/21 16:03 Dose: Not Given Documented by: Zinc Gluconate (Zinc Gluconate 50 Mg Tablet) 50 mg PO DAILY [facility] Last Admin: 02/12/21 10:27 Dose: 50 mg Documented by: Vitals/I&O/Wt Last Vital Signs Temp 98.4 F 02/15/21 07:26 Pulse 82 02/15/21 08:03 Resp 17 02/15/21 07:56 BP 143/75 02/15/21 07:26 Pulse Ox 96 02/15/21 07:56 02/14/21 02/15/21 02/15/21 22:59 06:59 14:59 Intake Total 840 / 1560 420 / 1980 300 / 300 Output Total 1700 / 1700 1600 / 3300 Balance -860 / -140 -1180 / -1320 300 / 300 Physical Exam Narrative: EXAM NARRATIVE: Constitutional: Awake, comfortable HEENT: Wet mucosa, no jvp, non icteric Lungs: Bilaterally clear without discernible wheeze, rales in all lung zones CVS: S1 S2, no murmurs Abdo: Soft, BS ok Ext 4: Minimal edema, peripheral perfusion with no cyanosis Neurological: Grossly non-focal Urinary Catheter Management^: Barajas: Cath Placed During This Visit: yes Reason for Continuing Indwelling Catheter: Acute Urinary Retention or Obstruction Urinary Catheter Date of Insertion: 02/11/21 Data : 02/15/21 04:51 02/15/21 04:51 Micro: Microbiology 02/12/21 15:20 Gram Stain - Final Sputum - Expectorated Sputum Sputum Culture - Preliminary Gram Negative Rods A&P Additional A&P Information 1. Acute on chronic kidney disease Baseline serum creatinine roughly 3 mg/dL; peaked at 4.6 and now down trending Dose medication for GFR less than 15 Avoid usual nephrotoxic agents I's and O's 2. Shortness of breath and weakness Chest x-ray demonstrates right middle lobe pneumonia consistent with healthcare acquired pneumonia in the setting of recent Covid pneumonitis. Currently on combination antibiotics per Dr. Mtz Receiving iv Lasix over last 24hrs 3. Chemistry Relatively minor noncritical biochemical aberration to include mild acidosis. No need to actively treat these, will continue to monitor closely. At this time, renal function remained stable although it is poor and showing improvement. With this in mind, he has no acute renal issues. I will sign off his care today, however, if we may be of further assistance in his care, please not hesitate to give us a call. We appreciate our involvement in his care. Albin Strickland MD Nephrology [phone] Patient seen and examined via telemedicine, with the assistance of the bedside RN > 25 min spent in evaluation and mgmt of patient Attestations Medical Necessity Statement*: AMBER eval Coding Level of Care Code Acute Balance Bridge Inspector for [facility]
[2021-02-15] MEDS: sodium bicarbonate 650 mg Tablet 1300 MG PO ×3 (09:45→20:54)
[2021-02-15] MEDS: calcium acetate 667 mg Capsule 1334 MG PO ×3 (09:45→18:19)
[2021-02-15] MEDS: ascorbic acid 500 mg Tablet PO ×2 (09:46→18:19)
[2021-02-15] MEDS: cholecalciferol (vitamin D3) 1,000 unit Tablet 1000 UNIT PO (09:46)
[2021-02-15] MEDS: zinc gluconate 50 mg Tablet PO (09:46)
[2021-02-15] MEDS: aspirin 81 mg EC Tablet PO (09:46)
[2021-02-15 10:56] LABS: Glucose Point of Care 215 mg/dL (70-110)
--- NOTE | 2021-02-15 15:10 | PM.PN ---
Subjective Subjective: Interval history: Patient was seen this morning, he tells me is feeling a lot better, no fevers, chills, no nausea, no vomiting Vitals/I&O/Wt Last Vital Signs Temp 98.2 F 02/15/21 11:14 Pulse 91 02/15/21 11:51 Resp 17 02/15/21 11:45 BP 142/81 02/15/21 11:14 Pulse Ox 97 02/15/21 11:45 02/15/21 02/15/21 02/15/21 06:59 14:59 22:59 Intake Total 420 / 1980 1380 / 1380 Output Total 1600 / 3300 1300 / 1300 Balance -1180 / -1320 80 / 80 Physical Exam Const: COMMON NORMALS: no acute distress and patient oriented x3 GENERAL APPEARANCE: frail appearing Resp: COMMON NORMALS: normal respiratory effort, No retractions, No use of accessory muscles and clear to auscultation bilaterally AUSCULTATION: clear to auscultation bilaterally Cardio: COMMON NORMALS: regular rate, regular rhythm, S1 normal heart sound present and S2 normal heart sound present RATE: regular rate RHYTHM: regular rhythm HEART SOUNDS: S1 normal heart sound present and S2 normal heart sound present GI: COMMON NORMALS: Normal to inspection, nondistended, normoactive bowel sounds present, Soft to palpation, non-tender, No hepatosplenomegaly present and no masses PALPATION: Yes Soft to palpation and Yes No hepatosplenomegaly present Extremity: COMMON NORMALS: no pedal edema Neuro: COMMON NORMALS: patient oriented x3 Psych: COMMON NORMALS: mental status grossly normal Urinary Catheter Management^: Barajas: Cath Placed During This Visit: yes Reason for Continuing Indwelling Catheter: Acute Urinary Retention or Obstruction Urinary Catheter Date of Insertion: 02/11/21 Data : 02/15/21 04:51 02/15/21 04:51 Micro: Microbiology 02/12/21 15:20 Gram Stain - Final Sputum - Expectorated Sputum Sputum Culture - Preliminary Gram Negative Rods A&P Assessment and plan (1) Acute on chronic respiratory failure with hypoxia and hypercapnia: -Recent history of COVID-19 pneumonia, status post Decadron, remdesivir -Is not a candidate for barctinib or Actemra given concerns for secondary bacterial pneumonia and or possible fungal pneumonia -Secondary to pulmonary edema and/or secondary bacterial pneumonia and or for possible fungal pneumonia -CT of the chest shows: 1. Diffuse bilateral nonspecific pulmonary infiltrates are present, right worse than left. The right-sided infiltrates have worsened when compared to 01/29/2021. The left-sided infiltrates have improved slightly. 2. Small bilateral pleural effusions. Effusions have increased in size when compared to the prior study. 3. Mild cardiomegaly is noted. Small pericardial effusion noted. This is unchanged. -White blood cell count 12.8, pro-Andrew 1.18, CRP 55.7 proBNP over 30,000, BUN 104, creatinine 4.4 Plan -Continue broad-spectrum antibiotic therapy, vancomycin, and Primaxin -Caspofungin has been discontinued -We will consult pulmonary team, after ultrasonic examination, patient was fluid overloaded, in the setting of severe aortic stenosis, patient requires increase diuresis, placed on Lasix 60 mg IV twice daily, creatinine down to 4.4, now with 3300 cc urine output, Lasix decreased to 40 mg IV twice daily -Bilateral venous ultrasound negative for DVT, CT angiogram could not be performed given creatinine, he is anemic, hemoglobin as low as 7.1, but I believe currently his risk of pulmonary emboli is fairly low, heparin drip has been discontinued -Hemoccult stool, Protonix, Carafate, monitor hemodynamics closely for anemia -Vitamin C, zinc, vitamin D -Decadron on hold -DuoNeb treatments, budesonide -Protonix for GI prophylaxis -Lovenox for DVT prophylaxis Systolic and diastolic CHF -Elevated BNP -Diuresis as above NSTEMI -Baseline troponin I 42, 6-hour 145, delta 3.9 -Likely supply demand ischemia given acute respiratory failure as above -However cannot rule out underlying cardiac etiology given risk factors and age -Recommend trending troponins, serial EKGs, serial troponins telemetry monitoring -Aspirin, statin -Last echocardiogram showed a decline in ejection fraction down to 45 to 50%, mild global hypokinesis -Continue to monitor Possible COVID-19 related myocarditis, given elevated troponins, echo findings as above -We'll continue to monitor 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 -Has responded well to Lasix therapy, currently on hold, creatinine 4.8, BUN 104, -Bicarb drip on hold -Consult nephrology Severe aortic stenosis, in the setting of systolic and diastolic CHF -Treatment as above -We will require a TAVR as outpatient, needs to follow-up with cardiothoracic surgery as outpatient Acute on chronic anemia, status post units PRBC -Likely secondary to acute kidney injury, chronic kidney disease as above -However cannot rule out underlying GI pathology -Monitor hemoglobin, keep hemoglobin greater than 8 -Protonix, Carafate Type 2 diabetes mellitus, elevated blood sugars likely secondary to Decadron -Hold Decadron -Levemir 5 units twice daily -Moderate dose sliding scale Plan for today, continue BiPAP during the night, nasal cannula during the day, continue to new d Lasix therapy, continue antibiotic therapy, continue inhaler therapy, PT OT, monitor urine output, monitor creatinine, Status: Acute (2) Pneumonia: Status: Acute (3) NSTEMI (non-ST elevated myocardial infarction): Status: Acute (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 (5) Acute kidney injury superimposed on CKD: Status: Acute (6) Severe aortic stenosis: Status: Acute (7) Acute on chronic anemia: Status: Acute (8) Leukocytosis: Status: Acute Qualifiers: Leukocytosis type: unspecified Qualified Code(s): D72.829 - Elevated white blood cell count, unspecified (9) COPD (chronic obstructive pulmonary disease): Status: Acute (10) Hypertension: Status: Acute Qualifiers: Hypertension type: essential hypertension Qualified Code(s): I10 - Essential (primary) hypertension Attestations Medical Necessity Statement*: Patient requires hospitalization for acute respiratory failure secondary to CHF, pneumonia Coding Level of Care Code Acute It [employer] Specialist for [facility] Diagnoses Acute on chronic respiratory failure with hypoxia and hypercapnia J96.21; J96.22 Pneumonia J18.9 NSTEMI (non-ST elevated myocardial infarction) I21.4 Myocarditis due to COVID-19 virus U07.1; I40.0 Acute kidney injury superimposed on CKD N17.9; N18.9 Severe aortic stenosis I35.0 Acute on chronic anemia D64.9 Leukocytosis D72.829 Leukocytosis type: unspecified COPD (chronic obstructive pulmonary disease) J44.9 Hypertension I10 Hypertension type: essential hypertension
[2021-02-15] MEDS: FUROsemide 10 mg/mL SDV 4mL 40 MG IVP (16:44)
[2021-02-15 17:24] LABS: Glucose Point of Care 145 mg/dL (70-110)
[2021-02-15 20:24] LABS: Glucose Point of Care 237 mg/dL (70-110)
[2021-02-15] MEDS: atorvastatin 40 mg Tablet PO (20:53)
[2021-02-16] VITALS (17 sets, daily range): BP systolic 126–151; BP diastolic 64–73; PULSE 92–107; RESP 16–20; TEMP 36.4–37.2; O2SAT 94–98
[2021-02-16] MEDS: pantoprazole 40 mg SDV IVP ×2 (05:11→18:09)
[2021-02-16] MEDS: FUROsemide 10 mg/mL SDV 4mL 40 MG IVP ×2 (05:11→10:57)
[2021-02-16 06:11] LABS: Basophils % 0.3 %; Eosinophils # 0.4 10^3/uL (0.0-0.8); Eosinophils % 3.3 %; Hematocrit 26.6 % (42.0-52.0); Hemoglobin 8.9 g/dL (11.7-16.6); Lymphocytes # 0.9 10^3/uL (0.8-4.8); Lymphocytes % 7.8 %; Mean Corpuscular HGB Conc 33.5 g/dL (30.0-36.0); Mean Corpuscular Hemoglobin 28.7 pg (28.0-34.0); Mean Corpuscular Volume 85.8 fl (80-94); Mean Platelet Volume 11.5 fL (7.4-10.4); Monocytes # 0.8 10^3/uL (0.2-0.9); Monocytes % 7.1 %; Neutrophils # 8.76 10^3/uL (1.8-7.7); Neutrophils % 80.9 %; Nucleated Red Blood Cells % 0 %; Platelet Count 204 10^3/cmm (130-400); Red Cell Distribution Width 15.7 % (12.1-15.1); White Blood Count 10.8 10^3/uL (4.0-10.0)
[2021-02-16 06:32] LABS: Glucose Point of Care 87 mg/dL (70-110)
[2021-02-16] MEDS: heparin 5,000 unit/mL INJ 1 mL 5000 UNIT SUBCUT ×2 (06:34→18:32)
[2021-02-16] MEDS: linezolid premix 600 MG/300 ML PREMIX 300 MG IV (06:34)
[2021-02-16 06:39] LABS: Alanine Aminotransferase 9 U/L (0-41); Albumin Level 2.3 g/dL (3.5-5.2); Alkaline Phosphatase 66 IU/L (40-130); Anion Gap 19.4 (5-19); Aspartate Amino Transferase 13 U/L (0-40); Carbon Dioxide 25 mmol/L (22-29); Chloride 95 mmol/L (98-107); Glucose 68 mg/dL (65-115); Magnesium 1.7 mg/dL (1.7-2.3); Osmolality Calculated 309 mOsm/kg (285-295); Phosphorus 4.7 mg/dL (2.5-4.5); Potassium 4.4 mmol/L (3.5-5.1); Sodium 135 mmol/L (136-145); Total Bilirubin 0.4 mg/dL (0.15-1.2); Total Protein 5.3 g/dL (6.6-8.7)
[2021-02-16 06:50] LABS: Procalcitonin 0.81 ng/mL (0-0.5)
[2021-02-16 06:51] LABS: Blood Urea Nitrogen 99 mg/dL (8-23)
[2021-02-16] MEDS: ipratropium-albuterol 3 mL Neb INHALATION ×4 (07:19→20:14)
[2021-02-16] MEDS: budesonide 0.5 mg/2 mL Neb INHALATION ×2 (07:19→20:14)
[2021-02-16] MEDS: sodium bicarbonate 650 mg Tablet 1300 MG PO ×3 (07:54→22:15)
[2021-02-16] MEDS: calcium acetate 667 mg Capsule 1334 MG PO ×3 (07:54→18:32)
[2021-02-16] MEDS: zinc gluconate 50 mg Tablet PO (07:55)
[2021-02-16] MEDS: aspirin 81 mg EC Tablet PO (07:55)
[2021-02-16] MEDS: ascorbic acid 500 mg Tablet PO ×2 (07:55→18:32)
[2021-02-16] MEDS: cholecalciferol (vitamin D3) 1,000 unit Tablet 1000 UNIT PO (07:58)
--- NOTE | 2021-02-16 10:34 | PC.SOCIAL ---
IMM Update Pg. 2 of IMM updated and reviewed with patient over the phone, who verbalized understanding.
[2021-02-16 11:08] LABS: Glucose Point of Care 216 mg/dL (70-110)
--- NOTE | 2021-02-16 16:20 | PC.NUTR ---
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 Cardiac diet in place--recommend change to renal diabetic dialysis diet to limit K and Phos, provide consistent CHO, and additional protein for wound healing. (Pt not on dialysis, but dialysis diet higher in PRO). If BUN/Cr remain elevated or worsen, can change to renal diabetic non-dialysis diet. See full RD assessment for further details.
--- NOTE | 2021-02-16 16:43 | PM.PN ---
Subjective Subjective: Interval history: Patient was seen this morning, he continues to have increased sputum production, however is doing significantly better is on room air afebrile, ambulating without significant symptomatology Vitals/I&O/Wt Last Vital Signs Temp 97.9 F 02/16/21 16:00 Pulse 96 02/16/21 16:21 Resp 20 H 02/16/21 16:19 BP 126/65 02/16/21 16:00 Pulse Ox 97 02/16/21 16:19 02/16/21 02/16/21 02/16/21 06:59 14:59 22:59 Intake Total 100 / 2120 900 / 900 Output Total 1750 / 4650 2100 / 2100 Balance -1650 / -2530 -1200 / -1200 Physical Exam Const: COMMON NORMALS: no acute distress and patient oriented x3 Resp: COMMON NORMALS: normal respiratory effort, No retractions and No use of accessory muscles AUSCULTATION: wheezes Cardio: COMMON NORMALS: regular rate, regular rhythm, S1 normal heart sound present and S2 normal heart sound present RATE: regular rate RHYTHM: regular rhythm HEART SOUNDS: S1 normal heart sound present and S2 normal heart sound present GI: COMMON NORMALS: Normal to inspection, nondistended, normoactive bowel sounds present, Soft to palpation, non-tender and No hepatosplenomegaly present PALPATION: Yes Soft to palpation and Yes No hepatosplenomegaly present Extremity: COMMON NORMALS: no pedal edema Neuro: COMMON NORMALS: patient oriented x3 Psych: COMMON NORMALS: mental status grossly normal Urinary Catheter Management^: Barajas: Cath Placed During This Visit: yes Reason for Continuing Indwelling Catheter: Acute Urinary Retention or Obstruction Urinary Catheter Date of Insertion: 02/11/21 Data : 02/16/21 04:59 02/16/21 04:59 Micro: Microbiology 02/11/21 12:27 Blood Culture - Final Blood NO GROWTH AFTER 5 DAYS 02/12/21 15:20 Gram Stain - Final Sputum - Expectorated Sputum Sputum Culture - Final Pseudomonas aeruginosa 02/11/21 10:19 Blood Culture - Final Blood NO GROWTH AFTER 5 DAYS A&P Assessment and plan (1) Acute on chronic respiratory failure with hypoxia and hypercapnia: -Recent history of COVID-19 pneumonia, status post Decadron, remdesivir -Is not a candidate for barctinib or Actemra given concerns for secondary bacterial pneumonia and or possible fungal pneumonia -Secondary to pulmonary edema and/or secondary bacterial pneumonia -Has Pseudomonas positive sputum cultures, -CT of the chest shows: 1. Diffuse bilateral nonspecific pulmonary infiltrates are present, right worse than left. The right-sided infiltrates have worsened when compared to 01/29/2021. The left-sided infiltrates have improved slightly. 2. Small bilateral pleural effusions. Effusions have increased in size when compared to the prior study. 3. Mild cardiomegaly is noted. Small pericardial effusion noted. This is unchanged. Plan -De-escalate antibiotics to cefdinir 2 g every 12 hours, Pseudomonas is pansensitive, however prior cultures have been resistant, will have to have a PICC line in place, received cefdinir for at least 1 week -Caspofungin has been discontinued -Continues to diurese well, de-escalate to Lasix 40 mg p.o. daily -Bilateral venous ultrasound negative for DVT, CT angiogram could not be performed given creatinine, he is anemic, hemoglobin as low as 7.1, but I believe currently his risk of pulmonary emboli is fairly low, heparin drip has been discontinued -Hemoccult stool, Protonix, Carafate, monitor hemodynamics closely for anemia -Vitamin C, zinc, vitamin D -Decadron on hold -DuoNeb treatments, budesonide -Protonix for GI prophylaxis -Lovenox for DVT prophylaxis Systolic and diastolic CHF -Elevated BNP -Diuresis as above NSTEMI -Baseline troponin I 42, 6-hour 145, delta 3.9 -Likely supply demand ischemia given acute respiratory failure as above -However cannot rule out underlying cardiac etiology given risk factors and age -Aspirin, statin -Last echocardiogram showed a decline in ejection fraction down to 45 to 50%, mild global hypokinesis -Continue to monitor Possible COVID-19 related myocarditis, given elevated troponins, echo findings as above -We'll continue to monitor 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 -Has responded well to Lasix therapy, -Consult nephrology Severe aortic stenosis, in the setting of systolic and diastolic CHF -Treatment as above -We will require a TAVR as outpatient, needs to follow-up with cardiothoracic surgery as outpatient Acute on chronic anemia, status post units PRBC -Likely secondary to acute kidney injury, chronic kidney disease as above -However cannot rule out underlying GI pathology -Monitor hemoglobin, keep hemoglobin greater than 8 -Protonix, Carafate Type 2 diabetes mellitus, elevated blood sugars likely secondary to Decadron -Hold Decadron -Levemir 5 units twice daily -Moderate dose sliding scale Plan for today, PICC line to be placed tomorrow, de-escalate antibiotics to cefdinir, de-escalate Lasix to 40 mg daily, plan on discharge tomorrow Status: Acute (2) Pneumonia: Status: Acute (3) NSTEMI (non-ST elevated myocardial infarction): Status: Acute (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 (5) Acute kidney injury superimposed on CKD: Status: Acute (6) Severe aortic stenosis: Status: Acute (7) Acute on chronic anemia: Status: Acute (8) Leukocytosis: Status: Acute Qualifiers: Leukocytosis type: unspecified Qualified Code(s): D72.829 - Elevated white blood cell count, unspecified (9) COPD (chronic obstructive pulmonary disease): Status: Acute (10) Hypertension: Status: Acute Qualifiers: Hypertension type: essential hypertension Qualified Code(s): I10 - Essential (primary) hypertension Attestations Medical Necessity Statement*: Requires hospitalization for acute respiratory failure secondary to COVID-19 pneumonia, Pseudomonas pneumonia, CHF in the setting of aortic stenosis Coding Level of Care Code Acute Director Community Organization for [facility] Diagnoses Acute on chronic respiratory failure with hypoxia and hypercapnia J96.21; J96.22 Pneumonia J18.9 NSTEMI (non-ST elevated myocardial infarction) I21.4 Myocarditis due to COVID-19 virus U07.1; I40.0 Acute kidney injury superimposed on CKD N17.9; N18.9 Severe aortic stenosis I35.0 Acute on chronic anemia D64.9 Leukocytosis D72.829 Leukocytosis type: unspecified COPD (chronic obstructive pulmonary disease) J44.9 Hypertension I10 Hypertension type: essential hypertension
[2021-02-16 17:04] LABS: Glucose Point of Care 149 mg/dL (70-110)
[2021-02-16 20:48] LABS: Glucose Point of Care 163 mg/dL (70-110)
[2021-02-16] MEDS: atorvastatin 40 mg Tablet PO (22:14)
[2021-02-16] MEDS: cefepime 1,000 MG in sodium chloride 0.9% (plus) 50 ML 100 MG IV (22:15)
[2021-02-17] VITALS (17 sets, daily range): BP systolic 132–157; BP diastolic 62–84; PULSE 91–100; RESP 16–18; TEMP 36.6–37.1; O2SAT 93–97
[2021-02-17] MEDS: pantoprazole 40 mg SDV IVP (05:37)
[2021-02-17] MEDS: heparin 5,000 unit/mL INJ 1 mL 5000 UNIT SUBCUT ×2 (05:52→17:55)
[2021-02-17 06:22] LABS: Glucose Point of Care 94 mg/dL (70-110)
--- NOTE | 2021-02-17 06:53 | P.PN_ITS ---
Subjective Subjective: Interval history: feels well, wants to go home. no n/v/f/c/johnson/d. denies sob. has pain by bang Medications: Reviewed: Yes Medication Review Details: Current Medications Acetaminophen (Acetaminophen 325 Mg Tablet) 650 mg PO Q6H PRN PRN Reason: Mild/Mod Pain Or Temp >/= 101 Last Admin: 02/12/21 23:39 Dose: 650 mg Documented by: Albuterol/Ipratropium (Ipratropium-Albuterol 3 Ml Neb) 3 ml INHALATION QID.RESPIRATORY [facility]AYDEN Last Admin: 02/16/21 20:14 Dose: 3 ml Documented by: Ascorbic Acid (Ascorbic Acid 500 Mg Tablet) 500 mg PO BID [facility] Last Admin: 02/16/21 18:32 Dose: 500 mg Documented by: Aspirin (Aspirin 81 Mg Ec Tablet) 81 mg PO DAILY [facility] Last Admin: 02/16/21 07:55 Dose: 81 mg Documented by: Atorvastatin Calcium (Atorvastatin 40 Mg Tablet) 40 mg PO BEDTIME [facility] Last Admin: 02/16/21 22:14 Dose: 40 mg Documented by: Bisacodyl (Bisacodyl 5 Mg Tablet) 10 mg PO DAILY PRN; Protocol PRN Reason: Constipation (see protocol) Budesonide (Budesonide 0.5 Mg/2 Ml Neb) 0.5 mg INHALATION BID.RESPIRATORY [facility]DEN Last Admin: 02/16/21 20:14 Dose: 0.5 mg Documented by: Calcium Acetate (Calcium Acetate 667 Mg Capsule) 1,334 mg PO TIDWM [facility] Last Admin: 02/16/21 18:32 Dose: 1,334 mg Documented by: Dextrose (Dextrose 50% Syringe 50 Ml) 25 ml IVP ONCE PRN; Protocol PRN Reason: hypoglycemia protocol Dextrose (Dextrose 50% Syringe 50 Ml) 50 ml IVP PRN PRN; Protocol PRN Reason: hypoglycemia protocol Dextrose (Dextrose 50% Syringe 50 Ml) 25 ml IVP ONCE PRN; Protocol PRN Reason: hypoglycemia protocol Dextrose (Dextrose 50% Syringe 50 Ml) 50 ml IVP PRN PRN; Protocol PRN Reason: hypoglycemia protocol Furosemide (Furosemide 40 Mg Tablet) 40 mg PO DAILY@0800 [facility] Glucagon (Glucagon 1 Mg/Ml Inj 1 Ml) 1 mg IM ONCE PRN; Protocol PRN Reason: Adult Acute Hypoglycemia Prot. Glucagon (Glucagon 1 Mg/Ml Inj 1 Ml) 1 mg IM ONCE PRN; Protocol PRN Reason: Adult Acute Hypoglycemia Prot. Heparin Sodium (Beef Lung) (Heparin 5,000 Unit/Ml Inj 1 Ml) 5,000 unit SUBCUT Q12H [facility] Last Admin: 02/17/21 05:52 Dose: 5,000 unit Documented by: Dextrose (D5w) 500 mls @ 100 mls/hr IV ONCE PRN; Protocol PRN Reason: Adult Acute Hypoglycemia Prot Dextrose (D5w) 500 mls @ 100 mls/hr IV ONCE PRN; Protocol PRN Reason: Adult Acute Hypoglycemia Prot Cefepime HCl 1,000 mg/ Sodium (Chloride) 50 mls @ 100 mls/hr IV Q24H [facility]DEN; Protocol Last Infusion: 02/16/21 22:45 Dose: Infused Documented by: Insulin Aspart (Insulin Aspart 100 Unit/1 Ml) 0 unit SUBCUT TIDWM [facility]; Protocol Last Admin: 02/16/21 18:32 Dose: 4 unit Documented by: Insulin Detemir (Insulin Detemir 100 Units/1 Ml) 5 unit SUBCUT Q12H [facility] Last Admin: 02/16/21 22:16 Dose: 5 unit Documented by: Lactulose (Lactulose Oral Liq 20 Gm/30 Ml Udc) 10 gm PO DAILY PRN; Protocol PRN Reason: Constipation (see protocol) Non-Formulary Medication (Cyanocobalamin (Vitamin B-12) [Vitamin B-12]) 5,000 mcg SUBLINGUAL DAILY [facility] Last Admin: 02/16/21 10:19 Dose: Not Given Documented by: Ondansetron HCl (Ondansetron 2 Mg/Ml Sdv 2 Ml) 4 mg IVP Q8H PRN PRN Reason: vomiting, or N/V if npo Pantoprazole Sodium (Pantoprazole 40 Mg Sdv) 40 mg IVP Q12H [facility] Last Admin: 02/17/21 05:37 Dose: 40 mg Documented by: Sodium Bicarbonate (Sodium Bicarbonate 650 Mg Tablet) 1,300 mg PO TID [facility] Last Admin: 02/16/21 22:15 Dose: 1,300 mg Documented by: Vitamin D (Cholecalciferol (Vitamin D3) 1,000 Unit Tablet) 1,000 unit PO DAILY [facility] Last Admin: 02/16/21 07:58 Dose: 1,000 unit Documented by: Zinc Gluconate (Zinc Gluconate 50 Mg Tablet) 50 mg PO DAILY [facility] Last Admin: 02/16/21 07:55 Dose: 50 mg Documented by: Vitals/I&O/Wt Last Vital Signs Temp 98.0 F 02/17/21 04:00 Pulse 98 02/17/21 06:00 Resp 17 02/17/21 04:00 BP 157/73 02/17/21 04:00 Pulse Ox 96 02/17/21 04:00 02/16/21 02/16/21 02/17/21 14:59 22:59 06:59 Intake Total 900 / 900 530 / 1430 Output Total 2100 / 2100 1200 / 3300 1300 / 4600 Balance -1200 / -1200 -670 / -1870 -1300 / -3170 Physical Exam Narrative: EXAM NARRATIVE: elderly man comfortable in bed, NARD VSS henet- nc/at, eomi, anicteric, q facial assymetry neck supple lungs - b/l exp wheezes heart reg abd soft, nt, nd, +BS ext 1+ edema neuro- a,a, o x 3 Urinary Catheter Management^: Bang: Cath Placed During This Visit: yes Reason for Continuing Indwelling Catheter: Acute Urinary Retention or Obstruction Urinary Catheter Date of Insertion: 02/11/21 Data : 02/16/21 04:59 02/16/21 04:59 Micro: Microbiology 02/11/21 12:27 Blood Culture - Final Blood NO GROWTH AFTER 5 DAYS 02/12/21 15:20 Gram Stain - Final Sputum - Expectorated Sputum Sputum Culture - Final Pseudomonas aeruginosa 02/11/21 10:19 Blood Culture - Final Blood NO GROWTH AFTER 5 DAYS A&P Additional A&P Information 1. 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 right sided pna/ recent covid- wbc back to 11 -abx per medicine 3. EF 45- 50% w/ moderate to severe and recent NSTEMI -cardiology eval - [place] [id number]- lasix per cardiology 4. anemia 5. mild hyponatremia- monitor on lasix 6. phos normal, normal pth- dec phoslo to 667 tid 7. met acidosis improved- dec sodium bicarb to 650 tid- wean off Patient seen and examined via telemedicine, with the assistance of the bedside RN > 25 min spent in evaluation and mgmt of patient Attestations Medical Necessity Statement*: per medicine Time Spent in Patient Care: 16 - 35 minutes Coding Level of Care Code Acute Credit Card Interviewer for [facility] Lei
[2021-02-17 07:35] LABS: Basophils % 0.4 %; Eosinophils # 0.7 10^3/uL (0.0-0.8); Eosinophils % 6.6 %; Hematocrit 28.1 % (42.0-52.0); Hemoglobin 9.4 g/dL (11.7-16.6); Lymphocytes # 0.9 10^3/uL (0.8-4.8); Lymphocytes % 8.4 %; Mean Corpuscular HGB Conc 33.5 g/dL (30.0-36.0); Mean Corpuscular Hemoglobin 28.8 pg (28.0-34.0); Mean Corpuscular Volume 86.2 fl (80-94); Mean Platelet Volume 11.6 fL (7.4-10.4); Monocytes # 0.7 10^3/uL (0.2-0.9); Monocytes % 6.2 %; Neutrophils # 8.66 10^3/uL (1.8-7.7); Nucleated Red Blood Cells % 0 %; Platelet Count 204 10^3/cmm (130-400); Red Blood Count 3.26 10^6/uL (4.1-5.3); Red Cell Distribution Width 15.8 % (12.1-15.1); White Blood Count 11.1 10^3/uL (4.0-10.0)
[2021-02-17] MEDS: ipratropium-albuterol 3 mL Neb INHALATION ×4 (07:44→20:20)
[2021-02-17] MEDS: budesonide 0.5 mg/2 mL Neb INHALATION ×2 (07:44→20:20)
[2021-02-17 08:00] LABS: Alanine Aminotransferase 11 U/L (0-41); Albumin Level 2.4 g/dL (3.5-5.2); Alkaline Phosphatase 66 IU/L (40-130); Anion Gap 16.2 (5-19); Aspartate Amino Transferase 15 U/L (0-40); Calcium 8.4 mg/dL (8.5-10.5); Carbon Dioxide 31 mmol/L (22-29); Chloride 96 mmol/L (98-107); Globulin 3.4 g/dL (1.3-4.6); Glucose 76 mg/dL (65-115); Magnesium 1.8 mg/dL (1.7-2.3); Osmolality Calculated 320 mOsm/kg (285-295); Phosphorus 4.1 mg/dL (2.5-4.5); Potassium 4.2 mmol/L (3.5-5.1); Sodium 139 mmol/L (136-145); Total Bilirubin 0.4 mg/dL (0.15-1.2); Total Protein 5.8 g/dL (6.6-8.7)
[2021-02-17 08:03] LABS: Procalcitonin 0.62 ng/mL (0-0.5)
[2021-02-17 08:26] LABS: NT Pro B Type Natriuretic Pept 37209 pg/mL (0-450)
[2021-02-17 08:45] LABS: Blood Urea Nitrogen 105 mg/dL (8-23)
[2021-02-17] MEDS: cholecalciferol (vitamin D3) 1,000 unit Tablet 1000 UNIT PO (09:10)
[2021-02-17] MEDS: calcium acetate 667 mg Capsule PO ×3 (09:10→17:56)
[2021-02-17] MEDS: FUROsemide 40 mg Tablet PO (09:11)
[2021-02-17] MEDS: aspirin 81 mg EC Tablet PO (09:11)
[2021-02-17] MEDS: sodium bicarbonate 650 mg Tablet PO ×3 (09:11→21:28)
[2021-02-17] MEDS: zinc gluconate 50 mg Tablet PO (09:11)
[2021-02-17] MEDS: ascorbic acid 500 mg Tablet PO ×2 (09:11→17:55)
[2021-02-17 10:57] LABS: Glucose Point of Care 219 mg/dL (70-110)
--- NOTE | 2021-02-17 14:45 | PC.NURSE ---
During rounding, patient had requested a visitor. Upon further investigation, he was now 20 days since symptom onset. I spoke with Dr. Bejarano and he stated this would be fine and that patient could be taken off of precautions as well. I informed the patient of this and that his d/c would be tomorrow d/t PICC line placement. I informed Julia Oneil LPN of this and she verbalizes understanding.
[2021-02-17 16:56] LABS: Glucose Point of Care 167 mg/dL (70-110)
[2021-02-17] MEDS: pantoprazole DR 40 mg Tablet PO (17:56)
[2021-02-17 20:17] LABS: Glucose Point of Care 165 mg/dL (70-110)
[2021-02-17] MEDS: cefepime 1,000 MG in sodium chloride 0.9% (plus) 50 ML 100 MG IV (21:26)
--- NOTE | 2021-02-17 21:26 | PM.PN ---
Subjective Subjective: Interval history: Patient was seen and examined this morning, deny any sob, cough,n/v/d.Fells good. Medications: Reviewed: Yes Medication Review Details: Current Medications Acetaminophen (Acetaminophen 325 Mg Tablet) 650 mg PO Q6H PRN PRN Reason: Mild/Mod Pain Or Temp >/= 101 Last Admin: 02/12/21 23:39 Dose: 650 mg Documented by: Albuterol/Ipratropium (Ipratropium-Albuterol 3 Ml Neb) 3 ml INHALATION QID.RESPIRATORY HAYDEN Last Admin: 02/16/21 20:14 Dose: 3 ml Documented by: Ascorbic Acid (Ascorbic Acid 500 Mg Tablet) 500 mg PO BID [facility] Last Admin: 02/16/21 18:32 Dose: 500 mg Documented by: Aspirin (Aspirin 81 Mg Ec Tablet) 81 mg PO DAILY [facility] Last Admin: 02/16/21 07:55 Dose: 81 mg Documented by: Atorvastatin Calcium (Atorvastatin 40 Mg Tablet) 40 mg PO BEDTIME [facility] Last Admin: 02/16/21 22:14 Dose: 40 mg Documented by: Bisacodyl (Bisacodyl 5 Mg Tablet) 10 mg PO DAILY PRN; Protocol PRN Reason: Constipation (see protocol) Budesonide (Budesonide 0.5 Mg/2 Ml Neb) 0.5 mg INHALATION BID.RESPIRATORY [facility]AYDEN Last Admin: 02/16/21 20:14 Dose: 0.5 mg Documented by: Calcium Acetate (Calcium Acetate 667 Mg Capsule) 1,334 mg PO TIDWM [facility] Last Admin: 02/16/21 18:32 Dose: 1,334 mg Documented by: Dextrose (Dextrose 50% Syringe 50 Ml) 25 ml IVP ONCE PRN; Protocol PRN Reason: hypoglycemia protocol Dextrose (Dextrose 50% Syringe 50 Ml) 50 ml IVP PRN PRN; Protocol PRN Reason: hypoglycemia protocol Dextrose (Dextrose 50% Syringe 50 Ml) 25 ml IVP ONCE PRN; Protocol PRN Reason: hypoglycemia protocol Dextrose (Dextrose 50% Syringe 50 Ml) 50 ml IVP PRN PRN; Protocol PRN Reason: hypoglycemia protocol Furosemide (Furosemide 40 Mg Tablet) 40 mg PO DAILY@0800 [facility] Glucagon (Glucagon 1 Mg/Ml Inj 1 Ml) 1 mg IM ONCE PRN; Protocol PRN Reason: Adult Acute Hypoglycemia Prot. Glucagon (Glucagon 1 Mg/Ml Inj 1 Ml) 1 mg IM ONCE PRN; Protocol PRN Reason: Adult Acute Hypoglycemia Prot. Heparin Sodium (Beef Lung) (Heparin 5,000 Unit/Ml Inj 1 Ml) 5,000 unit SUBCUT Q12H [facility] Last Admin: 02/17/21 05:52 Dose: 5,000 unit Documented by: Dextrose (D5w) 500 mls @ 100 mls/hr IV ONCE PRN; Protocol PRN Reason: Adult Acute Hypoglycemia Prot Dextrose (D5w) 500 mls @ 100 mls/hr IV ONCE PRN; Protocol PRN Reason: Adult Acute Hypoglycemia Prot Cefepime HCl 1,000 mg/ Sodium (Chloride) 50 mls @ 100 mls/hr IV Q24H [facility]; Protocol Last Infusion: 02/16/21 22:45 Dose: Infused Documented by: Insulin Aspart (Insulin Aspart 100 Unit/1 Ml) 0 unit SUBCUT TIDWM [facility]; Protocol Last Admin: 02/16/21 18:32 Dose: 4 unit Documented by: Insulin Detemir (Insulin Detemir 100 Units/1 Ml) 5 unit SUBCUT Q12H [facility] Last Admin: 02/16/21 22:16 Dose: 5 unit Documented by: Lactulose (Lactulose Oral Liq 20 Gm/30 Ml Udc) 10 gm PO DAILY PRN; Protocol PRN Reason: Constipation (see protocol) Non-Formulary Medication (Cyanocobalamin (Vitamin B-12) [Vitamin B-12]) 5,000 mcg SUBLINGUAL DAILY [facility] Last Admin: 02/16/21 10:19 Dose: Not Given Documented by: Ondansetron HCl (Ondansetron 2 Mg/Ml Sdv 2 Ml) 4 mg IVP Q8H PRN PRN Reason: vomiting, or N/V if npo Pantoprazole Sodium (Pantoprazole 40 Mg Sdv) 40 mg IVP Q12H [facility] Last Admin: 02/17/21 05:37 Dose: 40 mg Documented by: Sodium Bicarbonate (Sodium Bicarbonate 650 Mg Tablet) 1,300 mg PO TID [facility] Last Admin: 02/16/21 22:15 Dose: 1,300 mg Documented by: Vitamin D (Cholecalciferol (Vitamin D3) 1,000 Unit Tablet) 1,000 unit PO DAILY [facility] Last Admin: 02/16/21 07:58 Dose: 1,000 unit Documented by: Zinc Gluconate (Zinc Gluconate 50 Mg Tablet) 50 mg PO DAILY [facility] Last Admin: 02/16/21 07:55 Dose: 50 mg Documented by: Vitals/I&O/Wt Last Vital Signs Temp 98.4 F 02/17/21 19:59 Pulse 100 02/17/21 20:25 Resp 18 02/17/21 20:25 BP 152/70 02/17/21 19:59 Pulse Ox 97 02/17/21 20:25 02/17/21 02/17/21 02/17/21 06:59 14:59 22:59 Intake Total 600 / 600 240 / 840 Output Total 1300 / 4600 1500 / 1500 Balance -1300 / -3170 600 / 600 -1260 / -660 Physical Exam Const: COMMON NORMALS: patient oriented x3 HENMT: COMMON NORMALS: normocephalic and atraumatic HEAD & SCALP: normocephalic and atraumatic Chest: COMMONS NORMALS: normal inspection of the chest and normal palpation of entire chest wall CHEST: Yes Symmetrical chest wall rise Resp: EFFORT & INSPECTION: Yes symmetric chest movement OTHER: B/L Coarse breath sounds Cardio: COMMON NORMALS: regular rate, regular rhythm, S1 normal heart sound present, S2 normal heart sound present, No gallops present (Cardio), No murmurs present (Cardio), No rub (Cardio) and Peripheral pulses 2+ throughout RATE: regular rate RHYTHM: regular rhythm HEART SOUNDS: S1 normal heart sound present and S2 normal heart sound present PERIPHERAL PULSES: Peripheral pulses 2+ throughout GI: COMMON NORMALS: Normal to inspection, nondistended, normoactive bowel sounds present, Soft to palpation, non-tender, No hepatosplenomegaly present and no masses AUSCULTATION: Yes normoactive bowel sounds PALPATION: Yes Soft to palpation and Yes No hepatosplenomegaly present RECTAL EXAM: Yes deferred Extremity: COMMON NORMALS: no clubbing, cyanosis or edema and no pedal edema Neuro: COMMON NORMALS: patient oriented x3 Urinary Catheter Management^: Barajas: Cath Placed During This Visit: yes Reason for Continuing Indwelling Catheter: Acute Urinary Retention or Obstruction Urinary Catheter Date of Insertion: 02/11/21 Data : 02/17/21 06:53 02/17/21 06:53 A&P Assessment and plan (1) Acute on chronic respiratory failure with hypoxia and hypercapnia: -Recent history of COVID-19 pneumonia, status post Decadron, remdesivir -Is not a candidate for barctinib or Actemra given concerns for secondary bacterial pneumonia and or possible fungal pneumonia -Secondary to pulmonary edema and/or secondary bacterial pneumonia -Has Pseudomonas positive sputum cultures, -CT of the chest shows: 1. Diffuse bilateral nonspecific pulmonary infiltrates are present, right worse than left. The right-sided infiltrates have worsened when compared to 01/29/2021. The left-sided infiltrates have improved slightly. 2. Small bilateral pleural effusions. Effusions have increased in size when compared to the prior study. 3. Mild cardiomegaly is noted. Small pericardial effusion noted. This is unchanged. Plan -De-escalate antibiotics to cefdinir 2 g every 12 hours, Pseudomonas is pansensitive, however prior cultures have been resistant, will have to have a PICC line in place, received cefdinir for at least 1 week -Caspofungin has been discontinued -Continues to diurese well, de-escalate to Lasix 40 mg p.o. daily -Bilateral venous ultrasound negative for DVT, CT angiogram could not be performed given creatinine, he is anemic, hemoglobin as low as 7.1, but I believe currently his risk of pulmonary emboli is fairly low, heparin drip has been discontinued -Hemoccult stool, Protonix, Carafate, monitor hemodynamics closely for anemia -Vitamin C, zinc, vitamin D -Decadron on hold -DuoNeb treatments, budesonide -Protonix for GI prophylaxis -Lovenox for DVT prophylaxis Systolic and diastolic CHF -Elevated BNP -Diuresis as above NSTEMI -Baseline troponin I 42, 6-hour 145, delta 3.9 -Likely supply demand ischemia given acute respiratory failure as above -However cannot rule out underlying cardiac etiology given risk factors and age -Aspirin, statin -Last echocardiogram showed a decline in ejection fraction down to 45 to 50%, mild global hypokinesis -Continue to monitor Possible COVID-19 related myocarditis, given elevated troponins, echo findings as above -We'll continue to monitor 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 -Has responded well to Lasix therapy, -Consult nephrology Severe aortic stenosis, in the setting of systolic and diastolic CHF -Treatment as above -We will require a TAVR as outpatient, needs to follow-up with cardiothoracic surgery as outpatient Acute on chronic anemia, status post units PRBC -Likely secondary to acute kidney injury, chronic kidney disease as above -However cannot rule out underlying GI pathology -Monitor hemoglobin, keep hemoglobin greater than 8 -Protonix, Carafate Type 2 diabetes mellitus, elevated blood sugars likely secondary to Decadron -Hold Decadron -Levemir 5 units twice daily -Moderate dose sliding scale Plan for today, PICC line to be placed tomorrow, de-escalate antibiotics to cefdinir, de-escalate Lasix to 40 mg daily, plan on discharge tomorrow Status: Acute (2) Pneumonia: Status: Acute (3) NSTEMI (non-ST elevated myocardial infarction): Status: Acute (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 (5) Acute kidney injury superimposed on CKD: Status: Acute (6) Severe aortic stenosis: Status: Acute (7) Acute on chronic anemia: Status: Acute (8) Leukocytosis: Status: Acute Qualifiers: Leukocytosis type: unspecified Qualified Code(s): D72.829 - Elevated white blood cell count, unspecified (9) COPD (chronic obstructive pulmonary disease): Status: Acute (10) Hypertension: Status: Acute Qualifiers: Hypertension type: essential hypertension Qualified Code(s): I10 - Essential (primary) hypertension Attestations Medical Necessity Statement*: Patient needs to be in hospital for the management of PNA Coding Level of Care Code Acute Sales Development Consultant for [facility] Fwd Diagnoses Acute on chronic respiratory failure with hypoxia and hypercapnia J96.21; J96.22 Pneumonia J18.9 NSTEMI (non-ST elevated myocardial infarction) I21.4 Myocarditis due to COVID-19 virus U07.1; I40.0 Acute kidney injury superimposed on CKD N17.9; N18.9 Severe aortic stenosis I35.0 Acute on chronic anemia D64.9 Leukocytosis D72.829 Leukocytosis type: unspecified COPD (chronic obstructive pulmonary disease) J44.9 Hypertension I10 Hypertension type: essential hypertension
[2021-02-17] MEDS: atorvastatin 40 mg Tablet PO (21:28)
[2021-02-18] VITALS (10 sets, daily range): BP systolic 138–162; BP diastolic 73–78; PULSE 86–104; RESP 16–20; TEMP 36.6–36.7; O2SAT 93–96
[2021-02-18] MEDS: heparin 5,000 unit/mL INJ 1 mL 5000 UNIT SUBCUT (05:38)
[2021-02-18 06:40] LABS: Glucose Point of Care 102 mg/dL (70-110)
--- NOTE | 2021-02-18 08:06 | P.PN_ITS ---
Subjective Subjective: Interval history: feels well. awaiting picc. eating well. no n/v/f/c/johnson. + wheezes, + leg edema Medications: Reviewed: Yes Medication Review Details: Current Medications Acetaminophen (Acetaminophen 325 Mg Tablet) 650 mg PO Q6H PRN PRN Reason: Mild/Mod Pain Or Temp >/= 101 Last Admin: 02/12/21 23:39 Dose: 650 mg Documented by: Albuterol/Ipratropium (Ipratropium-Albuterol 3 Ml Neb) 3 ml INHALATION QID.RESPIRATORY [facility]AYDEN Last Admin: 02/17/21 20:20 Dose: 3 ml Documented by: Ascorbic Acid (Ascorbic Acid 500 Mg Tablet) 500 mg PO BID [facility] Last Admin: 02/17/21 17:55 Dose: 500 mg Documented by: Aspirin (Aspirin 81 Mg Ec Tablet) 81 mg PO DAILY [facility] Last Admin: 02/17/21 09:11 Dose: 81 mg Documented by: Atorvastatin Calcium (Atorvastatin 40 Mg Tablet) 40 mg PO BEDTIME [facility] Last Admin: 02/17/21 21:28 Dose: 40 mg Documented by: Bisacodyl (Bisacodyl 5 Mg Tablet) 10 mg PO DAILY PRN; Protocol PRN Reason: Constipation (see protocol) Budesonide (Budesonide 0.5 Mg/2 Ml Neb) 0.5 mg INHALATION BID.RESPIRATORY [facility] Last Admin: 02/17/21 20:20 Dose: 0.5 mg Documented by: Calcium Acetate (Calcium Acetate 667 Mg Capsule) 667 mg PO TIDWM [facility] Last Admin: 02/17/21 17:56 Dose: 667 mg Documented by: Dextrose (Dextrose 50% Syringe 50 Ml) 25 ml IVP ONCE PRN; Protocol PRN Reason: hypoglycemia protocol Dextrose (Dextrose 50% Syringe 50 Ml) 50 ml IVP PRN PRN; Protocol PRN Reason: hypoglycemia protocol Dextrose (Dextrose 50% Syringe 50 Ml) 25 ml IVP ONCE PRN; Protocol PRN Reason: hypoglycemia protocol Dextrose (Dextrose 50% Syringe 50 Ml) 50 ml IVP PRN PRN; Protocol PRN Reason: hypoglycemia protocol Furosemide (Furosemide 40 Mg Tablet) 40 mg PO DAILY@0800 [facility] Last Admin: 02/17/21 09:11 Dose: 40 mg Documented by: Glucagon (Glucagon 1 Mg/Ml Inj 1 Ml) 1 mg IM ONCE PRN; Protocol PRN Reason: Adult Acute Hypoglycemia Prot. Glucagon (Glucagon 1 Mg/Ml Inj 1 Ml) 1 mg IM ONCE PRN; Protocol PRN Reason: Adult Acute Hypoglycemia Prot. Heparin Sodium (Beef Lung) (Heparin 5,000 Unit/Ml Inj 1 Ml) 5,000 unit SUBCUT Q12H [facility] Last Admin: 02/18/21 05:38 Dose: 5,000 unit Documented by: Dextrose (D5w) 500 mls @ 100 mls/hr IV ONCE PRN; Protocol PRN Reason: Adult Acute Hypoglycemia Prot Dextrose (D5w) 500 mls @ 100 mls/hr IV ONCE PRN; Protocol PRN Reason: Adult Acute Hypoglycemia Prot Cefepime HCl 1,000 mg/ Sodium (Chloride) 50 mls @ 100 mls/hr IV Q24H [facility]; Protocol Last Infusion: 02/17/21 21:56 Dose: Infused Documented by: Insulin Aspart (Insulin Aspart 100 Unit/1 Ml) 0 unit SUBCUT TIDWM [facility]; Protocol Last Admin: 02/18/21 07:35 Dose: Not Given Documented by: Insulin Detemir (Insulin Detemir 100 Units/1 Ml) 5 unit SUBCUT Q12H [facility] Last Admin: 02/17/21 21:28 Dose: 5 unit Documented by: Lactulose (Lactulose Oral Liq 20 Gm/30 Ml Udc) 10 gm PO DAILY PRN; Protocol PRN Reason: Constipation (see protocol) Non-Formulary Medication (Cyanocobalamin (Vitamin B-12) [Vitamin B-12]) 5,000 mcg SUBLINGUAL DAILY [facility] Last Admin: 02/17/21 09:16 Dose: Not Given Documented by: Ondansetron HCl (Ondansetron 2 Mg/Ml Sdv 2 Ml) 4 mg IVP Q8H PRN PRN Reason: vomiting, or N/V if npo Pantoprazole Sodium (Pantoprazole Dr 40 Mg Tablet) 40 mg PO BID [facility] Last Admin: 02/17/21 17:56 Dose: 40 mg Documented by: Sodium Bicarbonate (Sodium Bicarbonate 650 Mg Tablet) 650 mg PO TID [facility] Last Admin: 02/17/21 21:28 Dose: 650 mg Documented by: Vitamin D (Cholecalciferol (Vitamin D3) 1,000 Unit Tablet) 1,000 unit PO DAILY [facility] Last Admin: 02/17/21 09:10 Dose: 1,000 unit Documented by: Zinc Gluconate (Zinc Gluconate 50 Mg Tablet) 50 mg PO DAILY [facility] Last Admin: 02/17/21 09:11 Dose: 50 mg Documented by: Vitals/I&O/Wt Last Vital Signs Temp 97.8 F 02/18/21 03:25 Pulse 96 02/18/21 06:00 Resp 17 02/18/21 03:25 BP 138/74 02/18/21 03:25 Pulse Ox 95 02/18/21 03:25 02/17/21 02/18/21 02/18/21 22:59 06:59 14:59 Intake Total 530 / 1130 Output Total 1800 / 1800 1250 / 3050 Balance -1270 / -670 -1250 / -1920 Physical Exam Narrative: EXAM NARRATIVE: elderly man comfortable in bed, NARD VSS henet- nc/at, eomi, anicteric, q facial assymetry neck supple lungs - rt clear, left sided wheezes heart reg abd soft, nt, nd, +BS ext 1+ edema neuro- a,a, o x 3 exam by RN- telehealth visit Urinary Catheter Management^: Barajas: Cath Placed During This Visit: yes Reason for Continuing Indwelling Catheter: Acute Urinary Retention or Obstruction Urinary Catheter Date of Insertion: 02/11/21 Data : 02/17/21 06:53 02/17/21 06:53 A&P Additional A&P Information 1. 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 right sided pna/ recent covid- wbc back to 11 -abx per medicine 3. EF 45- 50% w/ moderate to severe and recent NSTEMI -cardiology eval - [place] [id number]- lasix per cardiology 4. anemia 5. mild hyponatremia- monitor on lasix 6. phos normal, normal pth- dec phoslo to 667 tid 7. met acidosis improved- dec sodium bicarb to 650 tid- wean off Patient seen and examined via telemedicine, with the assistance of the bedside RN > 25 min spent in evaluation and mgmt of patient Attestations Medical Necessity Statement*: per medicine, ckd stage 5 Time Spent in Patient Care: 16 - 35 minutes Coding Level of Care Code Acute Advertising Operations Manager for [facility] Lei
[2021-02-18] MEDS: zinc gluconate 50 mg Tablet PO (08:42)
[2021-02-18] MEDS: sodium bicarbonate 650 mg Tablet PO ×2 (08:43→15:54)
[2021-02-18] MEDS: cholecalciferol (vitamin D3) 1,000 unit Tablet 1000 UNIT PO (08:43)
[2021-02-18] MEDS: calcium acetate 667 mg Capsule PO ×2 (08:43→12:51)
[2021-02-18] MEDS: pantoprazole DR 40 mg Tablet PO (08:43)
[2021-02-18] MEDS: FUROsemide 40 mg Tablet PO (08:43)
[2021-02-18] MEDS: ascorbic acid 500 mg Tablet PO (08:43)
[2021-02-18] MEDS: aspirin 81 mg EC Tablet PO (08:43)
[2021-02-18 08:55] LABS: Anion Gap 15.2 (5-19); Calcium 8.2 mg/dL (8.5-10.5); Carbon Dioxide 32 mmol/L (22-29); Chloride 93 mmol/L (98-107); Glucose 123 mg/dL (65-115); Osmolality Calculated 311 mOsm/kg (285-295); Potassium 4.2 mmol/L (3.5-5.1); Sodium 136 mmol/L (136-145)
[2021-02-18 09:25] LABS: Blood Urea Nitrogen 91 mg/dL (8-23)
[2021-02-18] MEDS: budesonide 0.5 mg/2 mL Neb INHALATION (09:26)
[2021-02-18] MEDS: ipratropium-albuterol 3 mL Neb INHALATION ×2 (09:27→13:23)
--- NOTE | 2021-02-18 09:29 | PC.NURSE ---
Received call from lab stating patient's BUN is [address]. [address] Bejarano.
[2021-02-18 10:43] LABS: Glucose Point of Care 245 mg/dL (70-110)
--- NOTE | 2021-02-18 10:44 | PC.SOCIAL ---
IMM Updated Updated pt on Pg 2 IMM. No questions voiced. Provided pt a copy. Initialed, dated, & timed copy in chart.
--- NOTE | 2021-02-18 10:55 | PM.DCS ---
Discharge Providers Date of Admission: 02/11/21 17:56 Date of Discharge: February 18, 2021 Attending Provider at Admission: Johnna Kenney MD Attending Provider at Discharge: Harris Bejarano MD Primary Care Provider: Elizabeth Houston MD Diagnoses at Discharge Discharge Diagnosis (1) Acute on chronic respiratory failure with hypoxia and hypercapnia: Status: Acute (2) Pneumonia: Status: Acute (3) NSTEMI (non-ST elevated myocardial infarction): Status: Acute (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 (5) Acute kidney injury superimposed on CKD: Status: Acute (6) Severe aortic stenosis: Status: Acute (7) Acute on chronic anemia: Status: Acute (8) Leukocytosis: Status: Acute Qualifiers: Leukocytosis type: unspecified Qualified Code(s): D72.829 - Elevated white blood cell count, unspecified (9) COPD (chronic obstructive pulmonary disease): Status: Acute (10) Hypertension: Status: Acute Qualifiers: Hypertension type: essential hypertension Qualified Code(s): I10 - Essential (primary) hypertension Reason for Visit Reason for Visit: HYPOXIC Hospital Course Hospital Course 85 year old male with a past medical history of moderate aortic valve stenosis, moderate airflow obstruction COPD, systolic and diastolic CHF, s stage IV chronic kidney disease, history of pulmonary embolism not on anticoagulation, recent hospital admission for COVID-19 pneumonia with sepsis with acute hypoxic hypercapnic respiratory failure with NSTEMI, chronic anemia, who presents to [facility] due to complaints of weakness, fatigue, shortness of breath. During this hospital stay he was managed for Acute hypoxic hypercapnic respiratory failure secondary to Pseudomonas pneumonia (sputum culture) . Decompensated heart failure with reduced ejection fraction. He was kept on broad-spectrum antibiotics. And was discharged on levofloxacin 500 mg every 48 hours daily for additional 7-day. He also responded well to IV diuresis later it was transitioned to p.o. Lasix. He was also managed for NSTEMI type II secondary demand ischemia. 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.Severe aortic stenosis TAVR as outpatient, needs to follow-up with cardiothoracic surgery as outpatient.Acute on chronic anemia, status post units PRBC. Patient responded well to the above medical management at the time of discharge she was saturating well on room air. Patient is being discharged in stable condition to home. Physical Exam Const: COMMON NORMALS: patient oriented x3 HENMT: COMMON NORMALS: normocephalic and atraumatic HEAD & SCALP: normocephalic and atraumatic Chest: COMMONS NORMALS: normal inspection of the chest and normal palpation of entire chest wall CHEST: Yes Symmetrical chest wall rise Resp: EFFORT & INSPECTION: Yes symmetric chest movement OTHER: B/L Coarse breath sounds Cardio: COMMON NORMALS: regular rate, regular rhythm, S1 normal heart sound present, S2 normal heart sound present, No gallops present (Cardio), No murmurs present (Cardio), No rub (Cardio) and Peripheral pulses 2+ throughout RATE: regular rate RHYTHM: regular rhythm HEART SOUNDS: S1 normal heart sound present and S2 normal heart sound present PERIPHERAL PULSES: Peripheral pulses 2+ throughout GI: COMMON NORMALS: Normal to inspection, nondistended, normoactive bowel sounds present, Soft to palpation, non-tender, No hepatosplenomegaly present and no masses AUSCULTATION: Yes normoactive bowel sounds PALPATION: Yes Soft to palpation and Yes No hepatosplenomegaly present RECTAL EXAM: Yes deferred Extremity: COMMON NORMALS: no clubbing, cyanosis or edema and no pedal edema Neuro: COMMON NORMALS: patient oriented x3 Urinary Catheter Management^: [place]: Cath Placed During This Visit: yes Reason for Continuing Indwelling Catheter: Acute Urinary Retention or Obstruction Urinary Catheter Date of Insertion: 02/11/21 Discharge Data Data Completed and Pending: Completed Studies During Hospitalization Category Date Time Status CT chest wo con 7 1250 Urgent Cat Scan 02/11/21 17:[address] head wo con* 7 0450 Urgent Cat Scan 02/11/21 10:11 Completed XR chest 1V brie ble [id number] Routine Exams 02/12/21 07:00 Completed XR chest 1V brie ble [id number] Routine Exams 02/13/21 07:00 Completed XR chest 1V brie ble [id number] Routine Exams 02/14/21 07:00 Completed XR chest 1V brie ble [id number] Urgent Exams 02/11/21 10:11 [place] [id number] Urgent Ultrasound 02/12/21 18:03 Completed CV. echo limited 11270 Routine Ultrasound 02/12/21 18:03 Completed Pending at discharge Category Date Time Status Clostridioides Di fficile PCR Routin e Lab 02/11/21 17:57 Ordered Complete Blood Co unt w/Auto AM LABS Lab 02/19/21 04:00 Ordered Complete Blood Co unt w/Auto AM LABS Lab 02/20/21 04:00 Ordered Complete Blood Co unt w/Auto AM LABS Lab 02/21/21 04:00 Ordered Comprehensive Met abolic Panel AM LA BS Lab 02/19/21 04:00 Ordered Comprehensive Met abolic Panel AM LA BS Lab 02/20/21 04:00 Ordered Comprehensive Met abolic Panel AM LA BS Lab 02/21/21 04:00 Ordered Enteric Bacterial Panel by PCR Rout ine Lab 02/11/21 17:57 Ordered Enteric Parasite Panel by PCR Violai ne Lab 02/11/21 17:57 Ordered Immunochemical Fe danielle OCB Routine Lab 02/11/21 17:57 Ordered Lactoferrin Routi ne Lab 02/11/21 17:57 Ordered Magnesium AM LABS Lab 02/19/21 04:00 Ordered Magnesium AM LABS Lab 02/20/21 04:00 Ordered Magnesium AM LABS Lab 02/21/21 04:00 Ordered Phosphorus AM LAB S Lab 02/19/21 04:00 Ordered Phosphorus AM LAB S Lab 02/20/21 04:00 Ordered Phosphorus AM LAB S Lab 02/21/21 04:00 Ordered Labs from last 24 hours 02/18/21 02/18/21 02/18/21 10:34 08:24 06:21 Sodium 136 Potassium 4.2 Chloride 93 L Carbon Dioxide 32 H Anion Gap 15.2 BUN 91 H* Creatinine 3.9 H GFR Calculation Not Reportable Glucose 123 H POC Glucose 245 H 102 Calculated Osmolal ity 311 H Calcium 8.2 L 02/17/21 02/17/21 02/17/21 20:13 16:52 10:48 Sodium Potassium Chloride Carbon Dioxide Anion Gap BUN Creatinine GFR Calculation Glucose POC Glucose 165 H 167 H 219 H Calculated Osmolal ity Calcium Vitals: Last Vital Signs Temp 98.1 F 02/18/21 08:00 Pulse 101 H 02/18/21 09:35 Resp 18 02/18/21 09:35 BP 162/74 02/18/21 08:00 Pulse Ox 96 02/18/21 09:35 Discharge Plan Discharge Patient Disposition: Home Condition: Stable Prescriptions: New levofloxacin 500 mg tablet 500 mg PO Q48H 10 Days Qty: 5 RF: 0 Symbicort 80-4.5 mcg/actuation HFA aerosol inhaler 2 inh inhalation BID Qty: 10.2 RF: 0 Tessalon Perles 100 mg capsule 100 mg PO TID PRN (Reason: cough) Qty: 20 RF: 0 calcium acetate 667 mg tablet 667 mg PO TID Qty: 90 RF: 3 sodium bicarbonate 650 mg tablet 650 mg PO TID Qty: 90 RF: 3 Lasix 40 mg tablet 20 mg PO DAILY Qty: 30 RF: 3 Continued finasteride 5 mg tablet 5 mg PO DAILY RF: 0 Januvia 100 mg tablet 100 mg PO DAILY RF: 0 ezetimibe [Zetia] 10 mg tablet 10 mg PO DAILY RF: 0 glyburide 5 mg tablet See Rx Instructions .ROUTE .COMPLEX RF: 0 amlodipine 5 mg tablet 5 mg PO BID RF: 0 Trulicity 1.5 mg/0.5 mL pen injector 1.5 mg SUBCUT Q7D RF: 0 aspirin [Aspirin Childrens] 81 mg tablet,chewable 81 mg PO BID RF: 0 ascorbic acid (vitamin C) 500 mg capsule 1,000 mg PO DAILY RF: 0 garlic 1,000 mg capsule 1,000 mg PO DAILY RF: 0 montelukast 10 mg tablet 10 mg PO DAILY RF: 0 magnesium oxide 400 mg magnesium capsule 400 mg PO DAILY RF: 0 albuterol sulfate [Ventolin HFA] 90 mcg/actuation HFA aerosol inhaler 2 puff inhalation Q4H PRN (Reason: Shortness Of Breath) RF: 0 nitroglycerin [Nitrostat] 0.4 mg tablet, sublingual 0.4 mg sublingual Q5M PRN (Reason: chest pain) Qty: 25 RF: 3 ferrous sulfate 325 mg (65 mg iron) tablet See Rx Instructions .ROUTE .COMPLEX RF: 0 alprazolam 0.25 mg Tablet 0.25 mg PO Q8H PRN (Reason: Anxiety) RF: 0 Kyolic 1 tab PO DAILY RF: 0 carvedilol 25 mg tablet 25 mg PO BID RF: 0 furosemide 80 mg tablet 40 mg PO DAILY RF: 0 Hold Instructions: Resume on 02/13/21. omeprazole 20 mg capsule,delayed release(DR/EC) 20 mg PO DAILY RF: 0 zinc 50 mg Tablet 50 mg PO DAILY RF: 0 fgnjgwnzhjld-nagtpwhr-mgytvb Tablet 1 tab PO DAILY RF: 0 cholecalciferol (vitamin D3) [Vitamin D3] 125 mcg (5,000 unit) Tablet 125 mcg PO DAILY RF: 0 cyanocobalamin (vitamin B-12) [Vitamin B-12] 5,000 mcg Tablet, Sublingual 5,000 mcg SUBLINGUAL DAILY RF: 0 clonidine HCl 0.1 mg Tablet 0.1 mg PO .IF BP OVER 165/90 RF: 0 isosorbide mononitrate 30 mg tablet extended release 24 hr 30 mg PO DAILY Qty: 30 RF: 0 Discontinued doxycycline hyclate 100 mg tablet 100 mg PO BID 7 Days Qty: 14 RF: 0 Discharge Orders: Discharge Order (Routine); Ordered 02/18/21 Ordered By: Harris Bejarano Referrals: Elizabeth Houston MD [Primary Care Provider] - 02/25/21 10:45 am Discharge Diet: Diabetic Discharge Activity: Resume usual activity Patient Instructions: Levofloxacin (By mouth), Budesonide/Formoterol (By breathing), Pneumonia (GEN), Opioid Safety, Pneumonia Stoplight Discharge Attestations Time Spent in Discharge Care*: less than 30 min Specific Discharge Activities: educating patient, educating and/or supporting family/caregiver, discussing with pcp/other providers, discussing with block and case maker/social workers/dc planners, documenting/other paperwork and evaluating patient/reviewing data Status at Discharge: Cognitive status at discharge: cognitively intact, Behavioral status at discharge: cooperative, Quality Metrics Clinical Quality Measures During this hospital stay, did patient experience: None Coding Level of Care Code Acute Chg FW DC note Exam Detailed Diagnoses Acute on chronic respiratory failure with hypoxia and hypercapnia J96.21; J96.22 Pneumonia J18.9 NSTEMI (non-ST elevated myocardial infarction) I21.4 Myocarditis due to COVID-19 virus U07.1; I40.0 Acute kidney injury superimposed on CKD N17.9; N18.9 Severe aortic stenosis I35.0 Acute on chronic anemia D64.9 Leukocytosis D72.829 Leukocytosis type: unspecified COPD (chronic obstructive pulmonary disease) J44.9 Hypertension I10 Hypertension type: essential hypertension
[2021-02-18] MEDS: cefepime 1,000 MG in sodium chloride 0.9% (plus) 50 ML 100 MG IV (15:53)
--- NOTE | 2021-02-18 15:56 | PC.OT ---
OT TREATMENT HELD TODAY PATIENT IS SCHEDULED FOR DISCHARGE AND BUN:91. WILL CHECK ON PATIENT TOMORROW.
[2021-02-18 18:24] LABS: Glucose Point of Care 63 mg/dL (70-110)
[2021-02-18 18:24] LABS: Glucose Point of Care 101 mg/dL (70-110)
[2021-02-18 18:24] LABS: Glucose Point of Care 59 mg/dL (70-110)
--- NOTE | 2021-02-19 10:05 | PC.SOCIAL ---
discharge follow up call made. spoke with pts . she is wanting appointment with dr. mendoza to be sooner if possible, appointment changed to tomorrow. she reports pt is feeling good. didn't require home O2 at discharge. also wanting to make sure records get faxed to Dr. Pérez, cardiology, [place]. I will make sure they have the records they need to see patient.
== END 2021-02-18 17:29 | disposition home or self-care (01) | DRG 177 ==
LOC: ER 16:30 → ER IP 19:58 → MEDSURG 02-12 13:46
PROVIDERS: Family Medicine; Internal Medicine Nephrology; Admitting Provider Internal Medicine; Emergency Provider Emergency Medicine; PCP Family Medicine; Visit Provider Internal Medicine
DX: J15.1 Pneumonia due to Pseudomonas (principal); J96.21 Acute and chronic respiratory failure with hypoxia; I50.43 Acute on chronic combined systolic (congestive) and diastolic (congestive) heart failure; I21.A1 Myocardial infarction type 2; I40.0 Infective myocarditis; U07.1 COVID-19; J96.22 Acute and chronic respiratory failure with hypercapnia; N17.9 Acute kidney failure, unspecified; I13.0 Hypertensive heart and chronic kidney disease with heart failure and stage 1 through stage 4 chronic kidney disease, or unspecified chronic kidney disease; N18.4 Chronic kidney disease, stage 4 (severe); E87.1 Hypo-osmolality and hyponatremia; E87.2 Acidosis; J43.9 Emphysema, unspecified; E11.22 Type 2 diabetes mellitus with diabetic chronic kidney disease; D63.1 Anemia in chronic kidney disease; D64.9 Anemia, unspecified; I35.0 Nonrheumatic aortic (valve) stenosis; K21.9 Gastro-esophageal reflux disease without esophagitis; E78.00 Pure hypercholesterolemia, unspecified; J45.20 Mild intermittent asthma, uncomplicated; D72.829 Elevated white blood cell count, unspecified; E58 Dietary calcium deficiency; E87.5 Hyperkalemia; Z86.711 Personal history of pulmonary embolism; Z87.891 Personal history of nicotine dependence; Z87.440 Personal history of urinary (tract) infections; Z85.828 Personal history of other malignant neoplasm of skin; Z95.5 Presence of coronary angioplasty implant and graft; Z79.84 Long term (current) use of oral hypoglycemic drugs
CPT/HCPCS: 36415; 36416; 36430; 36600; 51702; 70450; 71045; 71250; 80048; 80053; 81001; 82550; 82728; 82803; 82962; 83605; 83690; 83735; 83880; 84100; 84145; 84443; 84484; 85018; 85025; 85378; 85610; 85730; 86140; 86403; 86850; 86900; 86920; 87040; 87070; 87077; 87086; 87186; 87205; 93005; 93308; 93970; 94640; 94660; 96365; 96366; 96367; 96372; 96375; 96376; 97110; 97161; 97165; 97530; 97535; 99284; 99291; C9113; J0637; J0692; J0743; J1100; J1644; J1815; J1940; J1956; J2020; J2310; J2543; J3370; J7050; J7626; P9016; Q3014